=== PATIENT | male | born 1955 | race African-American/Black ===

== ENCOUNTER → 2016-07-01 | Outpatient (CLI) | payer MEDICAID ==
[2016-07-01 15:22] LABS: HEMATOCRIT 29.6 % (37.9-51.0); HEMOGLOBIN 9.7 g/dL (13.5-17.0); HGB HCT DIFFERENCE -0.5; MEAN CORPUSCULAR HEMOGLOBIN 26.4 pg (27.0-33.4); MEAN CORPUSCULAR HGB CONC 32.7 g/dL (32.0-36.0); MEAN CORPUSCULAR VOLUME 81 fl (80-97); RED BLOOD COUNT 3.66 10^6/uL (4.35-5.55); RED CELL DISTRIBUTION WIDTH 17.3 % (11.5-14.0); WHITE BLOOD COUNT 7.7 10^3/uL (4.0-10.5)
[2016-07-01 15:30] LABS: APPEARANCE,URINE CLEAR; BILIRUBIN,URINE NEGATIVE (NEGATIVE); GLUCOSE, URINE 50 mg/dL (NEGATIVE); KETONES,URINE NEGATIVE (NEGATIVE); LEUKOCYTE ESTERASE,URINE NEGATIVE (NEGATIVE); NITRITE,URINE NEGATIVE (NEGATIVE); PROTEIN,URINE 100 mg/dL (NEGATIVE); URINE SPECIFIC GRAVITY 1.017
[2016-07-01 15:44] LABS: ANION GAP 15 (5-19); BLOOD UREA NITROGEN 29 mg/dL (7-20); CALCIUM 8.8 mg/dL (8.4-10.2); CARBON DIOXIDE 22 mmol/L (22-30); CHLORIDE 105 mmol/L (98-107); GLUCOSE 192 mg/dL (75-110); MAGNESIUM 1.7 mg/dL (1.6-2.3); POTASSIUM 4.1 mmol/L (3.6-5.0); SODIUM 141.6 mmol/L (137-145)
== END ==
LOC: OD 13:58
PROVIDERS: ATTEND Internal Medicine Nephrology
DX: E11.22 Type 2 diabetes mellitus with diabetic chronic kidney disease (principal); N18.3 Chronic kidney disease, stage 3 (moderate); E87.5 Hyperkalemia; R80.9 Proteinuria, unspecified
CPT/HCPCS: 36415; 80048; 81001; 83735; 85027

== ENCOUNTER → 2016-07-17 | Outpatient (CLI) | payer MEDICAID ==
[2016-07-17 12:04] LABS: HEMATOCRIT 30.4 % (37.9-51.0); HEMOGLOBIN 9.6 g/dL (13.5-17.0); HGB HCT DIFFERENCE -1.6; MEAN CORPUSCULAR HEMOGLOBIN 25.8 pg (27.0-33.4); MEAN CORPUSCULAR HGB CONC 31.6 g/dL (32.0-36.0); MEAN CORPUSCULAR VOLUME 81 fl (80-97); RED BLOOD COUNT 3.73 10^6/uL (4.35-5.55); RED CELL DISTRIBUTION WIDTH 16.8 % (11.5-14.0); WHITE BLOOD COUNT 8.7 10^3/uL (4.0-10.5)
[2016-07-17 12:21] LABS: ANION GAP 13 (5-19); BLOOD UREA NITROGEN 28 mg/dL (7-20); CALCIUM 9.2 mg/dL (8.4-10.2); CARBON DIOXIDE 21 mmol/L (22-30); CHLORIDE 108 mmol/L (98-107); CREATININE RESULT 1.59 mg/dL (0.52-1.25); GLUCOSE 258 mg/dL (75-110); POTASSIUM 5.2 mmol/L (3.6-5.0); SODIUM 142.3 mmol/L (137-145)
[2016-07-20 15:37] LABS: A/G RATIO 0.9 (0.7-1.7); ALBUMIN 2 3.1 g/dL (2.9-4.4); ALPHA-1-GLOBULIN 2 0.2 g/dL (0.0-0.4); PROTEIN TOTAL SERUM 6.7 g/dL (6.0-8.5)
== END ==
LOC: OD 10:42
PROVIDERS: ATTEND Internal Medicine Nephrology
DX: E11.22 Type 2 diabetes mellitus with diabetic chronic kidney disease (principal); N18.3 Chronic kidney disease, stage 3 (moderate); E87.5 Hyperkalemia; R80.9 Proteinuria, unspecified
CPT/HCPCS: 36415; 80048; 82728; 83540; 83550; 84165; 84443; 85027

== ENCOUNTER → 2016-08-03 | Outpatient (CLI) | payer MEDICAID ==
[2016-08-03 12:09] LABS: ABSOLUTE BASOPHILS # (AUTO) 0.1 10^3/uL (0.0-0.2); ABSOLUTE EOSINOPHILS # (AUTO) 0.3 10^3/uL (0.0-0.6); ABSOLUTE LYMPHOCYTES (AUTO) 2.7 10^3/uL (0.5-4.7); ABSOLUTE MONOCYTES (AUTO) 0.7 10^3/uL (0.1-1.4); ABSOLUTE NEUT (AUTO) 4.2 10^3/uL (1.7-8.2); BASOPHILS % (AUTO) 0.8 % (0-2); EOSINOPHILS % (AUTO) 3.5 % (0-6); HEMATOCRIT 29.7 % (37.9-51.0); HEMOGLOBIN 9.7 g/dL (13.5-17.0); HGB HCT DIFFERENCE -0.6; LYMPHOCYTES % (AUTO) 34.1 % (13-45); MEAN CORPUSCULAR HEMOGLOBIN 26.1 pg (27.0-33.4); MEAN CORPUSCULAR HGB CONC 32.6 g/dL (32.0-36.0); MEAN CORPUSCULAR VOLUME 80 fl (80-97); MONOCYTES % (AUTO) 8.4 % (3-13); SEGMENTED NEUTROPHILS % (AUTO) 53.2 % (42-78)
[2016-08-03 12:44] LABS: ANION GAP 12 (5-19); BLOOD UREA NITROGEN 29 mg/dL (7-20); CALCIUM 8.7 mg/dL (8.4-10.2); CARBON DIOXIDE 23 mmol/L (22-30); CHLORIDE 108 mmol/L (98-107); CREATININE RESULT 1.78 mg/dL (0.52-1.25); GLUCOSE 365 mg/dL (75-110); POTASSIUM 4.1 mmol/L (3.6-5.0); SODIUM 143.1 mmol/L (137-145)
== END ==
LOC: LAB 11:33
PROVIDERS: ATTEND Internal Medicine Nephrology
DX: G56.01 Carpal tunnel syndrome, right upper limb (principal); G56.02 Carpal tunnel syndrome, left upper limb; D64.9 Anemia, unspecified; N18.3 Chronic kidney disease, stage 3 (moderate)
CPT/HCPCS: 36415; 71010; 80048; 82728; 83540; 83550; 85025

== ENCOUNTER → 2016-09-14 | Outpatient (CLI) | payer OTHER, MEDICAID ==
[2016-09-14 14:15] LABS: APPEARANCE,URINE CLEAR; BILIRUBIN,URINE NEGATIVE (NEGATIVE); GLUCOSE, URINE NEGATIVE (NEGATIVE); KETONES,URINE NEGATIVE (NEGATIVE); LEUKOCYTE ESTERASE,URINE NEGATIVE (NEGATIVE); NITRITE,URINE NEGATIVE (NEGATIVE); PROTEIN,URINE 100 mg/dL (NEGATIVE); URINE SPECIFIC GRAVITY 1.012; UROBILINOGEN,URINE NEGATIVE mg/dL (<2.0)
[2016-09-14 14:17] LABS: HEMATOCRIT 34.6 % (37.9-51.0); HEMOGLOBIN 11.4 g/dL (13.5-17.0); HGB HCT DIFFERENCE -0.4; MEAN CORPUSCULAR HEMOGLOBIN 27.5 pg (27.0-33.4); MEAN CORPUSCULAR HGB CONC 32.9 g/dL (32.0-36.0); MEAN CORPUSCULAR VOLUME 84 fl (80-97); RED BLOOD COUNT 4.14 10^6/uL (4.35-5.55); RED CELL DISTRIBUTION WIDTH 18.4 % (11.5-14.0); WHITE BLOOD COUNT 7.4 10^3/uL (4.0-10.5)
[2016-09-14 14:34] LABS: ANION GAP 14 (5-19); BLOOD UREA NITROGEN 31 mg/dL (7-20); CALCIUM 9.4 mg/dL (8.4-10.2); CARBON DIOXIDE 21 mmol/L (22-30); CHLORIDE 111 mmol/L (98-107); CREATININE RESULT 1.78 mg/dL (0.52-1.25); GLUCOSE 115 mg/dL (75-110); POTASSIUM 4.9 mmol/L (3.6-5.0); SODIUM 145.9 mmol/L (137-145)
== END ==
LOC: OD 13:08
PROVIDERS: ATTEND Internal Medicine Nephrology
DX: I12.9 Hypertensive chronic kidney disease with stage 1 through stage 4 chronic kidney disease, or unspecified chronic kidney disease (principal); N18.3 Chronic kidney disease, stage 3 (moderate); E11.9 Type 2 diabetes mellitus without complications; D64.9 Anemia, unspecified
CPT/HCPCS: 36415; 80048; 81001; 82728; 83540; 83550; 85027

== ENCOUNTER → 2017-02-02 | Outpatient (CLI) | payer MEDICAID ==
[2017-02-02 13:18] LABS: HEMATOCRIT 28.4 % (37.9-51.0); HEMOGLOBIN 9.4 g/dL (13.5-17.0); HGB HCT DIFFERENCE -0.2; MEAN CORPUSCULAR HEMOGLOBIN 28.7 pg (27.0-33.4); MEAN CORPUSCULAR HGB CONC 33.1 g/dL (32.0-36.0); MEAN CORPUSCULAR VOLUME 87 fl (80-97); RED BLOOD COUNT 3.27 10^6/uL (4.35-5.55); RED CELL DISTRIBUTION WIDTH 14.5 % (11.5-14.0); WHITE BLOOD COUNT 8.5 10^3/uL (4.0-10.5)
[2017-02-02 13:22] LABS: APPEARANCE,URINE CLEAR; BILIRUBIN,URINE NEGATIVE (NEGATIVE); GLUCOSE, URINE 50 mg/dL (NEGATIVE); KETONES,URINE NEGATIVE (NEGATIVE); LEUKOCYTE ESTERASE,URINE NEGATIVE (NEGATIVE); NITRITE,URINE NEGATIVE (NEGATIVE); PROTEIN,URINE 100 mg/dL (NEGATIVE); URINE SPECIFIC GRAVITY 1.009; UROBILINOGEN,URINE NEGATIVE mg/dL (<2.0)
[2017-02-02 13:42] LABS: URINE CREATININE 67.4 mg/dL (22-328)
[2017-02-02 13:45] LABS: ANION GAP 10 (5-19); BLOOD UREA NITROGEN 29 mg/dL (7-20); CALCIUM 8.6 mg/dL (8.4-10.2); CARBON DIOXIDE 19 mmol/L (22-30); CHLORIDE 115 mmol/L (98-107); CREATININE RESULT 2.35 mg/dL (0.52-1.25); GLUCOSE 196 mg/dL (75-110); POTASSIUM 4.9 mmol/L (3.6-5.0); SODIUM 144.1 mmol/L (137-145)
== END ==
LOC: OD 12:03
PROVIDERS: ATTEND Internal Medicine Nephrology
DX: E87.5 Hyperkalemia (principal); N18.3 Chronic kidney disease, stage 3 (moderate); D64.9 Anemia, unspecified; R80.9 Proteinuria, unspecified
CPT/HCPCS: 36415; 80048; 81001; 82570; 84156; 85027

== ENCOUNTER → 2017-02-17 | Outpatient (CLI) | payer MEDICAID | LOC: OD 09:31 | PROVIDERS: ATTEND Urology | DX: N40.1 Benign prostatic hyperplasia with lower urinary tract symptoms (principal) | CPT/HCPCS: 36415; 84153 ==

== ENCOUNTER 2017-03-27 11:21 | Observation (INO) | payer MEDICAID ==
[2017-03-27] MEDS ORDERED: ONDANSETRON HCL INJ/PF 4 MG/2 ML SDV IV ONE (11:44)
[2017-03-27] MEDS ORDERED: NORMAL SALINE 1000 ML 1,000 ML IV ONE ×2 (11:44→14:55)
[2017-03-27] MEDS ORDERED: MORPHINE SULFATE 10 MG/ML INJ IV ONE (11:45)
[2017-03-27 11:54] LABS: ABSOLUTE BASOPHILS # (AUTO) 0.1 10^3/uL (0.0-0.2); ABSOLUTE EOSINOPHILS # (AUTO) 0.1 10^3/uL (0.0-0.6); ABSOLUTE LYMPHOCYTES (AUTO) 2.5 10^3/uL (0.5-4.7); ABSOLUTE MONOCYTES (AUTO) 0.8 10^3/uL (0.1-1.4); ABSOLUTE NEUT (AUTO) 8.1 10^3/uL (1.7-8.2); EOSINOPHILS % (AUTO) 0.6 % (0-6); HEMATOCRIT 35.6 % (37.9-51.0); HEMOGLOBIN 12.3 g/dL (13.5-17.0); HGB HCT DIFFERENCE 1.3; LYMPHOCYTES % (AUTO) 21.8 % (13-45); MEAN CORPUSCULAR HEMOGLOBIN 28.9 pg (27.0-33.4); MEAN CORPUSCULAR HGB CONC 34.4 g/dL (32.0-36.0); MEAN CORPUSCULAR VOLUME 84 fl (80-97); MONOCYTES % (AUTO) 6.7 % (3-13); RED BLOOD COUNT 4.25 10^6/uL (4.35-5.55); RED CELL DISTRIBUTION WIDTH 14.7 % (11.5-14.0); SEGMENTED NEUTROPHILS % (AUTO) 69.9 % (42-78); WHITE BLOOD COUNT 11.5 10^3/uL (4.0-10.5)
--- NOTE | 2017-03-27 12:03 | ER Document Report ---
ED GI/ - General Chief Complaint: Nausea/Vomiting Stated Complaint: VOMITING Time Seen by Provider: 03/27/17 11:43 Notes: Patient says he has been vomiting with abdominal pains since Wednesday. Has not had any diarrhea. No blood in vomitus. Abdominal pain is all over, but mostly in the upper central abdominal region. Has never had this before. No history of pancreatitis. Denies alcohol intake. Patient is an insulin-dependent diabetic. Blood sugars have not been running excessively high. Unaware of any fever. Never had any abdominal surgeries. TRAVEL OUTSIDE OF THE [place] IN LAST 30 DAYS: No - Related Data Allergies/Adverse Reactions: No Known Allergies Allergy (Verified 03/27/17 11:36) Past Medical History - Social History Smoking Status: Current Every Day Smoker Frequency of alcohol use: None Family History: Reviewed & Not Pertinent, DM - Past Medical History Cardiac Medical History: Reports: Hx Hypercholesterolemia, Hx Hypertension Endocrine Medical History: Reports: Hx Diabetes Mellitus Type 1, Hx Diabetes Mellitus Type 2 Musculoskeltal Medical History: Reports Hx Arthritis - GENERALIZED, Reports Other - Chronic back pain, no surgery Psychiatric Medical History: Reports: Hx Depression Past Surgical History: Reports: Hx Orthopedic Surgery - left knee - Immunizations Hx Diphtheria, Pertussis, Tetanus Vaccination: Yes - unk Review of Systems - Review of Systems Notes: REVIEW OF SYSTEMS: CONSTITUTIONAL : Denies fever. EENT: Denies eye, ear, nose or mouth or throat pain or other symptoms. CARDIOVASCULAR: Denies chest pain. RESPIRATORY: Denies cough, chest congestion, or shortness of breath. GASTROINTESTINAL: See HPI. GENITOURINARY: Denies difficulty or painful urinating, urinary frequency, blood in urine. MUSCULOSKELETAL: Denies back or neck pain. Denies joint pain or swelling. SKIN: Denies rash or skin lesions. NEUROLOGICAL: Denies LOC or altered mental status. Denies headache. Denies sensory loss or motor deficits. ALL OTHER SYSTEMS REVIEWED AND NEGATIVE. Physical Exam - Vital signs Vitals: Temp Pulse Resp BP Pulse Ox 98.0 F 101 H 16 158/84 H 100 03/27/17 11:31 03/27/17 11:31 03/27/17 11:31 03/27/17 11:31 03/27/17 11:31 Interpretation: Hypertensive - Very minimal - Notes Notes: PHYSICAL EXAMINATION: GENERAL: Well-appearing, in no acute distress. Vital signs are all essentially normal. HEAD: Atraumatic, normocephalic. EYES: Pupils equal round and reactive to light, extraocular movements intact. ENT: oropharynx clear without exudates. Moist mucous membranes. NECK: Normal range of motion, supple. LUNGS: Breath sounds clear and equal bilaterally. HEART: Regular rate and rhythm without murmurs. ABDOMEN: Tender epigastrium and right upper quadrant with some mild guarding in those areas. No other guarding or rebound. No masses felt. No bruits heard. BACK: No tenderness throughout entire back. EXTREMITIES: Normal range of motion without pain. NEUROLOGICAL: Normal speech, normal gait. Normal sensory, motor, and reflex exams. Awake, alert, and oriented x3. Cranial nerves normal. PSYCH: Normal mood, normal affect. SKIN: Warm, dry, no rashes. Course - Re-evaluation Re-evalutation: 03/27/17 12:25 Patient received Zofran and bolus of saline in route here with EMS. Patient was given morphine for his pain and more Zofran for nausea. 03/27/17 14:49 Labs reveal a very slight elevation in patient's lipase. CT scan shows calcifications of the pancreas suggestive of chronic pancreatitis. Patient's chemistries show increasing renal insufficiency with a creatinine of 3.00 and a BUN of 32. Discussed with hospitalist on-call who will admit the patient for observation to fluids and pain control. - Vital Signs Vital signs: Temp Pulse Resp BP Pulse Ox 98.0 F 101 H 25 H 154/81 H 99 03/27/17 11:31 03/27/17 11:31 03/27/17 12:01 03/27/17 12:01 03/27/17 12:01 - Laboratory Result Diagrams: 03/27/17 11:40 03/27/17 11:40 Laboratory results interpreted by me: 03/27/17 03/27/17 03/27/17 11:40 11:40 13:30 WBC 11.5 H RBC 4.25 L Hgb 12.3 L Hct 35.6 L RDW 14.7 H Potassium 3.5 L BUN 32 H Creatinine 3.00 H Est GFR ( Amer) 26 L Est GFR (Non-Af Amer) 22 L Glucose 196 H Direct Bilirubin 0.5 H AST 15 L ALT 19 L Alkaline Phosphatase 221 H Lipase 397.5 H Urine Protein >=500 H Urine Glucose (UA) 50 H Urine Blood SMALL H - Diagnostic Test Radiology reviewed: Image reviewed, Reports reviewed - CT scan of the abdomen shows calcifications of the pancreas, consistent with chronic pancreatitis. Gallbladder does not show any inflammation or stones. Appendix normal. - EKG Interpretation by Me EKG shows normal: Sinus rhythm Rate: Normal Rhythm: NSR Additional EKG results interpreted by me: 03/27/17 14:51 EKG shows no acute processes. Discharge - Discharge Clinical Impression: Abdominal pain, Pancreatitis, Renal insufficiency Condition: Stable Disposition: ADMITTED OBSERVATION Admitting Provider: Hospitalist Unit Admitted: Medical Floor Referrals: ELIAS KRUEGER MD [Primary Care Provider] - Follow up as needed
[2017-03-27 12:13] LABS: ALANINE AMINOTRANSFERASE 19 U/L (21-72); ALBUMIN 3.9 g/dL (3.5-5.0); ALKALINE PHOSPHATASE 221 U/L (38-126); ANION GAP 16 (5-19); ASPARTATE AMINO TRANSFERASE 15 U/L (17-59); BILIRUBIN,DIRECT 0.5 mg/dL (0.0-0.4); BILIRUBIN,TOTAL 0.5 mg/dL (0.2-1.3); BLOOD UREA NITROGEN 32 mg/dL (7-20); CALCIUM 9.3 mg/dL (8.4-10.2); CARBON DIOXIDE 24 mmol/L (22-30); CHLORIDE 104 mmol/L (98-107); GLUCOSE 196 mg/dL (75-110); LIPASE 397.5 U/L (23-300); POTASSIUM 3.5 mmol/L (3.6-5.0); SODIUM 143.9 mmol/L (137-145); TOTAL PROTEIN 7.4 g/dL (6.3-8.2)
[2017-03-27 13:59] LABS: APPEARANCE,URINE CLEAR; BILIRUBIN,URINE NEGATIVE (NEGATIVE); GLUCOSE, URINE 50 mg/dL (NEGATIVE); KETONES,URINE NEGATIVE (NEGATIVE); LEUKOCYTE ESTERASE,URINE NEGATIVE (NEGATIVE); NITRITE,URINE NEGATIVE (NEGATIVE); PROTEIN,URINE >=500 mg/dL (NEGATIVE); URINE SPECIFIC GRAVITY 1.016; UROBILINOGEN,URINE NEGATIVE mg/dL (<2.0)
--- NOTE | 2017-03-27 14:07 | RADIOLOGY REPORT (SQ) ---
EXAM DESCRIPTION: CT ABD/PELVIS NO ORAL OR IV COMPLETED DATE/TIME: 03/27/2017 1:50 pm REASON FOR STUDY: Epigtric,RUQ pain with vomit, renal insuffic, IDDM COMPARISON: 05/19/2016 TECHNIQUE: CT scan of the abdomen and pelvis performed without intravenous or oral contrast. Images reviewed with lung, soft tissue, and bone windows. Reconstructed coronal and sagittal MPR images revi ewed. All images stored on PACS. All CT scanners at this facility use dose modulation, iterative reconstruction, and/or weight based d osing when appropriate to reduce radiation dose to as low as reasonably achievable (ALARA). [facility]: Dose Right [facility]: CareDose [facility]: Dose Right [facility]: Teradose 4D [facility]: [employer] Technologies RADIATION DOSE: Up-to-date CT equipment and radiation dose reduction techniques were employed. CTDIv ol: 17.4 mGy. DLP: 1015 mGy-cm.mGy. LIMITATIONS: None. FINDINGS: LOWER CHEST: No acute findings. NON-CONTRASTED LIVER, SPLEEN, ADRENALS: Evaluation limited by lack of IV contrast. No identified sign ificant masses. PANCREAS: Calcifications consistent with chronic pancreatitis. GALLBLADDER: No identified stones by CT criteria. No inflammatory changes to suggest cholecystitis. RIGHT KIDNEY AND URETER: No suspicious masses. Assessment limited by lack of IV contrast. No signif icant calcifications. No hydronephrosis or hydroureter. LEFT KIDNEY AND URETER: No suspicious masses. Assessment limited by lack of IV contrast. No signifi cant calcifications. No hydronephrosis or hydroureter. AORTA AND RETROPERITONEUM: No aneurysm. No retroperitoneal masses or adenopathy. BOWEL AND PERITONEAL CAVITY: No obvious masses or inflammatory changes. No free fluid. APPENDIX: Normal. PELVIS, BLADDER, AND ABDOMINAL WALL:No abnormal masses. No free fluid. Bladder normal. BONES: No significant findings. OTHER: No other significant finding. IMPRESSION: Chronic pancreatitis. COMMENT: Quality ID # [id number]: Final reports with documentation of one or more dose reduction techniques (e.g., Automated exposure control, adjustment of the mA and/or kV according to patient size, use of iterative reconstruction technique) TECHNICAL DOCUMENTATION: JOB ID: [id number]- All Rights Reserved
[2017-03-27 15:16] LABS: CREATINE KINASE 218 U/L (55-170)
[2017-03-27 15:18] LABS: ALCOHOL < 10 mg/dL (NONE DETECTED)
[2017-03-27] MEDS ORDERED: FAMOTIDINE INJ/PF 20 MG/2 ML SDV IV ONE ×2 (15:21→16:00)
[2017-03-27 15:33] LABS: URINE BARBITURATES SCREEN NEGATIVE; URINE METHADONE SCREEN NEGATIVE; URINE PHENCYCLIDINE SCREEN NEGATIVE
[2017-03-27 15:35] LABS: URINE OPIATES LOW UNCONFIRMED POSITIVE
[2017-03-27] MEDS ORDERED: HALOPERIDOL LACTATE INJ 5 MG/1 ML VIAL IV ONE (15:35)
[2017-03-27] MEDS ORDERED: GLUCAGON,HUMAN RECOMB 1 MG INJ IM PRN (15:40)
[2017-03-27] MEDS ORDERED: INSULIN LISPRO 100 UNIT/ML 3 ML VIAL SUBCUT PRN (15:40)
[2017-03-27] MEDS ORDERED: DEXTROSE 50%-WATER 25 GM/50 ML DISP.SYRIN IV PRN ×2 (15:40)
[2017-03-27] MEDS ORDERED: DEXTROSE 40% GEL 15 GM TUBE PO PRN ×2 (15:40)
--- NOTE | 2017-03-27 15:54 | PDOC H&P ---
History of Present Illness Admission Date/PCP: ELIAS KRUEGER MD History of Present Illness: SANTIAGO AL is a 61 year old male with a past medical history of diabetes mellitus, hypertension, GERD, CKD stage III who presents to the emergency department with complaints of nausea vomiting abdominal pain. Patient reports that he began having nausea vomiting abdominal pain starting on Wednesday. He reports that he was recently switched to [place]. He complains of midepigastric and right upper quadrant pain although he does also complain of right lower quadrant pain. He reports he less than a bowel movement on Wednesday. He states his pain radiates through to his back. He reports he had a colonoscopy about 2 weeks ago and had polyps that were removed and he reports that he does not have to have a colonoscopy for 5 years. Patient denies ever having had pancreatitis before, but his CT reports chronic pancreatitis. Patient also denies the use of illicit drugs but his drug screen is positive for marijuana as well as cocaine. He is referred to the hospitalist service for intractable nausea vomiting abdominal pain Patient's medications are currently unavailable at this time and her undergoing reconciliation. He does not know them and reports he gets his medicines filled at Dr. Higgins. Past Medical History Cardiac Medical History: Reports: Hyperlipidema, Hypertension Denies: Coronary Artery Disease, Myocardial Infarction Pulmonary Medical History: Denies: Asthma, Bronchitis, Chronic Obstructive Pulmonary Disease (COPD), Pneumonia Neurological Medical History: Denies: Seizures Endocrine Medical History: Reports: Diabetes Mellitus Type 2 Renal/ Medical History: Reports: Chronic Kidney Disease GI Medical History: Reports: Gastroesophageal Reflux Disease Musculoskeltal Medical History: Reports: Arthritis - GENERALIZED, Other - Chronic back pain, no surgery Psychiatric Medical History: Reports: Depression, Substance Abuse, Tobacco Dependency Hematology: Reports: Anemia Past Surgical History Past Surgical History: Reports: Orthopedic Surgery - left knee, Other - Amputation of 3 toes Social History Smoking Status: Current Every Day Smoker Frequency of Alcohol Use: Occasional Hx Recreational Drug Use: No Drugs: None Hx Prescription Drug Abuse: No - Advance Directive Resuscitation Status: Full Code Surrogate healthcare decision maker:: Declines to list anyone at this time Family History Family History: DM Parental Family History Reviewed: Yes Children Family History Reviewed: Yes Sibling(s) Family History Reviewed.: Yes Medication/Allergy Home Medications: Aspirin [Aspirin 81 mg Chewable Tablet] 1 tab PO DAILY 12/05/15 Duloxetine HCl 1 cap PO DAILY 12/05/15 Insulin NPH Human Isophane [Humulin N] 75 units SQ 0500,2000 12/11/15 Ferrous Sulfate [Feosol 325 mg Tablet] 325 mg PO DAILY #30 tablet 12/14/15 Gabapentin [Neurontin 300 mg Capsule] 600 mg PO TID #180 capsule 12/14/15 Insulin Aspart [Novolog Flexpen] 0 unit SUBCUT .SLD SCALE #1 pen 12/14/15 Atorvastatin Calcium 40 mg PO DAILY 05/19/16 Pregabalin [Lyrica] 1 cap PO BID 05/19/16 Tamsulosin HCl [Tamsulosin HCl] 1 tab PO DAILY 05/19/16 Allergies/Adverse Reactions: No Known Allergies Allergy (Verified 03/27/17 11:36) Review of Systems Constitutional: ABSENT: chills, fever(s), headache(s), weight gain, weight loss Eyes: ABSENT: visual disturbances Ears: ABSENT: hearing changes Cardiovascular: ABSENT: chest pain, dyspnea on exertion, edema, orthropnea, palpitations Respiratory: ABSENT: cough, dyspnea, hemoptysis, sputum Gastrointestinal: PRESENT: abdominal pain, heartburn, nausea, vomiting. ABSENT : coffee ground emesis, constipation, diarrhea, hematemesis, hematochezia, melena Genitourinary: ABSENT: dysuria, hematuria, nocturia Musculoskeletal: PRESENT: back pain. ABSENT: joint swelling Integumentary: ABSENT: rash, wounds Neurological: PRESENT: other - Chronic neuropathy. ABSENT: abnormal gait, abnormal speech, confusion, dizziness, focal weakness, syncope Psychiatric: ABSENT: anxiety, depression, homidical ideation, suicidal ideation Endocrine: ABSENT: cold intolerance, heat intolerance, polydipsia, polyuria Hematologic/Lymphatic: ABSENT: easy bleeding, easy bruising Physical Exam Vital Signs: Temp Pulse Resp BP Pulse Ox 98.0 F 101 H 25 H 154/81 H 99 03/27/17 11:31 03/27/17 11:31 03/27/17 12:01 03/27/17 12:01 03/27/17 12:01 General appearance: PRESENT: mild distress, obese, well-developed, well- nourished Head exam: PRESENT: atraumatic, normocephalic Eye exam: PRESENT: conjunctiva pink, EOMI, PERRLA. ABSENT: scleral icterus Ear exam: PRESENT: normal external ear exam Mouth exam: PRESENT: moist, tongue midline Neck exam: ABSENT: JVD, lymphadenopathy, thyromegaly, tracheal deviation Respiratory exam: PRESENT: prolonged expiratory phas, symmetrical, unlabored, wheezes - Light end expiratory. ABSENT: accessory muscle use, crackles, rales, rhonchi, tachypnea Cardiovascular exam: PRESENT: RRR. ABSENT: diastolic murmur, rubs, systolic murmur Pulses: PRESENT: normal radial pulses Vascular exam: PRESENT: normal capillary refill GI/Abdominal exam: PRESENT: distended, guarding - Over exaggerated voluntary, hypoactive bowel sounds, normal bowel sounds, soft, tenderness - Diffusely particularly right lower right upper and midepigastric. ABSENT: firm, mass, organolmegaly, rebound, rigid Rectal exam: PRESENT: deferred Extremities exam: PRESENT: full ROM. ABSENT: clubbing, pedal edema Neurological exam: PRESENT: alert, awake, oriented to person, oriented to place , oriented to time, oriented to situation, CN II-XII grossly intact. ABSENT: motor sensory deficit Psychiatric exam: PRESENT: appropriate affect, other - Hospital. ABSENT: homicidal ideation, suicidal ideation Skin exam: PRESENT: dry, warm. ABSENT: cyanosis, rash Results Laboratory Results: 03/27/17 11:40 03/27/17 11:40 03/27/17 03/27/17 03/27/17 11:40 11:40 13:30 WBC 11.5 H RBC 4.25 L Hgb 12.3 L Hct 35.6 L MCV 84 MCH 28.9 MCHC 34.4 RDW 14.7 H Plt Count 283 Seg Neutrophils % 69.9 Lymphocytes % 21.8 Monocytes % 6.7 Eosinophils % 0.6 Basophils % 1.0 Absolute Neutrophils 8.1 Absolute Lymphocytes 2.5 Absolute Monocytes 0.8 Absolute Eosinophils 0.1 Absolute Basophils 0.1 Sodium 143.9 Potassium 3.5 L Chloride 104 Carbon Dioxide 24 Anion Gap 16 BUN 32 H Creatinine 3.00 H Est GFR ( Amer) 26 L Est GFR (Non-Af Amer) 22 L Glucose 196 H Calcium 9.3 Total Bilirubin 0.5 AST 15 L ALT 19 L Alkaline Phosphatase 221 H Total Protein 7.4 Albumin 3.9 Lipase 397.5 H Urine Color YELLOW Urine Appearance CLEAR Urine pH 6.0 Ur Specific [place] 1.016 Urine Protein >=500 H Urine Glucose (UA) 50 H Urine Ketones NEGATIVE Urine Blood SMALL H Urine Nitrite NEGATIVE Ur Leukocyte Esterase NEGATIVE Urine WBC (Auto) 1 Urine RBC (Auto) 9 03/27/17 03/27/17 11:40 11:40 Creatine Kinase 218 H Troponin I 0.015 Impressions: Abdomen/Pelvis CT 03/27/17 12:55 IMPRESSION: Chronic pancreatitis. Assessment & Plan - Diagnosis (1) Abdominal pain Qualifiers: Abdominal location: unspecified location Qualified Code(s): R10.9 - Unspecified abdominal pain Is this a current diagnosis for this admission?: Yes Plan: Patient has multiple reasons for abdominal pain. He is constipated. He has chronic pancreatitis. I also have concerns patient may have a component of cyclic vomiting syndrome secondary to gastroparesis plus or minus THC-induced cyclic vomiting. (2) Acute on chronic renal failure Qualifiers: Chronic kidney disease stage: stage 3 (moderate) Is this a current diagnosis for this admission?: Yes Plan: Gentle hydration (3) Chronic pancreatitis Qualifiers: Pancreatitis type: unspecified pancreatitis type Qualified Code(s): K86.1 - Other chronic pancreatitis Is this a current diagnosis for this admission?: Yes Plan: Check FLP and right upper quadrant ultrasound (4) Constipation Qualifiers: Constipation type: unspecified constipation type Qualified Code(s): K59.00 - Constipation, unspecified Is this a current diagnosis for this admission?: Yes Plan: Patient is quite constipated and is easily visible on his CAT scan. Will give Dulcolax (5) Diabetic neuropathy Qualifiers: Diabetes mellitus type: type 2 Diabetes mellitus complication detail: diabetic polyneuropathy Qualified Code(s): E11.42 - Type 2 diabetes mellitus with diabetic polyneuropathy Is this a current diagnosis for this admission?: Yes Plan: We will resume patient's Lyrica at a lower dose. He was apparently receiving 225 mg p.o. twice daily as an outpatient as of October, but this is not an appropriate dose based on his renal function. We will adjust this for max dose of 150mg daily. (6) Tobacco abuse Is this a current diagnosis for this admission?: Yes Plan: Have offered nicotine patch but he declined - Time Time Spent: 50 to 70 Minutes Medications reviewed and adjusted accordingly: Yes Anticipated discharge: Home Within: within 48 hours
[2017-03-27] MEDS ORDERED: METOCLOPRAMIDE HCL INJ/PF 10 MG/2 ML SDV IV ONE (16:00)
[2017-03-27] MEDS ORDERED: MORPHINE SULFATE 10 MG/ML INJ IV PRN (16:19)
--- NOTE | 2017-03-27 16:29 | EKG REPORT ---
SEVERITY:- ABNORMAL ECG - SINUS RHYTHM ABNRM R PROG, CONSIDER ASMI OR LEAD PLACEMENT BORDERLINE T WAVE ABNORMALITIES BORDERLINE PROLONGED QT INTERVAL : Confirmed by: Mireya George 27-Mar-2017 16:28:53
[2017-03-27] MEDS ORDERED: PANTOPRAZOLE SODIUM 40 MG VIAL IV ONE (16:30)
[2017-03-27] MEDS ORDERED: METHYLPREDNISOLONE INJ 40 MG/1 ML SDV IV ONE (16:30)
[2017-03-27] MEDS ORDERED: DIPHENHYDRAMINE HCL 50 MG/ML VIAL IV ONE (17:00)
--- NOTE | 2017-03-27 17:21 | RADIOLOGY REPORT (SQ) ---
EXAM DESCRIPTION: U/S ABDOMEN LIMITED W/O DOP COMPLETED DATE/TIME: 03/27/2017 5:06 pm REASON FOR STUDY: elevated alp COMPARISON: None. TECHNIQUE: Dynamic and static grayscale images acquired of the abdomen and recorded on PACS. Additio nal selected color Doppler and spectral images recorded. LIMITATIONS: Body habitus. FINDINGS: PANCREAS: Intervening bowel gas obscures visualization of the pancreas. LIVER: No masses. Echotexture normal. LIVER VASCULATURE: Normal directional flow of the main portal vein and hepatic veins. GALLBLADDER: No stones. Normal wall thickness. No pericholecystic fluid. ULTRASOUND-DETECTED HADLEY'S SIGN: Negative. INTRAHEPATIC DUCTS AND COMMON DUCT: CBD and intrahepatic ducts normal caliber. No filling defects. INFERIOR VENA CAVA: Not assessed. AORTA: The proximal aorta measures 2.1 cm; the mid and distal aorta were not adequately visualized. RIGHT KIDNEY: Normal size. Normal echogenicity. No solid or suspicious masses. No hydronephrosis. No calcifications. PERITONEAL AND RIGHT PLEURAL SPACE: No ascites or effusions. OTHER: No other significant findings. IMPRESSION: Limited examination due to body habitus. No evidence of cholecystitis. No intrahepatic or extrahepatic biliary dilation. The pancreas was not adequately visualized. TECHNICAL DOCUMENTATION: JOB ID: [id number] [employer]- All Rights Reserved
[2017-03-27] MEDS: NORMAL SALINE 1000 ML 1,000 ML IV PRN (18:15)
[2017-03-27 18:41] LABS: CREATINE KINASE MB 0.77 ng/mL (<4.55); TROPONIN I 0.018 ng/mL
[2017-03-27] MEDS: METOCLOPRAMIDE HCL INJ/PF 10 MG/2 ML SDV IV SCH (23:06)
[2017-03-27] MEDS: HEPARIN SOD (PORCINE) 5,000 UNIT/ML 1 ML SYRINGE SUBCUT SCH (23:06)
[2017-03-28 00:52] LABS: CREATINE KINASE MB 1.21 ng/mL (<4.55); TROPONIN I 0.022 ng/mL
[2017-03-28] MEDS: METOCLOPRAMIDE HCL INJ/PF 10 MG/2 ML SDV IV SCH ×3 (04:28→14:32)
[2017-03-28 06:29] LABS: CHOLESTEROL 140.65 mg/dL (0-200); Direct HDL 38 mg/dL (>40); TRIGLYCERIDES 133 mg/dL (<150)
[2017-03-28 06:40] LABS: DIRECT LDL 76 mg/dL (<100)
[2017-03-28 06:42] LABS: CREATINE KINASE MB 1.13 ng/mL (<4.55); TROPONIN I 0.026 ng/mL
[2017-03-28] MEDS: HEPARIN SOD (PORCINE) 5,000 UNIT/ML 1 ML SYRINGE SUBCUT SCH ×2 (06:51→14:32)
[2017-03-28] MEDS ORDERED: BISACODYL 5 MG TABEC PO ONE (07:34)
[2017-03-28] MEDS: NORMAL SALINE 1000 ML 1,000 ML IV PRN (08:02)
[2017-03-28 09:44] LABS: ABSOLUTE BASOPHILS # (AUTO) 0.1 10^3/uL (0.0-0.2); ABSOLUTE LYMPHOCYTES (AUTO) 2.6 10^3/uL (0.5-4.7); ABSOLUTE MONOCYTES (AUTO) 1.4 10^3/uL (0.1-1.4); ABSOLUTE NEUT (AUTO) 8.2 10^3/uL (1.7-8.2); BASOPHILS % (AUTO) 0.8 % (0-2); EOSINOPHILS % (AUTO) 0.1 % (0-6); HEMATOCRIT 33.2 % (37.9-51.0); HGB HCT DIFFERENCE -0.2; MEAN CORPUSCULAR HEMOGLOBIN 28.3 pg (27.0-33.4); MEAN CORPUSCULAR HGB CONC 33.2 g/dL (32.0-36.0); MEAN CORPUSCULAR VOLUME 85 fl (80-97); MONOCYTES % (AUTO) 11.1 % (3-13); RED BLOOD COUNT 3.89 10^6/uL (4.35-5.55); RED CELL DISTRIBUTION WIDTH 14.7 % (11.5-14.0); WHITE BLOOD COUNT 12.2 10^3/uL (4.0-10.5)
[2017-03-28 10:01] LABS: ANION GAP 14 (5-19); BLOOD UREA NITROGEN 29 mg/dL (7-20); CARBON DIOXIDE 22 mmol/L (22-30); CHLORIDE 110 mmol/L (98-107); CREATININE RESULT 2.39 mg/dL (0.52-1.25); GLUCOSE 171 mg/dL (75-110); SODIUM 146.2 mmol/L (137-145)
[2017-03-28] MEDS ORDERED: INSULIN GLARGINE,HUM.REC.ANLOG 1,000 UNIT/10 ML UNIT SUBCUT ONE (13:00)
[2017-03-28] MEDS ORDERED: INFLUENZA ADLT QUAD (36MOS+) 2017-18 VAC 0.5 ML SYR IM PRN (14:38)
[2017-03-28 16:36] VITALS: BP 158/93
--- NOTE | 2017-03-28 16:59 | PDOC DISCHARGE SUMMARY ---
General - Admit/Disc Date/PCP Admission Date/Primary Care Provider: 03/27/17 15:37 ELIAS KRUEGER MD Discharge Date: 03/28/17 - Discharge Diagnosis (1) Acute on chronic renal failure Is this a current diagnosis for this admission?: Yes (2) Constipation Is this a current diagnosis for this admission?: Yes (3) Chronic pancreatitis Is this a current diagnosis for this admission?: Yes (4) Diabetic neuropathy Is this a current diagnosis for this admission?: Yes (5) Tobacco abuse Is this a current diagnosis for this admission?: Yes (6) Cocaine abuse Is this a current diagnosis for this admission?: Yes (7) Marijuana abuse Is this a current diagnosis for this admission?: Yes - Additional Information Resuscitation Status: Full Code Discharge Diet: Cardiac, Diabetic Discharge Activity: Activity As Tolerated Home Medications: Amlodipine Besylate [Norvasc 10 mg Tablet] 10 mg PO DAILY 03/28/17 Aspirin [Aspirin EC] 81 mg PO DAILY 03/28/17 Atorvastatin Calcium [Lipitor 40 mg Tablet] 40 mg PO QHS 03/28/17 Duloxetine HCl [Cymbalta] 30 mg PO DAILY 03/28/17 Insulin Glargine,Hum.rec.anlog [Lantus Insulin 100 Unit/1 ml 10 ml] 55 unit SUBCUT QHS 03/28/17 Insulin Regular, Human [Humulin R (Reg) Insulin 100 unit/mL] 0 unit SUBCUT .SLD SCALE 03/28/17 Lancets [Lancets Ultra Thin] 1 each ASDIR PRN #1 bottle 03/28/17 Losartan/Hydrochlorothiazide [Hyzaar 100-12.5 Tablet] 1 each PO DAILY 03/28/17 Pen Needle, Diabetic [Novotwist] 1 each ASDIR PRN #1 bot 03/28/17 Pregabalin [Lyrica 75 mg Capsule] 75 mg PO Q12 03/28/17 Timolol Maleate [Timoptic 0.5% Oph Soln 5 ml] 1 drop OS BID 03/28/17 History of Present Illness History of Present Illness: SANTIAGO AL is a 61 year old male with a past medical history of diabetes mellitus, hypertension, GERD, CKD stage III who presents to the emergency department with complaints of nausea vomiting abdominal pain. Patient reports that he began having nausea vomiting abdominal pain starting on Wednesday. He reports that he was recently switched to [place]. He complains of midepigastric and right upper quadrant pain although he does also complain of right lower quadrant pain. He reports he less than a bowel movement on Wednesday. He states his pain radiates through to his back. He reports he had a colonoscopy about 2 weeks ago and had polyps that were removed and he reports that he does not have to have a colonoscopy for 5 years. Patient denies ever having had pancreatitis before, but his CT reports chronic pancreatitis. Patient also denies the use of illicit drugs but his drug screen is positive for marijuana as well as cocaine. He is referred to the hospitalist service for intractable nausea vomiting abdominal pain Patient's medications are currently unavailable at this time and her undergoing reconciliation. He does not know them and reports he gets his medicines filled at Dr. Higgins. Hospital Course Hospital Course: Haldol in the emergency department with relief of his nausea and vomiting. Patient's urine drug screen did reveal marijuana and cocaine. He admitted to marijuana usage but was unsure how cocaine came to be in his system. Patient's abdominal pain was felt to be secondary to chronic constipation. Patient's CT revealed a large amount of stool in the right lower quadrant. Patient was able to tolerate oral without vomiting and had no recurrence of his pain. Patient received IV fluids which resulted in improvement of his creatinine to his baseline. Patient was discharged in stable condition to follow-up with his primary care provider for further evaluation. Physical Exam Vital Signs: Temp Pulse Resp BP Pulse Ox 98.8 F 98 17 158/93 H 100 03/28/17 16:34 03/28/17 16:34 03/28/17 16:34 03/28/17 16:34 03/28/17 16:34 Intake & Output 03/27/17 03/28/17 03/29/17 06:59 06:59 06:59 Intake Total 0 600 Output Total 550 Balance 0 50 Weight 106.5 kg Exam: General: Awake alert and oriented x3, no acute respiratory distress HEENT: AT/NC, PERRL, EOMI, oropharynx is moist, pink, no scleral icterus, no conjunctival injection Neck: No JVD, trachea midline Chest: Clear to auscultation bilaterally, no wheezes rhonchi or rales CV: Regular rate and rhythm, normal S1 and S2, no murmur, rub, or gallop Abdomen: Soft, nontender to palpation, nondistended, active bowel sounds; no rebound, rigidity, or guarding Extremities: No cyanosis, clubbing or edema Neuro: Cranial nerves II through XII are grossly intact without focal deficits; awake alert and oriented x3 Psych: Normal mood and affect Results Laboratory Results: 03/28/17 09:23 03/28/17 09:23 03/28/17 03/28/17 03/28/17 05:54 09:23 09:23 WBC 12.2 H RBC 3.89 L Hgb 11.0 L Hct 33.2 L MCV 85 MCH 28.3 MCHC 33.2 RDW 14.7 H Plt Count 252 Seg Neutrophils % 67.0 Lymphocytes % 21.0 Monocytes % 11.1 Eosinophils % 0.1 Basophils % 0.8 Absolute Neutrophils 8.2 Absolute Lymphocytes 2.6 Absolute Monocytes 1.4 Absolute Eosinophils 0.0 Absolute Basophils 0.1 Sodium 146.2 H Potassium 4.0 Chloride 110 H Carbon Dioxide 22 Anion Gap 14 BUN 29 H Creatinine 2.39 H Est GFR ( Amer) 34 L Est GFR (Non-Af Amer) 28 L Glucose 171 H Calcium 9.0 Triglycerides 133 Cholesterol 140.65 LDL Cholesterol Direct 76 VLDL Cholesterol 27.0 HDL Cholesterol 38 L 03/27/17 03/27/17 03/28/17 18:03 18:03 00:12 Creatine Kinase 202 H 212 H CK-MB (CK-2) 0.77 Troponin I 0.018 03/28/17 03/28/17 03/28/17 00:12 05:54 05:54 Creatine Kinase 249 H CK-MB (CK-2) 1.21 1.13 Troponin I 0.022 0.026 Impressions: Abdomen Ultrasound 03/27/17 00:00 IMPRESSION: Limited examination due to body habitus. No evidence of cholecystitis. No intrahepatic or extrahepatic biliary dilation. The pancreas was not adequately visualized. Abdomen/Pelvis CT 03/27/17 12:55 IMPRESSION: Chronic pancreatitis. Qualifiers PATEINT BEING DISCHARGED WITH ANY OF THE FOLLOWING DIAGNOSIS?: No Plan Time Spent: Less than 30 Minutes
[2017-03-28] MEDS ORDERED: AMLODIPINE BESYLATE 10 MG TABLET PO ONE (17:00)
[2017-03-28] MEDS ORDERED: TIMOLOL MALEATE 0.5% OPH SOLN 5 ML OS SCH (18:00)
[2017-03-28] MEDS ORDERED: ATORVASTATIN CALCIUM 40 MG TABLET PO SCH (22:00)
[2017-03-28] MEDS ORDERED: PREGABALIN 75 MG CAPSULE PO SCH (22:00)
[2017-03-28] MEDS ORDERED: INSULIN GLARGINE,HUM.REC.ANLOG 1,000 UNIT/10 ML UNIT SUBCUT SCH (22:00)
[2017-03-29] MEDS ORDERED: AMLODIPINE BESYLATE 10 MG TABLET PO SCH (10:00)
[2017-03-29] MEDS ORDERED: DULOXETINE HCL 30 MG CAPSULE.DR PO SCH (10:00)
[2017-03-29] MEDS ORDERED: ASPIRIN 81 MG TABLET, ENT COATED PO SCH (10:00)
== END 2017-03-28 17:04 | disposition home or self-care (01) ==
LOC: ER 11:21 → EH 15:37 → UNDOADMOB 15:43 → EH 15:43 → 5 18:01
PROVIDERS: ADMIT Family Medicine; ATTEND Family Medicine
PROC: 3E0234Z Introduction of Serum, Toxoid and Vaccine into Muscle, Percutaneous Approach (ICD-10-PCS; principal; 2017-03-28)
DX: N17.9 Acute kidney failure, unspecified (principal); I12.9 Hypertensive chronic kidney disease with stage 1 through stage 4 chronic kidney disease, or unspecified chronic kidney disease; E11.22 Type 2 diabetes mellitus with diabetic chronic kidney disease; N18.3 Chronic kidney disease, stage 3 (moderate); E11.42 Type 2 diabetes mellitus with diabetic polyneuropathy; K86.1 Other chronic pancreatitis; K59.00 Constipation, unspecified; F14.10 Cocaine abuse, uncomplicated; F12.10 Cannabis abuse, uncomplicated; K21.9 Gastro-esophageal reflux disease without esophagitis; F17.200 Nicotine dependence, unspecified, uncomplicated; Z79.4 Long term (current) use of insulin; Z79.899 Other long term (current) drug therapy; Z86.010 Personal history of colon polyps; Z89.429 Acquired absence of other toe(s), unspecified side
CPT/HCPCS: 93005; 96376; 99285; 96361; 96374; 96375; 36415 ×2; 82553 ×2; 82962 ×2; 80307 ×2; 82550 ×2; 83690; 83735; 85025 ×2; 80048; 80053; 81001; 84484 ×2; 80061; 76705; 74176; 90686; 94799; 93010; G0378 ×3; J1815 ×2; J1644 ×2; J1630; J2920; J2765 ×2; J2270; S0164; J3490; J2405; J7030 ×2; S0028

== ENCOUNTER → 2017-04-05 | Outpatient (CLI) | payer MEDICAID ==
[2017-04-05 15:26] LABS: HEMATOCRIT 32.6 % (37.9-51.0); HEMOGLOBIN 10.7 g/dL (13.5-17.0); HGB HCT DIFFERENCE -0.5; MEAN CORPUSCULAR HEMOGLOBIN 28.1 pg (27.0-33.4); MEAN CORPUSCULAR VOLUME 85 fl (80-97); RED BLOOD COUNT 3.82 10^6/uL (4.35-5.55); RED CELL DISTRIBUTION WIDTH 14.9 % (11.5-14.0); WHITE BLOOD COUNT 9.4 10^3/uL (4.0-10.5)
[2017-04-05 15:26] LABS: APPEARANCE,URINE CLEAR; BILIRUBIN,URINE NEGATIVE (NEGATIVE); GLUCOSE, URINE NEGATIVE (NEGATIVE); KETONES,URINE NEGATIVE (NEGATIVE); LEUKOCYTE ESTERASE,URINE NEGATIVE (NEGATIVE); NITRITE,URINE NEGATIVE (NEGATIVE); PROTEIN,URINE >=500 mg/dL (NEGATIVE); URINE SPECIFIC GRAVITY 1.012; UROBILINOGEN,URINE NEGATIVE mg/dL (<2.0)
[2017-04-05 15:41] LABS: ANION GAP 12 (5-19); BLOOD UREA NITROGEN 35 mg/dL (7-20); CALCIUM 9.3 mg/dL (8.4-10.2); CARBON DIOXIDE 25 mmol/L (22-30); CHLORIDE 109 mmol/L (98-107); GLUCOSE 137 mg/dL (75-110); POTASSIUM 4.5 mmol/L (3.6-5.0); SODIUM 145.9 mmol/L (137-145)
[2017-04-05 15:46] LABS: URINE CREATININE 174.1 mg/dL (22-328)
[2017-04-05 15:58] LABS: URINE PROTEIN 326.8 mg/dL (<12)
== END ==
LOC: OD 14:29
PROVIDERS: ATTEND Internal Medicine Nephrology
DX: I12.9 Hypertensive chronic kidney disease with stage 1 through stage 4 chronic kidney disease, or unspecified chronic kidney disease (principal); N18.3 Chronic kidney disease, stage 3 (moderate); E11.9 Type 2 diabetes mellitus without complications; R80.9 Proteinuria, unspecified
CPT/HCPCS: 36415; 80048; 81001; 82570; 83540; 83550; 84156; 85027

== ENCOUNTER → 2017-05-31 | Outpatient (CLI) | payer MEDICAID ==
[2017-05-31 13:09] LABS: ABSOLUTE BASOPHILS # (AUTO) 0.1 10^3/uL (0.0-0.2); ABSOLUTE EOSINOPHILS # (AUTO) 0.3 10^3/uL (0.0-0.6); ABSOLUTE LYMPHOCYTES (AUTO) 3.3 10^3/uL (0.5-4.7); ABSOLUTE NEUT (AUTO) 5.3 10^3/uL (1.7-8.2); EOSINOPHILS % (AUTO) 2.8 % (0-6); HEMATOCRIT 30.8 % (37.9-51.0); HEMOGLOBIN 10.3 g/dL (13.5-17.0); HGB HCT DIFFERENCE 0.1; LYMPHOCYTES % (AUTO) 33.2 % (13-45); MEAN CORPUSCULAR HEMOGLOBIN 28.8 pg (27.0-33.4); MEAN CORPUSCULAR HGB CONC 33.4 g/dL (32.0-36.0); MEAN CORPUSCULAR VOLUME 86 fl (80-97); MONOCYTES % (AUTO) 9.8 % (3-13); RED BLOOD COUNT 3.57 10^6/uL (4.35-5.55); RED CELL DISTRIBUTION WIDTH 14.7 % (11.5-14.0); SEGMENTED NEUTROPHILS % (AUTO) 53.2 % (42-78)
[2017-05-31 13:20] LABS: APPEARANCE,URINE CLEAR; BILIRUBIN,URINE NEGATIVE (NEGATIVE); GLUCOSE, URINE NEGATIVE (NEGATIVE); KETONES,URINE NEGATIVE (NEGATIVE); LEUKOCYTE ESTERASE,URINE NEGATIVE (NEGATIVE); NITRITE,URINE NEGATIVE (NEGATIVE); PROTEIN,URINE 100 mg/dL (NEGATIVE); URINE SPECIFIC GRAVITY 1.011; UROBILINOGEN,URINE NEGATIVE mg/dL (<2.0)
[2017-05-31 13:27] LABS: BACTERIA,URINE TRACE /HPF
[2017-05-31 13:54] LABS: ALANINE AMINOTRANSFERASE 28 U/L (21-72); ALBUMIN 3.6 g/dL (3.5-5.0); ALKALINE PHOSPHATASE 150 U/L (38-126); ANION GAP 11 (5-19); ASPARTATE AMINO TRANSFERASE 15 U/L (17-59); BILIRUBIN,DIRECT 0.3 mg/dL (0.0-0.4); BILIRUBIN,TOTAL 0.3 mg/dL (0.2-1.3); BLOOD UREA NITROGEN 46 mg/dL (7-20); CALCIUM 8.8 mg/dL (8.4-10.2); CARBON DIOXIDE 20 mmol/L (22-30); CHLORIDE 113 mmol/L (98-107); CREATININE RESULT 2.99 mg/dL (0.52-1.25); GLUCOSE 60 mg/dL (75-110); PHOSPHORUS 3.7 mg/dL (2.5-4.5); POTASSIUM 5.1 mmol/L (3.6-5.0); SODIUM 144.2 mmol/L (137-145); TOTAL PROTEIN 6.6 g/dL (6.3-8.2)
[2017-05-31 13:57] LABS: URINE CREATININE 113.1 mg/dL (22-328); URINE PROTEIN 115.8 mg/dL (<12)
== END ==
LOC: OD 12:29
PROVIDERS: ATTEND Internal Medicine Nephrology
DX: N18.3 Chronic kidney disease, stage 3 (moderate) (principal); E87.5 Hyperkalemia; R80.9 Proteinuria, unspecified; E11.9 Type 2 diabetes mellitus without complications
CPT/HCPCS: 36415; 80053; 81001; 82570; 83970; 84100; 84156; 85025

== ENCOUNTER → 2017-07-12 | Outpatient (CLI) | payer MEDICAID ==
[2017-07-12 12:32] LABS: HEMATOCRIT 28.6 % (37.9-51.0); HEMOGLOBIN 9.4 g/dL (13.5-17.0); MEAN CORPUSCULAR HEMOGLOBIN 28.2 pg (27.0-33.4); MEAN CORPUSCULAR HGB CONC 32.7 g/dL (32.0-36.0); MEAN CORPUSCULAR VOLUME 86 fl (80-97); PLATELET COUNT 308 10^3/uL (150-450); RED BLOOD COUNT 3.32 10^6/uL (4.35-5.55); RED CELL DISTRIBUTION WIDTH 14.2 % (11.5-14.0); WHITE BLOOD COUNT 10.6 10^3/uL (4.0-10.5)
[2017-07-12 13:06] LABS: ANION GAP 11 (5-19); BLOOD UREA NITROGEN 51 mg/dL (7-20); CALCIUM 9.3 mg/dL (8.4-10.2); CARBON DIOXIDE 21 mmol/L (22-30); CHLORIDE 112 mmol/L (98-107); GLUCOSE 146 mg/dL (75-110); IRON(TIBC) 40.7 ug/dL (49-181); PHOSPHORUS 4.1 mg/dL (2.5-4.5); POTASSIUM 5.8 mmol/L (3.6-5.0); SODIUM 143.5 mmol/L (137-145)
== END ==
LOC: OD 11:50
PROVIDERS: ATTEND Internal Medicine Nephrology
DX: I12.9 Hypertensive chronic kidney disease with stage 1 through stage 4 chronic kidney disease, or unspecified chronic kidney disease (principal); N18.3 Chronic kidney disease, stage 3 (moderate); R80.9 Proteinuria, unspecified; E11.9 Type 2 diabetes mellitus without complications; D64.9 Anemia, unspecified
CPT/HCPCS: 36415; 80048; 82728; 83540; 83550; 83970; 84100; 84443; 85027

== ENCOUNTER → 2017-07-14 | Outpatient (CLI) | payer MEDICAID | LOC: OD 08:35 | PROVIDERS: ATTEND Internal Medicine Nephrology | DX: E87.5 Hyperkalemia (principal) | CPT/HCPCS: 36415; 84132 ==

== ENCOUNTER → 2017-08-13 | Outpatient (CLI) | payer MEDICAID | LOC: OD 10:40 | PROVIDERS: ATTEND Urology | DX: N40.1 Benign prostatic hyperplasia with lower urinary tract symptoms (principal) | CPT/HCPCS: 36415; 84153 ==

== ENCOUNTER → 2017-08-30 | Outpatient (CLI) | payer MEDICAID ==
[2017-08-30 11:31] LABS: HEMATOCRIT 26.1 % (37.9-51.0); HEMOGLOBIN 8.2 g/dL (13.5-17.0); MEAN CORPUSCULAR HEMOGLOBIN 26.5 pg (27.0-33.4); MEAN CORPUSCULAR HGB CONC 31.4 g/dL (32.0-36.0); MEAN CORPUSCULAR VOLUME 85 fl (80-97); PLATELET COUNT 417 10^3/uL (150-450); RED BLOOD COUNT 3.08 10^6/uL (4.35-5.55); RED CELL DISTRIBUTION WIDTH 15.6 % (11.5-14.0); WHITE BLOOD COUNT 11.1 10^3/uL (4.0-10.5)
[2017-08-30 11:57] LABS: ANION GAP 15 (5-19); BLOOD UREA NITROGEN 62 mg/dL (7-20); CALCIUM 9.1 mg/dL (8.4-10.2); CARBON DIOXIDE 21 mmol/L (22-30); CHLORIDE 107 mmol/L (98-107); GLUCOSE 184 mg/dL (75-110); PHOSPHORUS 3.7 mg/dL (2.5-4.5); POTASSIUM 5.3 mmol/L (3.6-5.0); SODIUM 143.1 mmol/L (137-145)
[2017-08-30 12:32] LABS: APPEARANCE,URINE CLEAR; BILIRUBIN,URINE NEGATIVE (NEGATIVE); COLOR,URINE STRAW; GLUCOSE, URINE NEGATIVE (NEGATIVE); KETONES,URINE NEGATIVE (NEGATIVE); LEUKOCYTE ESTERASE,URINE NEGATIVE (NEGATIVE); NITRITE,URINE NEGATIVE (NEGATIVE); PROTEIN,URINE 100 mg/dL (NEGATIVE); URINE SPECIFIC GRAVITY 1.011; UROBILINOGEN,URINE NEGATIVE mg/dL (<2.0)
[2017-08-30 12:56] LABS: UR PRO/CREAT RATIO RESULT 1.7 mg/mg (0.0-0.2); URINE CREATININE 68.8 mg/dL (22-328); URINE PROTEIN 116.9 mg/dL (<12)
== END ==
LOC: OD 11:05
PROVIDERS: ATTEND Internal Medicine Nephrology
DX: I12.9 Hypertensive chronic kidney disease with stage 1 through stage 4 chronic kidney disease, or unspecified chronic kidney disease (principal); N18.3 Chronic kidney disease, stage 3 (moderate); E87.5 Hyperkalemia; D64.9 Anemia, unspecified
CPT/HCPCS: 36415; 80048; 81001; 82570; 83970; 84100; 84156; 85027

== ENCOUNTER → 2017-10-04 | Outpatient (CLI) | payer MEDICAID ==
[2017-10-04 10:17] LABS: HEMATOCRIT 22.8 % (37.9-51.0); MEAN CORPUSCULAR HEMOGLOBIN 25.6 pg (27.0-33.4); MEAN CORPUSCULAR HGB CONC 31.8 g/dL (32.0-36.0); MEAN CORPUSCULAR VOLUME 81 fl (80-97); PLATELET COUNT 409 10^3/uL (150-450); RED BLOOD COUNT 2.83 10^6/uL (4.35-5.55); RED CELL DISTRIBUTION WIDTH 17.3 % (11.5-14.0)
[2017-10-04 10:23] LABS: HEMOGLOBIN 7.3 g/dL (13.5-17.0)
[2017-10-04 10:40] LABS: ANION GAP 13 (5-19); BLOOD UREA NITROGEN 36 mg/dL (7-20); CALCIUM 8.9 mg/dL (8.4-10.2); CARBON DIOXIDE 16 mmol/L (22-30); CHLORIDE 114 mmol/L (98-107); GLUCOSE 172 mg/dL (75-110); IRON(TIBC) 19.2 ug/dL (49-181); POTASSIUM 5.3 mmol/L (3.6-5.0); SODIUM 143.2 mmol/L (137-145)
== END ==
LOC: OD 09:38
PROVIDERS: ATTEND Physician Assistant Medical
DX: I12.9 Hypertensive chronic kidney disease with stage 1 through stage 4 chronic kidney disease, or unspecified chronic kidney disease (principal); N18.4 Chronic kidney disease, stage 4 (severe); E11.9 Type 2 diabetes mellitus without complications; R80.9 Proteinuria, unspecified; D64.9 Anemia, unspecified
CPT/HCPCS: 36415; 80048; 82728; 83540; 83550; 85027

== ENCOUNTER 2017-10-08 12:56 | Outpatient (CLI) | payer MEDICAID ==
[~2017-10-08 12:56] MED LIST: FERUMOXYTOL (ESRD) 510 MG/NS 100 ML IV PRN
[2017-10-08 13:59] VITALS: BP 137/66
== END 2017-10-08 14:57 | disposition home or self-care (01) ==
LOC: II 12:56 → 5TH 13:48 → II 14:57
PROVIDERS: ATTEND Internal Medicine Nephrology
PROC: 3E033GC Introduction of Other Therapeutic Substance into Peripheral Vein, Percutaneous Approach (ICD-10-PCS; principal; 2017-10-08)
DX: D50.8 Other iron deficiency anemias (principal); N18.9 Chronic kidney disease, unspecified
CPT/HCPCS: 96367; Q0139; 96365

== ENCOUNTER 2017-10-15 12:37 | Outpatient (CLI) | payer MEDICAID ==
[2017-10-15 13:37] VITALS: BP 130/68
== END 2017-10-15 14:18 | disposition home or self-care (01) ==
LOC: II 12:37 → 5TH 12:40 → II 14:18
PROVIDERS: ATTEND Internal Medicine Nephrology
PROC: 3E033GC Introduction of Other Therapeutic Substance into Peripheral Vein, Percutaneous Approach (ICD-10-PCS; principal; 2017-10-15)
DX: D50.8 Other iron deficiency anemias (principal); N18.9 Chronic kidney disease, unspecified
CPT/HCPCS: 96367; Q0139; 96365

== ENCOUNTER → 2017-11-10 | Outpatient (CLI) | payer MEDICAID ==
[2017-11-10 15:34] LABS: ABSOLUTE BASOPHILS # (AUTO) 0.1 10^3/uL (0.0-0.2); ABSOLUTE EOSINOPHILS # (AUTO) 0.2 10^3/uL (0.0-0.6); ABSOLUTE LYMPHOCYTES (AUTO) 2.8 10^3/uL (0.5-4.7); ABSOLUTE MONOCYTES (AUTO) 0.8 10^3/uL (0.1-1.4); ABSOLUTE NEUT (AUTO) 3.9 10^3/uL (1.7-8.2); BASOPHILS % (AUTO) 0.9 % (0-2); EOSINOPHILS % (AUTO) 2.4 % (0-6); HEMATOCRIT 31.7 % (37.9-51.0); HEMOGLOBIN 9.9 g/dL (13.5-17.0); LYMPHOCYTES % (AUTO) 36.5 % (13-45); MEAN CORPUSCULAR HEMOGLOBIN 27.2 pg (27.0-33.4); MEAN CORPUSCULAR HGB CONC 31.1 g/dL (32.0-36.0); MEAN CORPUSCULAR VOLUME 88 fl (80-97); MONOCYTES % (AUTO) 9.8 % (3-13); PLATELET COUNT 225 10^3/uL (150-450); RED BLOOD COUNT 3.63 10^6/uL (4.35-5.55); SEGMENTED NEUTROPHILS % (AUTO) 50.4 % (42-78); TOTAL CELLS COUNTED % (AUTO) 100 %; WHITE BLOOD COUNT 7.7 10^3/uL (4.0-10.5)
[2017-11-10 15:53] LABS: ANION GAP 13 (5-19); BLOOD UREA NITROGEN 50 mg/dL (7-20); CALCIUM 8.8 mg/dL (8.4-10.2); CARBON DIOXIDE 16 mmol/L (22-30); CHLORIDE 118 mmol/L (98-107); GLUCOSE 93 mg/dL (75-110); SODIUM 146.9 mmol/L (137-145)
--- NOTE | 2017-11-10 22:45 | EKG REPORT ---
SEVERITY:- BORDERLINE ECG - SINUS RHYTHM BORDERLINE R WAVE PROGRESSION, ANTERIOR LEADS : Confirmed by: Mireya George 10-Nov-2017 19:45:21
== END ==
LOC: OD 14:23
PROVIDERS: ATTEND Physician Assistant Medical
DX: I12.9 Hypertensive chronic kidney disease with stage 1 through stage 4 chronic kidney disease, or unspecified chronic kidney disease (principal); N18.3 Chronic kidney disease, stage 3 (moderate); E11.21 Type 2 diabetes mellitus with diabetic nephropathy; E87.5 Hyperkalemia; D64.9 Anemia, unspecified; R00.0 Tachycardia, unspecified; R53.1 Weakness
CPT/HCPCS: 36415; 80048; 85025; 93005; 93010

== ENCOUNTER → 2017-12-08 | Outpatient (CLI) | payer MEDICAID ==
[2017-12-08 14:13] LABS: HEMATOCRIT 33.2 % (37.9-51.0); HEMOGLOBIN 10.8 g/dL (13.5-17.0); MEAN CORPUSCULAR HEMOGLOBIN 27.1 pg (27.0-33.4); MEAN CORPUSCULAR HGB CONC 32.5 g/dL (32.0-36.0); PLATELET COUNT 295 10^3/uL (150-450); RED BLOOD COUNT 3.98 10^6/uL (4.35-5.55); RED CELL DISTRIBUTION WIDTH 19.8 % (11.5-14.0); WHITE BLOOD COUNT 10.9 10^3/uL (4.0-10.5)
[2017-12-08 14:17] LABS: MEAN CORPUSCULAR VOLUME 84 fl (80-97)
[2017-12-08 14:21] LABS: ANION GAP 11 (5-19); BLOOD UREA NITROGEN 33 mg/dL (7-20); CARBON DIOXIDE 21 mmol/L (22-30); CHLORIDE 112 mmol/L (98-107); GLUCOSE 187 mg/dL (75-110); POTASSIUM 4.6 mmol/L (3.6-5.0); SODIUM 144.4 mmol/L (137-145)
== END ==
LOC: OD 13:10
PROVIDERS: ATTEND Physician Assistant Medical
DX: E11.22 Type 2 diabetes mellitus with diabetic chronic kidney disease (principal); I12.9 Hypertensive chronic kidney disease with stage 1 through stage 4 chronic kidney disease, or unspecified chronic kidney disease; N18.3 Chronic kidney disease, stage 3 (moderate); D63.1 Anemia in chronic kidney disease
CPT/HCPCS: 36415; 80048; 85027

== ENCOUNTER → 2018-02-14 | Outpatient (CLI) | payer MEDICARE, MEDICAID ==
[2018-02-14 12:28] LABS: HEMATOCRIT 28.9 % (37.9-51.0); HEMOGLOBIN 9.3 g/dL (13.5-17.0); MEAN CORPUSCULAR HEMOGLOBIN 26.8 pg (27.0-33.4); MEAN CORPUSCULAR HGB CONC 32.1 g/dL (32.0-36.0); MEAN CORPUSCULAR VOLUME 83 fl (80-97); PLATELET COUNT 224 10^3/uL (150-450); RED BLOOD COUNT 3.47 10^6/uL (4.35-5.55); RED CELL DISTRIBUTION WIDTH 17.6 % (11.5-14.0); WHITE BLOOD COUNT 7.3 10^3/uL (4.0-10.5)
== END ==
LOC: OD 11:13
PROVIDERS: ATTEND Internal Medicine Nephrology
DX: D64.9 Anemia, unspecified (principal); N18.3 Chronic kidney disease, stage 3 (moderate)
CPT/HCPCS: 36415; 82728; 83540; 83550; 85027

== ENCOUNTER 2018-02-18 11:14 | Emergency (ER) | payer MEDICAID, MEDICARE ==
--- NOTE | 2018-02-18 12:10 | ER Document Report ---
ED Medical Screen (RME) - General Chief Complaint: Headache Stated Complaint: BODY PAIN/HEADACHE Time Seen by Provider: 02/18/18 11:41 Mode of Arrival: Ambulatory Information source: Patient TRAVEL OUTSIDE OF THE [place] IN LAST 30 DAYS: No - HPI Patient complains to provider of: generalized achiness Onset: Just prior to arrival - 8-year-old male with a myriad of health complaints, says he was told to follow-up today for his pancreatitis and kidney disease. He has been told he has had gallstones in the past and may need surgery. Specifically he says that today he is here because of his kidneys and pancreas he is very frustrated because he has been worsening over the last 2 years after undergoing a toe amputation. He says that his abdominal area is hurting worse in the upper aspect with some associated nausea. Does endorse nausea, does endorse constipation but today had 2 loose watery bowel movements. - Related Data Allergies/Adverse Reactions: No Known Allergies Allergy (Verified 03/27/17 11:36) Past Medical History - Past Medical History Cardiac Medical History: Reports: Hx Hypercholesterolemia, Hx Hypertension Denies: Hx Coronary Artery Disease, Hx Heart Attack Pulmonary Medical History: Denies: Hx Asthma, Hx Bronchitis, Hx COPD, Hx Pneumonia Neurological Medical History: Denies: Hx Cerebrovascular Accident, Hx Seizures Endocrine Medical History: Reports: Hx Diabetes Mellitus Type 1, Hx Diabetes Mellitus Type 2 Renal/ Medical History: Denies: Hx Peritoneal Dialysis GI Medical History: Reports: Hx Gastroesophageal Reflux Disease Musculoskeltal Medical History: Reports Hx Arthritis - GENERALIZED Psychiatric Medical History: Reports: Hx Depression Past Surgical History: Reports: Hx Orthopedic Surgery - left knee, Other - Amputation of 3 toes - Immunizations Hx Diphtheria, Pertussis, Tetanus Vaccination: Yes - unk History of Influenza Vaccine for 03/2017 - 08/2017 Season: No Physical Exam - Vital signs Vitals: Temp Pulse Resp BP Pulse Ox 98.4 F 86 20 149/81 H 99 02/18/18 11:26 02/18/18 11:26 02/18/18 11:26 02/18/18 11:26 02/18/18 11:26 Course - Re-evaluation Re-evalutation: 02/18/18 12:10 This 8-year-old man presents for evaluation of pancreatitis as well as chronic kidney disease, he has been seen by an relief worker as well as his primary physician and was encouraged to come the emergency room. On examination he is a frustrated and angry man, his abdomen is diffusely tender worse in the epigastrium, with a history of possible pancreatitis as well as gallstones will plan for right upper quadrant ultrasound. We will obtain lipase CMP CBC urinalysis with UDS as previously tested positive for both marijuana and cocaine. We will plan for further investigation reassessment as at this time it is uncertain whether or not he has a more serious underlying condition that he does have the potential for a possible life-threatening. 02/18/18 12:12 02/18/18 12:12 - Vital Signs Vital signs: Temp Pulse Resp BP Pulse Ox 98.4 F 86 20 149/81 H 99 02/18/18 11:26 02/18/18 11:26 02/18/18 11:26 02/18/18 11:26 02/18/18 11:26 Doctor's Discharge - Discharge Referrals: Latoya MELARA MD [Primary Care Provider] - Follow up as needed
[2018-02-18 12:37] LABS: ABSOLUTE BASOPHILS # (AUTO) 0.1 10^3/uL (0.0-0.2); ABSOLUTE EOSINOPHILS # (AUTO) 0.3 10^3/uL (0.0-0.6); ABSOLUTE LYMPHOCYTES (AUTO) 2.9 10^3/uL (0.5-4.7); ABSOLUTE MONOCYTES (AUTO) 0.7 10^3/uL (0.1-1.4); ABSOLUTE NEUT (AUTO) 4.9 10^3/uL (1.7-8.2); BASOPHILS % (AUTO) 1.2 % (0-2); EOSINOPHILS % (AUTO) 3.2 % (0-6); HEMATOCRIT 29.7 % (37.9-51.0); HEMOGLOBIN 9.7 g/dL (13.5-17.0); LYMPHOCYTES % (AUTO) 32.4 % (13-45); MEAN CORPUSCULAR HEMOGLOBIN 27.5 pg (27.0-33.4); MEAN CORPUSCULAR HGB CONC 32.7 g/dL (32.0-36.0); MEAN CORPUSCULAR VOLUME 84 fl (80-97); PLATELET COUNT 214 10^3/uL (150-450); RED BLOOD COUNT 3.54 10^6/uL (4.35-5.55); RED CELL DISTRIBUTION WIDTH 17.6 % (11.5-14.0); SEGMENTED NEUTROPHILS % (AUTO) 55.2 % (42-78); TOTAL CELLS COUNTED % (AUTO) 100 %; WHITE BLOOD COUNT 8.8 10^3/uL (4.0-10.5)
[2018-02-18 12:48] LABS: APPEARANCE,URINE SLIGHTLY-CLOUDY; BILIRUBIN,URINE NEGATIVE (NEGATIVE); COLOR,URINE YELLOW; GLUCOSE, URINE 150 mg/dL (NEGATIVE); KETONES,URINE TRACE mg/dL (NEGATIVE); LEUKOCYTE ESTERASE,URINE NEGATIVE (NEGATIVE); NITRITE,URINE NEGATIVE (NEGATIVE); PROTEIN,URINE >=500 mg/dL (NEGATIVE)
--- NOTE | 2018-02-18 12:51 | RADIOLOGY REPORT (SQ) ---
EXAM DESCRIPTION: U/S ABDOMEN LIMITED W/O DOP COMPLETED DATE/TIME: 02/18/2018 12:43 pm REASON FOR STUDY: conceern for cholecystitis COMPARISON: None. TECHNIQUE: Dynamic and static grayscale images acquired of the right upper quadrant and recorded on PACS. Additional selected color Doppler and spectral images recorded. LIMITATIONS: Study limited due to acoustical interference from fat or from air in the bowel. FINDINGS: PANCREAS: Parts or all of the pancreas poorly seen secondary to acoustical interference fr om fat or from air in the bowel. LIVER: Echotexture is coarse with increased echogenicity consistent with fatty infiltration. No mass es. LIVER VASCULATURE: Normal directional flow of the main portal vein and hepatic veins. GALLBLADDER: No stones. Normal wall thickness. No pericholecystic fluid. ULTRASOUND-DETECTED HADLEY'S SIGN: Negative. INTRAHEPATIC DUCTS AND COMMON DUCT: CBD and intrahepatic ducts normal caliber. No filling defects. INFERIOR VENA CAVA: Normal flow. AORTA: No aneurysm. RIGHT KIDNEY: Normal size. Normal echogenicity. No solid or suspicious masses. No hydronephros is. No calcifications. PERITONEAL CAVITY AND RIGHT PLEURAL SPACE: No ascites or effusions. OTHER: No other significant finding. IMPRESSION: No evidence of cholecystitis. No acute findings. TECHNICAL DOCUMENTATION: JOB ID: [id number] [employer]- All Rights Reserved Reading location - IP/workstation name: [email or web address]
--- NOTE | 2018-02-18 12:53 | ER Document Report ---
ED General - General Mode of Arrival: Ambulatory Information source: Patient TRAVEL OUTSIDE OF THE [place] IN LAST 30 DAYS: No <BENITO KERR - Last Filed: 02/18/18 12:54> <JAMESALEXI - Last Filed: 02/18/18 14:25> - General Chief Complaint: Headache Stated Complaint: BODY PAIN/HEADACHE Time Seen by Provider: 02/18/18 11:41 Notes: Patient is a 62 year old male with Stage 3 Renal Failure, HTN, diabetes, depression and a history of pancreatitis presents to the emergency department complaining of nausea, vomiting and abdominal pain onset approximately 4 days ago. Patient states he was visiting his diabetic physician when he began to vomit and was sent to [facility] Emergency department approximately 4 days ago. He reports [facility] Emergency department instructed the patient to follow up with his PCP, Dr. Vaughan. Dr. Vaughan called the patient and instructed him to come into the emergency department. Patient states his last vomiting episode was yesterday morning. He also reports being hungry, further stating he has not eaten today. Patient mentions pancreatic, kidney and gall bladder problems. Patient had a diagnosis of pancreatitis in 11/2014 and a gallbladder ultrasound on 02/2017 which showed no stones. (BENITO KERR) - Related Data Allergies/Adverse Reactions: No Known Allergies Allergy (Verified 03/27/17 11:36) Past Medical History - General Information source: Patient - Social History Smoking Status: Current Every Day Smoker Cigarette use (# per day): Yes Chew tobacco use (# tins/day): No Frequency of alcohol use: None Family History: DM Patient has suicidal ideation: No Patient has homicidal ideation: No - Past Medical History Cardiac Medical History: Reports: Hx Hypercholesterolemia, Hx Hypertension Endocrine Medical History: Reports: Hx Diabetes Mellitus Type 2 GI Medical History: Reports: Hx Gastroesophageal Reflux Disease Musculoskeletal Medical History: Reports Hx Arthritis - GENERALIZED Psychiatric Medical History: Reports: Hx Depression Past Surgical History: Reports: Hx Orthopedic Surgery - left knee, Other - Amputation of 3 toes - Immunizations Hx Diphtheria, Pertussis, Tetanus Vaccination: Yes - unk <BENITO KERR - Last Filed: 02/18/18 12:54> Review of Systems - Review of Systems Constitutional: No symptoms reported EENT: No symptoms reported Cardiovascular: No symptoms reported Respiratory: No symptoms reported Gastrointestinal: See HPI, Abdominal pain, Nausea, Vomiting Genitourinary: No symptoms reported Male Genitourinary: No symptoms reported Musculoskeletal: No symptoms reported Skin: No symptoms reported Hematologic/Lymphatic: No symptoms reported Neurological/Psychological: No symptoms reported -: Yes All other systems reviewed and negative <BENITO KERR - Last Filed: 02/18/18 12:54> Physical Exam <BENITO KERR - Last Filed: 02/18/18 12:54> <ALEXI RAMIREZ - Last Filed: 02/18/18 14:25> - Vital signs Vitals: Temp Pulse Resp BP Pulse Ox 98.4 F 86 20 149/81 H 99 02/18/18 11:26 02/18/18 11:26 02/18/18 11:26 02/18/18 11:26 02/18/18 11:26 - Notes Notes: GENERAL: Alert, interacts well, complains of being hungry. No acute distress. HEAD: Normocephalic, atraumatic. EYES: Pupils equal, round, and reactive to light. Extraocular movements intact. ENT: Oral mucosa moist, tongue midline. NECK: Full range of motion. Supple. Trachea midline. LUNGS: Clear to auscultation bilaterally, no wheezes, rales, or rhonchi. No respiratory distress. HEART: Regular rate and rhythm. No murmurs, gallops, or rubs. ABDOMEN: Soft,Protuberant, RUQ and epigastric tenderness to palpation. Bowel sounds present in all 4 quadrants. EXTREMITIES: Moves all 4 extremities spontaneously. NEUROLOGICAL: Alert and oriented x3. Normal speech. PSYCH: Normal affect, normal mood. SKIN: Warm, dry, normal turgor. No rashes or lesions noted. (BENITO KERR) Course - Laboratory Result Diagrams: 02/18/18 12:15 02/18/18 12:15 <BENITO KERR - Last Filed: 02/18/18 12:54> - Laboratory Result Diagrams: 02/18/18 12:15 02/18/18 12:15 - Diagnostic Test Radiology reviewed: Reports reviewed - Gallbladder ultrasound is unremarkable <ALEXI RAMIREZ - Last Filed: 02/18/18 14:25> - Re-evaluation Re-evalutation: 02/18/18 14:18 At this time the patient was eat. He states she is not having any abdominal pain. He does not want stay in the hospital. He states that he has not vomited since yesterday morning. That he did eat complete meals yesterday afternoon and evening and did not vomit. He states he did eat some of a chicken wing this morning prior to coming to the hospital. He does admit to regular use of marijuana use and frequent cocaine use. At this time his primary concern is going home and eating. He does have Zofran at home for nausea if he needs it. He is encouraged to increase his fluid intake due to his renal function having gotten a little bit worse in the past week. His lipase is about double his baseline at this time, it is not as high as it has been in the past. I explained to the patient that at this time I cannot know if his lipase is stable, going up, or going down. He prefers to go home and use nausea medicine if needed, increase fluid intake, and follow-up with his primary care provider. He will return if his symptoms get worse. (ALEXI RAMIREZ) - Vital Signs Vital signs: Temp Pulse Resp BP Pulse Ox 98.4 F 86 20 149/81 H 99 02/18/18 11:26 02/18/18 11:26 02/18/18 11:26 02/18/18 11:26 02/18/18 11:26 - Laboratory Laboratory results interpreted by me: 02/18/18 02/18/18 02/18/18 12:15 12:15 12:15 RBC 3.54 L Hgb 9.7 L Hct 29.7 L RDW 17.6 H Chloride 110 H Carbon Dioxide 20 L BUN 28 H Creatinine 3.06 H Est GFR ( Amer) 25 L Est GFR (Non-Af Amer) 21 L Glucose 231 H AST 15 L ALT 20 L Alkaline Phosphatase 131 H Lipase 976.4 H Urine Protein >=500 H Urine Glucose (UA) 150 H Urine Ketones TRACE H Urine Urobilinogen 4.0 H Urine Ascorbic Acid 40 H Discharge <BENITO KERR - Last Filed: 02/18/18 12:54> <ALEXI RAMIREZ - Last Filed: 02/18/18 14:25> - Discharge Clinical Impression: Tobacco abuse, Hyperglycemia, Cocaine abuse, Marijuana abuse Pancreatitis Qualifiers: Chronicity: chronic Pancreatitis type: unspecified pancreatitis type Qualified Code(s): K86.1 - Other chronic pancreatitis Abdominal pain Qualifiers: Abdominal location: upper abdomen, unspecified Qualified Code(s): R10.10 - Upper abdominal pain, unspecified Acute on chronic renal failure Qualifiers: Acute renal failure type: unspecified Chronic kidney disease stage: stage 3 ( moderate) Qualified Code(s): N17.9 - Acute kidney failure, unspecified; N18.3 - Chronic kidney disease, stage 3 (moderate); N18.3 - Chronic kidney disease, stage 3 (moderate); N18.3 - Chronic kidney disease, stage 3 (moderate) Chronic pancreatitis Qualifiers: Pancreatitis type: unspecified pancreatitis type Qualified Code(s): K86.1 - Other chronic pancreatitis Condition: Stable Disposition: HOME, SELF-CARE Additional Instructions: Pancreatitis Pancreatitis is an inflammation of the pancreas, an organ at the back of your abdomen. The pancreas produces insulin and enzymes that digest your food. Pancreatitis can be caused by gallstones in the bile duct, by alcohol or viruses, or by excess fat or calcium in the blood stream. Occasionally, pancreatitis occurs when a stomach ulcer reyna through into the pancreas. We try to find the cause of pancreatitis, but some tests can't be done until the pancreas heals. The usual symptoms of pancreatitis are pain in the pit of the stomach that goes straight through to the back, vomiting, and low-grade fever. Severe cases require hospital admission, but many patients with mild pancreatitis do well at home. You will probably need medicine for pain and for vomiting. Sometimes we prescribe medicine to decrease stomach acid secretion and to decrease flow of pancreatic juices. Start with a diet of clear liquids (soda pop, juices). When the pain is decreasing, you can add some simple starches (potato, toast, applesauce). Avoid proteins and fats until you are completely painfree. When you're better, your doctor may suggest treatment to prevent future pancreatitis (such as gallbladder removal). Avoid alcohol forever. Get immediate treatment for any future episodes. Contact your doctor at once or return here if you have increasing pain, shortness of breath, general swelling, increasing size of the abdomen, continued vomiting, muscle spasms, or other new symptoms. You were offered admission to the hospital to treat your pancreatitis and worsening kidney function. You declined that offer and stated you preferred to go home and take your medications and increase your fluid intake. Take your medications at home that are regularly prescribed, with the nausea medicine if needed. Drink plenty of fluids. Follow-up with your doctor on Wednesday for recheck of your lab work. RETURN TO THE EMERGENCY ROOM IF ANY NEW OR WORSENING SYMPTOMS. Referrals: Latoya MELARA MD [ACTIVE STAFF] - Follow up as needed ELIAS VAUGHAN MD [COMMUNITY BASED STAFF] - 02/21/18 Scribe Attestation: 02/18/18 14:16 I personally performed the services described in the documentation, reviewed and edited the documentation which was dictated to the scribe in my presence, and it accurately records my words and actions. (ALEXI RAMIREZ) [employer] Documentation - Scribe Written by Debra:: Debra Rolbes, 02/18/2018 12:57 acting as scribe for :: James <BENITO KERR - Last Filed: 02/18/18 12:54>
[2018-02-18 12:57] LABS: ALANINE AMINOTRANSFERASE 20 U/L (21-72); ALBUMIN 3.5 g/dL (3.5-5.0); ALKALINE PHOSPHATASE 131 U/L (38-126); ANION GAP 13 (5-19); ASPARTATE AMINO TRANSFERASE 15 U/L (17-59); BILIRUBIN,DIRECT 0.2 mg/dL (0.0-0.4); BILIRUBIN,TOTAL 0.2 mg/dL (0.2-1.3); BLOOD UREA NITROGEN 28 mg/dL (7-20); CALCIUM 8.8 mg/dL (8.4-10.2); CARBON DIOXIDE 20 mmol/L (22-30); CHLORIDE 110 mmol/L (98-107); GLUCOSE 231 mg/dL (75-110); LIPASE 976.4 U/L (23-300); POTASSIUM 4.5 mmol/L (3.6-5.0); SODIUM 143.4 mmol/L (137-145); TOTAL PROTEIN 6.8 g/dL (6.3-8.2)
[2018-02-18 13:08] LABS: URINE AMPHETAMINES SCREEN NEGATIVE; URINE BARBITURATES SCREEN NEGATIVE; URINE BENZODIAZEPINES SCREEN NEGATIVE; URINE COCAINE SCREEN UNCONFIRMED POSITIVE; URINE MARIJUANA (THC) SCREEN UNCONFIRMED POSITIVE; URINE METHADONE SCREEN NEGATIVE; URINE PHENCYCLIDINE SCREEN NEGATIVE
[2018-02-18 14:33] VITALS: BP 148/86
== END 2018-02-18 14:33 | disposition home or self-care (01) ==
LOC: ER 11:14
DX: K86.1 Other chronic pancreatitis (principal); I12.9 Hypertensive chronic kidney disease with stage 1 through stage 4 chronic kidney disease, or unspecified chronic kidney disease; E11.22 Type 2 diabetes mellitus with diabetic chronic kidney disease; E11.65 Type 2 diabetes mellitus with hyperglycemia; N18.3 Chronic kidney disease, stage 3 (moderate); N17.9 Acute kidney failure, unspecified; F12.10 Cannabis abuse, uncomplicated; F14.10 Cocaine abuse, uncomplicated; R51 Headache; F17.210 Nicotine dependence, cigarettes, uncomplicated; R10.10 Upper abdominal pain, unspecified; R10.816 Epigastric abdominal tenderness; R10.811 Right upper quadrant abdominal tenderness
CPT/HCPCS: 36415; 76705; 80053; 80307; 81001; 82962; 83690; 85025; 99284

== ENCOUNTER 2018-04-05 09:54 | Outpatient (CLI) | payer MEDICARE ==
[~2018-04-05 09:54] MED LIST changes: +FERRIC CARBOXYMALTOSE 750 MG in NORMAL SALINE 250 ML IV PRN; -FERUMOXYTOL (ESRD) 510 MG/NS 100 ML IV PRN
[2018-04-05 10:22] VITALS: BP 137/76
== END 2018-04-05 12:08 | disposition home or self-care (01) ==
LOC: II 09:54 → 5TH 09:58 → II 12:08
PROVIDERS: ATTEND Internal Medicine Nephrology
PROC: 3E033GC Introduction of Other Therapeutic Substance into Peripheral Vein, Percutaneous Approach (ICD-10-PCS; principal; 2018-04-05)
DX: D50.8 Other iron deficiency anemias (principal)
CPT/HCPCS: 96365; J7050; J1439

== ENCOUNTER → 2018-06-10 | Outpatient (CLI) | payer MEDICARE ==
[2018-06-10 14:35] LABS: HEMATOCRIT 29.4 % (37.9-51.0); HEMOGLOBIN 9.7 g/dL (13.5-17.0); MEAN CORPUSCULAR HEMOGLOBIN 29.2 pg (27.0-33.4); MEAN CORPUSCULAR HGB CONC 33.1 g/dL (32.0-36.0); MEAN CORPUSCULAR VOLUME 88 fl (80-97); PLATELET COUNT 260 10^3/uL (150-450); RED BLOOD COUNT 3.33 10^6/uL (4.35-5.55); RED CELL DISTRIBUTION WIDTH 15.1 % (11.5-14.0); WHITE BLOOD COUNT 8.9 10^3/uL (4.0-10.5)
[2018-06-10 15:01] LABS: ANION GAP 10 (5-19); BLOOD UREA NITROGEN 37 mg/dL (7-20); CALCIUM 9.2 mg/dL (8.4-10.2); CARBON DIOXIDE 21 mmol/L (22-30); CHLORIDE 113 mmol/L (98-107); GLUCOSE 93 mg/dL (75-110); IRON(TIBC) 23.5 ug/dL (49-181); POTASSIUM 4.8 mmol/L (3.6-5.0); SODIUM 143.8 mmol/L (137-145)
== END ==
LOC: OD 13:58
PROVIDERS: ATTEND Internal Medicine Nephrology
DX: D64.9 Anemia, unspecified (principal); N18.3 Chronic kidney disease, stage 3 (moderate)
CPT/HCPCS: 36415; 80048; 82728; 83540; 83550; 85027

== ENCOUNTER 2018-07-07 09:34 | Outpatient (CLI) | payer MEDICARE ==
[2018-07-07 10:19] VITALS: BP 146/71
== END 2018-07-07 11:30 | disposition home or self-care (01) ==
LOC: II 09:34 → 5TH 09:39 → II 11:30
PROVIDERS: ATTEND Internal Medicine Nephrology
PROC: 3E033GC Introduction of Other Therapeutic Substance into Peripheral Vein, Percutaneous Approach (ICD-10-PCS; principal; 2018-07-07)
PROC: 3E02340 Introduction of Influenza Vaccine into Muscle, Percutaneous Approach (ICD-10-PCS; 2018-07-07)
DX: D50.8 Other iron deficiency anemias (principal); N18.4 Chronic kidney disease, stage 4 (severe); D63.1 Anemia in chronic kidney disease; Z23 Encounter for immunization
CPT/HCPCS: 90686; 96367; G0008; J7050; J1439; 90471; 96365

== ENCOUNTER → 2018-08-05 | Outpatient (CLI) | payer MEDICARE, MEDICAID ==
[2018-08-05 13:12] LABS: HEMOGLOBIN 9.1 g/dL (13.5-17.0); MEAN CORPUSCULAR HGB CONC 33.7 g/dL (32.0-36.0); MEAN CORPUSCULAR VOLUME 89 fl (80-97); PLATELET COUNT 210 10^3/uL (150-450); RED BLOOD COUNT 3.04 10^6/uL (4.35-5.55); RED CELL DISTRIBUTION WIDTH 15.4 % (11.5-14.0); WHITE BLOOD COUNT 7.5 10^3/uL (4.0-10.5)
[2018-08-05 13:30] LABS: ANION GAP 9 (5-19); BLOOD UREA NITROGEN 32 mg/dL (7-20); CALCIUM 8.3 mg/dL (8.4-10.2); CARBON DIOXIDE 20 mmol/L (22-30); CHLORIDE 117 mmol/L (98-107); GLUCOSE 143 mg/dL (75-110); IRON(TIBC) 44.1 ug/dL (49-181); POTASSIUM 4.3 mmol/L (3.6-5.0); SODIUM 146.3 mmol/L (137-145)
== END ==
LOC: OD 12:31
PROVIDERS: ATTEND Physician Assistant Medical
DX: I12.9 Hypertensive chronic kidney disease with stage 1 through stage 4 chronic kidney disease, or unspecified chronic kidney disease (principal); N18.4 Chronic kidney disease, stage 4 (severe); D64.9 Anemia, unspecified; E87.5 Hyperkalemia
CPT/HCPCS: 36415; 80048; 82728; 83540; 83550; 85027

== ENCOUNTER 2018-08-23 10:49 | Outpatient (CLI) | payer MEDICARE, MEDICAID ==
[~2018-08-23 10:49] MED LIST changes: -FERRIC CARBOXYMALTOSE 750 MG in NORMAL SALINE 250 ML IV PRN; +FERUMOXYTOL (ESRD) 510 MG/NS 100 ML IV PRN
[2018-08-23 11:51] VITALS: BP 196/85
== END 2018-08-23 12:15 | disposition home or self-care (01) ==
LOC: II 10:49 → 5TH 11:00 → II 12:15
PROVIDERS: ATTEND Internal Medicine Nephrology
PROC: 3E033GC Introduction of Other Therapeutic Substance into Peripheral Vein, Percutaneous Approach (ICD-10-PCS; principal; 2018-08-23)
DX: D50.8 Other iron deficiency anemias (principal); N18.9 Chronic kidney disease, unspecified
CPT/HCPCS: 96365; Q0139

== ENCOUNTER → 2018-09-07 | Outpatient (CLI) | payer MEDICARE, MEDICAID ==
[2018-09-12 07:37] LABS: CYCLIC CITRUL PEPTIDE IGG/A AB 4 units (0-19)
== END ==
LOC: OD 15:44
PROVIDERS: ATTEND Internal Medicine
DX: M32.9 Systemic lupus erythematosus, unspecified (principal); E03.9 Hypothyroidism, unspecified
CPT/HCPCS: 36415; 84443; 85652; 86038; 86140; 86200; 86225; 86430

== ENCOUNTER → 2018-09-14 | Outpatient (CLI) | payer MEDICARE, MEDICAID ==
[2018-09-14 13:18] LABS: ABSOLUTE BASOPHILS # (AUTO) 0.1 10^3/uL (0.0-0.2); ABSOLUTE EOSINOPHILS # (AUTO) 0.2 10^3/uL (0.0-0.6); ABSOLUTE LYMPHOCYTES (AUTO) 2.5 10^3/uL (0.5-4.7); ABSOLUTE MONOCYTES (AUTO) 0.6 10^3/uL (0.1-1.4); ABSOLUTE NEUT (AUTO) 3.8 10^3/uL (1.7-8.2); BASOPHILS % (AUTO) 0.9 % (0-2); EOSINOPHILS % (AUTO) 2.4 % (0-6); HEMATOCRIT 35.9 % (37.9-51.0); HEMOGLOBIN 12.1 g/dL (13.5-17.0); LYMPHOCYTES % (AUTO) 34.3 % (13-45); MEAN CORPUSCULAR HEMOGLOBIN 30.2 pg (27.0-33.4); MEAN CORPUSCULAR HGB CONC 33.6 g/dL (32.0-36.0); MEAN CORPUSCULAR VOLUME 90 fl (80-97); MONOCYTES % (AUTO) 8.9 % (3-13); PLATELET COUNT 249 10^3/uL (150-450); RED CELL DISTRIBUTION WIDTH 14.7 % (11.5-14.0); SEGMENTED NEUTROPHILS % (AUTO) 53.5 % (42-78); TOTAL CELLS COUNTED % (AUTO) 100 %; WHITE BLOOD COUNT 7.2 10^3/uL (4.0-10.5)
[2018-09-14 13:40] LABS: ALANINE AMINOTRANSFERASE 23 U/L (21-72); ALBUMIN 3.9 g/dL (3.5-5.0); ALKALINE PHOSPHATASE 170 U/L (38-126); ANION GAP 16 (5-19); ASPARTATE AMINO TRANSFERASE 21 U/L (17-59); BILIRUBIN,DIRECT 0.4 mg/dL (0.0-0.4); BILIRUBIN,TOTAL 0.4 mg/dL (0.2-1.3); BLOOD UREA NITROGEN 33 mg/dL (7-20); CARBON DIOXIDE 18 mmol/L (22-30); CHLORIDE 108 mmol/L (98-107); GLUCOSE 168 mg/dL (75-110); POTASSIUM 4.9 mmol/L (3.6-5.0); TOTAL PROTEIN 7.4 g/dL (6.3-8.2)
[2018-09-14 13:42] LABS: CALCIUM 9.7 mg/dL (8.4-10.2)
[2018-09-14 13:59] LABS: LIPASE 2081.9 U/L (23-300)
== END ==
LOC: OD 12:15
PROVIDERS: ATTEND Internal Medicine
DX: R10.13 Epigastric pain (principal); D64.9 Anemia, unspecified; E10.22 Type 1 diabetes mellitus with diabetic chronic kidney disease
CPT/HCPCS: 36415; 80053; 83036; 83690; 85025

== ENCOUNTER → 2018-09-22 | Outpatient (CLI) | payer MEDICARE, MEDICAID ==
[2018-09-22 15:57] LABS: HEMATOCRIT 36.8 % (37.9-51.0); HEMOGLOBIN 12.3 g/dL (13.5-17.0); MEAN CORPUSCULAR HEMOGLOBIN 29.8 pg (27.0-33.4); MEAN CORPUSCULAR HGB CONC 33.4 g/dL (32.0-36.0); MEAN CORPUSCULAR VOLUME 89 fl (80-97); PLATELET COUNT 296 10^3/uL (150-450); RED BLOOD COUNT 4.12 10^6/uL (4.35-5.55); RED CELL DISTRIBUTION WIDTH 15.1 % (11.5-14.0); WHITE BLOOD COUNT 7.8 10^3/uL (4.0-10.5)
== END ==
LOC: OD 14:24
PROVIDERS: ATTEND Internal Medicine Nephrology
DX: D64.9 Anemia, unspecified (principal); N18.3 Chronic kidney disease, stage 3 (moderate)
CPT/HCPCS: 36415; 82728; 83540; 83550; 85027

== ENCOUNTER 2018-11-14 14:11 | Emergency (ER) | payer MEDICARE, MEDICAID ==
[2018-11-14] MEDS ORDERED: ONDANSETRON HCL INJ/PF 4 MG/2 ML SDV IV ONE (15:53)
--- NOTE | 2018-11-14 15:55 | ER Document Report ---
ED Medical Screen (RME) - General Chief Complaint: Nausea/Vomiting/Diarrhea Stated Complaint: VOMITING Time Seen by Provider: 11/14/18 15:44 Primary Care Provider: Latoya MELARA MD [Primary Care Provider] - Follow up as needed Mode of Arrival: Ambulatory Information source: Patient TRAVEL OUTSIDE OF THE [place] IN LAST 30 DAYS: No - HPI Patient complains to provider of: ABDO PAIN Notes: 11/14/18 15:54 Patient here with complaints of upper abdominal pain with nausea vomiting for the last 10 days. States that he has a history of pancreatitis. He also tells me that he may have a stone that was causing his pancreatitis although he could not give me any further details. No fever. Exam Nontoxic, no distress. Tenderness to palpation in the epigastric and right upper quadrant on limited triage abdominal exam. Lungs clear and equal throughout. Heart sounds normal. Plan CBC, CMP, lipase, urine, upper abdominal ultrasound, Zofran. An initial examination was made on the patient as part of the triage process, and it was determined a more comprehensive evaluation was necessary. Initial labs were ordered and patient was transferred to another provider in the ED who assumed care and finished evaluation and plan. - Related Data Allergies/Adverse Reactions: No Known Allergies Allergy (Verified 03/27/17 11:36) Past Medical History - Social History Chew tobacco use (# tins/day): No Frequency of alcohol use: None Drug Abuse: None - Past Medical History Cardiac Medical History: Reports: Hx Hypercholesterolemia, Hx Hypertension Denies: Hx Coronary Artery Disease, Hx Heart Attack Pulmonary Medical History: Denies: Hx Asthma, Hx Bronchitis, Hx COPD, Hx Pneumonia Neurological Medical History: Denies: Hx Cerebrovascular Accident, Hx Seizures Endocrine Medical History: Reports: Hx Diabetes Mellitus Type 1, Hx Diabetes Mellitus Type 2 Renal/ Medical History: Denies: Hx Peritoneal Dialysis GI Medical History: Reports: Hx Gastroesophageal Reflux Disease Musculoskeltal Medical History: Reports Hx Arthritis - GENERALIZED Psychiatric Medical History: Reports: Hx Depression Past Surgical History: Reports: Hx Orthopedic Surgery - left knee, Other - Amputation of 3 toes - Immunizations Hx Diphtheria, Pertussis, Tetanus Vaccination: Yes - unk History of Influenza Vaccine for 03/2017 - 08/2017 Season: No Physical Exam - Vital signs Vitals: Temp Pulse Resp BP Pulse Ox 98.6 F 105 H 16 129/78 H 99 11/14/18 14:41 11/14/18 14:41 11/14/18 14:41 11/14/18 14:41 11/14/18 14:41 Course - Vital Signs Vital signs: Temp Pulse Resp BP Pulse Ox 98.6 F 105 H 16 129/78 H 99 11/14/18 14:41 11/14/18 14:41 11/14/18 14:41 11/14/18 14:41 11/14/18 14:41 - Laboratory Laboratory results interpreted by me: 11/14/18 14:33 POC Glucose 114 H Doctor's Discharge - Discharge Referrals: Latoya MELARA MD [Primary Care Provider] - Follow up as needed
[2018-11-14 18:03] LABS: ABSOLUTE BASOPHILS # (AUTO) 0.1 10^3/uL (0.0-0.2); ABSOLUTE EOSINOPHILS # (AUTO) 0.1 10^3/uL (0.0-0.6); ABSOLUTE LYMPHOCYTES (AUTO) 2.8 10^3/uL (0.5-4.7); ABSOLUTE MONOCYTES (AUTO) 0.8 10^3/uL (0.1-1.4); ABSOLUTE NEUT (AUTO) 3.7 10^3/uL (1.7-8.2); BASOPHILS % (AUTO) 1.2 % (0-2); EOSINOPHILS % (AUTO) 1.6 % (0-6); HEMATOCRIT 35.5 % (37.9-51.0); HEMOGLOBIN 11.7 g/dL (13.5-17.0); MEAN CORPUSCULAR HEMOGLOBIN 29.1 pg (27.0-33.4); MEAN CORPUSCULAR HGB CONC 32.8 g/dL (32.0-36.0); MEAN CORPUSCULAR VOLUME 89 fl (80-97); MONOCYTES % (AUTO) 10.4 % (3-13); PLATELET COUNT 242 10^3/uL (150-450); RED BLOOD COUNT 4.01 10^6/uL (4.35-5.55); RED CELL DISTRIBUTION WIDTH 14.1 % (11.5-14.0); SEGMENTED NEUTROPHILS % (AUTO) 49.8 % (42-78); TOTAL CELLS COUNTED % (AUTO) 100 %; WHITE BLOOD COUNT 7.5 10^3/uL (4.0-10.5)
[2018-11-14 18:27] LABS: ALANINE AMINOTRANSFERASE 23 U/L (21-72); ALBUMIN 3.7 g/dL (3.5-5.0); ALKALINE PHOSPHATASE 184 U/L (38-126); ANION GAP 12 (5-19); ASPARTATE AMINO TRANSFERASE 19 U/L (17-59); BILIRUBIN,DIRECT 0.4 mg/dL (0.0-0.4); BILIRUBIN,TOTAL 0.4 mg/dL (0.2-1.3); BLOOD UREA NITROGEN 28 mg/dL (7-20); CALCIUM 9.2 mg/dL (8.4-10.2); CARBON DIOXIDE 20 mmol/L (22-30); CHLORIDE 110 mmol/L (98-107); GLUCOSE 99 mg/dL (75-110); LIPASE 243.1 U/L (23-300); POTASSIUM 4.7 mmol/L (3.6-5.0); SODIUM 141.6 mmol/L (137-145); TOTAL PROTEIN 7.1 g/dL (6.3-8.2)
--- NOTE | 2018-11-14 18:31 | ER Document Report ---
ED General - General Chief Complaint: Nausea/Vomiting/Diarrhea Stated Complaint: VOMITING Time Seen by Provider: 11/14/18 15:44 Primary Care Provider: Latoya GARCIA MD [Primary Care Provider] - Follow up as needed Mode of Arrival: Ambulatory TRAVEL OUTSIDE OF THE [place] IN LAST 30 DAYS: No - HPI Notes: Patient is a 63-year-old male that presents to the emergency department for chief complaint of abdominal pain nausea and vomiting. Patient reports over the last week he has had upper abdominal pain nausea and vomiting. Patient reports history of pancreatitis from a "stone". He is not sure if it was a gallstone. He denies any surgery on his abdomen or cholecystectomy. Patient states he has a crampy upper abdominal pain that is been constant for the last week. He states it is worse when he eats. He does report episodes of emesis over the last week as well. He denies associated fevers and chills. He denies any diarrhea or constipation. Patient does not currently drink alcohol. He states his PCP told him to quit smoking and believe that would help with his history of pancreatitis. He has not quit smoking yet. Past Medical History: Diabetes history of pancreatitis Past Surgical History: Toe amputation Social History: Early tobacco. Occasional alcohol. Denies drug use Family History: Reviewed and noncontributory for presenting illness Allergies: Reviewed, see documented allergy list. REVIEW OF SYSTEMS: CONSTITUTIONAL : No fever No chills No diaphoresis No recent illness EENT: No vision changes No congestion No sore throat CARDIOVASCULAR: No chest pain No palpitations RESPIRATORY: No shortness of breath No cough No difficulty breathing GASTROINTESTINAL: abdominal pain nausea vomiting No diarrhea GENITOURINARY: No dysuria No hematuria No difficulty urinating MUSCULOSKELETAL: No back pain No leg pain No arm pain SKIN: No rashes No lesions LYMPHATIC: No swollen, enlarged glands. NEUROLOGICAL: No lightheadedness No headache No weakness No paresthesias PSYCHIATRIC: No anxiety No depression PHYSICAL EXAMINATION: Vital signs reviewed, nursing noted reviewed. GENERAL: Well-appearing, well-nourished and in no acute distress. HEAD: Atraumatic, normocephalic. EYES: Eyes appear normal, extraocular movements intact, sclera anicteric, conjunctiva are normal. ENT: nares patent, oropharynx clear without exudates. Moist mucous membranes. NECK: Normal range of motion, supple without lymphadenopathy LUNGS: Breath sounds clear to auscultation bilaterally and equal. No wheezes rales or rhonchi. HEART: Regular rate and rhythm without murmurs ABDOMEN: Soft, mild epigastric tenderness, normoactive bowel sounds. No rebound, guarding, or rigidity. No masses appreciated. EXTREMITIES: Nontender, good range of motion, no pitting or edema. NEUROLOGICAL: No focal neurological deficits. Moves all extremities spontaneously Motor and sensory grossly intact on exam. PSYCH: Normal mood, normal affect. SKIN: Warm, Dry, normal turgor, no rashes or lesions noted on exposed skin - Related Data Allergies/Adverse Reactions: No Known Allergies Allergy (Verified 03/27/17 11:36) Past Medical History - General Information source: Patient - Social History Smoking Status: Current Every Day Smoker Chew tobacco use (# tins/day): No Frequency of alcohol use: None Drug Abuse: None Family History: DM Patient has suicidal ideation: No Patient has homicidal ideation: No - Past Medical History Cardiac Medical History: Reports: Hx Hypercholesterolemia, Hx Hypertension Denies: Hx Coronary Artery Disease, Hx Heart Attack Pulmonary Medical History: Denies: Hx Asthma, Hx Bronchitis, Hx COPD, Hx Pneumonia Neurological Medical History: Denies: Hx Cerebrovascular Accident, Hx Seizures Endocrine Medical History: Reports: Hx Diabetes Mellitus Type 1, Hx Diabetes Mellitus Type 2 Renal/ Medical History: Denies: Hx Peritoneal Dialysis GI Medical History: Reports: Hx Gastroesophageal Reflux Disease Musculoskeletal Medical History: Reports Hx Arthritis - GENERALIZED Psychiatric Medical History: Reports: Hx Depression Past Surgical History: Reports: Hx Orthopedic Surgery - left knee, Other - Amputation of 3 toes - Immunizations Hx Diphtheria, Pertussis, Tetanus Vaccination: Yes - unk Physical Exam - Vital signs Vitals: Temp Pulse Resp BP Pulse Ox 98.6 F 105 H 16 129/78 H 99 11/14/18 14:41 11/14/18 14:41 11/14/18 14:41 11/14/18 14:41 11/14/18 14:41 Course - Re-evaluation Re-evalutation: 11/14/18 19:33 Vitals reviewed. Nursing notes reviewed. Patient is well-appearing and in no acute distress. He has a normal lipase. Ultrasound shows likely cholelithiasis without acute cholecystitis or biliary obstruction. He has normal LFTs and bilirubin. Patient does have elevated creatinine at 3.5 which is slightly higher than his baseline. He sees Dr. Garcia for nephrology and was encouraged to follow closely for reevaluation as an outpatient. His slight elevation in creatinine is likely related to dehydration from his recent vomiting. He has no other signs of infection including a normal WBC count. Patient will be discharged home in stable condition. He was encouraged to drink more fluids. He was counseled on return precautions and verbalized understanding. He is tolerating oral intake at discharge. Patient in agreement with plan of care Laboratory 11/14/18 11/14/18 11/14/18 14:33 16:57 16:57 WBC 7.5 RBC 4.01 L Hgb 11.7 L Hct 35.5 L MCV 89 MCH 29.1 MCHC 32.8 RDW 14.1 H Plt Count 242 Seg Neutrophils % 49.8 Lymphocytes % 37.0 Monocytes % 10.4 Eosinophils % 1.6 Basophils % 1.2 Absolute Neutrophils 3.7 Absolute Lymphocytes 2.8 Absolute Monocytes 0.8 Absolute Eosinophils 0.1 Absolute Basophils 0.1 Sodium 141.6 Potassium 4.7 Chloride 110 H Carbon Dioxide 20 L Anion Gap 12 BUN 28 H Creatinine 3.52 H Est GFR ( Amer) 22 L Est GFR (Non-Af Amer) 18 L Glucose 99 POC Glucose 114 H Calcium 9.2 Total Bilirubin 0.4 Direct Bilirubin 0.4 Neonat Total Bilirubin Not Reportable Neonat Direct Bilirubin Not Reportable Neonat Indirect Bili Not Reportable AST 19 ALT 23 Alkaline Phosphatase 184 H Total Protein 7.1 Albumin 3.7 Lipase 243.1 Abdomen Ultrasound 11/14/18 15:53 IMPRESSION: 1. Biliary sludge versus cholelithiasis. No sonographic evidence of acute cholecystitis. 2. Mild hepatic steatosis. - Vital Signs Vital signs: Temp Pulse Resp BP Pulse Ox 98.6 F 105 H 16 129/78 H 99 11/14/18 14:41 11/14/18 14:41 11/14/18 14:41 11/14/18 14:41 11/14/18 14:41 - Laboratory Result Diagrams: 11/14/18 16:57 11/14/18 16:57 Laboratory results interpreted by me: 11/14/18 11/14/18 11/14/18 14:33 16:57 16:57 RBC 4.01 L Hgb 11.7 L Hct 35.5 L RDW 14.1 H Chloride 110 H Carbon Dioxide 20 L BUN 28 H Creatinine 3.52 H Est GFR ( Amer) 22 L Est GFR (Non-Af Amer) 18 L POC Glucose 114 H Alkaline Phosphatase 184 H Discharge - Discharge Clinical Impression: Dehydration Evlql-li-rlqksje kidney injury Qualifiers: Acute renal failure type: unspecified Chronic kidney disease stage: unspecified stage Qualified Code(s): N17.9 - Acute kidney failure, unspecified; N18.9 - Chronic kidney disease, unspecified Abdominal pain Qualifiers: Abdominal location: upper abdomen, unspecified Qualified Code(s): R10.10 - Upper abdominal pain, unspecified Cholelithiasis Qualifiers: Cholelithiasis location: gallbladder Cholecystitis presence: without cholecystitis Biliary obstruction: without biliary obstruction Qualified Code(s): K80.20 - Calculus of gallbladder without cholecystitis without obstruction Condition: Stable Disposition: HOME, SELF-CARE Instructions: Abdominal Pain ([facility]), Gallbladder Disease ([facility]) Additional Instructions: Please return to the emergency department if you have any worsening, or concern of your symptoms. Please return to the emergency department if you develop chest pain, difficulty breathing, severe abdominal pain, or ongoing vomiting. Please follow-up with your primary care physician in 2-3 days and any other recommended physicians. If prescribed, take all medications as directed. If you have any questions or concerns do not hesitate to return the emergency department for evaluation. Of water you are drinking daily and avoid caffeinated beverages Your kidney function was elevated today and you need to follow with Dr. Garcia to repeat your kidney function testing in the next week Referrals: AUSTIN RODRIGUES MD [ACTIVE STAFF] - Follow up as needed Latoya GARCIA MD [Primary Care Provider] - Follow up in 3-5 days
--- NOTE | 2018-11-14 18:45 | RADIOLOGY REPORT (SQ) ---
EXAM DESCRIPTION: U/S ABDOMEN LIMITED W/O DOP COMPLETED DATE/TIME: 11/14/2018 5:51 pm REASON FOR STUDY: ABDO PAIN COMPARISON: 02/18/2018 and earlier TECHNIQUE: Dynamic and static grayscale images acquired of the abdomen and recorded on PACS. Additio nal selected color Doppler and spectral images recorded. LIMITATIONS: None. FINDINGS: PANCREAS: Obscured due to overlying bowel gas. LIVER: No discrete mass. Slightly coarsened echotexture, similar to prior, suggestive of mild fatty infiltration. LIVER VASCULATURE: Normal directional flow of the main portal vein. GALLBLADDER: Few echogenic foci within in the lumen of the gallbladder which may be gallstones versus biliary sludge. No gallbladder wall thickening or pericholecystic fluid. ULTRASOUND-DETECTED HADLEY'S SIGN: Negative. INTRAHEPATIC DUCTS AND COMMON DUCT: CBD and intrahepatic ducts normal caliber. No filling defects. INFERIOR VENA CAVA: Not visualized. AORTA: No aneurysm. RIGHT KIDNEY: Normal size. Normal echogenicity. No hydronephrosis. PERITONEAL AND RIGHT PLEURAL SPACE: No ascites or effusions. OTHER: No other significant findings. IMPRESSION: 1. Biliary sludge versus cholelithiasis. No sonographic evidence of acute cholecystitis. 2. Mild hepatic steatosis. TECHNICAL DOCUMENTATION: JOB ID: [id number] [employer]- All Rights Reserved Reading location - IP/workstation name: [email or web address]
[2018-11-14 20:21] VITALS: BP 166/89
== END 2018-11-14 20:29 | disposition home or self-care (01) ==
LOC: ER 14:11
DX: N17.9 Acute kidney failure, unspecified (principal); I12.9 Hypertensive chronic kidney disease with stage 1 through stage 4 chronic kidney disease, or unspecified chronic kidney disease; N18.9 Chronic kidney disease, unspecified; K80.20 Calculus of gallbladder without cholecystitis without obstruction; E86.0 Dehydration; R19.7 Diarrhea, unspecified; R11.2 Nausea with vomiting, unspecified; R10.9 Unspecified abdominal pain; R10.10 Upper abdominal pain, unspecified; R10.13 Epigastric pain; F17.200 Nicotine dependence, unspecified, uncomplicated
CPT/HCPCS: 99284; 96374; 36415; 82962; 83690; 85025; 80053; 76705; J2405

== ENCOUNTER → 2018-12-06 | Outpatient (CLI) | payer MEDICARE ==
--- NOTE | 2018-12-06 11:43 | RADIOLOGY REPORT (SQ) ---
EXAM DESCRIPTION: CT ABD/PELVIS NO ORAL OR IV COMPLETED DATE/TIME: 12/06/2018 10:24 am REASON FOR STUDY: ABD PAIN (R10.9) R10.9 UNSPECIFIED ABDOMINAL PAIN chronic pancreatitis COMPARISON: Abdominal ultrasound 11/14/2018, 02/18/2018, 03/27/2017 CT abdomen pelvis 03/27/2017, 06/18/2016, 12/08/2015, 12/20/2014, 03/03/2012 TECHNIQUE: CT scan of the abdomen and pelvis performed without intravenous or oral contrast. Images reviewed with lung, soft tissue, and bone windows. Reconstructed coronal and sagittal MPR images revi ewed. All images stored on PACS. All CT scanners at this facility use dose modulation, iterative reconstruction, and/or weight based d osing when appropriate to reduce radiation dose to as low as reasonably achievable (ALARA). [facility]: Dose Right [facility]: CareDose [facility]: Dose Right [facility]: Teradose 4D [facility]: [employer] RADIATION DOSE: CT Rad equipment meets quality standard of care and radiation dose reduction techniq ues were employed. CTDIvol: 10.9 mGy. DLP: 627 mGy-cm.mGy. LIMITATIONS: None. FINDINGS: LOWER CHEST: Small hiatal hernia. Bilateral gynecomastia. Lung bases clear. NON-CONTRASTED LIVER, SPLEEN, ADRENALS: Evaluation limited by lack of IV contrast. No identified sign ificant masses. PANCREAS: The pancreas is calcified throughout the pancreatic head and pancreatic tail. Along the dipti dy of the pancreas, the duct is dilated. There is currently no retroperitoneal acute inflammation or fluid. No. Pancreatic cyst/ pseudocyst. GALLBLADDER: No identified stones by CT criteria. No inflammatory changes to suggest cholecystitis. RIGHT KIDNEY AND URETER: No suspicious masses. Assessment limited by lack of IV contrast. No signif icant calcifications. No hydronephrosis or hydroureter. LEFT KIDNEY AND URETER: No suspicious masses. Assessment limited by lack of IV contrast. 2 cm cyst l eft upper pole kidney. No significant calcifications. No hydronephrosis or hydroureter. AORTA AND RETROPERITONEUM: No aneurysm. No retroperitoneal masses or adenopathy. BOWEL AND PERITONEAL CAVITY: No obvious masses or inflammatory changes. No free fluid. APPENDIX: Normal. PELVIS, BLADDER, AND ABDOMINAL WALL:No abnormal masses. No free fluid. Bladder normal. BONES: No significant findings. OTHER: No other significant finding. IMPRESSION: Changes of old chronic calcific pancreatitis with pancreatic ductal dilatation and paren chymal calcification. Currently, no retroperitoneal inflammation or phlegmon is identified. No panc reatic pseudocyst or ascites. COMMENT: Quality ID # [id number]: Final reports with documentation of one or more dose reduction techniques (e.g., Automated exposure control, adjustment of the mA and/or kV according to patient size, use of iterative reconstruction technique) TECHNICAL DOCUMENTATION: JOB ID: [id number] [employer]- All Rights Reserved Reading location - IP/workstation name: [email or web address]-
== END ==
LOC: RAD 10:08
PROVIDERS: ATTEND Surgery
DX: R10.9 Unspecified abdominal pain (principal); K86.89 Other specified diseases of pancreas; K44.9 Diaphragmatic hernia without obstruction or gangrene; N62 Hypertrophy of breast
CPT/HCPCS: 74176

== ENCOUNTER → 2018-12-19 | Outpatient (CLI) | payer MEDICARE ==
[2018-12-19 12:54] LABS: ANION GAP 10 (5-19); BLOOD UREA NITROGEN 27 mg/dL (7-20); CARBON DIOXIDE 20 mmol/L (22-30); CHLORIDE 114 mmol/L (98-107); GLUCOSE 112 mg/dL (75-110); POTASSIUM 4.5 mmol/L (3.6-5.0); SODIUM 143.9 mmol/L (137-145)
== END ==
LOC: OD 11:50
PROVIDERS: ATTEND Physician Assistant Medical
DX: I12.9 Hypertensive chronic kidney disease with stage 1 through stage 4 chronic kidney disease, or unspecified chronic kidney disease (principal); N18.3 Chronic kidney disease, stage 3 (moderate); E11.22 Type 2 diabetes mellitus with diabetic chronic kidney disease; D63.1 Anemia in chronic kidney disease; E87.5 Hyperkalemia
CPT/HCPCS: 36415; 80048

== ENCOUNTER → 2019-04-21 | Outpatient (CLI) | payer MEDICARE ==
[2019-04-21 13:50] LABS: APPEARANCE,URINE CLEAR; BILIRUBIN,URINE NEGATIVE (NEGATIVE); COLOR,URINE STRAW; GLUCOSE, URINE 150 mg/dL (NEGATIVE); KETONES,URINE NEGATIVE (NEGATIVE); LEUKOCYTE ESTERASE,URINE NEGATIVE (NEGATIVE); NITRITE,URINE NEGATIVE (NEGATIVE); PROTEIN,URINE 100 mg/dL (NEGATIVE); URINE SPECIFIC GRAVITY 1.013; UROBILINOGEN,URINE NEGATIVE mg/dL (<2.0)
[2019-04-21 14:12] LABS: ANION GAP 10 (5-19); BLOOD UREA NITROGEN 49 mg/dL (7-20); CALCIUM 8.2 mg/dL (8.4-10.2); CARBON DIOXIDE 15 mmol/L (22-30); CHLORIDE 116 mmol/L (98-107); GLUCOSE 242 mg/dL (75-110); IRON(TIBC) 38.8 ug/dL (49-181); PHOSPHORUS 4.6 mg/dL (2.5-4.5); POTASSIUM 4.8 mmol/L (3.6-5.0)
[2019-04-21 14:15] LABS: HEMOGLOBIN 8.4 g/dL (13.5-17.0); MEAN CORPUSCULAR HEMOGLOBIN 29.3 pg (27.0-33.4); MEAN CORPUSCULAR HGB CONC 32.5 g/dL (32.0-36.0); MEAN CORPUSCULAR VOLUME 90 fl (80-97); PLATELET COUNT 226 10^3/uL (150-450); RED BLOOD COUNT 2.88 10^6/uL (4.35-5.55); RED CELL DISTRIBUTION WIDTH 14.7 % (11.5-14.0); WHITE BLOOD COUNT 6.9 10^3/uL (4.0-10.5)
== END ==
LOC: OD 13:07
PROVIDERS: ATTEND Physician Assistant Medical
DX: I12.9 Hypertensive chronic kidney disease with stage 1 through stage 4 chronic kidney disease, or unspecified chronic kidney disease (principal); N18.3 Chronic kidney disease, stage 3 (moderate); E11.22 Type 2 diabetes mellitus with diabetic chronic kidney disease; R80.9 Proteinuria, unspecified; D63.1 Anemia in chronic kidney disease
CPT/HCPCS: 36415; 80048; 81001; 82728; 83540; 83550; 83970; 84100; 85027

== ENCOUNTER 2019-04-27 11:58 | Outpatient (CLI) | payer MEDICARE ==
[2019-04-27] MEDS ORDERED: FERRIC CARBOXYMALTOSE 750 MG in NORMAL SALINE 100 ML IV PRN (12:00)
[2019-04-27 12:17] VITALS: BP 160/82
== END 2019-04-27 13:01 | disposition home or self-care (01) ==
LOC: II 11:58 → 5TH 11:58 → II 13:01
PROVIDERS: ATTEND Physician Assistant Medical
PROC: 3E033GC Introduction of Other Therapeutic Substance into Peripheral Vein, Percutaneous Approach (ICD-10-PCS; principal; 2019-04-27)
DX: D50.9 Iron deficiency anemia, unspecified (principal)
CPT/HCPCS: 96365; J7050; J1439

== ENCOUNTER → 2019-07-22 | Outpatient (CLI) | payer MEDICARE ==
[2019-07-22 10:56] LABS: ABSOLUTE BASOPHILS # (AUTO) 0.1 10^3/uL (0.0-0.2); ABSOLUTE EOSINOPHILS # (AUTO) 0.2 10^3/uL (0.0-0.6); ABSOLUTE LYMPHOCYTES (AUTO) 2.1 10^3/uL (0.5-4.7); ABSOLUTE MONOCYTES (AUTO) 0.6 10^3/uL (0.1-1.4); ABSOLUTE NEUT (AUTO) 3.8 10^3/uL (1.7-8.2); BASOPHILS % (AUTO) 0.9 % (0-2); EOSINOPHILS % (AUTO) 2.8 % (0-6); HEMATOCRIT 27.6 % (37.9-51.0); HEMOGLOBIN 9.2 g/dL (13.5-17.0); LYMPHOCYTES % (AUTO) 30.4 % (13-45); MEAN CORPUSCULAR HEMOGLOBIN 29.8 pg (27.0-33.4); MEAN CORPUSCULAR HGB CONC 33.5 g/dL (32.0-36.0); MEAN CORPUSCULAR VOLUME 89 fl (80-97); MONOCYTES % (AUTO) 9.4 % (3-13); PLATELET COUNT 216 10^3/uL (150-450); SEGMENTED NEUTROPHILS % (AUTO) 56.5 % (42-78); TOTAL CELLS COUNTED % (AUTO) 100 %; WHITE BLOOD COUNT 6.8 10^3/uL (4.0-10.5)
[2019-07-22 11:18] LABS: ALBUMIN 3.4 g/dL (3.5-5.0); ALKALINE PHOSPHATASE 157 U/L (38-126); ANION GAP 10 (5-19); ASPARTATE AMINO TRANSFERASE 20 U/L (17-59); BILIRUBIN,DIRECT 0.1 mg/dL (0.0-0.4); BILIRUBIN,TOTAL 0.2 mg/dL (0.2-1.3); BLOOD UREA NITROGEN 43 mg/dL (7-20); CALCIUM 8.2 mg/dL (8.4-10.2); CARBON DIOXIDE 20 mmol/L (22-30); CHLORIDE 114 mmol/L (98-107); CHOLESTEROL 209.85 mg/dL (0-200); GLUCOSE 166 mg/dL (75-110); POTASSIUM 4.3 mmol/L (3.6-5.0); TOTAL PROTEIN 6.6 g/dL (6.3-8.2); TRIGLYCERIDES 151 mg/dL (<150)
[2019-07-22 11:29] LABS: DIRECT LDL 123 mg/dL (<100)
[2019-07-22 11:34] LABS: VLDL CHOLESTEROL 30.2 mg/dL (10-31)
[2019-07-24 07:13] LABS: MICROALBUMIN URINE 2506.4 ug/mL (Not Estab.)
== END ==
LOC: OD 10:12
PROVIDERS: ATTEND Family Medicine Geriatric Medicine
DX: E78.5 Hyperlipidemia, unspecified (principal); I12.9 Hypertensive chronic kidney disease with stage 1 through stage 4 chronic kidney disease, or unspecified chronic kidney disease; N18.9 Chronic kidney disease, unspecified; E11.22 Type 2 diabetes mellitus with diabetic chronic kidney disease; Z79.899 Other long term (current) drug therapy
CPT/HCPCS: 36415; 80053; 80061; 82043; 82570; 83036; 84443; 85025

== ENCOUNTER 2019-07-31 15:53 | Emergency (ER) | payer MEDICARE ==
[2019-07-31] MEDS ORDERED: PREDNISONE 20 MG TABLET PO ONE (16:55)
[2019-07-31] MEDS ORDERED: IPRATROPIUM/ALBUTEROL 0.5-2.5 MG/3 ML AMPUL NEB ONE (16:55)
--- NOTE | 2019-07-31 16:58 | ER Document Report ---
ED Medical Screen (RME) - General Chief Complaint: Breathing Difficulty Stated Complaint: DIFFICULTY BREATHING Time Seen by Provider: 07/31/19 16:50 Primary Care Provider: RAYMOND RICCI MD [Primary Care Provider] - Follow up as needed Notes: HPI: 64-year-old male with history of diabetes, renal insufficiency sent over from the nephrology office for evaluation of shortness of breath and worsening renal function. Patient states he does not know why he was specifically sent over but has had cough and cold symptoms for 2 weeks. Patient states he is short of breath denies actual chest pain. States he has never had a cardiac problem. Patient does smoke over a pack of cigarettes a day and has continued to smoke despite his illness and shortness of breath. Patient apparently had lab work done by his entertainment reporter and was then referred to the emergency department. On review of the notes faxed over and the lab work that was done patient has had a significant increase in his creatinine to 7.29 over the last week. Patient is also had a mild leukocytosis since his last set of lab work. Chest x-ray done today did not show acute emergent abnormalities I have greeted and performed a rapid initial assessment of this patient. A comprehensive ED assessment and evaluation of the patient, analysis of test results and completion of the medical decision making process will be conducted by additional ED providers PHYSICAL EXAMINATION: GENERAL: Well-appearing, well-nourished and in mild acute distress. Smells strongly of cigarettes HEAD: Atraumatic, normocephalic. EYES: sclera anicteric, conjunctiva are normal. ENT: Moist mucous membranes. NECK: Normal range of motion, no JVD LUNGS: Increased work of breathing, expiratory wheezing in all lung gonzalez, decreased lung sounds bilateral bases HEART: 2+ radial pulses bilaterally, regular rate and rhythm ABD: limited by positioning for exam in triage. EXTREMITIES: no pitting or edema. No cyanosis. NEUROLOGICAL: No focal neurological deficits. Moves all extremities spontaneously and on command. PSYCH: Normal mood, normal affect. SKIN: Warm, Dry, normal turgor, no rashes or lesions noted. TRAVEL OUTSIDE OF THE [place] IN LAST 30 DAYS: No - Related Data Allergies/Adverse Reactions: No Known Allergies Allergy (Verified 03/27/17 11:36) Past Medical History - Past Medical History Cardiac Medical History: Reports: Hx Hypercholesterolemia, Hx Hypertension Denies: Hx Coronary Artery Disease, Hx Heart Attack Pulmonary Medical History: Denies: Hx Asthma, Hx Bronchitis, Hx COPD, Hx Pneumonia Neurological Medical History: Denies: Hx Cerebrovascular Accident, Hx Seizures Endocrine Medical History: Reports: Hx Diabetes Mellitus Type 1, Hx Diabetes Mellitus Type 2 Renal/ Medical History: Denies: Hx Peritoneal Dialysis GI Medical History: Reports: Hx Gastroesophageal Reflux Disease Musculoskeltal Medical History: Reports Hx Arthritis - GENERALIZED Psychiatric Medical History: Reports: Hx Depression Past Surgical History: Reports: Hx Orthopedic Surgery - left knee, Other - Amputation of 3 toes - Immunizations Hx Diphtheria, Pertussis, Tetanus Vaccination: Yes - unk Physical Exam - Vital signs Vitals: Temp Pulse Resp BP Pulse Ox 98.9 F 88 28 H 130/61 H 95 07/31/19 16:45 07/31/19 16:45 07/31/19 16:45 07/31/19 16:45 07/31/19 16:45 Course - Vital Signs Vital signs: Temp Pulse Resp BP Pulse Ox 98.9 F 88 28 H 130/61 H 95 07/31/19 16:45 07/31/19 16:45 07/31/19 16:45 07/31/19 16:45 07/31/19 16:45 Doctor's Discharge - Discharge Referrals: RAYMOND RICCI MD [Primary Care Provider] - Follow up as needed
[2019-07-31 18:23] LABS: TROPONIN I 0.117 ng/mL
[2019-07-31 18:58] LABS: ABSOLUTE LYMPHOCYTES (AUTO) 0.7 10^3/uL (0.5-4.7); ABSOLUTE MONOCYTES (AUTO) 0.3 10^3/uL (0.1-1.4); ABSOLUTE NEUT (AUTO) 7.7 10^3/uL (1.7-8.2); BASOPHILS % (AUTO) 0.4 % (0-2); EOSINOPHILS % (AUTO) 0.2 % (0-6); HEMATOCRIT 24.6 % (37.9-51.0); HEMOGLOBIN 8.2 g/dL (13.5-17.0); LYMPHOCYTES % (AUTO) 7.7 % (13-45); MEAN CORPUSCULAR HEMOGLOBIN 29.8 pg (27.0-33.4); MEAN CORPUSCULAR HGB CONC 33.2 g/dL (32.0-36.0); MEAN CORPUSCULAR VOLUME 90 fl (80-97); MONOCYTES % (AUTO) 3.2 % (3-13); PLATELET COUNT 222 10^3/uL (150-450); RED BLOOD COUNT 2.75 10^6/uL (4.35-5.55); RED CELL DISTRIBUTION WIDTH 14.7 % (11.5-14.0); SEGMENTED NEUTROPHILS % (AUTO) 88.5 % (42-78); TOTAL CELLS COUNTED % (AUTO) 100 %; WHITE BLOOD COUNT 8.7 10^3/uL (4.0-10.5)
[2019-07-31 19:03] LABS: ALBUMIN 3.1 g/dL (3.5-5.0); ALKALINE PHOSPHATASE 122 U/L (38-126); ANION GAP 17 (5-19); ASPARTATE AMINO TRANSFERASE 28 U/L (17-59); BILIRUBIN,DIRECT 0.3 mg/dL (0.0-0.4); BILIRUBIN,TOTAL 0.3 mg/dL (0.2-1.3); BLOOD UREA NITROGEN 51 mg/dL (7-20); CARBON DIOXIDE 15 mmol/L (22-30); CHLORIDE 108 mmol/L (98-107); GLUCOSE 226 mg/dL (75-110); POTASSIUM 3.3 mmol/L (3.6-5.0); TOTAL PROTEIN 6.7 g/dL (6.3-8.2)
--- NOTE | 2019-07-31 19:14 | RADIOLOGY REPORT (SQ) ---
EXAM DESCRIPTION: CHEST SINGLE VIEW COMPLETED DATE/TIME: 07/31/2019 7:04 pm REASON FOR STUDY: SOB COMPARISON: 07/31/2019, 08/03/2016 chest films EXAM PARAMETERS: NUMBER OF VIEWS: One view. TECHNIQUE: Single frontal radiographic view of the chest acquired. RADIATION DOSE: NA LIMITATIONS: None. FINDINGS: LUNGS AND PLEURA: No opacities, masses or pneumothorax. No pleural effusion. MEDIASTINUM AND HILAR STRUCTURES: No masses. Contour normal. HEART AND VASCULAR STRUCTURES: Heart normal in size. Normal vasculature. BONES: No acute findings. HARDWARE: None in the chest. OTHER: No other significant finding. IMPRESSION: NO ACUTE RADIOGRAPHIC FINDING IN THE CHEST. TECHNICAL DOCUMENTATION: JOB ID: [id number] [employer]- All Rights Reserved Reading location - IP/workstation name: [email or web address]
[2019-07-31 19:17] LABS: CALCIUM 6.5 mg/dL (8.4-10.2)
[2019-07-31] MEDS ORDERED: MAGNESIUM SULFATE/D5W 1 GM/100 ML RTUPB IV ONE (19:28)
[2019-07-31] MEDS ORDERED: CALCIUM GLUCONATE 1000 MG/10 ML INJ IV ONE (19:28)
--- NOTE | 2019-07-31 19:38 | ER Document Report ---
ED General - General Chief Complaint: Breathing Difficulty Stated Complaint: DIFFICULTY BREATHING Time Seen by Provider: 07/31/19 16:50 Primary Care Provider: RAYMOND RICCI MD [Primary Care Provider] - Follow up as needed TRAVEL OUTSIDE OF THE [place] IN LAST 30 DAYS: No - HPI Notes: Patient is a 64-year-old male with a history of COPD and chronic kidney disease who presents to the emergency department for evaluation. The patient has a very difficult historian. He states that he has had a cough and congestion for the last several weeks. He followed up with his primary care doctor last week, had labs ordered. His primary care doctor referred him to follow-up closely with his wood gouger. His nephrology office saw him today, he was seen by Jase Tillman. He had lab work and imaging performed today. He was waiting for another follow-up with his primary care provider, when he was contacted by the nephrology office and told to present to the emergency department for evaluation. He has had cough and congestion and shortness of breath for several weeks, but again states this really is not worse. He has had some nasal congestion but no dionicio fevers to his knowledge. No vomiting. He is still urinating. He states he has had some pain in his chest and his back with coughing and deep breathing, but that seems to have improved after a massage. - Related Data Allergies/Adverse Reactions: No Known Allergies Allergy (Verified 03/27/17 11:36) Past Medical History - General Information source: Patient - Social History Smoking Status: Current Every Day Smoker Drug Abuse: None Family History: DM Patient has suicidal ideation: No Patient has homicidal ideation: No - Past Medical History Cardiac Medical History: Reports: Hx Hypercholesterolemia, Hx Hypertension Denies: Hx Coronary Artery Disease, Hx Heart Attack Pulmonary Medical History: Denies: Hx Asthma, Hx Bronchitis, Hx COPD, Hx Pneumonia Neurological Medical History: Denies: Hx Cerebrovascular Accident, Hx Seizures Endocrine Medical History: Reports: Hx Diabetes Mellitus Type 2 Renal/ Medical History: Reports: Hx Renal Insufficiency. Denies: Hx Peritoneal Dialysis GI Medical History: Reports: Hx Gastroesophageal Reflux Disease Musculoskeletal Medical History: Reports Hx Arthritis - GENERALIZED Psychiatric Medical History: Reports: Hx Depression Past Surgical History: Reports: Hx Orthopedic Surgery - left knee, Other - Amputation of 3 toes - Immunizations Hx Diphtheria, Pertussis, Tetanus Vaccination: Yes - unk Review of Systems - Review of Systems Constitutional: No symptoms reported EENT: No symptoms reported Cardiovascular: No symptoms reported Respiratory: See HPI Gastrointestinal: No symptoms reported Genitourinary: No symptoms reported Musculoskeletal: No symptoms reported Skin: No symptoms reported Neurological/Psychological: No symptoms reported Physical Exam - Vital signs Vitals: Pulse Ox 98 07/31/19 15:54 - Notes Notes: This is a 64-year-old male who appears older than his stated age, no acute distress. He does have some mild conversational dyspnea, but when sitting at rest breathes 20 times a minute, nonlabored. Vital signs reviewed, please refer to chart. Head is normocephalic, atraumatic. Pupils equal round, reactive to light. Neck is supple without meningismus. Heart is regular rate and rhythm. Lungs reveal extensive expiratory wheezes throughout. Abdomen is soft, nontender, normoactive bowel sounds throughout. Extremities without cyanosis, clubbing. Posterior calves are nontender. 1+ pretibial pitting edema noted. Peripheral pulses are equal. Skin is warm and dry. Patient is awake, alert, neurological exam is nonfocal. Course - Re-evaluation Re-evalutation: 07/31/19 20:08 Patient presents to the emergency department for evaluation. He had initial laboratory investigations and lab work drawn as ordered by the nephrology office, as well as imaging. His chest x-ray is unremarkable. His laboratory investigation showed an increase in his creatinine, decreased GFR, marked hypocalcemia. We also added other labs, he was found to be hypomagnesemic as well. His potassium is actually low at 3.3. Patient's proBNP and troponin are elevated, likely secondary to his elevated creatinine. Will contact Dr. Garcia. 07/31/19 22:[address] Garcia in regards to this patient. I did review his increased creatinine and other findings. We also discussed his very low calcium. He asked that we perform a renal ultrasound, given a small amount of fluids. He asked that we check to make sure that there was no signs of infection in the urine. There was some blood, so this was sent for culture. Renal ultrasound failed to reveal any signs of obstructive process. He was stable throughout the course of his stay here. He states his breathing is his baseline. He already had an antibiotic called in for a COPD exacerbation. He was given steroids here. I will go ahead and give him 500 mg of p.o. Zithromax, as I am unsure as to what antibiotic he had called into the pharmacy. At this point I will order a metabolic panel to be performed as an outpatient on Wednesday. He is to follow- up with Dr. Garcia on Wednesday. The patient is amenable to this plan. He understands that if he develops any worsening or new concerning symptoms of any sort he needs to return immediately to the emergency department for reevaluation. - Vital Signs Vital signs: Temp Pulse Resp BP Pulse Ox 98.9 F 88 32 H 146/79 H 96 07/31/19 16:45 07/31/19 16:45 07/31/19 20:01 07/31/19 20:00 07/31/19 20:01 - Laboratory Result Diagrams: 07/31/19 18:06 07/31/19 18:06 Laboratory results interpreted by me: 07/31/19 07/31/19 07/31/19 17:38 17:38 18:06 RBC 2.75 L Hgb 8.2 L Hct 24.6 L RDW 14.7 H Lymph % (Auto) 7.7 L Seg Neutrophils % 88.5 H Potassium Chloride Carbon Dioxide BUN Creatinine Est GFR ( Amer) Est GFR (MDRD) Non-Af Glucose POC Glucose Calcium Magnesium 1.4 L NT-Pro-B Natriuret Pep 5990 H Albumin Urine Protein Urine Glucose (UA) Urine Blood 07/31/19 07/31/19 07/31/19 18:06 18:58 20:50 RBC Hgb Hct RDW Lymph % (Auto) Seg Neutrophils % Potassium 3.3 L Chloride 108 H Carbon Dioxide 15 L BUN 51 H Creatinine 7.29 H Est GFR ( Amer) 9 L Est GFR (MDRD) Non-Af 8 L Glucose 226 H POC Glucose 249 H Calcium 6.5 L* Magnesium NT-Pro-B Natriuret Pep Albumin 3.1 L Urine Protein >=500 H Urine Glucose (UA) 50 H Urine Blood MODERATE H - Diagnostic Test Radiology reviewed: Image reviewed, Reports reviewed Radiology results interpreted by me: 07/31/19 20:09 Chest X-Ray 07/31/19 18:51 IMPRESSION: NO ACUTE RADIOGRAPHIC FINDING IN THE CHEST. - EKG Interpretation by Me Additional EKG results interpreted by me: 07/31/19 20:09 Sinus mechanism with a rate of 80 bpm. Normal axis. Borderline prolonged QT interval. No acute ST changes concerning for ischemia or infarction. No significant change when compared to prior study. Discharge - Discharge Clinical Impression: Acute kidney injury, Hypocalcemia, Hypokalemia, Hypomagnesemia, Acute exacerbation of chronic obstructive pulmonary disease (COPD) Condition: Stable Disposition: HOME, SELF-CARE Instructions: Kidney Failure ([facility]), Chronic Obstructive Lung Disease ([facility]) Additional Instructions: Please take the prescriptions as directed by her wood gouger and family doctors. It is important that you have your lab work redrawn on Wednesday, and follow-up with Dr. Garcia on Wednesday. If your breathing worsens, or you develop new or concerning symptoms of any sort, please return immediately to the emergency department for evaluation. Forms: Follow-Up Laboratory Testing Referrals: RAYMOND RICCI MD [Primary Care Provider] - Follow up as needed
[2019-07-31 21:20] LABS: AMORPHOUS SEDIMENT,URINE TRACE /HPF; APPEARANCE,URINE CLOUDY; BILIRUBIN,URINE NEGATIVE (NEGATIVE); COLOR,URINE YELLOW; GLUCOSE, URINE 50 mg/dL (NEGATIVE); KETONES,URINE NEGATIVE (NEGATIVE); LEUKOCYTE ESTERASE,URINE NEGATIVE (NEGATIVE); NITRITE,URINE NEGATIVE (NEGATIVE); PROTEIN,URINE >=500 mg/dL (NEGATIVE); URINE SPECIFIC GRAVITY 1.015; UROBILINOGEN,URINE NEGATIVE mg/dL (<2.0)
--- NOTE | 2019-07-31 21:51 | EKG REPORT ---
SEVERITY:- ABNORMAL ECG - SINUS RHYTHM LEFT ATRIAL ABNORMALITY BORDERLINE PROLONGED QT INTERVAL : Confirmed by: Noa Dawkins MD 31-Jul-2019 21:51:08
[2019-07-31] MEDS ORDERED: POTASSIUM CHLORIDE 10 MEQ TABLET.ER PO ONE (21:54)
[2019-07-31] MEDS ORDERED: NORMAL SALINE 500 ML IV ONE (21:54)
--- NOTE | 2019-07-31 22:18 | RADIOLOGY REPORT (SQ) ---
US RETROPERITONEUM LIMITED Exam date: 07/31/2019 8:18 PM [employer]K SCREEN [employer]INTING [employer]ER Comparison: None Indication: renal failure Technique: Ultrasound of the kidney's and Bladder was performed. Findings: Right: The kidney measures 11.5 cm in length and there is diffuse increased echogenicity consistent with medical renal disease. Blood flow is noted in the kidney. No hydronephrosis. In the lower pole is an 8.2 mm hypoechoic area which may represent a cyst. Left: Measures 12.4 cm in length. There is increased echogenicity consistent with medical renal disease. No hydronephrosis. In the central portion of the kidney is a focal area which shadows measuring 9.6 mm which may represent a stone. On the CT scan this correlates with vascular calcifications. Blood flow is present in the kidney. In the upper pole is a simple cyst measuring 2.4 x 2.3 x 2.2 cm. Bladder: Not evaluated Impression: Increased echogenicity of the kidneys bilaterally suggesting medical renal disease. No hydronephrosis.
[2019-07-31] MEDS ORDERED: AZITHROMYCIN 250 MG TABLET PO ONE (22:58)
[2019-07-31 23:28] VITALS: BP 174/83
== END 2019-07-31 23:28 | disposition home or self-care (01) ==
LOC: ER 15:53
DX: N17.9 Acute kidney failure, unspecified (principal); E83.51 Hypocalcemia; E87.6 Hypokalemia; E83.42 Hypomagnesemia; J44.1 Chronic obstructive pulmonary disease with (acute) exacerbation; E78.00 Pure hypercholesterolemia, unspecified; I10 Essential (primary) hypertension; E11.9 Type 2 diabetes mellitus without complications; F17.200 Nicotine dependence, unspecified, uncomplicated
CPT/HCPCS: 93005; 36415; 82962; 83735; 80053; 81001; 84484; 83880; 71045; 76775; 93010; J0610; A9270 ×4; J3475; J7040; 94640; 96361; 96365; 96375; 99285; J7512; J7620

== ENCOUNTER → 2019-07-31 | Outpatient (CLI) | payer MEDICARE ==
--- NOTE | 2019-07-31 15:31 | RADIOLOGY REPORT (SQ) ---
EXAM DESCRIPTION: CHEST PA/LATERAL COMPLETED DATE/TIME: 07/31/2019 3:06 pm REASON FOR STUDY: WHEEZING,COUGH COMPARISON: 07/31/2019 EXAM PARAMETERS: NUMBER OF VIEWS: two views TECHNIQUE: Digital Frontal and Lateral radiographic views of the chest acquired. RADIATION DOSE: NA LIMITATIONS: none FINDINGS: LUNGS AND PLEURA: Basilar interstitial prominence without overt edema. No focal consolida tion. MEDIASTINUM AND HILAR STRUCTURES: No masses or contour abnormalities. HEART AND VASCULAR STRUCTURES: Enlarged cardiac silhouette. Mild basilar interstitial prominence wit hout overt alveolar edema. BONES: No acute findings. HARDWARE: None in the chest. OTHER: No other significant finding. IMPRESSION: Enlarged cardiac silhouette with interstitial prominence, likely mild interstitial edema . No pleural effusion or overt alveolar edema. TECHNICAL DOCUMENTATION: JOB ID: [id number] [employer] All Rights Reserved Reading location - IP/workstation name: [email or web address]
== END ==
LOC: OD 14:29
PROVIDERS: ATTEND Family Medicine Geriatric Medicine
DX: R06.2 Wheezing (principal); R05 Cough
CPT/HCPCS: 71046

== ENCOUNTER → 2019-07-31 | Outpatient (CLI) | payer MEDICARE ==
--- NOTE | 2019-07-31 12:30 | RADIOLOGY REPORT (SQ) ---
EXAM DESCRIPTION: CHEST SINGLE VIEW COMPLETED DATE/TIME: 07/31/2019 12:13 pm REASON FOR STUDY: SOB COMPARISON: 08/03/2016 EXAM PARAMETERS: NUMBER OF VIEWS: One view. TECHNIQUE: Single frontal radiographic view of the chest acquired. RADIATION DOSE: NA LIMITATIONS: None. FINDINGS: LUNGS AND PLEURA: No opacities, masses or pneumothorax. No pleural effusion. MEDIASTINUM AND HILAR STRUCTURES: No masses. Contour normal. HEART AND VASCULAR STRUCTURES: Heart normal in size. Normal vasculature. BONES: No acute findings. HARDWARE: None in the chest. OTHER: No other significant finding. IMPRESSION: NO ACUTE RADIOGRAPHIC FINDING IN THE CHEST. TECHNICAL DOCUMENTATION: JOB ID: [id number] [employer]- All Rights Reserved Reading location - IP/workstation name: [email or web address]
[2019-07-31 12:53] LABS: ALBUMIN 3.2 g/dL (3.5-5.0); ANION GAP 17 (5-19); BLOOD UREA NITROGEN 49 mg/dL (7-20); CARBON DIOXIDE 16 mmol/L (22-30); CHLORIDE 110 mmol/L (98-107); IRON(TIBC) 27.7 ug/dL (49-181); PHOSPHORUS 5.7 mg/dL (2.5-4.5); POTASSIUM 3.3 mmol/L (3.6-5.0)
[2019-07-31 12:57] LABS: ABSOLUTE LYMPHOCYTES (AUTO) 2.6 10^3/uL (0.5-4.7); ABSOLUTE MONOCYTES (AUTO) 1.6 10^3/uL (0.1-1.4); BASOPHILS % (AUTO) 0.3 % (0-2); EOSINOPHILS % (AUTO) 0.1 % (0-6); HEMATOCRIT 25.5 % (37.9-51.0); HEMOGLOBIN 8.4 g/dL (13.5-17.0); LYMPHOCYTES % (AUTO) 18.1 % (13-45); MEAN CORPUSCULAR HEMOGLOBIN 29.3 pg (27.0-33.4); MEAN CORPUSCULAR HGB CONC 32.9 g/dL (32.0-36.0); MEAN CORPUSCULAR VOLUME 89 fl (80-97); MONOCYTES % (AUTO) 11.4 % (3-13); PLATELET COUNT 236 10^3/uL (150-450); RED BLOOD COUNT 2.86 10^6/uL (4.35-5.55); RED CELL DISTRIBUTION WIDTH 14.1 % (11.5-14.0); SEGMENTED NEUTROPHILS % (AUTO) 70.1 % (42-78); TOTAL CELLS COUNTED % (AUTO) 100 %; WHITE BLOOD COUNT 14.3 10^3/uL (4.0-10.5)
[2019-07-31 13:30] LABS: GLUCOSE 43 mg/dL (75-110)
[2019-07-31 13:31] LABS: CALCIUM 6.8 mg/dL (8.4-10.2)
== END ==
LOC: OD 11:41
PROVIDERS: ATTEND Physician Assistant Medical
DX: I12.9 Hypertensive chronic kidney disease with stage 1 through stage 4 chronic kidney disease, or unspecified chronic kidney disease (principal); N18.4 Chronic kidney disease, stage 4 (severe); E11.22 Type 2 diabetes mellitus with diabetic chronic kidney disease; E87.6 Hypokalemia; R06.02 Shortness of breath; N25.0 Renal osteodystrophy; D64.9 Anemia, unspecified
CPT/HCPCS: 36415; 71045; 80069; 82728; 83540; 83550; 85025

== ENCOUNTER 2019-08-03 11:00 | Inpatient (IN) | payer MEDICARE ==
[2019-08-03] MEDS ORDERED: PIPERACILLIN/TAZOBACTAM 3.375 GM VIAL IV ONE (11:18)
--- NOTE | 2019-08-03 11:29 | ER Document Report ---
ED General - General Chief Complaint: Breathing Difficulty Stated Complaint: DIFFICULTY BREATHING Time Seen by Provider: 08/03/19 11:10 Primary Care Provider: RAYMOND FOSTER MD [COMMUNITY BASED STAFF] - Follow up as needed TRAVEL OUTSIDE OF THE [place] IN LAST 30 DAYS: No - HPI Notes: Mr. Cam villalobos is a 64-year-old male with a history of COPD, chronic respiratory failure, chronic renal disease, chronic pain syndrome and ongoing cigarette smoking who was recently treated here for acute bronchitis and today is presenting with a chief complaint of increased difficulty breathing. He was placed on BiPAP by EMS prior to arrival here and history obtainable from the patient is limited at this time due to the situation. EMS is also administered IV Solu-Medrol 125 mg and magnesium 2 g IV. Patient is regularly followed by Dr. Foster and also seen by Dr. Garcia from nephrology. - Related Data Allergies/Adverse Reactions: No Known Allergies Allergy (Verified 03/27/17 11:36) Past Medical History - General Information source: Patient, Emergency Med Personnel, [facility] Records - Social History Smoking Status: Current Every Day Smoker Family History: DM - Past Medical History Cardiac Medical History: Reports: Hx Hypercholesterolemia, Hx Hypertension Denies: Hx Coronary Artery Disease, Hx Heart Attack Pulmonary Medical History: Reports: Hx Bronchitis, Hx COPD, Hx Pneumonia, Hx Respiratory Failure Denies: Hx Asthma Neurological Medical History: Denies: Hx Cerebrovascular Accident, Hx Seizures Endocrine Medical History: Reports: Hx Diabetes Mellitus Type 1, Hx Diabetes Mellitus Type 2 Renal/ Medical History: Reports: Hx Renal Insufficiency. Denies: Hx Peritoneal Dialysis GI Medical History: Reports: Hx Gastroesophageal Reflux Disease Musculoskeletal Medical History: Reports Hx Arthritis - GENERALIZED Psychiatric Medical History: Reports: Hx Depression Past Surgical History: Reports: Hx Orthopedic Surgery - left knee, Other - Amputation of 3 toes - Immunizations Hx Diphtheria, Pertussis, Tetanus Vaccination: Yes - unk Review of Systems - Review of Systems -: Yes ROS unobtainable due to patient's medical condition Physical Exam - Vital signs Vitals: Pulse Ox 94 08/03/19 11:01 - Notes Notes: GENERAL: Male patient of approximately stated age who is awake and alert on BiPAP with ongoing labored respirations. He is wearing pajamas and I note these have multiple holes from cigarette reyna. SKIN: Good turgor no rashes. HEAD: Normocephalic atraumatic. EYES: PERRLA. EOMI. Conjunctivae and sclerae clear. EARS: CANALS AND TMS CLEAR. NOSE: CLEAR. MOUTH: Moist mucosa. Good dentition. No stridor or edema. No drooling. NECK: Supple. No masses or thyromegaly. No adenopathy. Carotids 2+ without bruits. No JVD. BACK: Symmetrical without tenderness. CHEST: Respirations labored. Coarse rhonchi bilaterally. HEART: Regular rhythm. No murmur gallop or rub. ABDOMEN: Soft nontender without masses, organomegaly or rebound. Bowel sounds normally active. No bruits. GENITALIA: Deferred. EXTREMITIES: 1+ bilateral pretibial edema. No calf tenderness. Cap refill less than 1.5 seconds. Dorsalis pedis and posterior tibial pulses 3+ and symmetrical. NEUROLOGICAL: GCS 15. Alert and oriented x3. Cranial nerves II through XII intact. Sensorimotor and cerebellar normal. Normal tone. PSYCHIATRIC: Anxious affect. Course - Re-evaluation Re-evalutation: 08/03/19 12:54 This gentleman is breathing very comfortably now on BiPAP. His chest x-ray shows what appears to be asymmetric pulmonary edema. His arterial blood gas shows primarily a metabolic acidosis with a pH of 7.14 a PCO2 of 16. His creatinine is above 8 now. His potassium level is normal. His blood pressure is 180/100. I think this man needs dialysis. I have paged Dr. Brian Garcia from nephrology. 08/03/19 13:50 Dr. Garcia from nephrology says he is currently not able to dialyze this patient. We also note patient has a bump in his troponin level. On the basis of the circumstances he recommends that we try to transfer the patient. Family requested we try to get him to [facility]. I have spoken with [facility] transfer center and they currently do not have capacity to accept patient. They have recommended that we try to transfer the patient to [facility]. I have also talked with the transfer center in [place] and they also indicate that they are currently on regional diversion but agreed that this man needs critical care interventions. They will review the situation with the warehouse packaging supervisor and I am awaiting a call back from them regarding disposition. 08/03/19 14:06 [facility] stating they are on diversion status. I spoke with the transfer center at [facility] and we are awaiting a decision from them regarding acceptance of this patient for transfer. 08/03/19 14:22 Dr. Ballard in the nephrology division at [facility] will accept this patient for transfer but they are currently also on regional diversion and do not have an inpatient bed for the patient and do not have capacity to accept the patient for ED to ED transfer at this time. Patient has been placed on their waiting list for transfer. I have made yet another call to the on-call transcriptionist here today Dr. León and he is going to try to create a bed in the ICU for the patient at this time. 08/03/19 15:37 Dr. Brian Garcia from nephrology has now stated that he is able to dialyze the patient in the ICU today. This is discussed with Dr. León from critical care service and he will admit the patient to the ICU and place a PermCath at this time. - Vital Signs Vital signs: Temp Pulse Resp BP Pulse Ox 98.1 F 46 H 189/96 H 96 08/03/19 11:22 08/03/19 11:20 08/03/19 11:08 08/03/19 11:23 - Laboratory Result Diagrams: 08/03/19 11:11 08/03/19 11:11 Laboratory results interpreted by me: 08/03/19 08/03/19 08/03/19 11:11 11:11 11:11 WBC 13.1 H RBC 2.97 L Hgb 8.7 L Hct 26.1 L RDW 14.7 H Band Neutrophils % 1 L Metamyelocytes % 2 H Abs Neuts (Manual) 9.7 H ABG pH ABG HCO3 ABG Total CO2 Sodium 147.6 H Chloride 114 H Carbon Dioxide 16 L BUN 72 H Creatinine 8.15 H Est GFR ( Amer) 8 L Est GFR (MDRD) Non-Af 7 L Glucose 209 H Calcium 6.7 L* Magnesium Direct Bilirubin 0.5 H Alkaline Phosphatase 129 H NT-Pro-B Natriuret Pep 21322 H 08/03/19 08/03/19 11:11 11:58 WBC RBC Hgb Hct RDW Band Neutrophils % Metamyelocytes % Abs Neuts (Manual) ABG pH 7.14 L* ABG HCO3 14.4 L ABG Total CO2 15.7 L Sodium Chloride Carbon Dioxide BUN Creatinine Est GFR ( Amer) Est GFR (MDRD) Non-Af Glucose Calcium Magnesium 2.7 H Direct Bilirubin Alkaline Phosphatase NT-Pro-B Natriuret Pep Critical Care Note - Critical Care Note Total time excluding time spent on procedures (mins): 60 Comments: Respiratory failure with initiation of BiPAP. Discharge - Discharge Clinical Impression: Acute pulmonary edema, End stage renal disease, Metabolic acidosis Acute respiratory failure Qualifiers: Respiratory failure complication: unspecified whether with hypoxia or hypercapnia Qualified Code(s): J96.00 - Acute respiratory failure, unspecified whether with hypoxia or hypercapnia Condition: Critical Disposition: ADMITTED INPATIENT Admitting Provider: Saira (Repairer) Unit Admitted: ICU Referrals: RAYMOND FOSTER MD [COMMUNITY BASED STAFF] - Follow up as needed
[2019-08-03 11:57] LABS: ALBUMIN 3.5 g/dL (3.5-5.0); ALKALINE PHOSPHATASE 129 U/L (38-126); ANION GAP 18 (5-19); ASPARTATE AMINO TRANSFERASE 26 U/L (17-59); BILIRUBIN,DIRECT 0.5 mg/dL (0.0-0.4); BILIRUBIN,TOTAL 0.6 mg/dL (0.2-1.3); BLOOD UREA NITROGEN 72 mg/dL (7-20); CARBON DIOXIDE 16 mmol/L (22-30); CHLORIDE 114 mmol/L (98-107); GLUCOSE 209 mg/dL (75-110); POTASSIUM 4.7 mmol/L (3.6-5.0); TOTAL PROTEIN 7.2 g/dL (6.3-8.2)
[2019-08-03] MEDS ORDERED: LEVOFLOXACIN 750 MG/D5W RTU 750 MG/150 ML RTUPB IV ONE (12:00)
[2019-08-03 12:08] LABS: CALCIUM 6.7 mg/dL (8.4-10.2)
[2019-08-03 12:16] LABS: HEMATOCRIT 26.1 % (37.9-51.0); HEMOGLOBIN 8.7 g/dL (13.5-17.0); MEAN CORPUSCULAR HEMOGLOBIN 29.2 pg (27.0-33.4); MEAN CORPUSCULAR HGB CONC 33.2 g/dL (32.0-36.0); MEAN CORPUSCULAR VOLUME 88 fl (80-97); PLATELET COUNT 349 10^3/uL (150-450); RED BLOOD COUNT 2.97 10^6/uL (4.35-5.55); RED CELL DISTRIBUTION WIDTH 14.7 % (11.5-14.0); WHITE BLOOD COUNT 13.1 10^3/uL (4.0-10.5)
[2019-08-03 12:18] LABS: ARTERIAL BLOOD HCO3 14.4 mmol/L (20-24); ARTERIAL BLOOD O2 SATURATION 95.5 % (94-98); ARTERIAL BLOOD PCO2 43.3 mmHg (35-45); ARTERIAL BLOOD PH 7.14 (7.35-7.45); ARTERIAL BLOOD PO2 99.3 mmHg (80-100); ARTERIAL BLOOD TOTAL CO2 15.7 mmol/L (23-27)
[2019-08-03 12:18] LABS: TROPONIN I 0.211 ng/mL
[2019-08-03 12:20] LABS: ARTERIAL BLOOD FIO2 50
--- NOTE | 2019-08-03 12:41 | RADIOLOGY REPORT (SQ) ---
EXAM DESCRIPTION: CHEST SINGLE VIEW COMPLETED DATE/TIME: 08/03/2019 11:47 am REASON FOR STUDY: sob COMPARISON: Chest films 07/31/2019, 08/23/2016 EXAM PARAMETERS: NUMBER OF VIEWS: One view. TECHNIQUE: Single frontal radiographic view of the chest acquired. RADIATION DOSE: NA LIMITATIONS: None. FINDINGS: LUNGS AND PLEURA: Diffuse right lower lobe airspace disease, left perihilar airspace disea se is now present. Differential is asymmetric pulmonary edema versus pneumonia. No pleural effusion. No pneumothorax. MEDIASTINUM AND HILAR STRUCTURES: No masses. Contour normal. HEART AND VASCULAR STRUCTURES: Mild cardiomegaly BONES: No acute findings. HARDWARE: None in the chest. OTHER: No other significant finding. IMPRESSION: Bilateral airspace disease right greater than left, differential is asymmetric pulmonary edema versus pneumonia. Mild cardiomegaly TECHNICAL DOCUMENTATION: JOB ID: [id number] [employer]- All Rights Reserved Reading location - IP/workstation name: [email or web address]
[2019-08-03 12:49] LABS: ABSOLUTE MONOCYTES # (MANUAL) 1.4 10^3/uL (0.1-1.4); BAND NEUTROPHILS % (MANUAL) 1 % (3-5); BASOPHILS % (MANUAL) 0 % (0-2); EOSINOPHILS % (MANUAL) 0 % (0-6); LYMPHOCYTES % (MANUAL) 15 % (13-45); METAMYELOCYTES % (MANUAL) 2 % (0-1); MONOCYTES % (MANUAL) 11 % (3-13); SEGMENTED NEUTROPHILS % (MAN) 71 % (42-78); TOTAL CELLS COUNTED 100
[2019-08-03 12:51] LABS: ANISOCYTOSIS SLIGHT; PAPPENHEIMER BODIES PRESENT; PLATELET COMMENT ADEQUATE; POLYCHROMASIA SLIGHT; TOXIC VACUOLATION PRESENT
[2019-08-03] MEDS ORDERED: FUROSEMIDE INJ/PF 20 MG/2 ML SDV IV ONE (13:41)
[2019-08-03] MEDS ORDERED: NITROGLYCERIN/D5W 50 MG/250 ML RTUINJ IV PRN ×2 (13:42→16:13)
[2019-08-03 13:51] LABS: A TYPE INFLUENZA AG NEGATIVE (NEGATIVE); B INFLUENZA AG NEGATIVE (NEGATIVE)
[2019-08-03] MEDS ORDERED: IPRATROPIUM/ALBUTEROL 0.5-2.5 MG/3 ML AMPUL NEB PRN (15:45)
[2019-08-03] MEDS ORDERED: ACETAMINOPHEN 325 MG TABLET PO PRN (15:45)
[2019-08-03] MEDS ORDERED: LIPASE PO SCH ×2 (16:00→17:00)
[2019-08-03] MEDS ORDERED: AMYLASE PO SCH ×2 (16:00→17:00)
[2019-08-03] MEDS ORDERED: PROTEASE PO SCH ×2 (16:00→17:00)
[2019-08-03] MEDS ORDERED: NORMAL SALINE 250 ML with FUROSEMIDE 250 MG IV PRN ×2 (16:12)
[2019-08-03] MEDS: ASPIRIN 81 MG TABLET, ENT COATED PO SCH (16:32)
--- NOTE | 2019-08-03 16:32 | CRITICAL CARE ADMISSION REPORT ---
HPI Date:: 08/03/19 Time:: 16:00 Reason for ICU Reason:: Need for NTG drip, bipap, risk for intubation. HPI: This patient is a 64 yo man who has been a patient of Dr. Garcia and now is in need of dialysis. He came to the ED with SOB. Found to be in pulmonary edema and acidotic to 7.1. Unfortunately he cannot be transferred due to lack of beds and no staff to perform dialysis. Under the circumstances the best we can offer is HD in AM. NTG and Lasix drip and some bicarb as this has been able to start in the ED but he needs a nursing ratio that the ED cannot accommodate. He will be admitted to the ICU. History obtained from:: Patient and daughter, ED MD - Diagnosis/Plan (1) Acute pulmonary edema Is this a current diagnosis for this admission?: Yes Plan: He will need a lasix drip and ntg drip for preload reduction. IV Vasotec for afterload reduction (2) End stage renal disease Is this a current diagnosis for this admission?: Yes Plan: He will have a dialysis catheter placed for HD (3) Acidosis Is this a current diagnosis for this admission?: Yes Plan: We will temporize with bicarb and ultimate treatment is HD (4) Altered mental status Is this a current diagnosis for this admission?: Yes Plan: Likely due to acidosis. - . Plan Summary: Temporize with NGT and Lasix. Vasotec if needed. Past Medical History Cardiac Medical History: Reports: Hyperlipidema, Hypertension Denies: Coronary Artery Disease, Myocardial Infarction Pulmonary Medical History: Reports: Bronchitis, Chronic Obstructive Pulmonary Disease (COPD), Pneumonia, Respiratory Failure Denies: Asthma Neurological Medical History: Denies: Seizures Endocrine Medical History: Reports: Diabetes Mellitus Type 1, Diabetes Mellitus Type 2 GI Medical History: Reports: Gastroesophageal Reflux Disease Musculoskeltal Medical History: Reports: Arthritis - GENERALIZED Psychiatric Medical History: Reports: Depression Hematology: Reports: Anemia Past Surgical History Past Surgical History: Reports: Orthopedic Surgery - left knee, Other - Amputation of 3 toes Social/Family History - Social History Smoking Status: Current Every Day Smoker Frequency of Alcohol Use: Occasional Hx Recreational Drug Use: No Drugs: Cocaine, Marijuana Hx Prescription Drug Abuse: No - Medication/Allergies Home Medications: Albuterol Sulfate [Proair HFA Inhalation Aerosol 8.5 gm MDI] 2 puff IN Q4HP PRN 02/06/20 Aspirin [Ecotrin 81 mg EC Tablet] 81 mg PO DAILY 08/03/19 Bupropion HCl [Bupropion HCl Sr] 200 mg PO BID 08/03/19 Guaifenesin [Mucinex Sr 600 mg Tablet.sa] 600 mg PO Q12 08/03/19 Linaclotide [Linzess 145 Mcg Capsule] 145 mcg PO QAM 08/03/19 Lipase/Protease/Amylase [Creon Dr 6,000 Units Capsule] 2 cap PO .SNACKS 08/03/19 Lipase/Protease/Amylase [Creon Dr 6,000 Units Capsule] 2 cap PO MEALS 08/03/19 Pantoprazole Sodium [Protonix [address] Tablet] 40 mg PO DAILY 08/03/19 Pregabalin [Lyrica 100 mg Capsule] 100 mg PO BID 08/03/19 RX: Amlodipine Besylate [Norvasc 10 mg Tablet] 10 mg PO DAILY 08/03/19 RX: Calcitriol [Rocaltrol 0.25 mcg Capsule] 0.25 mcg PO DAILY 08/03/19 RX: Promethazine HCl [Phenergan 25 mg Tablet] 25 mg PO TIDP PRN 08/03/19 RX: Timolol Maleate [Timoptic 0.5% Oph Soln 5 ml] 1 drop OS BID 08/03/19 RX: Tizanidine HCl [Zanaflex 4 mg Tablet] 4 mg PO QHS 08/03/19 Sodium Bicarbonate [Sodium Bicarbonate 650 mg Tablet] 1,300 mg PO BID 08/03/19 Tamsulosin HCl [Flomax 0.4 mg Cap.sr] 0.4 mg PO QPM 08/03/19 Topiramate [Topamax 25 mg Tablet] 50 mg PO BID 08/03/19 Allergies/Adverse Reactions: No Known Allergies Allergy (Verified 03/27/17 11:36) Review of Systems ROS unobtainable: Due to mental status Physical Exam Vital Signs: Temp Pulse Resp BP Pulse Ox 98.1 F 46 H 189/96 H 96 08/03/19 11:22 08/03/19 11:20 08/03/19 11:08 08/03/19 11:23 Intake & Output 08/02/19 08/03/19 08/04/19 06:59 06:59 06:59 Intake Total 150 Balance 150 Weight 97 kg Weight/Height Weight 97 kg Height 6 ft General appearance: PRESENT: cooperative, mild distress Head exam: PRESENT: atraumatic, normocephalic Eye exam: PRESENT: conjunctiva pink, EOMI, PERRLA. ABSENT: scleral icterus Ear exam: PRESENT: normal external ear exam Mouth exam: PRESENT: moist, tongue midline Respiratory exam: PRESENT: crackles, decreased breath sounds Cardiovascular exam: PRESENT: tachycardia. ABSENT: diastolic murmur, rubs, systolic murmur GI/Abdominal exam: PRESENT: normal bowel sounds, soft. ABSENT: distended, guarding, mass, organolmegaly, rebound, tenderness Rectal exam: PRESENT: deferred Extremities exam: PRESENT: pedal edema Musculoskeletal exam: PRESENT: normal inspection Neurological exam: PRESENT: altered Skin exam: PRESENT: dry, intact, warm. ABSENT: cyanosis, rash Laboratory/Radiographs Laboratory Results: 08/03/19 11:11 08/03/19 11:11 08/03/19 08/03/19 08/03/19 11:11 11:11 11:11 WBC 13.1 H RBC 2.97 L Hgb 8.7 L Hct 26.1 L MCV 88 MCH 29.2 MCHC 33.2 RDW 14.7 H Plt Count 349 Seg Neutrophils % Not Reportable Carbonic Acid HCO3/H2CO3 Ratio ABG pH ABG pCO2 ABG pO2 ABG HCO3 ABG O2 Saturation ABG Base Excess FiO2 Sodium 147.6 H Potassium 4.7 Chloride 114 H Carbon Dioxide 16 L Anion Gap 18 BUN 72 H Creatinine 8.15 H Est GFR ( Amer) 8 L Glucose 209 H Lactic Acid Calcium 6.7 L* Magnesium 2.7 H Total Bilirubin 0.6 AST 26 Alkaline Phosphatase 129 H Total Protein 7.2 Albumin 3.5 08/03/19 08/03/19 11:11 11:58 WBC RBC Hgb Hct MCV MCH MCHC RDW Plt Count Seg Neutrophils % Carbonic Acid 1.30 HCO3/H2CO3 Ratio 11:1 ABG pH 7.14 L* ABG pCO2 43.3 ABG pO2 99.3 ABG HCO3 14.4 L ABG O2 Saturation 95.5 ABG Base Excess -14.0 FiO2 50 Sodium Potassium Chloride Carbon Dioxide Anion Gap BUN Creatinine Est GFR ( Amer) Glucose Lactic Acid 0.8 Calcium Magnesium Total Bilirubin AST Alkaline Phosphatase Total Protein Albumin 08/03/19 11:11 Troponin I 0.211 NT-Pro-B Natriuret Pep 94836 H Impressions: Chest X-Ray 08/03/19 11:01 IMPRESSION: Bilateral airspace disease right greater than left, differential is asymmetric pulmonary edema versus pneumonia. Mild cardiomegaly All labs, radiographs, diagnostic studies and EKGs were personally reviewed: Yes In addition, reports of radiographic and diagnostic studies were read: Yes Critical Time Critical Time (minutes): 45 -: The care of a critically ill patient is dynamic. This note represents a static moment in the admission process. Orders and treatments may be given simultaneously and urgently, and time is not parts sales representative of the treatment process. This patient requires Critical Care secondary to life threatening organ or limb dysfunction. Without Critical Care services, the patient is at risk for increased mortality and morbidity.
[2019-08-03] MEDS ORDERED: FUROSEMIDE INJ/PF 40 MG/4 ML SDV IV ONE (17:00)
[2019-08-03] MEDS ORDERED: CALCIUM GLUCONATE 1000 MG/10 ML INJ IV ONE (17:04)
[2019-08-03] MEDS: TOPIRAMATE 25 MG TABLET PO SCH (18:00)
[2019-08-03] MEDS: TAMSULOSIN HCL 0.4 MG CAP.SR.24H PO SCH (18:00)
[2019-08-03] MEDS: PREGABALIN 100 MG CAPSULE PO SCH (18:00)
[2019-08-03] MEDS ORDERED: (PENDING PHARMACY ID) (Bupropion Hcl [Bupropion Hcl Sr] 200 MG) PO SCH (18:00)
[2019-08-03] MEDS: SODIUM BICARBONATE 650 MG TABLET PO SCH (18:01)
[2019-08-03] MEDS: DEXTROSE 5%-WATER 1000 ML 1,000 ML with SODIUM BICARBONATE 100 MEQ IV PRN ×2 (18:41)
[2019-08-03] MEDS ORDERED: NITROGLYCERIN 50 MG/D5W 250 ML IV PRN (19:54)
[2019-08-03 20:53] LABS: APPEARANCE,URINE SLIGHTLY-CLOUDY; BILIRUBIN,URINE NEGATIVE (NEGATIVE); COLOR,URINE YELLOW; GLUCOSE, URINE 150 mg/dL (NEGATIVE); KETONES,URINE NEGATIVE (NEGATIVE); LEUKOCYTE ESTERASE,URINE NEGATIVE (NEGATIVE); NITRITE,URINE NEGATIVE (NEGATIVE); PROTEIN,URINE >=500 mg/dL (NEGATIVE); URINE SPECIFIC GRAVITY 1.015; UROBILINOGEN,URINE NEGATIVE mg/dL (<2.0)
--- NOTE | 2019-08-03 21:25 | PDOC CONSULTATION ---
Consultation Consult Date: 08/03/19 Provider Consulted: Latoya MELARA Consult reason:: LINDA on CKD 4 History of Present Illness Admission Date/PCP: 08/03/19 16:09 ELIAS KRUEGER MD History of Present Illness: SANTIAGO AL is a 64 year old male with a history of complicated diabetes mellitus, hypertension, CKD stage IV with a base creatinine around 4 , and an unfortunate history of severe noncompliance with diet medications, was admitted with history of progressive shortness of breath over the last couple of days. His daughter is at the bedside. Discussions were done with his daughter and the treating physician in the ER besides the patient. The patient has been having a cough with productive phlegm for the last couple of days. He denies any history of chest pain, fever or chills. He has also developed progressive shortness of breath that necessitated calling the EMS today to bring him to the ER. He has been put on BiPAP because of respiratory hypoxia. Further labs done on him showed that he was in LINDA with his creatinine around 6 8 and he was severely acidotic. Blood gas done showed a mixed respiratory/metabolic acidosis. Chest x-ray showed left-sided lower basal infiltrate but radiologist reported that to be possibly asymmetric edema. Patient has been in the ER for a few hours on BiPAP and he has received apparently IV Solu-Medrol and nebulizer treatments besides antibiotics. Patient admits that he is feeling some better since he has been in the ER even though he is still on the BiPAP. He is able to talk well through the BiPAP and his daughter has also noticed some improvement.Patient was here in the ER last week apparently for cough with mild shortness of breath and was apparently diagnosed with acute bronchitis and sent home with inhaler according to the daughter. Unfortunately still continues to smoke between 1 to 2 packs a day. I was initially told by the ER doctor that the patient was in congestive heart failure and needed immediate dialysis. However on my clinical examination patient looks to be clinically dehydrated and examination shows that he is got what looks to me as infective exacerbation of COPD with a chest x-ray most l ikely showing a right basilar infiltrate.Discussions were later done with Dr. León the nail making machine setter who has admitted the patient to the ICU. He is got rising troponins which therefore brings in ACS into play. Past Medical History Cardiac Medical History: Reports: Hyperlipidemia, Hypertension-primary Denies: Coronary Artery Disease, Myocardial Infarction Pulmonary Medical History: Reports: Bronchitis, Chronic Obstructive Pulmonary Disease (COPD), Pneumonia, Respiratory Failure Denies: Asthma Neurological Medical History: Denies: Seizures Endocrine Medical History: Reports: Diabetes Mellitus Type 2 Renal/ Medical History: Reports: Chronic Kidney Disease Stage IV, Secondary Hyperparathyroidism Denies: Hematuria GI Medical History: Reports: Gastroesophageal Reflux Disease Musculoskeltal Medical History: Reports: Arthritis - GENERALIZED Psychiatric Medical History: Reports: Depression Past Surgical History Past Surgical History: Reports: Orthopedic Surgery - left knee, Other - Amputation of 3 toes Social History Smoking Status: Current Every Day Smoker Cigarettes Packs Per Day: 20 Frequency of Alcohol Use: Occasional Hx Recreational Drug Use: No Drugs: Cocaine, Marijuana Hx Prescription Drug Abuse: No - Advance Directive Resuscitation Status: Full Code Family History Parental Family History Reviewed: Yes - Negative for ESRD Children Family History Reviewed: No Sibling(s) Family History Reviewed.: No Medication/Allergy Home Medications: Albuterol Sulfate [Proair HFA Inhalation Aerosol 8.5 gm MDI] 2 puff IN Q4HP PRN 08/03/19 Amlodipine Besylate [Norvasc 10 mg Tablet] 10 mg PO DAILY 08/03/19 Aspirin [Ecotrin 81 mg EC Tablet] 81 mg PO DAILY 08/03/19 Bupropion HCl [Bupropion HCl Sr] 200 mg PO BID 08/03/19 Calcitriol [Rocaltrol 0.25 mcg Capsule] 0.25 mcg PO DAILY 08/03/19 Guaifenesin [Mucinex Sr 600 mg Tablet.sa] 600 mg PO Q12 08/03/19 Linaclotide [Linzess 145 Mcg Capsule] 145 mcg PO QAM 08/03/19 Lipase/Protease/Amylase [Creon Dr 6,000 Units Capsule] 2 cap PO .SNACKS 08/03/19 Lipase/Protease/Amylase [Creon Dr 6,000 Units Capsule] 2 cap PO MEALS 08/03/19 Pantoprazole Sodium [Protonix [address] Tablet] 40 mg PO DAILY 08/03/19 Pregabalin [Lyrica 100 mg Capsule] 100 mg PO BID 08/03/19 Promethazine HCl [Phenergan 25 mg Tablet] 25 mg PO TIDP PRN 08/03/19 Sodium Bicarbonate [Sodium Bicarbonate 650 mg Tablet] 1,300 mg PO BID 08/03/19 Tamsulosin HCl [Flomax 0.4 mg Cap.sr] 0.4 mg PO QPM 08/03/19 Timolol Maleate [Timoptic 0.5% Oph Soln 5 ml] 1 drop OS BID 08/03/19 Tizanidine HCl [Zanaflex 4 mg Tablet] 4 mg PO QHS 08/03/19 Topiramate [Topamax 25 mg Tablet] 50 mg PO BID 08/03/19 Allergies/Adverse Reactions: No Known Allergies Allergy (Verified 03/27/17 11:36) Review of Systems Constitutional: PRESENT: fatigue, weakness. ABSENT: anorexia, chills, fever(s), headache(s), night sweats Nose, Mouth, and Throat: ABSENT: mouth pain, sore throat Cardiovascular: PRESENT: dyspnea on exertion. ABSENT: chest pain, edema, orthropnea, palpitations Respiratory: PRESENT: cough, dyspnea, sputum. ABSENT: hemoptysis Gastrointestinal: ABSENT: abdominal pain, coffee ground emesis, diarrhea, dysp hagia, hematemesis Genitourinary: ABSENT: dysuria, hematuria Musculoskeletal: ABSENT: deformity, joint swelling Integumentary: ABSENT: lesions, pruritus, rash Neurological: ABSENT: abnormal gait, abnormal movements, focal weakness, frequent falls Hematologic/Lymphatic: ABSENT: easy bruising, lymphadenopathy Allergic/Immunologic: ABSENT: seasonal rhinorrhea Physical Exam Vital Signs: Temp Pulse Resp BP Pulse Ox 99.1 F 87 24 H 163/85 H 100 08/03/19 20:00 08/03/19 18:00 08/03/19 19:13 08/03/19 19:13 08/03/19 19:13 Intake & Output 08/02/19 08/03/19 08/04/19 06:59 06:59 06:59 Intake Total 150 Output Total 700 Balance -550 Weight 94.3 kg General appearance: PRESENT: mild distress Eye exam: PRESENT: EOMI, PERRLA Ear exam: PRESENT: normal external ear exam Mouth exam: PRESENT: neck supple. ABSENT: moist Neck exam: ABSENT: lymphadenopathy, meningismus, tenderness, thyromegaly, tracheal deviation Respiratory exam: PRESENT: decreased breath sounds, rhonchi - Bilateral scattered dense rhonchi were heard in both lungs. ABSENT: crackles, stridor Cardiovascular exam: PRESENT: +S1, +S2 GI/Abdominal exam: PRESENT: normal bowel sounds, soft. ABSENT: organomegaly, tenderness Extremities exam: ABSENT: calf tenderness, pedal edema Neurological exam: PRESENT: awake, oriented to person, oriented to place, oriented to time Psychiatric exam: PRESENT: anxious Skin exam: ABSENT: cyanosis, erythema, mottled, petechiae Results Laboratory Results: 08/03/19 11:11 08/03/19 11:11 08/03/19 08/03/19 08/03/19 11:11 11:11 11:11 WBC 13.1 H RBC 2.97 L Hgb 8.7 L Hct 26.1 L MCV 88 MCH 29.2 MCHC 33.2 RDW 14.7 H Plt Count 349 Seg Neutrophils % Not Reportable Carbonic Acid HCO3/H2CO3 Ratio ABG pH ABG pCO2 ABG pO2 ABG HCO3 ABG O2 Saturation ABG Base Excess FiO2 Sodium 147.6 H Potassium 4.7 Chloride 114 H Carbon Dioxide 16 L Anion Gap 18 BUN 72 H Creatinine 8.15 H Est GFR ( Amer) 8 L Glucose 209 H Lactic Acid Calcium 6.7 L* Magnesium 2.7 H Total Bilirubin 0.6 AST 26 Alkaline Phosphatase 129 H Total Protein 7.2 Albumin 3.5 Urine Color Urine Appearance Urine pH Ur Specific [place] Urine Protein Urine Glucose (UA) Urine Ketones Urine Blood Urine Nitrite Ur Leukocyte Esterase Urine WBC (Auto) Urine RBC (Auto) 08/03/19 08/03/19 08/03/19 11:11 11:58 14:32 WBC RBC Hgb Hct MCV MCH MCHC RDW Plt Count Seg Neutrophils % Carbonic Acid 1.30 HCO3/H2CO3 Ratio 11:1 ABG pH 7.14 L* ABG pCO2 43.3 ABG pO2 99.3 ABG HCO3 14.4 L ABG O2 Saturation 95.5 ABG Base Excess -14.0 FiO2 50 Sodium Potassium Chloride Carbon Dioxide Anion Gap BUN Creatinine Est GFR ( Amer) Glucose Lactic Acid 0.8 Calcium Magnesium Total Bilirubin AST Alkaline Phosphatase Total Protein Albumin Urine Color YELLOW Urine Appearance SLIGHTLY-CLOUDY Urine pH 5.0 Ur Specific [place] 1.015 Urine Protein >=500 H Urine Glucose (UA) 150 H Urine Ketones NEGATIVE Urine Blood LARGE H Urine Nitrite NEGATIVE Ur Leukocyte Esterase NEGATIVE Urine WBC (Auto) 5 Urine RBC (Auto) 10 08/03/19 11:11 Troponin I 0.211 NT-Pro-B Natriuret Pep 00127 H Impressions: Chest X-Ray 08/03/19 11:01 IMPRESSION: Bilateral airspace disease right greater than left, differential is asymmetric pulmonary edema versus pneumonia. Mild cardiomegaly Assessment & Plan - Diagnosis (1) Acute kidney injury Plan: Patient has got an acute decompensation of his CKD stage IV resulting in possible uremia. However patient looks like he is in acute infective exacerbation of COPD resulting in severe hypoxia and mixed acidosis now on BiPAP. Patient clinically looks dehydrated. Recommend patient be treated for infective exacerbation of COPD as per protocol and then begun on IV fluids in the form of bicarbonate drip and see the response in the morning. I do not see any acute emergency and starting hemodialysis as patient is got no severe hyperkalemia and all this is clinically look to be in congestive heart failure. Discussed these options with the nail making machine setter. (3) Hypertensive urgency Plan: Patient currently on IV nitroglycerin drip. Titrate accordingly. (4) Metabolic acidosis with respiratory acidosis Plan: Patient has got acute metabolic acidosis from his LINDA and CKD stage IV along with respiratory acidosis with CO2 retention from his COPD. Agree with starting infusion of bicarbonate drip. Monitor closely. (5) Acute respiratory failure Qualifiers: Respiratory failure complication: unspecified whether with hypoxia or hypercapnia Qualified Code(s): J96.00 - Acute respiratory failure, unspecified whether with hypoxia or hypercapnia Plan: Patient is hypoxic with respiratory acidosis now on BiPAP. Clinically he does not show any features to indicate congestive heart failure. Discussed this with admitting ER physician as well as the nail making machine setter.Will repeat chest x-ray in the morning. (6) Acute exacerbation of chronic obstructive pulmonary disease (COPD) Plan: Clinical features suggestive of severe COPD. Unfortunately still continues to smoke in spite of repeated advice against. Treat this as per protocol by nail making machine setter. (7) Hypocalcemia Plan: Discussed with the admitting ER physician to give 1 g of IV calcium gluconate. (8) Anemia Plan: Will initiate iron studies followed by erythropoietin. (9) Diabetes mellitus Plan: Complicated and uncontrolled. Severe noncompliance with diet and medications unfortunately. (10) ACS (acute coronary syndrome) Plan: Patient has progressive troponin leak suggestive of possible evolving ACS. As per nail making machine setter/support services rep.
[2019-08-03] MEDS ORDERED: DEXTROSE 40% GEL 15 GM TUBE PO PRN ×2 (21:37)
[2019-08-03] MEDS ORDERED: GLUCAGON,HUMAN RECOMB 1 MG INJ IM PRN (21:37)
[2019-08-03] MEDS ORDERED: DEXTROSE 50%-WATER 25 GM/50 ML DISP.SYRIN IV PRN ×2 (21:37)
[2019-08-03] MEDS ORDERED: FAMOTIDINE 20 MG TABLET PO SCH ×2 (22:00)
[2019-08-03 22:23] LABS: ARTERIAL BLOOD BASE EXCESS -10.2 mmol/L; ARTERIAL BLOOD H2CO3 1.11 mmol/L (1.05-1.35); ARTERIAL BLOOD HCO3 16.1 mmol/L (20-24); ARTERIAL BLOOD O2 SATURATION 97.7 % (94-98); ARTERIAL BLOOD PCO2 36.9 mmHg (35-45); ARTERIAL BLOOD PH 7.26 (7.35-7.45); ARTERIAL BLOOD PO2 115.9 mmHg (80-100); ARTERIAL BLOOD TOTAL CO2 17.2 mmol/L (23-27)
[2019-08-03 22:24] LABS: ARTERIAL BLOOD FIO2 50%
[2019-08-03] MEDS: INSULIN REG, HUMAN 100 UNIT/ML 3 ML VIAL (PYX) SUBCUT SCH (22:27)
[2019-08-03] MEDS: HEPARIN SOD (PORCINE) 5,000 UNIT/ML 1 ML VIAL SUBCUT SCH (22:27)
[2019-08-03 22:52] LABS: ANION GAP 19 (5-19); BLOOD UREA NITROGEN 75 mg/dL (7-20); CARBON DIOXIDE 15 mmol/L (22-30); CHLORIDE 112 mmol/L (98-107); GLUCOSE 229 mg/dL (75-110); POTASSIUM 4.3 mmol/L (3.6-5.0)
[2019-08-03 23:03] LABS: CALCIUM 6.8 mg/dL (8.4-10.2)
[2019-08-03] MEDS: GUAIFENESIN 600 MG TABLET.SA PO SCH (23:16)
[2019-08-04 04:28] LABS: ABSOLUTE RETICS # 0.031 10^6/uL (0.028-0.122); HEMATOCRIT 24.3 % (37.9-51.0); HEMOGLOBIN 8.2 g/dL (13.5-17.0); MEAN CORPUSCULAR HGB CONC 33.6 g/dL (32.0-36.0); MEAN CORPUSCULAR VOLUME 86 fl (80-97); PLATELET COUNT 285 10^3/uL (150-450); RED BLOOD COUNT 2.82 10^6/uL (4.35-5.55); RED CELL DISTRIBUTION WIDTH 14.7 % (11.5-14.0); RETICULOCYTE COUNT (AUTO) 1.09 % (0.66-2.85); WHITE BLOOD COUNT 8.4 10^3/uL (4.0-10.5)
[2019-08-04 04:43] LABS: ANION GAP 18 (5-19); BLOOD UREA NITROGEN 76 mg/dL (7-20); CARBON DIOXIDE 17 mmol/L (22-30); CHLORIDE 112 mmol/L (98-107); GLUCOSE 193 mg/dL (75-110); IRON(TIBC) 98.9 ug/dL (49-181); PHOSPHORUS 6.8 mg/dL (2.5-4.5); POTASSIUM 3.9 mmol/L (3.6-5.0)
[2019-08-04 04:50] LABS: ABSOLUTE LYMPHOCYTES# (MANUAL) 2.2 10^3/uL (0.5-4.7); ABSOLUTE MONOCYTES # (MANUAL) 1.2 10^3/uL (0.1-1.4); ANISOCYTOSIS SLIGHT; BASOPHILS % (MANUAL) 0 % (0-2); EOSINOPHILS % (MANUAL) 0 % (0-6); LYMPHOCYTES % (MANUAL) 26 % (13-45); MONOCYTES % (MANUAL) 14 % (3-13); SEGMENTED NEUTROPHILS % (MAN) 60 % (42-78); TOTAL CELLS COUNTED 100
[2019-08-04 04:51] LABS: PLATELET COMMENT ADEQUATE
[2019-08-04 05:05] LABS: CALCIUM 6.7 mg/dL (8.4-10.2)
[2019-08-04] MEDS: HEPARIN SOD (PORCINE) 5,000 UNIT/ML 1 ML VIAL SUBCUT SCH ×3 (05:56→21:25)
[2019-08-04] MEDS: DEXTROSE 5%-WATER 1000 ML 1,000 ML with SODIUM BICARBONATE 100 MEQ IV PRN ×2 (05:56)
[2019-08-04] MEDS ORDERED: PANTOPRAZOLE SODIUM 40 MG TABLET.DR PO SCH (08:00)
[2019-08-04] MEDS ORDERED: (PENDING PHARMACY ID) (Linaclotide 145 MCG) PO SCH (08:00)
--- NOTE | 2019-08-04 08:59 | RADIOLOGY REPORT (SQ) ---
EXAM DESCRIPTION: CHEST SINGLE VIEW COMPLETED DATE/TIME: 08/04/2019 6:58 am REASON FOR STUDY: Follow up for PNA v edema. COMPARISON: 08/03/2019 EXAM PARAMETERS: NUMBER OF VIEWS: One view. TECHNIQUE: Single frontal radiographic view of the chest acquired. RADIATION DOSE: NA LIMITATIONS: None. FINDINGS: LUNGS AND PLEURA: Improved bilateral perihilar opacities. Persistent right apical ill-def ined patchy airspace disease. No large effusion. No pneumothorax. MEDIASTINUM AND HILAR STRUCTURES: No masses. Contour normal. HEART AND VASCULAR STRUCTURES: Heart normal in size. Normal vasculature. BONES: No acute findings. HARDWARE: None in the chest. OTHER: No other significant finding. IMPRESSION: Improved bilateral perihilar opacities, likely resolving edema. Persistent ill-defined right apical opacities possibly pneumonia or persistent asymmetric edema. TECHNICAL DOCUMENTATION: JOB ID: [id number] [employer]- All Rights Reserved Reading location - IP/workstation name: [email or web address]
[2019-08-04] MEDS: LEVOFLOXACIN 250 MG/D5W RTU 250 MG/50 ML RTUPB IV SCH (09:29)
[2019-08-04] MEDS: SODIUM BICARBONATE 650 MG TABLET PO SCH ×2 (09:30→17:39)
[2019-08-04] MEDS: ASPIRIN 81 MG TABLET, ENT COATED PO SCH (09:30)
[2019-08-04] MEDS: PREGABALIN 100 MG CAPSULE PO SCH ×2 (09:30→17:39)
[2019-08-04] MEDS: AMLODIPINE BESYLATE 10 MG TABLET PO SCH (09:30)
[2019-08-04] MEDS: TOPIRAMATE 25 MG TABLET PO SCH ×2 (09:30→17:39)
[2019-08-04] MEDS: GUAIFENESIN 600 MG TABLET.SA PO SCH ×2 (09:30→21:24)
[2019-08-04] MEDS: INSULIN REG, HUMAN 100 UNIT/ML 3 ML VIAL (PYX) SUBCUT SCH ×4 (09:31→21:24)
[2019-08-04] MEDS: PANTOPRAZOLE SODIUM 40 MG VIAL IV SCH (09:32)
[2019-08-04] MEDS: TIMOLOL MALEATE 0.5% OPH SOLN 5 ML OS SCH ×3 (09:33→17:38)
[2019-08-04] MEDS ORDERED: CALCITRIOL 0.25 MCG CAPSULE PO SCH (10:00)
[2019-08-04] MEDS ORDERED: NORMAL SALINE 1000 ML 1,000 ML IV PRN (11:07)
[2019-08-04] MEDS ORDERED: DEXTROSE 5%-WATER 1000 ML 1,000 ML with SODIUM BICARBONATE 100 MEQ IV PRN ×2 (11:08)
--- NOTE | 2019-08-04 11:17 | PDOC PROGRESS REPORT ---
Subjective Progress Note for:: 08/04/19 Reason For Visit: Patient seen today in the ICU. He is a whole lot better and currently just on nasal cannula. He is wide awake and very talkative and responsive. If he admits to the fact that he is feeling a whole lot better. He admits to his noncompliance with diet and medications. He has some regrets about continuation of his smoking. He still coughing. No complaints of any fever or chills. No complaints of any chest pains. Labs and medications were reviewed. His creatinine is downtrending. He is a Piper catheter which is showing decent amounts of urine output.He denies any stool nausea vomiting. Physical Exam Vital Signs: Temp Pulse Resp BP Pulse Ox 98.1 F 88 26 H 149/83 H 99 08/04/19 08:00 08/04/19 10:00 08/04/19 11:00 08/04/19 10:57 08/04/19 11:00 Intake & Output 08/03/19 08/04/19 08/05/19 06:59 06:59 06:59 Intake Total 1253 214 Output Total 2600 575 Balance -1347 -361 Weight 92.2 kg General appearance: PRESENT: no acute distress Respiratory exam: PRESENT: clear to auscultation brett, decreased breath sounds, rhonchi - Bilateral scattered but better than when I heard him yesterday.. A BSENT: crackles, stridor Cardiovascular exam: PRESENT: +S1, +S2 GI/Abdominal exam: PRESENT: normal bowel sounds, soft. ABSENT: organomegaly, tenderness Extremities exam: ABSENT: pedal edema Neurological exam: PRESENT: alert, awake, oriented to person, oriented to place, oriented to time, other - No asterixis. Psychiatric exam: PRESENT: appropriate affect Skin exam: ABSENT: cyanosis, erythema, mottled, rash Results Laboratory Results: 08/04/19 04:13 08/04/19 04:13 08/03/19 08/03/19 08/03/19 11:11 11:11 11:11 WBC 13.1 H RBC 2.97 L Hgb 8.7 L Hct 26.1 L MCV 88 MCH 29.2 MCHC 33.2 RDW 14.7 H Plt Count 349 Seg Neutrophils % Not Reportable Retic Count (auto) Carbonic Acid HCO3/H2CO3 Ratio ABG pH ABG pCO2 ABG pO2 ABG HCO3 ABG O2 Saturation ABG Base Excess FiO2 Sodium 147.6 H Potassium 4.7 Chloride 114 H Carbon Dioxide 16 L Anion Gap 18 BUN 72 H Creatinine 8.15 H Est GFR ( Amer) 8 L Glucose 209 H Lactic Acid Calcium 6.7 L* Ionized Calcium Jodie Phosphorus Magnesium 2.7 H Iron TIBC % Saturation Ferritin Total Bilirubin 0.6 AST 26 Alkaline Phosphatase 129 H Total Protein 7.2 Albumin 3.5 Vitamin B12 Folate PTH Intact Urine Color Urine Appearance Urine pH Ur Specific [place] Urine Protein Urine Glucose (UA) Urine Ketones Urine Blood Urine Nitrite Ur Leukocyte Esterase Urine WBC (Auto) Urine RBC (Auto) 08/03/19 08/03/19 08/03/19 11:11 11:58 14:32 WBC RBC Hgb Hct MCV MCH MCHC RDW Plt Count Seg Neutrophils % Retic Count (auto) Carbonic Acid 1.30 HCO3/H2CO3 Ratio 11:1 ABG pH 7.14 L* ABG pCO2 43.3 ABG pO2 99.3 ABG HCO3 14.4 L ABG O2 Saturation 95.5 ABG Base Excess -14.0 FiO2 50 Sodium Potassium Chloride Carbon Dioxide Anion Gap BUN Creatinine Est GFR ( Amer) Glucose Lactic Acid 0.8 Calcium Ionized Calcium Jodie Phosphorus Magnesium Iron TIBC % Saturation Ferritin Total Bilirubin AST Alkaline Phosphatase Total Protein Albumin Vitamin B12 Folate PTH Intact Urine Color YELLOW Urine Appearance SLIGHTLY-CLOUDY Urine pH 5.0 Ur Specific [place] 1.015 Urine Protein >=500 H Urine Glucose (UA) 150 H Urine Ketones NEGATIVE Urine Blood LARGE H Urine Nitrite NEGATIVE Ur Leukocyte Esterase NEGATIVE Urine WBC (Auto) 5 Urine RBC (Auto) 10 08/03/19 08/03/19 08/04/19 22:05 22:20 04:13 WBC RBC Hgb Hct MCV MCH MCHC RDW Plt Count Seg Neutrophils % Retic Count (auto) Carbonic Acid 1.11 HCO3/H2CO3 Ratio 14:1 ABG pH 7.26 L ABG pCO2 36.9 ABG pO2 115.9 H ABG HCO3 16.1 L ABG O2 Saturation 97.7 ABG Base Excess -10.2 FiO2 50% Sodium 145.7 H 146.9 H Potassium 4.3 3.9 Chloride 112 H 112 H Carbon Dioxide 15 L 17 L Anion Gap 19 18 BUN 75 H 76 H Creatinine 7.72 H 7.46 H Est GFR ( Amer) 9 L 9 L Glucose 229 H 193 H Lactic Acid Calcium 6.8 L* 6.7 L* Ionized Calcium Jodie Phosphorus 6.8 H Magnesium Iron 98.9 TIBC 173 L % Saturation 57 Ferritin 545.00 H Total Bilirubin AST Alkaline Phosphatase Total Protein Albumin Vitamin B12 868.0 Folate 11.10 PTH Intact Urine Color Urine Appearance Urine pH Ur Specific [place] Urine Protein Urine Glucose (UA) Urine Ketones Urine Blood Urine Nitrite Ur Leukocyte Esterase Urine WBC (Auto) Urine RBC (Auto) 08/04/19 08/04/19 08/04/19 04:13 04:13 04:13 WBC 8.4 RBC 2.82 L Hgb 8.2 L Hct 24.3 L MCV 86 MCH 29.0 MCHC 33.6 RDW 14.7 H Plt Count 285 Seg Neutrophils % Not Reportable Retic Count (auto) 1.09 Carbonic Acid HCO3/H2CO3 Ratio ABG pH ABG pCO2 ABG pO2 ABG HCO3 ABG O2 Saturation ABG Base Excess FiO2 Sodium Potassium Chloride Carbon Dioxide Anion Gap BUN Creatinine Est GFR ( Amer) Glucose Lactic Acid Calcium Ionized Calcium Jodie 0.94 L Phosphorus Magnesium Iron TIBC % Saturation Ferritin Total Bilirubin AST Alkaline Phosphatase Total Protein Albumin Vitamin B12 Folate PTH Intact 585.5 H Urine Color Urine Appearance Urine pH Ur Specific [place] Urine Protein Urine Glucose (UA) Urine Ketones Urine Blood Urine Nitrite Ur Leukocyte Esterase Urine WBC (Auto) Urine RBC (Auto) 08/03/19 08/03/19 08/04/19 11:11 22:20 04:13 Troponin I 0.211 0.270 0.245 NT-Pro-B Natriuret Pep [id number] H Impressions: Chest X-Ray 08/04/19 08:00 IMPRESSION: Improved bilateral perihilar opacities, likely resolving edema. Persistent ill-defined right apical opacities possibly pneumonia or persistent a symmetric edema. Assessment & Plan - Diagnosis (1) Acute kidney injury Plan: Patient is making urine. Patient's creatinine is improving. I would continue on fluids. I will cut the bicarb drip to 75 and add normal saline at 75 for a combined rate of 150 cc an hour. Patient would like to be evaluated daily to ad just and titrate his fluids so that he do not push him into any heart failure. Discussed with enterostomal therapy nurse Dr. León.No indications for initiation of hemodialysis today. (2) CKD (chronic kidney disease), stage IV Plan: Baseline creatinine is around 4. Current creatinine on admission was 8 and now is trending downwards. Monitor. No acute indications for initiation of hemodialysis. (3) Hypertensive urgency Plan: Blood pressures a whole lot better on current treatment plans. Continue the same. (4) Metabolic acidosis with respiratory acidosis Plan: Improving. Monitor closely. (5) Acute respiratory failure Qualifiers: Respiratory failure complication: unspecified whether with hypoxia or hypercapnia Qualified Code(s): J96.00 - Acute respiratory failure, unspecified whether with hypoxia or hypercapnia Plan: Markedly improved. He has acute infective COPD that seems to be improving with current treatment measures including antibiotics. (6) Acute exacerbation of chronic obstructive pulmonary disease (COPD) Plan: As mentioned earlier. (7) Hypocalcemia Plan: Monitor closely for need of IV calcium. (8) Anemia Plan: Iron levels are adequate. Will initiate erythropoietin q. 7 days. (9) Diabetes mellitus Plan: As per enterostomal therapy nurse. (10) ACS (acute coronary syndrome) Plan: As per enterostomal therapy nurse. Definitely would need cardiac risk stratification at some point. (12) Renal osteodystrophy Plan: Titrate medications and add Renagel
[2019-08-04] MEDS: CALCITRIOL 0.25 MCG CAPSULE PO SCH (12:33)
[2019-08-04] MEDS: SEVELAMER HCL 800 MG TABLET PO SCH ×2 (12:33→17:39)
[2019-08-04] MEDS ORDERED: CALCIUM GLUCONATE 1000 MG/10 ML INJ IV ONE (12:37)
--- NOTE | 2019-08-04 12:56 | PDOC CRITICAL CARE PROG REPORT ---
General Date:: 08/04/19 ICU Day:: 2 Hospital Day:: 2 Resuscitation Status: Full Code Events in the past 12 to 24 Hours:: No need for HD. BP down. Review of systems relevant to events:: Renal and CV Reason for ICU Addmission:: Need for NTG drip, bipap, risk for intubation. - Medications: Medications reviewed and adjusted accordingly: Yes Vasopressors:: None Sedation:: None Physical Exam Vital Signs: Temp Pulse Resp BP Pulse Ox 98.1 F 88 26 H 149/83 H 99 08/04/19 08:00 08/04/19 10:00 08/04/19 11:00 08/04/19 10:57 08/04/19 11:00 Intake & Output 08/03/19 08/04/19 08/05/19 06:59 06:59 06:59 Intake Total 1253 214 Output Total 2600 575 Balance -1347 -361 Weight 92.2 kg Weight/Height Weight 92.2 kg Height 6 ft General appearance: PRESENT: no acute distress, well-developed, well-nourished Head exam: PRESENT: atraumatic, normocephalic Eye exam: PRESENT: conjunctiva pink, EOMI, PERRLA. ABSENT: scleral icterus Ear exam: PRESENT: normal external ear exam Mouth exam: PRESENT: moist, tongue midline Respiratory exam: PRESENT: clear to auscultation brett. ABSENT: rales, rhonchi, wheezes Cardiovascular exam: PRESENT: RRR. ABSENT: diastolic murmur, rubs, systolic murmur GI/Abdominal exam: PRESENT: normal bowel sounds, soft. ABSENT: distended, guarding, mass, organolmegaly, rebound, tenderness Rectal exam: PRESENT: deferred Extremities exam: PRESENT: full ROM. ABSENT: calf tenderness, clubbing, pedal edema Neurological exam: PRESENT: alert, awake, oriented to person, oriented to place, oriented to time, oriented to situation, CN II-XII grossly intact. ABSENT: motor sensory deficit Psychiatric exam: PRESENT: appropriate affect, normal mood. ABSENT: homicidal ideation, suicidal ideation Skin exam: PRESENT: abrasion Laboratory/Radiographs Laboratory Results: 08/04/19 04:13 08/04/19 04:13 08/03/19 08/03/19 08/03/19 11:11 11:11 14:32 WBC 13.1 H RBC 2.97 L Hgb 8.7 L Hct 26.1 L MCV 88 MCH 29.2 MCHC 33.2 RDW 14.7 H Plt Count 349 Seg Neutrophils % Retic Count (auto) Carbonic Acid HCO3/H2CO3 Ratio ABG pH ABG pCO2 ABG pO2 ABG HCO3 ABG O2 Saturation ABG Base Excess FiO2 Sodium Potassium Chloride Carbon Dioxide Anion Gap BUN Creatinine Est GFR ( Amer) Glucose Lactic Acid 0.8 Calcium Ionized Calcium Jodie Phosphorus Iron TIBC % Saturation Ferritin Vitamin B12 Folate PTH Intact Urine Color YELLOW Urine Appearance SLIGHTLY-CLOUDY Urine pH 5.0 Ur Specific [place] 1.015 Urine Protein >=500 H Urine Glucose (UA) 150 H Urine Ketones NEGATIVE Urine Blood LARGE H Urine Nitrite NEGATIVE Ur Leukocyte Esterase NEGATIVE Urine WBC (Auto) 5 Urine RBC (Auto) 10 08/03/19 08/03/19 08/04/19 22:05 22:20 04:13 WBC RBC Hgb Hct MCV MCH MCHC RDW Plt Count Seg Neutrophils % Retic Count (auto) Carbonic Acid 1.11 HCO3/H2CO3 Ratio 14:1 ABG pH 7.26 L ABG pCO2 36.9 ABG pO2 115.9 H ABG HCO3 16.1 L ABG O2 Saturation 97.7 ABG Base Excess -10.2 FiO2 50% Sodium 145.7 H 146.9 H Potassium 4.3 3.9 Chloride 112 H 112 H Carbon Dioxide 15 L 17 L Anion Gap 19 18 BUN 75 H 76 H Creatinine 7.72 H 7.46 H Est GFR ( Amer) 9 L 9 L Glucose 229 H 193 H Lactic Acid Calcium 6.8 L* 6.7 L* Ionized Calcium Jodie Phosphorus 6.8 H Iron 98.9 TIBC 173 L % Saturation 57 Ferritin 545.00 H Vitamin B12 868.0 Folate 11.10 PTH Intact Urine Color Urine Appearance Urine pH Ur Specific [place] Urine Protein Urine Glucose (UA) Urine Ketones Urine Blood Urine Nitrite Ur Leukocyte Esterase Urine WBC (Auto) Urine RBC (Auto) 08/04/19 08/04/19 08/04/19 04:13 04:13 04:13 WBC 8.4 RBC 2.82 L Hgb 8.2 L Hct 24.3 L MCV 86 MCH 29.0 MCHC 33.6 RDW 14.7 H Plt Count 285 Seg Neutrophils % Not Reportable Retic Count (auto) 1.09 Carbonic Acid HCO3/H2CO3 Ratio ABG pH ABG pCO2 ABG pO2 ABG HCO3 ABG O2 Saturation ABG Base Excess FiO2 Sodium Potassium Chloride Carbon Dioxide Anion Gap BUN Creatinine Est GFR ( Amer) Glucose Lactic Acid Calcium Ionized Calcium Jodie 0.94 L Phosphorus Iron TIBC % Saturation Ferritin Vitamin B12 Folate PTH Intact 585.5 H Urine Color Urine Appearance Urine pH Ur Specific [place] Urine Protein Urine Glucose (UA) Urine Ketones Urine Blood Urine Nitrite Ur Leukocyte Esterase Urine WBC (Auto) Urine RBC (Auto) 08/03/19 08/03/19 08/04/19 11:11 22:20 04:13 Troponin I 0.211 0.270 0.245 NT-Pro-B Natriuret Pep [id number] H Impressions: Chest X-Ray 08/04/19 08:00 IMPRESSION: Improved bilateral perihilar opacities, likely resolving edema. Persistent ill-defined right apical opacities possibly pneumonia or persistent asymmetric edema. All labs, radiographs, diagnostic studies and EKGs were personally reviewed: Yes In addition, reports of radiographic and diagnostic studies were read: Yes Assessment and Plan - Diagnosis (1) Acute pulmonary edema Is this a current diagnosis for this admission?: Yes Plan: Not the case. On further sudy he can lay flat without SOB. Pulm edema is one sided. Consider aspiration v PNA. On levoquin. (2) End stage renal disease Is this a current diagnosis for this admission?: Yes Plan: No need at this time for HD. CKD St 4 (3) Acidosis Is this a current diagnosis for this admission?: Yes Plan: Resolved (4) Altered mental status Is this a current diagnosis for this admission?: Yes Plan: Resolved. Plan Summary: D/C NTG drip and downgrade. Critical Time Critical Time (minutes): 30 Level of Care: MEDICAL Anticipated discharge: Home Within: within 72 hours -: 1. The care of a critical patient is a dynamic process. This note is a strategic partnership representative synopsis but static in nature. The timeframe for treatments given in order is not necessarily the actual time these treatments may have been done. 2. This patient requires critical care secondary to ongoing requirements for therapy not offered or safe outside the critical care environment. Transfer to a lower level of care will result in altered life or limb morbidity and mortality. 3. Multidisciplinary rounds completed. 4. ABCDE bundle addressed.
[2019-08-04] MEDS: CALCIUM GLUCONATE 1 GM/NS 50 ML RTU IV SCH ×2 (14:33→15:29)
[2019-08-04] MEDS: TAMSULOSIN HCL 0.4 MG CAP.SR.24H PO SCH (17:39)
[2019-08-04] MEDS: BUPROPION HCL 100 MG TABLET PO SCH (21:24)
[2019-08-05] MEDS: HEPARIN SOD (PORCINE) 5,000 UNIT/ML 1 ML VIAL SUBCUT SCH ×3 (05:07→21:57)
[2019-08-05] MEDS: INSULIN REG, HUMAN 100 UNIT/ML 3 ML VIAL (PYX) SUBCUT SCH ×4 (07:38→22:03)
[2019-08-05] MEDS: SEVELAMER HCL 800 MG TABLET PO SCH ×3 (07:38→17:25)
[2019-08-05] MEDS: LEVOFLOXACIN 250 MG/D5W RTU 250 MG/50 ML RTUPB IV SCH (09:59)
[2019-08-05] MEDS: CALCITRIOL 0.25 MCG CAPSULE PO SCH ×2 (09:59→21:55)
[2019-08-05] MEDS: PANTOPRAZOLE SODIUM 40 MG VIAL IV SCH (09:59)
[2019-08-05] MEDS: TIMOLOL MALEATE 0.5% OPH SOLN 5 ML OS SCH ×2 (10:00→17:25)
[2019-08-05] MEDS: BUPROPION HCL 100 MG TABLET PO SCH ×3 (10:00→17:25)
[2019-08-05] MEDS: SODIUM BICARBONATE 650 MG TABLET PO SCH ×2 (10:00→17:25)
[2019-08-05] MEDS: GUAIFENESIN 600 MG TABLET.SA PO SCH ×2 (10:00→21:55)
[2019-08-05] MEDS: PREGABALIN 100 MG CAPSULE PO SCH ×2 (10:00→17:25)
[2019-08-05] MEDS: TOPIRAMATE 25 MG TABLET PO SCH ×2 (10:00→17:25)
[2019-08-05] MEDS: ASPIRIN 81 MG TABLET, ENT COATED PO SCH (10:00)
[2019-08-05] MEDS: AMLODIPINE BESYLATE 10 MG TABLET PO SCH (10:00)
--- NOTE | 2019-08-05 12:00 | PDOC PROGRESS REPORT ---
Subjective Progress Note for:: 08/05/19 Subjective:: 65-year-old male past medical history of diabetes, hypertension, CKD stage IV, who presented to ED with present acutely worsening shortness of breath, was found to have left-sided lower basilar infiltrate and noted to be very acidotic. Admitted to ICU, did not receive any hemodialysis, was started volume resuscitation and transferred to [facility]. Reason For Visit: NEEDS [facility] Physical Exam Vital Signs: Temp Pulse Resp BP Pulse Ox 98.5 F 82 22 H 146/79 H 100 08/05/19 07:00 08/05/19 08:00 08/05/19 07:00 08/05/19 07:00 08/05/19 09:05 Intake & Output 08/04/19 08/05/19 08/06/19 06:59 06:59 06:59 Intake Total 1253 2466 Output Total 2600 2800 Balance -1347 -334 Weight 92.2 kg 99.6 kg General appearance: PRESENT: no acute distress, well-developed, well-nourished Head exam: PRESENT: atraumatic, normocephalic Respiratory exam: PRESENT: prolonged expiratory phas, wheezes. ABSENT: rales, rhonchi Cardiovascular exam: PRESENT: RRR. ABSENT: diastolic murmur, rubs, systolic murmur GI/Abdominal exam: PRESENT: ascites Neurological exam: PRESENT: alert, awake, oriented to person, oriented to place, oriented to time, oriented to situation, CN II-XII grossly intact. ABSENT: motor sensory deficit Results Laboratory Results: 08/04/19 04:13 08/04/19 04:13 08/03/19 08/03/19 08/04/19 11:11 22:20 04:13 Troponin I 0.211 0.270 0.245 NT-Pro-B Natriuret Pep [id number] H Impressions: Chest X-Ray 08/04/19 08:00 IMPRESSION: Improved bilateral perihilar opacities, likely resolving edema. Persistent ill-defined right apical opacities possibly pneumonia or persistent asymmetric edema. Assessment and Plan - Diagnosis (1) Acute exacerbation of chronic obstructive pulmonary disease (COPD) Is this a current diagnosis for this admission?: Yes Plan: Improving. SPO2 WNL on 3.5 L. In no apparent respiratory distress. Leukocytosis resolved.Cultures from admission negative so far. Continue empiric IV antibiotics, duo nebs, IV steroids, LABA, LABA, ICS. (2) Acute kidney injury superimposed on CKD Is this a current diagnosis for this admission?: Yes Plan: Nonoliguric. Volume status WNL. Electrolytes WNL. Nephrology consulted. No hemodialysis indicated as per nephrology note. Continue cautious volume resuscitation, monitor electrolytes and replace as needed. Nephrology on board. Recommendations noted. (3) CKD (chronic kidney disease), stage IV Is this a current diagnosis for this admission?: Yes Plan: Down from admission. Not back to baseline. Baseline creatinine 4.0. Nephrology on board. Recommendations noted. (4) Diabetes mellitus Qualifiers: Diabetes mellitus type: type 2 Is this a current diagnosis for this admission?: Yes Plan: Controlled. Hemoglobin A1c 6.9% 07/22/2019. Continue diabetic diet, sliding scale, basal and prandial insulin. Hypoglycemia protocol. Accu-Chek. Adjust dosages. Outpatient PCP follow-up. (5) Hypertensive urgency Is this a current diagnosis for this admission?: Yes Plan: Improving. Not optimized. Continue amlodipine. PRN hydralazine and beta-sushma. Monitor vitals. Adjust meds as needed. Outpatient PCP follow-up. (6) Hypocalcemia Is this a current diagnosis for this admission?: Yes Plan: On calcitriol by nephrology. Calcium level tomorrow. (7) Metabolic acidosis with respiratory acidosis Is this a current diagnosis for this admission?: Yes Plan: Improving. Anion gap WNL.
[2019-08-05] MEDS ORDERED: NORMAL SALINE 1000 ML 1,000 ML IV PRN (12:02)
[2019-08-05 13:02] LABS: ANION GAP 10 (5-19); BLOOD UREA NITROGEN 69 mg/dL (7-20); CARBON DIOXIDE 24 mmol/L (22-30); CHLORIDE 107 mmol/L (98-107); GLUCOSE 279 mg/dL (75-110); POTASSIUM 3.8 mmol/L (3.6-5.0)
[2019-08-05 13:10] LABS: CALCIUM 6.5 mg/dL (8.4-10.2)
[2019-08-05] MEDS ORDERED: CALCIUM GLUCONATE 1 GM/NS 50 ML RTU IV ONE (14:45)
[2019-08-05] MEDS ORDERED: CALCIUM GLUC IN NACL, ISO-OSM 1 GM/50 ML RTUPB IV ONE (14:50)
[2019-08-05] MEDS: METHYLPREDNISOLONE INJ 40 MG/1 ML SDV IV SCH ×2 (14:52→21:56)
[2019-08-05] MEDS: TAMSULOSIN HCL 0.4 MG CAP.SR.24H PO SCH (17:25)
--- NOTE | 2019-08-05 21:19 | EKG REPORT ---
SEVERITY:- ABNORMAL ECG - SINUS RHYTHM PROBABLE LEFT ATRIAL ABNORMALITY BORDERLINE T ABNORMALITIES, INFERIOR LEADS BORDERLINE PROLONGED QT INTERVAL : Confirmed by: Noa Dawkins MD 05-Aug-2019 21:18:10
[2019-08-05] MEDS ORDERED: INSULIN REG, HUMAN 100 UNIT/ML 3 ML VIAL (PYX) SUBCUT ONE (22:00)
[2019-08-05] MEDS ORDERED: INSULIN GLARGINE,HUM.REC.ANLOG 1,000 UNIT/10 ML VIAL SUBCUT SCH (22:00)
[2019-08-05] MEDS ORDERED: INSULIN GLARGINE,HUM.REC.ANLOG 1,000 UNIT/10 ML VIAL (PYX) SUBCUT ONE (23:43)
[2019-08-06] MEDS ORDERED: INSULIN LISPRO 100 UNIT/ML 3 ML VIAL SUBCUT ONE (00:45)
[2019-08-06] MEDS ORDERED: INSULIN REG, HUMAN 100 UNIT/ML 3 ML VIAL (PYX) ONE (03:45)
[2019-08-06] MEDS: NORMAL SALINE 100 ML with INSULIN REGULAR, HUMAN 100 UNIT IV PRN ×8 (04:02→14:08)
[2019-08-06] MEDS: METHYLPREDNISOLONE INJ 40 MG/1 ML SDV IV SCH ×2 (05:26→17:10)
[2019-08-06] MEDS: HEPARIN SOD (PORCINE) 5,000 UNIT/ML 1 ML VIAL SUBCUT SCH ×3 (05:26→22:52)
[2019-08-06 06:14] LABS: HEMATOCRIT 23.8 % (37.9-51.0); MEAN CORPUSCULAR HEMOGLOBIN 28.8 pg (27.0-33.4); MEAN CORPUSCULAR HGB CONC 32.9 g/dL (32.0-36.0); MEAN CORPUSCULAR VOLUME 87 fl (80-97); PLATELET COUNT 312 10^3/uL (150-450); RED BLOOD COUNT 2.73 10^6/uL (4.35-5.55); RED CELL DISTRIBUTION WIDTH 13.9 % (11.5-14.0); WHITE BLOOD COUNT 8.9 10^3/uL (4.0-10.5)
[2019-08-06 06:37] LABS: ALBUMIN 2.8 g/dL (3.5-5.0); ALKALINE PHOSPHATASE 108 U/L (38-126); ANION GAP 14 (5-19); ASPARTATE AMINO TRANSFERASE 15 U/L (17-59); BILIRUBIN,DIRECT 0.3 mg/dL (0.0-0.4); BILIRUBIN,TOTAL 0.4 mg/dL (0.2-1.3); BLOOD UREA NITROGEN 69 mg/dL (7-20); CARBON DIOXIDE 20 mmol/L (22-30); CHLORIDE 107 mmol/L (98-107); GLUCOSE 337 mg/dL (75-110); HEMOGLOBIN 7.9 g/dL (13.5-17.0); POTASSIUM 4.6 mmol/L (3.6-5.0); TOTAL PROTEIN 5.9 g/dL (6.3-8.2)
[2019-08-06 06:56] LABS: CALCIUM 6.7 mg/dL (8.4-10.2)
[2019-08-06] MEDS ORDERED: CALCIUM GLUCONATE 1000 MG/10 ML INJ IV ONE ×2 (07:51)
[2019-08-06] MEDS: INSULIN REG, HUMAN 100 UNIT/ML 3 ML VIAL (PYX) SUBCUT SCH ×2 (07:56→12:02)
[2019-08-06] MEDS ORDERED: CALCIUM ACETATE 667 MG CAPSULE PO SCH (08:00)
[2019-08-06] MEDS: SEVELAMER HCL 800 MG TABLET PO SCH ×3 (08:03→17:11)
[2019-08-06] MEDS: CALCIUM GLUCONATE 1 GM/NS 50 ML RTU IV SCH ×3 (08:40→11:52)
[2019-08-06] MEDS: TIMOLOL MALEATE 0.5% OPH SOLN 5 ML OS SCH ×2 (10:30→17:11)
[2019-08-06] MEDS: PANTOPRAZOLE SODIUM 40 MG VIAL IV SCH (10:30)
[2019-08-06] MEDS: ASPIRIN 81 MG TABLET, ENT COATED PO SCH (10:31)
[2019-08-06] MEDS: GUAIFENESIN 600 MG TABLET.SA PO SCH ×2 (10:31→22:56)
[2019-08-06] MEDS: CALCITRIOL 0.25 MCG CAPSULE PO SCH ×2 (10:31→22:56)
[2019-08-06] MEDS: AMLODIPINE BESYLATE 10 MG TABLET PO SCH (10:31)
[2019-08-06] MEDS: SODIUM BICARBONATE 650 MG TABLET PO SCH ×2 (10:31→17:11)
[2019-08-06] MEDS: TOPIRAMATE 25 MG TABLET PO SCH ×2 (10:31→17:11)
[2019-08-06] MEDS: BUPROPION HCL 100 MG TABLET PO SCH ×3 (10:32→17:11)
[2019-08-06] MEDS: PREGABALIN 100 MG CAPSULE PO SCH ×2 (10:32→17:12)
[2019-08-06] MEDS: LEVOFLOXACIN 250 MG TABLET PO SCH (10:32)
--- NOTE | 2019-08-06 13:28 | PDOC PROGRESS REPORT ---
Subjective Progress Note for:: 08/06/19 Subjective:: 65-year-old male past medical history of diabetes, hypertension, CKD stage IV, who presented to ED with present acutely worsening shortness of breath, was found to have left-sided lower basilar infiltrate and noted to be very acidotic. Admitted to ICU, did not receive any hemodialysis, was started volume resuscitation and transferred to [facility]. 08/06/2019. Overnight patient was noted to be very hyperglycemic and was a started on insulin drip, this morning upon talking to patient stating that last night he has been eating from vending machine and he has had about 5-7 snack bars, otherwise patient resting comfortably no apparent use, denies any fever, chills, nausea, vomiting, diarrhea, constipation or any urinary symptoms. Reason For Visit: NEEDS [facility] Physical Exam Vital Signs: Temp Pulse Resp BP Pulse Ox 97.7 F 77 18 158/72 H 100 08/06/19 11:28 08/06/19 11:28 08/06/19 11:28 08/06/19 11:28 08/06/19 11:28 Intake & Output 08/05/19 08/06/19 08/07/19 06:59 06:59 06:59 Intake Total 2466 1997 14 Output Total 2800 2575 Balance -334 -578 14 Weight 99.6 kg 101.2 kg General appearance: PRESENT: obese Head exam: PRESENT: atraumatic, normocephalic Respiratory exam: PRESENT: clear to auscultation brett, prolonged expiratory phas, wheezes. ABSENT: rales, rhonchi Cardiovascular exam: PRESENT: RRR. ABSENT: diastolic murmur, rubs, systolic murmur GI/Abdominal exam: PRESENT: normal bowel sounds, soft. ABSENT: distended, guarding, mass, organolmegaly, rebound, tenderness Neurological exam: PRESENT: alert, awake, oriented to person, oriented to place, oriented to time, oriented to situation, CN II-XII grossly intact. ABSENT: motor sensory deficit Results Laboratory Results: 08/06/19 04:39 08/06/19 04:39 08/06/19 08/06/19 08/06/19 04:39 04:39 04:39 WBC 8.9 RBC 2.73 L Hgb 7.9 L Hct 23.8 L MCV 87 MCH 28.8 MCHC 32.9 RDW 13.9 Plt Count 312 Sodium 140.8 Potassium 4.6 Chloride 107 Carbon Dioxide 20 L Anion Gap 14 BUN 69 H Creatinine 6.19 H Est GFR ( Amer) 11 L Glucose 337 H Calcium 6.7 L* Phosphorus 5.6 H Magnesium 1.6 Total Bilirubin 0.4 AST 15 L Alkaline Phosphatase 108 Total Protein 5.9 L Albumin 2.8 L 08/03/19 08/03/19 08/04/19 11:11 22:20 04:13 Troponin I 0.211 0.270 0.245 NT-Pro-B Natriuret Pep [id number] H Impressions: Chest X-Ray 08/04/19 08:00 IMPRESSION: Improved bilateral perihilar opacities, likely resolving edema. Persistent ill-defined right apical opacities possibly pneumonia or persistent asymmetric edema. Assessment and Plan - Diagnosis (1) Acute exacerbation of chronic obstructive pulmonary disease (COPD) Is this a current diagnosis for this admission?: Yes Plan: Improving. SPO2 WNL on 3.5 L. In no apparent respiratory distress. Expiratory wheezes on physical examination. Leukocytosis resolved. Cultures from admission negative so far. Continue empiric IV antibiotics, duo nebs, IV steroids, LABA, LABA, ICS. (2) Acute kidney injury superimposed on CKD Is this a current diagnosis for this admission?: Yes Plan: Improving. Nonoliguric. Volume status WNL. Electrolytes WNL. Nephrology consulted. No hemodialysis not indicated as per nephrology note. Continue cautious volume resuscitation guided by volume status, monitor electrolytes and replace as needed. Nephrology on board. Recommendations noted. (3) CKD (chronic kidney disease), stage IV Is this a current diagnosis for this admission?: Yes Plan: Creatinine trending down not back to baseline. Baseline creatinine 4.0. Nephrology on board. Recommendations noted. (4) Diabetes mellitus Qualifiers: Diabetes mellitus type: type 2 Is this a current diagnosis for this admission?: Yes Plan: Overnight patient noted to be very hyperglycemic and started on insulin drip. This is most likely due to IV steroids for underlying COPD exacerbation and noncompliance. Note. Patient is stating that he has been having several snacks bars last night from the vending machine. Counseled on diabetic diet compliance. Hemoglobin A1c 6.9% 07/22/2019. Continue diabetic diet, sliding scale, basal and prandial insulin. Hypoglycemia protocol. Accu-Chek. Adjust dosages. Outpatient PCP follow-up. (5) Hypertensive urgency Is this a current diagnosis for this admission?: Yes Plan: Improving. Not optimized. Continue amlodipine. PRN hydralazine and beta-sushma. Monitor vitals. Adjust meds as needed. Outpatient PCP follow-up. (6) Hypocalcemia Is this a current diagnosis for this admission?: Yes Plan: On calcitriol by nephrology. Continue calcitriol. Continue calcium replacement. Calcium level tomorrow. On sevelamer by nephrology may benefit from calcium based phosphate binders Will defer decision to nephrology. Nephrology on board. (7) Metabolic acidosis with respiratory acidosis Is this a current diagnosis for this admission?: Yes Plan: Improving. Anion gap WNL.
[2019-08-06] MEDS: TAMSULOSIN HCL 0.4 MG CAP.SR.24H PO SCH (17:11)
[2019-08-06] MEDS: CARVEDILOL 6.25 MG TABLET PO SCH ×2 (17:11→22:52)
[2019-08-06] MEDS ORDERED: INSULIN GLARGINE,HUM.REC.ANLOG 1,000 UNIT/10 ML VIAL SUBCUT SCH (22:00)
[2019-08-07 05:46] LABS: HEMATOCRIT 23.8 % (37.9-51.0); MEAN CORPUSCULAR HEMOGLOBIN 28.5 pg (27.0-33.4); MEAN CORPUSCULAR HGB CONC 32.3 g/dL (32.0-36.0); MEAN CORPUSCULAR VOLUME 88 fl (80-97); PLATELET COUNT 271 10^3/uL (150-450); RED CELL DISTRIBUTION WIDTH 14.2 % (11.5-14.0)
[2019-08-07 06:01] LABS: ALBUMIN 2.7 g/dL (3.5-5.0); ALKALINE PHOSPHATASE 86 U/L (38-126); ANION GAP 14 (5-19); ASPARTATE AMINO TRANSFERASE 15 U/L (17-59); BILIRUBIN,DIRECT 0.6 mg/dL (0.0-0.4); BILIRUBIN,TOTAL 0.6 mg/dL (0.2-1.3); BLOOD UREA NITROGEN 74 mg/dL (7-20); CALCIUM 7.2 mg/dL (8.4-10.2); CARBON DIOXIDE 19 mmol/L (22-30); CHLORIDE 105 mmol/L (98-107); PHOSPHORUS 6.1 mg/dL (2.5-4.5); POTASSIUM 4.3 mmol/L (3.6-5.0); TOTAL PROTEIN 5.9 g/dL (6.3-8.2)
[2019-08-07 06:06] LABS: HEMOGLOBIN 7.7 g/dL (13.5-17.0)
[2019-08-07 06:08] LABS: ABSOLUTE LYMPHOCYTES# (MANUAL) 2.2 10^3/uL (0.5-4.7); BASOPHILS % (MANUAL) 0 % (0-2); EOSINOPHILS % (MANUAL) 0 % (0-6); LYMPHOCYTES % (MANUAL) 16 % (13-45); MONOCYTES % (MANUAL) 7 % (3-13); SEGMENTED NEUTROPHILS % (MAN) 77 % (42-78); TOTAL CELLS COUNTED 100
[2019-08-07 06:09] LABS: ANISOCYTOSIS SLIGHT; PLATELET COMMENT ADEQUATE
[2019-08-07 06:12] LABS: GLUCOSE 419 mg/dL (75-110)
[2019-08-07] MEDS ORDERED: DEXTROSE 50%-WATER SYRINGE 25 GM/50 ML DOSE IV PRN (07:00)
[2019-08-07] MEDS ORDERED: DEXTROSE 50%-WATER SYRINGE 12.5 GM/25 ML DOSE IV PRN (07:00)
[2019-08-07] MEDS ORDERED: GLUCAGON,HUMAN RECOMB 1 MG INJ IM PRN (07:00)
[2019-08-07] MEDS ORDERED: DEXTROSE 40% GEL 15 GM TUBE PO PRN (07:00)
[2019-08-07] MEDS ORDERED: INSULIN LISPRO 100 UNIT/ML 3 ML VIAL SUBCUT ONE (07:00)
[2019-08-07] MEDS ORDERED: DEXTROSE 40% GEL 15 GM TUBE X 2 PO PRN (07:00)
[2019-08-07] MEDS: METHYLPREDNISOLONE INJ 40 MG/1 ML SDV IV SCH (07:27)
[2019-08-07] MEDS: HEPARIN SOD (PORCINE) 5,000 UNIT/ML 1 ML VIAL SUBCUT SCH ×3 (07:28→21:55)
[2019-08-07] MEDS: INSULIN LISPRO 100 UNIT/ML 3 ML VIAL SUBCUT SCH ×4 (07:54→21:56)
[2019-08-07] MEDS: PANTOPRAZOLE SODIUM 40 MG VIAL IV SCH (10:48)
[2019-08-07] MEDS: SEVELAMER HCL 800 MG TABLET PO SCH ×3 (10:48→17:29)
[2019-08-07] MEDS: PREGABALIN 100 MG CAPSULE PO SCH ×2 (10:49→17:29)
[2019-08-07] MEDS: TOPIRAMATE 25 MG TABLET PO SCH ×2 (10:49→17:29)
[2019-08-07] MEDS: SODIUM BICARBONATE 650 MG TABLET PO SCH ×2 (10:49→17:29)
[2019-08-07] MEDS: CARVEDILOL 6.25 MG TABLET PO SCH ×2 (10:49→21:54)
[2019-08-07] MEDS: GUAIFENESIN 600 MG TABLET.SA PO SCH ×2 (10:49→21:54)
[2019-08-07] MEDS: ASPIRIN 81 MG TABLET, ENT COATED PO SCH (10:49)
[2019-08-07] MEDS: BUPROPION HCL 100 MG TABLET PO SCH ×3 (10:49→17:29)
[2019-08-07] MEDS: CALCITRIOL 0.25 MCG CAPSULE PO SCH ×2 (10:49→21:57)
[2019-08-07] MEDS: AMLODIPINE BESYLATE 10 MG TABLET PO SCH (10:49)
[2019-08-07] MEDS: TIMOLOL MALEATE 0.5% OPH SOLN 5 ML OS SCH ×2 (10:50→17:30)
[2019-08-07] MEDS: LEVOFLOXACIN 250 MG TABLET PO SCH (10:50)
[2019-08-07] MEDS: NORMAL SALINE 1000 ML 1,000 ML IV PRN (11:42)
--- NOTE | 2019-08-07 16:37 | PDOC PROGRESS REPORT ---
Subjective Progress Note for:: 08/07/19 Subjective:: Patient requesting to go home today. Discussed with patient that his creatinine function is still far from his previous baseline. Patient denies current shortness of breath though he is on oxygen. Denies using oxygen at home. Reason For Visit: NEEDS [facility] Physical Exam Vital Signs: Temp Pulse Resp BP Pulse Ox 97.8 F 72 20 145/77 H 100 08/07/19 15:21 08/07/19 15:21 08/07/19 15:21 08/07/19 15:21 08/07/19 15:21 Intake & Output 08/06/19 08/07/19 08/08/19 06:59 06:59 06:59 Intake Total 1996 0207 720 Output Total 3670 5005 850 Balance -578 -788 -130 Weight 101.2 kg 106 kg General appearance: PRESENT: no acute distress, cooperative Neck exam: ABSENT: JVD Respiratory exam: PRESENT: clear to auscultation brett, unlabored. ABSENT: tachypnea, wheezes Cardiovascular exam: PRESENT: RRR, +S1, +S2. ABSENT: tachycardia GI/Abdominal exam: PRESENT: soft. ABSENT: rebound, rigid, tenderness Neurological exam: PRESENT: alert, awake Results Laboratory Results: 08/07/19 05:12 08/07/19 05:12 08/07/19 08/07/19 05:12 05:12 WBC 14.0 H RBC 2.70 L Hgb 7.7 L Hct 23.8 L MCV 88 MCH 28.5 MCHC 32.3 RDW 14.2 H Plt Count 271 Seg Neutrophils % Not Reportable Sodium 138.2 Potassium 4.3 Chloride 105 Carbon Dioxide 19 L Anion Gap 14 BUN 74 H Creatinine 5.76 H Est GFR ( Amer) 12 L Glucose 419 H* Calcium 7.2 L Phosphorus 6.1 H Magnesium 1.6 Total Bilirubin 0.6 AST 15 L Alkaline Phosphatase 86 Total Protein 5.9 L Albumin 2.7 L 08/03/19 08/03/19 08/04/19 11:11 22:20 04:13 Troponin I 0.211 0.270 0.245 NT-Pro-B Natriuret Pep 61684 H Impressions: Chest X-Ray 08/04/19 08:00 IMPRESSION: Improved bilateral perihilar opacities, likely resolving edema. Persistent ill-defined right apical opacities possibly pneumonia or persistent asymmetric edema. Assessment and Plan - Diagnosis (1) Acute kidney injury superimposed on CKD Is this a current diagnosis for this admission?: Yes Plan: Patient's baseline creatinine seems to be around 5 for most recent prior visits. Initially at 8 during this hospitalization but now continue to trend down. Nephrology consulted. No hemodialysis not indicated as per nephrology note. Continue cautious volume resuscitation at 100cc/h, monitor electrolytes and replace as needed. Nephrology on board. Recommendations noted. (2) Diabetes mellitus Qualifiers: Diabetes mellitus type: type 2 Is this a current diagnosis for this admission?: Yes Plan: Hemoglobin A1c 6.9% 07/22/2019. Hyperglycemia is likely worsened by steroid use. Patient states that he takes 36 units of Lantus in the morning and 40 units at night. I will place patient back on similar home regimen. Take of insulin drip and wean steroids. Continue Accu-Cheks (3) Metabolic acidosis with respiratory acidosis Is this a current diagnosis for this admission?: Yes Plan: Normal anion gap metabolic acidosis secondary to chronic kidney disease. Continue sodium bicarbonate supplementation. Did have some component of mild respiratory acidosis as well on admission. Co ntinue inhalers for COPD exacerbation. (4) Acute exacerbation of chronic obstructive pulmonary disease (COPD) Is this a current diagnosis for this admission?: Yes Plan: Improving. SPO2 WNL on 3.5 L. Cultures from admission negative so far. Continue Levaquin, duo nebs,LABA, LABA, ICS. Steroids changed from Solu-Medrol to prednisone today. (5) Hypocalcemia Is this a current diagnosis for this admission?: Yes Plan: On calcitriol by nephrology. Continue calcitriol. Continue calcium replacement. On sevelamer by nephrology may benefit from calcium based phosphate binders - Time Time Spent with patient: 15-24 minutes
[2019-08-07] MEDS ORDERED: CALCIUM GLUCONATE 1000 MG/10 ML INJ IV ONE (17:02)
--- NOTE | 2019-08-07 17:19 | XCELERA REPORT ---
[address] [address] Transthoracic Echocardiogram Report Name: SANTIAGO AL Age: 64 yrs Gender: Male : 1955 Patient Status: Inpatient Patient Location: [address] [place], [place] [address] Study Date: 08/07/2019 02:07 PM History: CHF Height: 72 in Weight: 223 lb BSA: 2.2 m2 Procedure: A complete two-dimensional transthoracic echocardiogram was performed (2D, M-mode, spectral and color flow Doppler). The study was technically difficult with many images being suboptimal in quality. Reason For Study: acute chf History: CHF. Ordering Physician: DORY ADAMS Performed By: Pat Stringer Interpretation Summary The study was technically difficult with many images being suboptimal in quality. Left ventricular systolic function is low normal. The Ejection Fraction estimate is 50-55% The right ventricle is normal in size and function. There is a mild amount of mitral regurgitation There is no aortic valve stenosis There is a trace or physiologic amount of tricuspid regurgitation There is no pericardial effusion. MMode/2D Measurements & Calculations RVDd: 3.3 cm LVIDd: 5.3 cm FS: 32.4 % Ao root diam: 3.5 cm IVSd: 1.6 cm LVIDs: 3.6 cm EDV(Teich): 137.7 ml Ao root area: 9.4 cm2 LVPWd: 1.2 cm ESV(Teich): 54.8 ml LA dimension: 4.9 cm EF(Teich): 60.2 % Doppler Measurements & Calculations MV E max devante: MV P1/2t max devante: Ao V2 max: LV V1 max P.7 cm/sec 109.6 cm/sec 99.3 cm/sec 2.8 mmHg MV A max devante: MV P1/2t: 89.2 msec Ao max P.9 mmHgLV V1 max: 110.6 cm/sec MVA(P1/2t): 2.5 cm2 82.9 cm/sec MV E/A: 0.93 MV dec slope: 359.6 cm/sec2 MV dec time: 0.28 sec PA V2 max: PI end-d devante: MV P1/2t-pr_phl: 102.2 cm/sec 181.3 cm/sec 89.2 msec PA max P.2 mmHg Left Ventricle The left ventricle is mildly dilated. There is severe concentric left ventricular hypertrophy. Left ventricular systolic function is low normal. The Ejection Fraction estimate is 50-55%. Doppler measurements suggest impaired left ventricular relaxation, which is associated with grade I/IV or mild diastolic dysfunction. No regional wall motion abnormalities noted. Right Ventricle The right ventricle is normal in size and function. Atria The right atrium is normal. The left atrium is moderately dilated. Mitral Valve The mitral valve is grossly normal. There is no mitral valve stenosis. There is a mild amount of mitral regurgitation. Aortic Valve The aortic valve opens well. The aortic valve is trileaflet. The aortic valve is sclerotic, but shows no functional abnormality. There is no aortic valve stenosis. No aortic regurgitation is present. Tricuspid Valve The tricuspid valve is not well visualized secondary to technical limitations. There is a trace or physiologic amount of tricuspid regurgitation. Tricuspid regurgitation jet envelope not well defined to measure RV systolic pressure accurately. Pulmonic Valve The pulmonic valve is normal in structure and function. There is a mild amount of pulmonic regurgitation. Great Vessels The aortic root is normal size. The inferior vena cava appeared normal and decreased > 50% with respiration (RAP 5-10 mmHg). Effusions There is no pericardial effusion. : DORY ADAMS Anil
[2019-08-07] MEDS: CALCIUM GLUCONATE 1 GM/NS 50 ML RTU IV SCH ×2 (17:29→18:48)
[2019-08-07] MEDS: TAMSULOSIN HCL 0.4 MG CAP.SR.24H PO SCH (17:30)
[2019-08-07] MEDS: INSULIN GLARGINE,HUM.REC.ANLOG 1,000 UNIT/10 ML VIAL SUBCUT SCH (21:57)
--- NOTE | 2019-08-07 23:59 | PDOC PROGRESS REPORT ---
Subjective Progress Note for:: 08/07/19 Subjective:: Patient was admitted last week with increasing shortness of breath and acute respiratory failure. Patient also has a history of some colds and cough. He was initially thought to have pulmonary vascular congestion when Dr. Garcia evaluated the patient he thought the patient really dehydrated right lung infiltrate. Patient did not receive any renal replacement therapy but rather was treated for pneumonia with IV antibiotics, Levaquin and some cautious IV fluid hydration. Patient came in with a creatinine of 8.15 with a baseline creatinine of 4.0. Currently his creatinine is down to 5.76. He is also passing an adequate amount of urine output around 2+ liters every day. Currently the patient said he feels good and denies any chest pains no shortness of breath with occasional cough. He actually wanted to go home. Reason For Visit: NEEDS [facility] Physical Exam Vital Signs: Temp Pulse Resp BP Pulse Ox 98.0 F 76 16 154/76 H 100 08/07/19 11:14 08/07/19 11:14 08/07/19 11:14 08/07/19 11:14 08/07/19 11:14 Intake & Output 08/06/19 08/07/19 08/08/19 06:59 06:59 06:59 Intake Total 1996 1487 480 Output Total 5618 7065 425 Balance -578 -788 55 Weight 101.2 kg 106 kg Exam: General appearance: PRESENT: no acute distress, cooperative, well-developed, well-nourished Head exam: PRESENT: atraumatic, normocephalic Eye exam: PRESENT: conjunctiva pink, PERRLA. ABSENT: scleral icterus Neck exam: ABSENT: JVD Respiratory exam: PRESENT: Normal breath sounds. ABSENT: crackles, rales, rhonchi, unlabored, wheezes Cardiovascular exam: PRESENT: Regular rate rhythm -+S1, +S2. ABSENT: diastolic murmur, systolic murmur GI/Abdominal exam: PRESENT: normal bowel sounds, soft. ABSENT: guarding, mass, tenderness Extremities exam: ABSENT: No edema Neurological exam: PRESENT: alert, awake, oriented to person, place and time. Skin exam: PRESENT: dry, warm, Cardiovascular exam: PRESENT: +S1, +S2 GI/Abdominal exam: PRESENT: normal bowel sounds, soft. ABSENT: organomegaly, tenderness Results Laboratory Results: 08/07/19 05:12 02/10/20 05:12 08/07/19 08/07/19 05:12 05:12 WBC 14.0 H RBC 2.70 L Hgb 7.7 L Hct 23.8 L MCV 88 MCH 28.5 MCHC 32.3 RDW 14.2 H Plt Count 271 Seg Neutrophils % Not Reportable Sodium 138.2 Potassium 4.3 Chloride 105 Carbon Dioxide 19 L Anion Gap 14 BUN 74 H Creatinine 5.76 H Est GFR ( Amer) 12 L Glucose 419 H* Calcium 7.2 L Phosphorus 6.1 H Magnesium 1.6 Total Bilirubin 0.6 AST 15 L Alkaline Phosphatase 86 Total Protein 5.9 L Albumin 2.7 L 08/03/19 08/03/19 08/04/19 11:11 22:20 04:13 Troponin I 0.211 0.270 0.245 NT-Pro-B Natriuret Pep 00569 H Impressions: Chest X-Ray 08/04/19 08:00 IMPRESSION: Improved bilateral perihilar opacities, likely resolving edema. Persistent ill-defined right apical opacities possibly pneumonia or persistent asymmetric edema. Assessment & Plan - Diagnosis (1) Acute kidney injury superimposed on CKD Is this a current diagnosis for this admission?: Yes Plan: Patient is currently nonoliguric. His creatinine is improving every day. He does not require any renal replacement therapy. Continue current management. (2) CKD (chronic kidney disease), stage IV Is this a current diagnosis for this admission?: Yes Plan: His baseline creatinine is around 4.0. From nephrology standpoint of the patient's creatinine continues to improve to at least near fours discharged home. (3) Pneumonia Is this a current diagnosis for this admission?: Yes Plan: Patient is currently being treated with Levaquin. (4) Acidosis Is this a current diagnosis for this admission?: Yes (5) COPD (chronic obstructive pulmonary disease) Is this a current diagnosis for this admission?: Yes (6) Hypertension Is this a current diagnosis for this admission?: Yes Plan: Appears to be labile. (7) Anemia in chronic kidney disease (CKD) Is this a current diagnosis for this admission?: Yes Plan: Iron indicis are adequate. We will give the patient Retacrit 20,000 q. weekly starting tomorrow. (8) Hypocalcemia Is this a current diagnosis for this admission?: Yes Plan: Resolved. (9) Chronic kidney disease-mineral and bone disorder Is this a current diagnosis for this admission?: Yes Plan: Patient has elevated phosphorus of 6.1 currently from 6.8. Patient was started on Renagel. Patient also has elevated PTH of 585.5 for which he is currently on calcitriol. (10) Diabetes mellitus type 2 in nonobese Is this a current diagnosis for this admission?: Yes - Time Time with patient: 15-25 minutes
[2019-08-08] MEDS: NORMAL SALINE 1000 ML 1,000 ML IV PRN ×2 (00:58→12:09)
[2019-08-08 05:48] LABS: HEMATOCRIT 22.4 % (37.9-51.0); MEAN CORPUSCULAR HEMOGLOBIN 29.2 pg (27.0-33.4); MEAN CORPUSCULAR HGB CONC 33.2 g/dL (32.0-36.0); MEAN CORPUSCULAR VOLUME 88 fl (80-97); PLATELET COUNT 263 10^3/uL (150-450); RED BLOOD COUNT 2.55 10^6/uL (4.35-5.55); RED CELL DISTRIBUTION WIDTH 14.1 % (11.5-14.0); WHITE BLOOD COUNT 13.2 10^3/uL (4.0-10.5)
[2019-08-08 05:58] LABS: HEMOGLOBIN 7.4 g/dL (13.5-17.0)
[2019-08-08] MEDS: HEPARIN SOD (PORCINE) 5,000 UNIT/ML 1 ML VIAL SUBCUT SCH ×3 (05:59→21:43)
[2019-08-08 06:24] LABS: ANION GAP 12 (5-19); BLOOD UREA NITROGEN 72 mg/dL (7-20); CALCIUM 7.3 mg/dL (8.4-10.2); CARBON DIOXIDE 20 mmol/L (22-30); CHLORIDE 107 mmol/L (98-107); GLUCOSE 343 mg/dL (75-110); POTASSIUM 4.3 mmol/L (3.6-5.0)
[2019-08-08 06:35] LABS: ABSOLUTE LYMPHOCYTES# (MANUAL) 1.2 10^3/uL (0.5-4.7); ABSOLUTE MONOCYTES # (MANUAL) 1.6 10^3/uL (0.1-1.4); ANISOCYTOSIS SLIGHT; BASOPHILS % (MANUAL) 0 % (0-2); EOSINOPHILS % (MANUAL) 3 % (0-6); LYMPHOCYTES % (MANUAL) 8 % (13-45); MONOCYTES % (MANUAL) 12 % (3-13); PLATELET COMMENT ADEQUATE; SEGMENTED NEUTROPHILS % (MAN) 76 % (42-78); TOTAL CELLS COUNTED 100
[2019-08-08] MEDS ORDERED: EPOETIN ALFA-EPBX 10,000 UNIT/ML VIAL (NON-ESRD) SUBCUT ONE (07:00)
[2019-08-08] MEDS: INSULIN LISPRO 100 UNIT/ML 3 ML VIAL SUBCUT SCH ×4 (08:37→21:43)
[2019-08-08] MEDS: SEVELAMER HCL 800 MG TABLET PO SCH ×3 (08:37→16:53)
[2019-08-08 09:14] LABS: ALBUMIN 2.5 g/dL (3.5-5.0); PHOSPHORUS 6.2 mg/dL (2.5-4.5)
[2019-08-08] MEDS ORDERED: INSULIN GLARGINE,HUM.REC.ANLOG 1,000 UNIT/10 ML VIAL SUBCUT SCH ×2 (10:00→11:30)
[2019-08-08] MEDS ORDERED: PREDNISONE 20 MG TABLET PO SCH (10:00)
--- NOTE | 2019-08-08 11:39 | PDOC PROGRESS REPORT ---
Subjective Progress Note for:: 08/08/19 Subjective:: Patient continues to do well. He is making good amount of urine output and made about 2475 mL of urine for the last 24 hours. He states this is feeling good and denies any complaints including chest pains no shortness of breath. Reason For Visit: NEEDS [facility] Physical Exam Vital Signs: Temp Pulse Resp BP Pulse Ox 98.0 F 81 20 159/73 H 100 08/08/19 08:15 08/08/19 08:15 08/08/19 08:15 08/08/19 08:15 08/08/19 08:15 Intake & Output 08/07/19 08/08/19 08/09/19 06:59 06:59 06:59 Intake Total 1487 2000 Output Total 2275 2475 Balance -788 -475 Weight 106 kg 108.1 kg 108.1 kg Exam: General appearance: PRESENT: no acute distress, cooperative, well-developed, well-nourished Head exam: PRESENT: atraumatic, normocephalic Eye exam: PRESENT: conjunctiva pink, PERRLA. ABSENT: scleral icterus Neck exam: ABSENT: JVD Respiratory exam: PRESENT: Normal breath sounds. ABSENT: crackles, rales, rho nchi, unlabored, wheezes Cardiovascular exam: PRESENT: Regular rate rhythm -+S1, +S2. ABSENT: diastolic murmur, systolic murmur GI/Abdominal exam: PRESENT: normal bowel sounds, soft. ABSENT: guarding, mass, tenderness Extremities exam: Trace bilateral lower extremity pitting edema Neurological exam: PRESENT: alert, awake, oriented to person, place and time. Skin exam: PRESENT: dry, warm, Cardiovascular exam: PRESENT: +S1, +S2 GI/Abdominal exam: PRESENT: normal bowel sounds, soft. ABSENT: organomegaly, tenderness Results Laboratory Results: 08/08/19 05:15 08/08/19 05:15 08/08/19 08/08/19 08/08/19 05:15 05:15 05:15 WBC 13.2 H RBC 2.55 L Hgb 7.4 L Hct 22.4 L MCV 88 MCH 29.2 MCHC 33.2 RDW 14.1 H Plt Count 263 Seg Neutrophils % Not Reportable Sodium 139.1 Potassium 4.3 Chloride 107 Carbon Dioxide 20 L Anion Gap 12 BUN 72 H Creatinine 5.29 H Est GFR ( Amer) 13 L Glucose 343 H Calcium 7.3 L Phosphorus 6.2 H Albumin 2.5 L 08/03/19 11:11 Blood Blood Culture - Final NO GROWTH IN 5 DAYS 08/03/19 08/03/19 08/04/19 11:11 22:20 04:13 Troponin I 0.211 0.270 0.245 NT-Pro-B Natriuret Pep 19694 H Impressions: Chest X-Ray 08/04/19 08:00 IMPRESSION: Improved bilateral perihilar opacities, likely resolving edema. Persistent ill-defined right apical opacities possibly pneumonia or persistent asymmetric edema. Assessment & Plan - Diagnosis (1) Acute kidney injury superimposed on CKD Is this a current diagnosis for this admission?: Yes Plan: Patient is currently nonoliguric. His creatinine is improving every day. He does not require any renal replacement therapy. Continue current management. If the patient's kidney function continued to improve and his creatinine goes down below 5 in the next 24 to 48 hours I think the patient can be safely discharged home. If discharge he is to follow-up with our PA, Jase Tillman in the office in 1 week. (2) CKD (chronic kidney disease), stage IV Is this a current diagnosis for this admission?: Yes Plan: His baseline creatinine is around 4.0. Currently continues to improve towards his baseline kidney function. (3) Pneumonia Is this a current diagnosis for this admission?: Yes Plan: Patient is currently being treated with Levaquin. (4) Acidosis Is this a current diagnosis for this admission?: Yes Plan: Patient is on sodium bicarbonate. (5) COPD (chronic obstructive pulmonary disease) Is this a current diagnosis for this admission?: Yes (6) Hypertension Is this a current diagnosis for this admission?: Yes Plan: Appears to be labile. (7) Anemia in chronic kidney disease (CKD) Is this a current diagnosis for this admission?: Yes Plan: Iron indicis are adequate. We will give the patient Retacrit 20,000 q. weekly starting tomorrow. This needs to be continued as an outpatient. Check stool for occult blood. (8) Hypocalcemia Is this a current diagnosis for this admission?: Yes Plan: Resolved. Current corrected calcium of 8.34. (9) Chronic kidney disease-mineral and bone disorder Is this a current diagnosis for this admission?: Yes Plan: Patient has elevated phosphorus of 6.2 currently from 6.8. Patient was started on Renagel. Patient also has elevated PTH of 585.5 for which he is currently on calcitriol. (10) Diabetes mellitus type 2 in nonobese Is this a current diagnosis for this admission?: Yes - Time Time with patient: 15-25 minutes
[2019-08-08] MEDS: SODIUM BICARBONATE 650 MG TABLET PO SCH ×2 (12:10→17:49)
[2019-08-08] MEDS: CALCITRIOL 0.25 MCG CAPSULE PO SCH ×2 (12:10→21:42)
[2019-08-08] MEDS: GUAIFENESIN 600 MG TABLET.SA PO SCH ×2 (12:10→21:43)
[2019-08-08] MEDS: BUPROPION HCL 100 MG TABLET PO SCH ×3 (12:11→17:49)
[2019-08-08] MEDS: CARVEDILOL 6.25 MG TABLET PO SCH ×2 (12:11→21:43)
[2019-08-08] MEDS: ASPIRIN 81 MG TABLET, ENT COATED PO SCH (12:12)
[2019-08-08] MEDS: TOPIRAMATE 25 MG TABLET PO SCH ×2 (12:12→17:49)
[2019-08-08] MEDS: PANTOPRAZOLE SODIUM 40 MG VIAL IV SCH (12:12)
[2019-08-08] MEDS: AMLODIPINE BESYLATE 10 MG TABLET PO SCH (12:12)
[2019-08-08] MEDS: PREGABALIN 100 MG CAPSULE PO SCH ×2 (12:12→17:49)
[2019-08-08] MEDS: TIMOLOL MALEATE 0.5% OPH SOLN 5 ML OS SCH ×2 (12:15→17:49)
[2019-08-08] MEDS: LEVOFLOXACIN 250 MG TABLET PO SCH (12:15)
[2019-08-08] MEDS: TAMSULOSIN HCL 0.4 MG CAP.SR.24H PO SCH (17:49)
--- NOTE | 2019-08-08 18:23 | PDOC PROGRESS REPORT ---
Subjective Progress Note for:: 08/08/19 Subjective:: Patient feels well. Denies any shortness of breath at the time. Very eager to go home. Reason For Visit: NEEDS [facility] Physical Exam Vital Signs: Temp Pulse Resp BP Pulse Ox 97.5 F 72 17 147/81 H 100 08/08/19 15:34 08/08/19 15:34 08/08/19 15:34 08/08/19 15:34 08/08/19 15:34 Intake & Output 08/07/19 08/08/19 08/09/19 06:59 06:59 06:59 Intake Total 1487 1999 1000 Output Total 2275 4575 Balance -048 -393 1000 Weight 106 kg 108.1 kg 108.1 kg General appearance: PRESENT: no acute distress, cooperative Neck exam: ABSENT: JVD Respiratory exam: PRESENT: clear to auscultation brett, unlabored. ABSENT: tachypnea, wheezes Cardiovascular exam: PRESENT: RRR, +S1, +S2. ABSENT: other GI/Abdominal exam: PRESENT: normal bowel sounds, soft. ABSENT: rebound, rigid, tenderness Neurological exam: PRESENT: alert, awake, oriented to person, oriented to place, oriented to time Results Laboratory Results: 08/08/19 05:15 08/08/19 05:15 08/08/19 08/08/19 08/08/19 05:15 05:15 05:15 WBC 13.2 H RBC 2.55 L Hgb 7.4 L Hct 22.4 L MCV 88 MCH 29.2 MCHC 33.2 RDW 14.1 H Plt Count 263 Seg Neutrophils % Not Reportable Sodium 139.1 Potassium 4.3 Chloride 107 Carbon Dioxide 20 L Anion Gap 12 BUN 72 H Creatinine 5.29 H Est GFR ( Amer) 13 L Glucose 343 H Calcium 7.3 L Phosphorus 6.2 H Albumin 2.5 L 08/03/19 12:27 Blood Blood Culture - Final NO GROWTH IN 5 DAYS 08/03/19 11:11 Blood Blood Culture - Final NO GROWTH IN 5 DAYS 08/03/19 08/03/19 08/04/19 11:11 22:20 04:13 Troponin I 0.211 0.270 0.245 NT-Pro-B Natriuret Pep [id number] H Impressions: Chest X-Ray 02/07/20 08:00 IMPRESSION: Improved bilateral perihilar opacities, likely resolving edema. Persistent ill-defined right apical opacities possibly pneumonia or persistent asymmetric edema. Assessment and Plan - Diagnosis (1) Acute kidney injury superimposed on CKD Is this a current diagnosis for this admission?: Yes Plan: Patient's baseline creatinine seems to be around 5 for most recent prior visits. Initially at 8 during this hospitalization but now continue to trend down. Nephrology consulted. No hemodialysis not indicated as per nephrology note. Has been continued on fluids throughout the day. I will discontinue fluids later this evening and monitor. Check BMP in the morning. Continue sodium bicarbonate Nephrology on board. Recommendations noted. (2) Diabetes mellitus Qualifiers: Diabetes mellitus type: type 2 Is this a current diagnosis for this admission?: Yes Plan: Blood sugar still uncontrolled but likely worsened by steroids. Hemoglobin A1c 6.9% 07/22/2019. Patient states that he takes 36 units of Lantus in the morning and 40 units at night. I will place patient back on similar home regimen. Continue Accu-Cheks (3) Metabolic acidosis with respiratory acidosis Is this a current diagnosis for this admission?: Yes Plan: Normal anion gap metabolic acidosis secondary to chronic kidney disease. Continue sodium bicarbonate supplementation. Did have some component of mild respiratory acidosis as well on admission. Continue inhalers for COPD exacerbation. (4) Acute exacerbation of chronic obstructive pulmonary disease (COPD) Is this a current diagnosis for this admission?: Yes Plan: Hypoxia resolved. Patient is now 100% on room air. Cultures from admission negative so far. duo nebs,LABA, LABA, ICS. Continue steroids and Levaquin for 1 more day (5) Hypocalcemia Is this a current diagnosis for this admission?: Yes Plan: On calcitriol by nephrology. Continue calcitriol. Continue calcium replacement. On sevelamer by nephrology may benefit from calcium based phosphate binders - Time Time Spent with patient: Less than 15 minutes
[2019-08-08] MEDS: INSULIN GLARGINE,HUM.REC.ANLOG 1,000 UNIT/10 ML VIAL SUBCUT SCH (21:44)
[2019-08-09 05:26] LABS: HEMATOCRIT 23.3 % (37.9-51.0); MEAN CORPUSCULAR HEMOGLOBIN 29.9 pg (27.0-33.4); MEAN CORPUSCULAR VOLUME 88 fl (80-97); PLATELET COUNT 262 10^3/uL (150-450); RED BLOOD COUNT 2.65 10^6/uL (4.35-5.55); RED CELL DISTRIBUTION WIDTH 14.5 % (11.5-14.0); WHITE BLOOD COUNT 11.3 10^3/uL (4.0-10.5)
[2019-08-09] MEDS: HEPARIN SOD (PORCINE) 5,000 UNIT/ML 1 ML VIAL SUBCUT SCH ×3 (05:30→22:10)
[2019-08-09 05:35] LABS: HEMOGLOBIN 7.9 g/dL (13.5-17.0)
[2019-08-09 05:47] LABS: ALBUMIN 2.7 g/dL (3.5-5.0); ALKALINE PHOSPHATASE 96 U/L (38-126); ANION GAP 10 (5-19); ASPARTATE AMINO TRANSFERASE 17 U/L (17-59); BILIRUBIN,DIRECT 0.2 mg/dL (0.0-0.4); BILIRUBIN,TOTAL 0.3 mg/dL (0.2-1.3); BLOOD UREA NITROGEN 75 mg/dL (7-20); CALCIUM 7.4 mg/dL (8.4-10.2); CARBON DIOXIDE 19 mmol/L (22-30); CHLORIDE 109 mmol/L (98-107); GLUCOSE 343 mg/dL (75-110); PHOSPHORUS 4.8 mg/dL (2.5-4.5); POTASSIUM 4.6 mmol/L (3.6-5.0); TOTAL PROTEIN 5.6 g/dL (6.3-8.2)
[2019-08-09] MEDS: SEVELAMER HCL 800 MG TABLET PO SCH ×3 (07:45→17:34)
[2019-08-09] MEDS: INSULIN LISPRO 100 UNIT/ML 3 ML VIAL SUBCUT SCH ×4 (07:45→22:12)
[2019-08-09] MEDS ORDERED: NORMAL SALINE 1000 ML 1,000 ML IV ONE (08:16)
[2019-08-09] MEDS ORDERED: INSULIN GLARGINE,HUM.REC.ANLOG 1,000 UNIT/10 ML VIAL SUBCUT SCH (10:00)
[2019-08-09] MEDS: PANTOPRAZOLE SODIUM 40 MG VIAL IV SCH (10:10)
[2019-08-09] MEDS: GUAIFENESIN 600 MG TABLET.SA PO SCH ×2 (10:11→22:11)
[2019-08-09] MEDS: CALCITRIOL 0.25 MCG CAPSULE PO SCH ×2 (10:11→22:13)
[2019-08-09] MEDS: BUPROPION HCL 100 MG TABLET PO SCH ×3 (10:11→17:34)
[2019-08-09] MEDS: TOPIRAMATE 25 MG TABLET PO SCH ×2 (10:11→17:34)
[2019-08-09] MEDS: CARVEDILOL 6.25 MG TABLET PO SCH ×2 (10:11→22:11)
[2019-08-09] MEDS: AMLODIPINE BESYLATE 10 MG TABLET PO SCH (10:11)
[2019-08-09] MEDS: SODIUM BICARBONATE 650 MG TABLET PO SCH ×2 (10:11→17:34)
[2019-08-09] MEDS: ASPIRIN 81 MG TABLET, ENT COATED PO SCH (10:12)
[2019-08-09] MEDS: PREGABALIN 100 MG CAPSULE PO SCH ×2 (10:12→17:34)
[2019-08-09] MEDS: TIMOLOL MALEATE 0.5% OPH SOLN 5 ML OS SCH ×2 (10:13→17:34)
[2019-08-09] MEDS ORDERED: NORMAL SALINE 1000 ML 1,000 ML IV PRN (10:34)
--- NOTE | 2019-08-09 10:42 | PDOC PROGRESS REPORT ---
Subjective Progress Note for:: 08/09/19 Subjective:: Patient's creatinine went up this morning as compared to yesterday. Of note patient's IV fluids were discontinued yesterday evening. Patient continues to auto diurese. Patient's unpleased that he cannot go home today will swing to stay to get his kidney function monitored. Otherwise he denies any shortness of breath. Little bit frustrated about the portions of food he is getting. Reason For Visit: NEEDS [facility] Physical Exam Vital Signs: Temp Pulse Resp BP Pulse Ox 98.2 F 85 17 150/74 H 100 08/09/19 07:27 08/09/19 07:27 08/09/19 07:27 08/09/19 07:27 08/09/19 07:27 Intake & Output 08/08/19 08/09/19 08/10/19 06:59 06:59 06:59 Intake Total 1999 2850 1999 Output Total 2475 3105 Balance -475 -255 1999 Weight 108.1 kg 109.2 kg General appearance: PRESENT: no acute distress, cooperative Mouth exam: PRESENT: neck supple Respiratory exam: PRESENT: clear to auscultation brett, unlabored. ABSENT: tachypnea, wheezes Cardiovascular exam: PRESENT: RRR, +S1, +S2. ABSENT: tachycardia GI/Abdominal exam: PRESENT: normal bowel sounds, soft. ABSENT: rebound, rigid, tenderness Extremities exam: PRESENT: pedal edema, +1 edema Neurological exam: PRESENT: alert, awake, oriented to person, oriented to place, oriented to time Psychiatric exam: ABSENT: agitated Results Laboratory Results: 08/09/19 04:35 08/09/19 04:35 08/09/19 08/09/19 04:35 04:35 WBC 11.3 H RBC 2.65 L Hgb 7.9 L Hct 23.3 L MCV 88 MCH 29.9 MCHC 34.0 RDW 14.5 H Plt Count 262 Sodium 138.4 Potassium 4.6 Chloride 109 H Carbon Dioxide 19 L Anion Gap 10 BUN 75 H Creatinine 5.87 H Est GFR ( Amer) 12 L Glucose 343 H Calcium 7.4 L Phosphorus 4.8 H Total Bilirubin 0.3 AST 17 Alkaline Phosphatase 96 Total Protein 5.6 L Albumin 2.7 L 08/03/19 12:27 Blood Blood Culture - Final NO GROWTH IN 5 DAYS 08/03/19 11:11 Blood Blood Culture - Final NO GROWTH IN 5 DAYS 08/03/19 08/03/19 08/04/19 11:11 22:20 04:13 Troponin I 0.211 0.270 0.245 NT-Pro-B Natriuret Pep [id number] H Impressions: Chest X-Ray 08/04/19 08:00 IMPRESSION: Improved bilateral perihilar opacities, likely resolving edema. Persistent ill-defined right apical opacities possibly pneumonia or persistent asymmetric edema. Assessment and Plan - Diagnosis (1) Acute kidney injury superimposed on CKD Is this a current diagnosis for this admission?: Yes Plan: LINDA superimposed on CKD stage V. Patient's baseline creatinine seems to be around 5 for most recent prior visits. Initially at 8 during this hospitalization but now continue to trend down. After discontinuation of IV fluids yesterday evening, patient had a creatinine bump now up to 5.8. Patient continues to remain net negative fluid balance despite not being on any diuretics. Seems to be auto diuresing. There is suspicion that this could be due to a post ATN diuresis which likely accounted for patient's LINDA on presentation. I will continue IV fluids continuously to replace lost fluids and continue to monitor BMP. Continue sodium bicarbonate Nephrology on board. Recommendations noted. (2) Diabetes mellitus Qualifiers: Diabetes mellitus type: type 2 Is this a current diagnosis for this admission?: Yes Plan: Blood sugar still uncontrolled but likely worsened by steroids. Hemoglobin A1c 6.9% 07/22/2019. Patient states that he takes 36 units of Lantus in the morning and 40 units at night which he has been placed on. Continue to monitor Accu-Cheks. Maintain on diabetic diet. (3) Metabolic acidosis with respiratory acidosis Is this a current diagnosis for this admission?: Yes Plan: Normal anion gap metabolic acidosis secondary to chronic kidney disease. Continue sodium bicarbonate supplementation. (4) Acute exacerbation of chronic obstructive pulmonary disease (COPD) Is this a current diagnosis for this admission?: Yes Plan: Hypoxia resolved. Patient is now 100% on room air. Cultures from admission negative so far. duo nebs,LABA, LABA, ICS. Discontinue steroids and Levaquin (5) Hypocalcemia Is this a current diagnosis for this admission?: Yes Plan: On calcitriol by nephrology. Continue calcitriol. Continue calcium replacement. On sevelamer by nephrology may benefit from calcium based phosphate binders phosphate improving. - Time Time Spent with patient: 15-24 minutes
[2019-08-09] MEDS: NORMAL SALINE 1000 ML 1,000 ML IV PRN ×2 (12:35→18:34)
[2019-08-09 13:40] LABS: ANION GAP 10 (5-19); BLOOD UREA NITROGEN 72 mg/dL (7-20); CALCIUM 7.4 mg/dL (8.4-10.2); CARBON DIOXIDE 20 mmol/L (22-30); CHLORIDE 110 mmol/L (98-107); GLUCOSE 75 mg/dL (75-110); POTASSIUM 4.2 mmol/L (3.6-5.0)
[2019-08-09] MEDS: TAMSULOSIN HCL 0.4 MG CAP.SR.24H PO SCH (17:34)
--- NOTE | 2019-08-09 21:58 | PDOC PROGRESS REPORT ---
Subjective Progress Note for:: 08/09/19 Subjective:: Patient continues to do well clinically. He seems to be diuresing more than his intake with a urine output of 3105 mL for the past 24 hours. His intake and output balance is -255. Patient states that he feels fine and has no complaints though. His IV fluids was initially discontinued last night however this morning his creatinine went up to 5.[address] Christina gave him an IV bolus of normal saline followed by a maintenance dose. Reason For Visit: NEEDS [facility] Physical Exam Vital Signs: Temp Pulse Resp BP Pulse Ox 98.2 F 85 17 150/74 H 100 08/09/19 07:27 08/09/19 07:27 08/09/19 07:27 08/09/19 07:27 08/09/19 07:27 Intake & Output 08/08/19 08/09/19 08/10/19 06:59 06:59 06:59 Intake Total 1999 2849 1999 Output Total 2475 3105 Balance -475 -255 1999 Weight 108.1 kg 109.2 kg Exam: General appearance: PRESENT: no acute distress, cooperative, well-developed, well-nourished Head exam: PRESENT: atraumatic, normocephalic Eye exam: PRESENT: conjunctiva pink, PERRLA. ABSENT: scleral icterus Neck exam: ABSENT: JVD Respiratory exam: PRESENT: Normal breath sounds. ABSENT: crackles, rales, rhonchi, unlabored, wheezes Cardiovascular exam: PRESENT: Regular rate rhythm -+S1, +S2. ABSENT: diastolic murmur, systolic murmur GI/Abdominal exam: PRESENT: normal bowel sounds, soft. ABSENT: guarding, mass, tenderness Extremities exam: Grade 1 bilateral lower extremity pitting edema Neurological exam: PRESENT: alert, awake, oriented to person, place and time. Skin exam: PRESENT: dry, warm, Cardiovascular exam: PRESENT: +S1, +S2 GI/Abdominal exam: PRESENT: normal bowel sounds, soft. ABSENT: organomegaly, tenderness Results Laboratory Results: 08/09/19 04:35 08/09/19 04:35 08/09/19 08/09/19 04:35 04:35 WBC 11.3 H RBC 2.65 L Hgb 7.9 L Hct 23.3 L MCV 88 MCH 29.9 MCHC 34.0 RDW 14.5 H Plt Count 262 Sodium 138.4 Potassium 4.6 Chloride 109 H Carbon Dioxide 19 L Anion Gap 10 BUN 75 H Creatinine 5.87 H Est GFR ( Amer) 12 L Glucose 343 H Calcium 7.4 L Phosphorus 4.8 H Total Bilirubin 0.3 AST 17 Alkaline Phosphatase 96 Total Protein 5.6 L Albumin 2.7 L 08/03/19 12:27 Blood Blood Culture - Final NO GROWTH IN 5 DAYS 08/03/19 11:11 Blood Blood Culture - Final NO GROWTH IN 5 DAYS 08/03/19 08/03/19 08/04/19 11:11 22:20 04:13 Troponin I 0.211 0.270 0.245 NT-Pro-B Natriuret Pep 71116 H Impressions: Chest X-Ray 08/04/19 08:00 IMPRESSION: Improved bilateral perihilar opacities, likely resolving edema. Persistent ill-defined right apical opacities possibly pneumonia or persistent asymmetric edema. Assessment & Plan - Diagnosis (1) Acute kidney injury superimposed on CKD Is this a current diagnosis for this admission?: Yes Plan: Patient is currently nonoliguric. He seems to be in the diuretic phase of LINDA. Agree with resuming IV fluids with normal saline. I will increase the rate to 150 mL an hour for the next 24 hours. Recheck kidney function in the morning. Again if improved to creatinine of less than 5 patient may be able to go home. He does not require any renal replacement therapy at this time. Discussed with Dr. Christina today. (2) CKD (chronic kidney disease), stage IV Is this a current diagnosis for this admission?: Yes Plan: His baseline creatinine is around 4.0. Currently continues to improve towards his baseline kidney function. (3) Pneumonia Is this a current diagnosis for this admission?: Yes Plan: Patient is treated with Levaquin. (4) Acidosis Is this a current diagnosis for this admission?: Yes Plan: Patient is on sodium bicarbonate. (5) COPD (chronic obstructive pulmonary disease) Is this a current diagnosis for this admission?: Yes (6) Hypertension Is this a current diagnosis for this admission?: Yes Plan: Appears to be labile. (7) Anemia in chronic kidney disease (CKD) Is this a current diagnosis for this admission?: Yes Plan: Iron indicis are adequate. We will give the patient Retacrit 20,000 q. weekly started on 08/08. This needs to be continued as an outpatient. Check stool for occult blood. (8) Hypocalcemia Is this a current diagnosis for this admission?: Yes Plan: Resolved. Current corrected calcium within normal limits. (9) Chronic kidney disease-mineral and bone disorder Is this a current diagnosis for this admission?: Yes Plan: Patient has elevated phosphorus of 6.2 currently from 6.8. Patient was started on Renagel. Patient also has elevated PTH of 585.5 for which he is currently on calcitriol. (10) Diabetes mellitus type 2 in nonobese Is this a current diagnosis for this admission?: Yes - Time Time with patient: 15-25 minutes
[2019-08-09] MEDS: INSULIN GLARGINE,HUM.REC.ANLOG 1,000 UNIT/10 ML VIAL SUBCUT SCH (22:11)
[2019-08-10] MEDS: NORMAL SALINE 1000 ML 1,000 ML IV PRN ×3 (01:28→15:02)
[2019-08-10] MEDS: HEPARIN SOD (PORCINE) 5,000 UNIT/ML 1 ML VIAL SUBCUT SCH ×2 (05:14→13:18)
[2019-08-10 06:17] LABS: HEMATOCRIT 22.4 % (37.9-51.0); MEAN CORPUSCULAR HEMOGLOBIN 29.4 pg (27.0-33.4); MEAN CORPUSCULAR HGB CONC 33.2 g/dL (32.0-36.0); MEAN CORPUSCULAR VOLUME 89 fl (80-97); PLATELET COUNT 245 10^3/uL (150-450); RED BLOOD COUNT 2.53 10^6/uL (4.35-5.55); RED CELL DISTRIBUTION WIDTH 14.4 % (11.5-14.0); WHITE BLOOD COUNT 10.4 10^3/uL (4.0-10.5)
[2019-08-10 06:19] LABS: HEMOGLOBIN 7.4 g/dL (13.5-17.0)
[2019-08-10 06:37] LABS: ANION GAP 12 (5-19); BLOOD UREA NITROGEN 67 mg/dL (7-20); CALCIUM 7.2 mg/dL (8.4-10.2); CARBON DIOXIDE 19 mmol/L (22-30); CHLORIDE 112 mmol/L (98-107)
[2019-08-10 06:49] LABS: GLUCOSE 47 mg/dL (75-110)
[2019-08-10] MEDS: INSULIN LISPRO 100 UNIT/ML 3 ML VIAL SUBCUT SCH ×3 (07:42→16:54)
[2019-08-10] MEDS ORDERED: CARVEDILOL 6.25 MG TABLET PO SCH (10:00)
[2019-08-10] MEDS ORDERED: INSULIN GLARGINE,HUM.REC.ANLOG 1,000 UNIT/10 ML VIAL (PYX) SUBCUT ONE (10:00)
[2019-08-10] MEDS: GUAIFENESIN 600 MG TABLET.SA PO SCH (10:04)
[2019-08-10] MEDS: SEVELAMER HCL 800 MG TABLET PO SCH ×3 (10:04→18:01)
[2019-08-10] MEDS: BUPROPION HCL 100 MG TABLET PO SCH ×3 (10:04→18:01)
[2019-08-10] MEDS: PREGABALIN 100 MG CAPSULE PO SCH ×2 (10:04→18:01)
[2019-08-10] MEDS: SODIUM BICARBONATE 650 MG TABLET PO SCH ×2 (10:04→18:01)
[2019-08-10] MEDS: TOPIRAMATE 25 MG TABLET PO SCH ×2 (10:04→18:01)
[2019-08-10] MEDS: ASPIRIN 81 MG TABLET, ENT COATED PO SCH (10:04)
[2019-08-10] MEDS: AMLODIPINE BESYLATE 10 MG TABLET PO SCH (10:04)
[2019-08-10] MEDS: CALCITRIOL 0.25 MCG CAPSULE PO SCH (10:05)
[2019-08-10] MEDS: TIMOLOL MALEATE 0.5% OPH SOLN 5 ML OS SCH ×2 (10:06→18:01)
[2019-08-10] MEDS ORDERED: BISACODYL 5 MG TABEC PO ONE (10:30)
[2019-08-10 14:47] LABS: ANION GAP 10 (5-19); BLOOD UREA NITROGEN 63 mg/dL (7-20); CALCIUM 7.4 mg/dL (8.4-10.2); CARBON DIOXIDE 18 mmol/L (22-30); CHLORIDE 112 mmol/L (98-107); GLUCOSE 103 mg/dL (75-110); POTASSIUM 4.7 mmol/L (3.6-5.0)
[2019-08-10 16:49] VITALS: BP 162/84
--- NOTE | 2019-08-10 17:10 | PDOC DISCHARGE SUMMARY ---
Impression - Admit/DC Date/PCP Admission Date/Primary Care Provider: 08/03/19 16:09 ELIAS KRUEGER MD Discharge Date: 08/10/19 - Discharge Diagnosis (1) Acute kidney injury superimposed on CKD Is this a current diagnosis for this admission?: Yes (2) Diabetes mellitus Is this a current diagnosis for this admission?: Yes (3) Metabolic acidosis with respiratory acidosis Is this a current diagnosis for this admission?: Yes (4) Acute exacerbation of chronic obstructive pulmonary disease (COPD) Is this a current diagnosis for this admission?: Yes (5) Hypocalcemia Is this a current diagnosis for this admission?: Yes - Additional Information Resuscitation Status: Full Code Discharge Diet: Other (Comments) - Renal diet Discharge Activity: Activity As Tolerated Referrals: ELIAS KRUEGER MD [Primary Care Provider] - (LEFT MESSAGE FOR SHIRLEY AT THE PCP OFFICE FOR FOLLOW UP APPT) BRONSON TILLMAN PA-C [ALLIED HEALTH PROFESSIONAL] - Prescriptions: Carvedilol [Coreg 12.5 mg Tablet] 12.5 mg PO Q12 30 Days tablet Sevelamer HCl [Renagel 800 mg Tablet] 800 mg PO MEALS 30 Days #90 tablet Calcitriol [Rocaltrol 0.25 mcg Capsule] 0.5 mcg PO Q12 30 Days capsule Sodium Bicarbonate [Sodium Bicarbonate 650 mg Tablet] 1,300 mg PO BID 30 Days Budesonide/Formoterol Fumarate [Symbicort Hfa 80-4.5 Mcg Inhaler 6.9 gm] 1 puff IH Q12 #1 inhaler Albuterol Sulfate [Ventolin Hfa 8 gm Mdi (1 Mdi/ER Disp)] 60 puff IH Q6HP PRN #1 inhaler PRN Reason: Home Medications: Albuterol Sulfate [Proair HFA Inhalation Aerosol 8.5 gm MDI] 2 puff IN Q4HP PRN 08/03/19 Amlodipine Besylate [Norvasc 10 mg Tablet] 10 mg PO DAILY 08/03/19 Aspirin [Ecotrin 81 mg EC Tablet] 81 mg PO DAILY 08/03/19 Bupropion HCl [Bupropion HCl Sr] 200 mg PO BID 08/03/19 Linaclotide [Linzess 145 Mcg Capsule] 145 mcg PO QAM 08/03/19 Lipase/Protease/Amylase [Creon Dr 6,000 Units Capsule] 2 cap PO .SNACKS 08/03/19 Lipase/Protease/Amylase [Creon Dr 6,000 Units Capsule] 2 cap PO MEALS 08/03/19 Pantoprazole Sodium [Protonix [address] Tablet] 40 mg PO DAILY 08/03/19 Pregabalin [Lyrica 100 mg Capsule] 100 mg PO BID 08/03/19 Tamsulosin HCl [Flomax 0.4 mg Cap.sr] 0.4 mg PO QPM 08/03/19 Timolol Maleate [Timoptic 0.5% Oph Soln 5 ml] 1 drop OS BID 08/03/19 Tizanidine HCl [Zanaflex 4 mg Tablet] 4 mg PO QHS 08/03/19 Topiramate [Topamax 25 mg Tablet] 50 mg PO BID 08/03/19 Albuterol Sulfate [Ventolin Hfa 8 gm Mdi (1 Mdi/ER Disp)] 60 puff IH Q6HP PRN #1 inhaler 08/10/19 Budesonide/Formoterol Fumarate [Symbicort Hfa 80-4.5 Mcg Inhaler 6.9 gm] 1 puff IH Q12 #1 inhaler 08/10/19 Calcitriol [Rocaltrol 0.25 mcg Capsule] 0.5 mcg PO Q12 30 Days capsule 08/10/19 Carvedilol [Coreg 12.5 mg Tablet] 12.5 mg PO Q12 30 Days tablet 08/10/19 Insulin Glargine,Hum.rec.anlog [Lantus Insulin 100 Unit/1 ml 10 ml] 18 unit SUBCUT Q12 #0 ml 08/10/19 Sevelamer HCl [Renagel 800 mg Tablet] 800 mg PO MEALS 30 Days #90 tablet 08/10/19 Sodium Bicarbonate [Sodium Bicarbonate 650 mg Tablet] 1,300 mg PO BID 30 Days 08/10/19 History of Present Illiness History of Present Illness: SANTIAGO AL is a 64 year old male who has been a patient of Dr. Garcia and now is in need of dialysis. He came to the ED with SOB. Found to be in pulmonary edema and acidotic to 7.1. Unfortunately he cannot be transferred due to lack of beds and no staff to perform dialysis. Under the circumstances the best we can offer is HD in AM. NTG and Lasix drip and some bicarb as this has been able to start in the ED but he needs a nursing ratio that the ED cannot accommodate. He will be admitted to the ICU. Hospital Course Hospital Course: (1) Acute kidney injury superimposed on CKD Is this a current diagnosis for this admission?: Yes Plan: LINDA superimposed on CKD stage V. Suspected to have an ATN superimposed on CKD. Patient's baseline creatinine seems to be around 5 for most recent prior visits and has currently stabilized at 5.2 after receiving few days of IV fluids. Creatinine went as high as 8 during this admission. Patient did notably self diurese and was net negative fluid balance without any diuretics for the past several days but seems to now be net positive since yesterday into today. Placed on sodium bicarbonate and sevelamer Patient was followed by residence manager who indicated that there was no indication for hemodialysis at this time. I discussed patient's labs with Dr. Frank this afternoon and she has cleared patient for discharge from a nephrology perspective to follow-up with Bronson Tillman who works with Dr Garcia. (2) Diabetes mellitus Qualifiers: Diabetes mellitus type: type 2 Is this a current diagnosis for this admission?: Yes Plan: Blood sugar was initially uncontrolled given steroid use for treatment of COPD. Hemoglobin A1c 6.9% 07/22/2019. Patient states that he takes 36 units of Lantus in the morning and 40 units at night at home However given patient's worsening renal function, his insulin requirements have decreased and he did have some episodes of hypoglycemia after steroids were weaned off. As a result I have reduce his dose to Lantus 18 units twice a day and asked him to monitor his blood sugars very strictly and follow-up with his primary care to adjust his regimen as needed. (3) Metabolic acidosis with respiratory acidosis Is this a current diagnosis for this admission?: Yes Plan: Normal anion gap metabolic acidosis secondary to chronic kidney disease. Continue sodium bicarbonate supplementation. (4) Acute exacerbation of chronic obstructive pulmonary disease (COPD) Is this a current diagnosis for this admission?: Yes Plan: Hypoxia resolved. Patient is now 100% on room air for the past 3 days. Completely treated with nebulizers and steroids while inpatient. Also received few days of Levaquin. Discharged on Symbicort and rescue inhaler. (5) Hypocalcemia Is this a current diagnosis for this admission?: Yes Plan: Secondary to CKD 5. On calcitriol by nephrology. Continue calcitriol. On sevelamer by nephrology may benefit from calcium based phosphate binders phosphate improving. Physical Exam Vital Signs: Temp Pulse Resp BP Pulse Ox 97.8 F 79 16 162/84 H 98 08/10/19 16:00 08/10/19 16:00 08/10/19 16:00 08/10/19 16:00 08/10/19 16:00 Intake & Output 08/09/19 08/10/19 08/11/19 06:59 06:59 06:59 Intake Total 2850 5881 2720 Output Total 3105 4220 1400 Balance -255 1661 1320 Weight 109.2 kg 107.7 kg General appearance: PRESENT: no acute distress, cooperative Neurological exam: PRESENT: alert, awake, oriented to person, oriented to place, oriented to time Results Laboratory Results: WBC 10.4 10^3/uL (4.0-10.5) 08/10/19 04:07 RBC 2.53 10^6/uL (4.35-5.55) L 08/10/19 04:07 Hgb 7.4 g/dL (13.5-17.0) L 08/10/19 04:07 Hct 22.4 % (37.9-51.0) L 08/10/19 04:07 MCV 89 fl (80-97) 08/10/19 04:07 MCH 29.4 pg (27.0-33.4) 08/10/19 04:07 MCHC 33.2 g/dL (32.0-36.0) 08/10/19 04:07 RDW 14.4 % (11.5-14.0) H 08/10/19 04:07 Plt Count 245 10^3/uL (150-450) 08/10/19 04:07 Lymph % (Auto) Not Reportable 08/08/19 05:15 Frontier % (Auto) Not Reportable 08/08/19 05:15 Eos % (Auto) Not Reportable 08/08/19 05:15 Baso % (Auto) Not Reportable 08/08/19 05:15 Reticulocyte # 0.031 10^6/uL (0.028-0.122) 08/04/19 04:13 Absolute Neuts (auto) Not Reportable 08/08/19 05:15 Absolute Lymphs (auto) Not Reportable 08/08/19 05:15 Absolute Monos (auto) Not Reportable 08/08/19 05:15 Absolute Eos (auto) Not Reportable 08/08/19 05:15 Absolute Basos (auto) Not Reportable 08/08/19 05:15 Total Counted 100 08/08/19 05:15 Seg Neutrophils % Not Reportable 08/08/19 05:15 Seg Neuts % (Manual) 76 % (42-78) 08/08/19 05:15 Band Neutrophils % 1 % (3-5) L 08/03/19 11:11 Lymphocytes % (Manual) 8 % (13-45) L 08/08/19 05:15 Atypical Lymphs % 1 % (0) 08/08/19 05:15 Monocytes % (Manual) 12 % (3-13) 08/08/19 05:15 Eosinophils % (Manual) 3 % (0-6) 08/08/19 05:15 Basophils % (Manual) 0 % (0-2) 08/08/19 05:15 Metamyelocytes % 2 % (0-1) H 08/03/19 11:11 Abs Neuts (Manual) 10.0 10^3/uL (1.7-8.2) H 08/08/19 05:15 Abs Lymphs (Manual) 1.2 10^3/uL (0.5-4.7) 08/08/19 05:15 Abs Monocytes (Manual) 1.6 10^3/uL (0.1-1.4) H 08/08/19 05:15 Absolute Eos (Manual) 0.4 10^3/uL (0.0-0.6) 08/08/19 05:15 Abs Basophils (Manual) 0.0 10^3/uL (0.0-0.2) 08/08/19 05:15 Toxic Vacuolation PRESENT 08/03/19 11:11 Platelet Comment ADEQUATE 08/08/19 05:15 Polychromasia SLIGHT 08/03/19 11:11 Anisocytosis SLIGHT 08/08/19 05:15 Pappenheimer Bodies PRESENT 08/03/19 11:11 Retic Count (auto) 1.09 % (0.66-2.85) 08/04/19 04:13 Carbonic Acid 1.11 mmol/L (1.05-1.35) 08/03/19 22:05 HCO3/H2CO3 Ratio 14:1 08/03/19 22:05 ABG pH 7.26 (7.35-7.45) L 08/03/19 22:05 ABG pCO2 36.9 mmHg (35-45) 08/03/19 22:05 ABG pO2 115.9 mmHg (80-100) H 08/03/19 22:05 ABG HCO3 16.1 mmol/L (20-24) L 08/03/19 22:05 ABG Total CO2 17.2 mmol/L (23-27) L 08/03/19 22:05 ABG O2 Saturation 97.7 % (94-98) 08/03/19 22:05 ABG Base Excess -10.2 mmol/L 08/03/19 22:05 FiO2 50% 08/03/19 22:05 Sodium 140.3 mmol/L (137-145) 08/10/19 13:52 Potassium 4.7 mmol/L (3.6-5.0) 08/10/19 13:52 Chloride 112 mmol/L (98-107) H 08/10/19 13:52 Carbon Dioxide 18 mmol/L (22-30) L 08/10/19 13:52 Anion Gap 10 (5-19) 08/10/19 13:52 BUN 63 mg/dL (7-20) H 08/10/19 13:52 Creatinine 5.20 mg/dL (0.52-1.25) H 08/10/19 13:52 Est GFR ( Amer) 14 (>60) L 08/10/19 13:52 Est GFR (MDRD) Non-Af 11 (>60) L 08/10/19 13:52 Glucose 103 mg/dL (75-110) 08/10/19 13:52 POC Glucose 75 mg/dL (70-110) 08/10/19 16:48 Hemoglobin A1c % 7.1 % (4.7-6.0) H 08/07/19 05:12 Lactic Acid 0.8 mmol/L (0.7-2.1) 08/03/19 11:11 Calcium 7.4 mg/dL (8.4-10.2) L 08/10/19 13:52 Ionized Calcium Jodie 0.94 mmol/L (1.14-1.30) L 08/04/19 04:13 Phosphorus 4.8 mg/dL (2.5-4.5) H 08/09/19 04:35 Magnesium 1.6 mg/dL (1.6-2.3) 08/07/19 05:12 Iron 98.9 ug/dL (49-181) 08/04/19 04:13 TIBC 173 ug/dL (250-450) L 08/04/19 04:13 % Saturation 57 % 08/04/19 04:13 Ferritin 545.00 ng/mL (17.9-464.0) H 08/04/19 04:13 Total Bilirubin 0.3 mg/dL (0.2-1.3) 08/09/19 04:35 Direct Bilirubin 0.2 mg/dL (0.0-0.4) 08/09/19 04:35 Neonat Total Bilirubin Not Reportable 08/09/19 04:35 Neonat Direct Bilirubin Not Reportable 08/09/19 04:35 Neonat Indirect Bili Not Reportable 08/09/19 04:35 AST 17 U/L (17-59) 08/09/19 04:35 ALT 14 U/L (<50) 08/09/19 04:35 Alkaline Phosphatase 96 U/L (38-126) 08/09/19 04:35 Troponin I 0.245 ng/mL 08/04/19 04:13 NT-Pro-B Natriuret Pep 39666 pg/mL (<125) H 08/03/19 11:11 Total Protein 5.6 g/dL (6.3-8.2) L 08/09/19 04:35 Albumin 2.7 g/dL (3.5-5.0) L 08/09/19 04:35 Vitamin B12 868.0 pg/mL (239-931) 08/04/19 04:13 Folate 11.10 ng/mL (>2.76) 08/04/19 04:13 PTH Intact 585.5 pg/mL (10.0-65.0) H 08/04/19 04:13 Urine Color YELLOW 08/03/19 14:32 Urine Appearance SLIGHTLY-CLOUDY 08/03/19 14:32 Urine pH 5.0 (5.0-9.0) 08/03/19 14:32 Ur Specific [place] 1.015 08/03/19 14:32 Urine Protein >=500 mg/dL (NEGATIVE) H 08/03/19 14:32 Urine Glucose (UA) 150 mg/dL (NEGATIVE) H 08/03/19 14:32 Urine Ketones NEGATIVE mg/dL (NEGATIVE) 08/03/19 14:32 Urine Blood LARGE (NEGATIVE) H 08/03/19 14:32 Urine Nitrite NEGATIVE (NEGATIVE) 08/03/19 14:32 Urine Bilirubin NEGATIVE (NEGATIVE) 08/03/19 14:32 Urine Urobilinogen NEGATIVE mg/dL (<2.0) 08/03/19 14:32 Ur Leukocyte Esterase NEGATIVE (NEGATIVE) 08/03/19 14:32 Urine WBC (Auto) 5 /HPF 08/03/19 14:32 Urine RBC (Auto) 10 /HPF 08/03/19 14:32 U Hyaline Cast (Auto) 1 /LPF 08/03/19 14:32 Urine Bacteria (Auto) TRACE /HPF 08/03/19 14:32 Squamous Epi Cells Auto <1 /HPF 08/03/19 14:32 Urine Mucus (Auto) RARE /LPF 08/03/19 14:32 Urine Ascorbic Acid NEGATIVE (NEGATIVE) 08/03/19 14:32 Influenza A (Rapid) NEGATIVE (NEGATIVE) 08/03/19 13:19 Influenza B (Rapid) NEGATIVE (NEGATIVE) 08/03/19 13:19 08/03/19 08/03/19 08/04/19 11:11 22:20 04:13 Troponin I 0.211 0.270 0.245 NT-Pro-B Natriuret Pep 42157 H Impressions: Chest X-Ray 08/03/19 11:01 IMPRESSION: Bilateral airspace disease right greater than left, differential is asymmetric pulmonary edema versus pneumonia. Mild cardiomegaly Chest X-Ray 08/04/19 08:00 IMPRESSION: Improved bilateral perihilar opacities, likely resolving edema. Persistent ill-defined right apical opacities possibly pneumonia or persistent asymmetric edema. Plan Time Spent: Greater than 30 Minutes Stroke Is this a Stroke Patient?: No Acute Heart Failure - Is this a Heart Failure Patient?: No
[2019-08-10] MEDS: TAMSULOSIN HCL 0.4 MG CAP.SR.24H PO SCH (18:01)
[2019-08-10] MEDS ORDERED: INSULIN GLARGINE,HUM.REC.ANLOG 1,000 UNIT/10 ML VIAL SUBCUT SCH (22:00)
[2019-08-10] MEDS ORDERED: CARVEDILOL 12.5 MG TABLET PO SCH (22:00)
== END 2019-08-10 18:33 | disposition home or self-care (01) | DRG 682 ==
LOC: ER 11:00 → EH 16:09 → ICU 17:12 → 4N 08-04 18:36
PROVIDERS: ADMIT Anesthesiology; ATTEND Anesthesiology
DX: N17.9 Acute kidney failure, unspecified (principal); J18.9 Pneumonia, unspecified organism; J81.0 Acute pulmonary edema; J96.01 Acute respiratory failure with hypoxia; E87.4 Mixed disorder of acid-base balance; I12.0 Hypertensive chronic kidney disease with stage 5 chronic kidney disease or end stage renal disease; J44.1 Chronic obstructive pulmonary disease with (acute) exacerbation; I24.9 Acute ischemic heart disease, unspecified; N18.6 End stage renal disease; I16.0 Hypertensive urgency; E11.22 Type 2 diabetes mellitus with diabetic chronic kidney disease; E83.51 Hypocalcemia; N25.0 Renal osteodystrophy; D63.1 Anemia in chronic kidney disease; G89.4 Chronic pain syndrome; E78.00 Pure hypercholesterolemia, unspecified; K21.9 Gastro-esophageal reflux disease without esophagitis; F17.210 Nicotine dependence, cigarettes, uncomplicated; Z91.11 Patient's noncompliance with dietary regimen; Z91.14 Patient's other noncompliance with medication regimen; Z79.82 Long term (current) use of aspirin; Z79.51 Long term (current) use of inhaled steroids; Z79.899 Other long term (current) drug therapy; Z79.4 Long term (current) use of insulin
CPT/HCPCS: 36415; 71045; 71046; 76775; 80048; 80053; 80069; 81001; 82040; 82330; 82607; 82728; 82746; 82803; 82962; 83036; 83540; 83550; 83605; 83735; 83880; 83970; 84100; 84484; 85025; 85027; 85045; 87040; 87804; 93005; 93010; 93306; 94660; 96365; 96368; 99231; 99291; J0610; C9113; J1644; J1815; J1940; J1956; J2543; J2920; J3490; J7030; J7050; J7060; J7512; Q5106

== ENCOUNTER → 2019-08-25 | Outpatient (CLI) | payer MEDICARE ==
[2019-08-25 16:09] LABS: ABSOLUTE BASOPHILS # (AUTO) 0.1 10^3/uL (0.0-0.2); ABSOLUTE EOSINOPHILS # (AUTO) 0.2 10^3/uL (0.0-0.6); ABSOLUTE LYMPHOCYTES (AUTO) 1.5 10^3/uL (0.5-4.7); ABSOLUTE MONOCYTES (AUTO) 0.4 10^3/uL (0.1-1.4); ABSOLUTE NEUT (AUTO) 2.4 10^3/uL (1.7-8.2); BASOPHILS % (AUTO) 1.2 % (0-2); EOSINOPHILS % (AUTO) 3.5 % (0-6); HEMATOCRIT 23.1 % (37.9-51.0); LYMPHOCYTES % (AUTO) 33.5 % (13-45); MEAN CORPUSCULAR HEMOGLOBIN 28.8 pg (27.0-33.4); MEAN CORPUSCULAR HGB CONC 31.7 g/dL (32.0-36.0); MEAN CORPUSCULAR VOLUME 91 fl (80-97); MONOCYTES % (AUTO) 9.6 % (3-13); PLATELET COUNT 303 10^3/uL (150-450); RED BLOOD COUNT 2.54 10^6/uL (4.35-5.55); SEGMENTED NEUTROPHILS % (AUTO) 52.2 % (42-78); TOTAL CELLS COUNTED % (AUTO) 100 %; WHITE BLOOD COUNT 4.5 10^3/uL (4.0-10.5)
[2019-08-25 16:14] LABS: HEMOGLOBIN 7.3 g/dL (13.5-17.0)
[2019-08-25 16:15] LABS: APPEARANCE,URINE CLEAR; BILIRUBIN,URINE NEGATIVE (NEGATIVE); COLOR,URINE YELLOW; GLUCOSE, URINE NEGATIVE (NEGATIVE); KETONES,URINE NEGATIVE (NEGATIVE); LEUKOCYTE ESTERASE,URINE NEGATIVE (NEGATIVE); NITRITE,URINE NEGATIVE (NEGATIVE); PROTEIN,URINE >=500 mg/dL (NEGATIVE); URINE SPECIFIC GRAVITY 1.014; UROBILINOGEN,URINE NEGATIVE mg/dL (<2.0)
[2019-08-25 16:32] LABS: ALBUMIN 3.1 g/dL (3.5-5.0); ANION GAP 11 (5-19); BLOOD UREA NITROGEN 49 mg/dL (7-20); CALCIUM 8.1 mg/dL (8.4-10.2); CARBON DIOXIDE 20 mmol/L (22-30); CHLORIDE 115 mmol/L (98-107); GLUCOSE 73 mg/dL (75-110); PHOSPHORUS 5.6 mg/dL (2.5-4.5); POTASSIUM 5.4 mmol/L (3.6-5.0)
[2019-08-25 16:33] LABS: URINE CREATININE 101.5 mg/dL (22-328)
[2019-08-25 17:21] LABS: UR PRO/CREAT RATIO RESULT 7.7 mg/mg (0.0-0.2); URINE PROTEIN 777.9 mg/dL (<12)
== END ==
LOC: OD 15:27
PROVIDERS: ATTEND Physician Assistant Medical
DX: I12.9 Hypertensive chronic kidney disease with stage 1 through stage 4 chronic kidney disease, or unspecified chronic kidney disease (principal); N18.4 Chronic kidney disease, stage 4 (severe); E87.6 Hypokalemia; N25.0 Renal osteodystrophy; E11.22 Type 2 diabetes mellitus with diabetic chronic kidney disease
CPT/HCPCS: 36415; 80069; 81001; 82570; 83970; 84156; 85025

== ENCOUNTER → 2019-09-13 | Outpatient (CLI) | payer MEDICARE ==
[2019-09-13 10:46] LABS: ABSOLUTE BASOPHILS # (AUTO) 0.1 10^3/uL (0.0-0.2); ABSOLUTE EOSINOPHILS # (AUTO) 0.1 10^3/uL (0.0-0.6); ABSOLUTE LYMPHOCYTES (AUTO) 1.7 10^3/uL (0.5-4.7); ABSOLUTE MONOCYTES (AUTO) 0.6 10^3/uL (0.1-1.4); ABSOLUTE NEUT (AUTO) 2.9 10^3/uL (1.7-8.2); BASOPHILS % (AUTO) 1.1 % (0-2); EOSINOPHILS % (AUTO) 1.8 % (0-6); HEMATOCRIT 21.2 % (37.9-51.0); LYMPHOCYTES % (AUTO) 31.4 % (13-45); MEAN CORPUSCULAR HEMOGLOBIN 29.6 pg (27.0-33.4); MEAN CORPUSCULAR HGB CONC 32.6 g/dL (32.0-36.0); MEAN CORPUSCULAR VOLUME 91 fl (80-97); PLATELET COUNT 239 10^3/uL (150-450); RED BLOOD COUNT 2.33 10^6/uL (4.35-5.55); SEGMENTED NEUTROPHILS % (AUTO) 54.7 % (42-78); TOTAL CELLS COUNTED % (AUTO) 100 %; WHITE BLOOD COUNT 5.4 10^3/uL (4.0-10.5)
[2019-09-13 10:49] LABS: HEMOGLOBIN 6.9 g/dL (13.5-17.0)
--- NOTE | 2019-09-13 10:57 | RADIOLOGY REPORT (SQ) ---
EXAM DESCRIPTION: CHEST PA/LATERAL COMPLETED DATE/TIME: 09/13/2019 10:17 am REASON FOR STUDY: PNEUMONIA, UNSPECIFIED ORGANISM COMPARISON: 08/04/2019 EXAM PARAMETERS: NUMBER OF VIEWS: two views TECHNIQUE: Digital Frontal and Lateral radiographic views of the chest acquired. RADIATION DOSE: NA LIMITATIONS: none FINDINGS: LUNGS AND PLEURA: Minimal right basilar opacities. Blunting of the bilateral costophrenic angles possibly trace effusions versus scarring. No pneumothorax. MEDIASTINUM AND HILAR STRUCTURES: No masses or contour abnormalities. HEART AND VASCULAR STRUCTURES: Heart normal size. No evidence for failure. BONES: No acute findings. HARDWARE: None in the chest. OTHER: No other significant finding. IMPRESSION: Minimal right basilar opacities, possibly atelectasis or infection. Possible trace bila teral effusions versus pleural thickening. TECHNICAL DOCUMENTATION: JOB ID: [id number] 2010 [employer]- All Rights Reserved Reading location - IP/workstation name: [email or web address]
[2019-09-13 11:12] LABS: ALKALINE PHOSPHATASE 111 U/L (38-126); ASPARTATE AMINO TRANSFERASE 19 U/L (17-59); BILIRUBIN,TOTAL 0.2 mg/dL (0.2-1.3); TOTAL PROTEIN 6.1 g/dL (6.3-8.2)
== END ==
LOC: OD 09:49
PROVIDERS: ATTEND Family Medicine Geriatric Medicine
DX: J18.9 Pneumonia, unspecified organism (principal); I12.9 Hypertensive chronic kidney disease with stage 1 through stage 4 chronic kidney disease, or unspecified chronic kidney disease; N18.4 Chronic kidney disease, stage 4 (severe); Z79.899 Other long term (current) drug therapy
CPT/HCPCS: 36415; 71046; 80076; 85025

== ENCOUNTER → 2019-10-09 | Outpatient (CLI) | payer MEDICARE ==
[2019-10-09 13:21] LABS: ABSOLUTE EOSINOPHILS # (AUTO) 0.2 10^3/uL (0.0-0.6); ABSOLUTE LYMPHOCYTES (AUTO) 1.9 10^3/uL (0.5-4.7); ABSOLUTE MONOCYTES (AUTO) 0.7 10^3/uL (0.1-1.4); ABSOLUTE NEUT (AUTO) 4.2 10^3/uL (1.7-8.2); BASOPHILS % (AUTO) 0.7 % (0-2); EOSINOPHILS % (AUTO) 2.2 % (0-6); HEMATOCRIT 23.2 % (37.9-51.0); LYMPHOCYTES % (AUTO) 26.4 % (13-45); MEAN CORPUSCULAR VOLUME 91 fl (80-97); MONOCYTES % (AUTO) 10.5 % (3-13); PLATELET COUNT 239 10^3/uL (150-450); RED BLOOD COUNT 2.55 10^6/uL (4.35-5.55); SEGMENTED NEUTROPHILS % (AUTO) 60.2 % (42-78); TOTAL CELLS COUNTED % (AUTO) 100 %
[2019-10-09 13:38] LABS: ALKALINE PHOSPHATASE 111 U/L (38-126); ANION GAP 7 (5-19); ASPARTATE AMINO TRANSFERASE 19 U/L (17-59); BILIRUBIN,TOTAL 0.2 mg/dL (0.2-1.3); BLOOD UREA NITROGEN 49 mg/dL (7-20); CALCIUM 7.9 mg/dL (8.4-10.2); CARBON DIOXIDE 21 mmol/L (22-30); CHLORIDE 116 mmol/L (98-107); TOTAL PROTEIN 5.9 g/dL (6.3-8.2)
[2019-10-09 13:48] LABS: GLUCOSE 39 mg/dL (75-110)
[2019-10-09 13:59] LABS: HEMOGLOBIN 7.6 g/dL (13.5-17.0)
== END ==
LOC: OD 12:42
PROVIDERS: ATTEND Physician Assistant Medical
DX: N18.4 Chronic kidney disease, stage 4 (severe) (principal); E87.5 Hyperkalemia; D63.1 Anemia in chronic kidney disease; R53.1 Weakness
CPT/HCPCS: 36415; 80053; 85025

== ENCOUNTER 2019-11-04 13:58 | Emergency (ER) | payer MEDICARE ==
[2019-11-04 14:06] VITALS: BP 148/73
--- NOTE | 2019-11-04 15:00 | ER Document Report ---
ED GI/ - General Chief Complaint: Groin Pain Stated Complaint: GROIN PAIN Time Seen by Provider: 11/04/19 14:14 Primary Care Provider: ELIAS KRUEGER MD [Primary Care Provider] - Follow up as needed Mode of Arrival: Medic Information source: Patient Notes: 64-year-old male past medical history significant for COPD, chronic kidney disease, chronic pain, diabetes, presents to the emergency room complaining of bilateral testicular pain and a swollen scrotum for the past 2 months. [facility] he saw his yarn texturing machine operator last who put him on a new diuretic. States has been taking it since with minimal relief. States he cannot get comfortable secondary to the pain. He denies any acute trauma or injury. Has not been taking any medications for pain he denies any urinary symptoms. Denies any nausea, vomiting, no abdominal pain. Denies any shortness of breath, denies any difficulty breathing. TRAVEL OUTSIDE OF THE [place] IN LAST 30 DAYS: No - Related Data Allergies/Adverse Reactions: No Known Allergies Allergy (Verified 03/27/17 11:36) Past Medical History - General Information source: Patient - Social History Smoking Status: Current Every Day Smoker Chew tobacco use (# tins/day): No Frequency of alcohol use: None Drug Abuse: None Lives with: Family Family History: DM Patient has homicidal ideation: No - Past Medical History Cardiac Medical History: Reports: Hx Hypercholesterolemia, Hx Hypertension Denies: Hx Coronary Artery Disease, Hx Heart Attack Pulmonary Medical History: Reports: Hx Bronchitis, Hx COPD, Hx Pneumonia, Hx Respiratory Failure Denies: Hx Asthma Neurological Medical History: Denies: Hx Cerebrovascular Accident, Hx Seizures Endocrine Medical History: Reports: Hx Diabetes Mellitus Type 1, Hx Diabetes Mellitus Type 2 Renal/ Medical History: Reports: Hx Renal Insufficiency. Denies: Hx Peritoneal Dialysis GI Medical History: Reports: Hx Gastroesophageal Reflux Disease Musculoskeletal Medical History: Reports Hx Arthritis - GENERALIZED Psychiatric Medical History: Reports: Hx Depression Past Surgical History: Reports: Hx Orthopedic Surgery - left knee, Other - Amputation of 3 toes - Immunizations Hx Diphtheria, Pertussis, Tetanus Vaccination: Yes - unk Review of Systems - Review of Systems Constitutional: No symptoms reported Cardiovascular: No symptoms reported Respiratory: No symptoms reported Gastrointestinal: denies: Abdominal pain, Nausea, Vomiting Male Genitourinary: Testicular pain, Other - Scrotal swelling -: Yes All other systems reviewed and negative Physical Exam - Vital signs Vitals: Temp Pulse Resp BP Pulse Ox 98.2 F 87 16 148/73 H 97 11/04/19 14:04 11/04/19 14:04 11/04/19 14:04 11/04/19 14:04 11/04/19 14:04 - General General appearance: Appears well, Alert In distress: Moderate - HEENT Head: Normocephalic, Atraumatic Eyes: Normal Pupils: PERRL - Respiratory Respiratory status: No respiratory distress Chest status: Nontender Breath sounds: Normal Chest palpation: Normal - Cardiovascular Rhythm: Regular Heart sounds: Normal auscultation Murmur: No - Genitourinary Inspection: No: Penile discharge Tenderness: Testicle tender Scrotum: Swelling, Redness Notes: There is a moderate amount of scrotal swelling, tender to palpation. Not warm to touch. No penile discharge. No penile tenderness. Unable to palpate testicle secondary to scrotal swelling and pain. - Neurological Neuro grossly intact: Yes Cognition: Normal Orientation: AAOx4 [place] Coma Scale Eye Opening: Spontaneous [place] Coma Scale Verbal: Oriented Kelly Coma Scale Motor: Obeys Commands [place] Coma Scale Total: 15 Speech: Normal Sensory: Normal - Skin Skin Temperature: Warm Skin Moisture: Dry Skin Color: Normal Skin irregularity: Erythema Location of irregularity: Other - Scrotum Course - Re-evaluation Re-evalutation: 11/04/19 1430 Patient states that he is here because he is having worsening testicular pain. Patient was seen by his yarn texturing machine operator on and was prescribed a new diuret ic. States that he is pending dialysis but no start date as of yet. Discussed blood work. Patient prefer not to have labs drawn as he knows that he has chronic kidney failure and has his labs checked regularly by his yarn texturing machine operator. He states he is only here because of the pain, unable to get comfortable, and concern for the swelling, 11/04/19 18:02 Patient is resting comfortably with decreased pain. Reviewed ultrasound and lab results with patient. Patient has outpatient follow-up appointment with his yarn texturing machine operator on . He will be discharged home with pain medication. Offered blood work again patient refused. States he will call his yarn texturing machine operator on Wednesday for follow-up appointment. He was given strict return to the emergency room guidelines. Return for any new or worsening symptoms. All questions were answered. Patient verbalized understanding and agrees with plan of care. 11/04/19 20:29 - Vital Signs Vital signs: Temp Pulse Resp BP Pulse Ox 98.1 F 87 16 148/73 H 97 11/04/19 14:07 11/04/19 14:04 11/04/19 14:04 11/04/19 14:04 11/04/19 14:04 - Laboratory Laboratory results interpreted by me: 11/04/19 16:29 Urine Protein 100 H Urine Blood SMALL H - Diagnostic Test Radiology reviewed: Reports reviewed Discharge - Discharge Clinical Impression: Hydrocele, bilateral, Testicular/scrotal pain, Swelling of scrotum Condition: Stable Disposition: HOME, SELF-CARE Instructions: Hydrocele ([facility]), Testicular Pain ([facility]) Additional Instructions: Take pain medication as prescribed. Follow-up with your yarn texturing machine operator as scheduled. Return to the emergency room for any new or worsening symptoms. Outpatient follow-up with a urologist as discussed Prescriptions: Hydrocodone/Acetaminophen [[place] 5-325 mg Tabs (6 Tab/ER Disp)] 6 tab PO Q6 2 Days #6 dspk Referrals: ELIAS KRUEGER MD [Primary Care Provider] - Follow up as needed
--- NOTE | 2019-11-04 16:05 | RADIOLOGY REPORT (SQ) ---
EXAM DESCRIPTION: U/S SCROTUM W/DOPPLER IMAGES COMPLETED DATE/TIME: 11/04/2019 3:57 pm REASON FOR STUDY: scrotal swelling/pain COMPARISON: None. TECHNIQUE: Static and realtime gracia scale imaging of the scrotum and testes. Selected color Doppler and spectral images recorded to document blood flow. LIMITATIONS: None. FINDINGS: RIGHT: TESTICLE: Normal size. Normal echotexture. Normal blood flow. No mass. EPIDIDYMIS: Normal. HYDROCELE OR VARICOCELE: Small hydrocele HERNIA OR EXTRA-TESTICULAR MASS: No. OTHER: Thickened scrotal wall. LEFT: TESTICLE: Normal size. Normal echotexture. Normal blood flow. No mass. EPIDIDYMIS: Normal. HYDROCELE OR VARICOCELE: Small hydrocele HERNIA OR EXTRA-TESTICULAR MASS: No. OTHER: Thickened scrotal wall. IMPRESSION: No torsion. No testicular mass. Small bilateral hydroceles. Thickening of the scrotal wall bilateral. TECHNICAL DOCUMENTATION: JOB ID: [id number] 2010 [employer]- All Rights Reserved Reading location - IP/workstation name: [email or web address]
[2019-11-04 16:52] LABS: APPEARANCE,URINE CLEAR; BILIRUBIN,URINE NEGATIVE (NEGATIVE); COLOR,URINE STRAW; GLUCOSE, URINE NEGATIVE (NEGATIVE); KETONES,URINE NEGATIVE (NEGATIVE); LEUKOCYTE ESTERASE,URINE NEGATIVE (NEGATIVE); NITRITE,URINE NEGATIVE (NEGATIVE); PROTEIN,URINE 100 mg/dL (NEGATIVE); URINE SPECIFIC GRAVITY 1.009; UROBILINOGEN,URINE NEGATIVE mg/dL (<2.0)
[2019-11-04] MEDS ORDERED: HYDROCODONE/ACETAMINOPHEN 5-325 MG TABLET PO ONE (17:06)
[2019-11-04] MEDS ORDERED: HYDROCODONE/ACETAMINOPHEN 5-325 MG (6 TAB/ER DISP) PO PRN (18:08)
== END 2019-11-04 19:00 | disposition home or self-care (01) ==
LOC: ER 13:58
DX: N43.3 Hydrocele, unspecified (principal); N50.811 Right testicular pain; N50.812 Left testicular pain; J44.9 Chronic obstructive pulmonary disease, unspecified; E11.9 Type 2 diabetes mellitus without complications; F17.200 Nicotine dependence, unspecified, uncomplicated
CPT/HCPCS: 99284; 81001; 76870; 93976; A9270 ×2

== ENCOUNTER → 2019-11-15 | Outpatient (CLI) | payer MEDICARE, MEDICAID ==
--- NOTE | 2019-11-15 15:39 | RADIOLOGY REPORT (SQ) ---
EXAM DESCRIPTION: U/S SCROTUM W/O DOPPLER IMAGES COMPLETED DATE/TIME: 11/15/2019 3:13 pm REASON FOR STUDY: N50.89 OTHER SPECIFIED DISORDERS OF THE MALE GENITAL ORGANS N50.89 OTHER SPECIFIE D DISORDERS OF THE MALE GENITAL ORGANS COMPARISON: 11/04/2019 TECHNIQUE: Static and realtime gracia scale imaging of the scrotum and testes. Selected color Doppler and spectral images recorded to document blood flow. LIMITATIONS: None. FINDINGS: RIGHT: TESTICLE: No interval change in the appearance of the right testicle. Persistent scrotal wall thicke fer. EPIDIDYMIS: Normal. HYDROCELE OR VARICOCELE: Small hydrocele. HERNIA OR EXTRA-TESTICULAR MASS: No. OTHER: No other significant finding. LEFT: TESTICLE: No interval change in the appearance of left testicle. Persistent scrotal wall thickening. EPIDIDYMIS: Normal. HYDROCELE OR VARICOCELE: Small hydrocele. HERNIA OR EXTRA-TESTICULAR MASS: No. OTHER: No other significant finding. IMPRESSION: Scrotal wall thickening. Small hydroceles. No masses. No evidence of torsion. TECHNICAL DOCUMENTATION: JOB ID: [id number] [employer]- All Rights Reserved Reading location - IP/workstation name: [email or web address]
== END ==
LOC: RAD 14:29
PROVIDERS: ATTEND Family Medicine Geriatric Medicine
DX: N50.89 Other specified disorders of the male genital organs (principal); N43.3 Hydrocele, unspecified
CPT/HCPCS: 76870

== ENCOUNTER 2019-12-29 14:28 | Emergency (ER) | payer MEDICAID, MEDICARE ==
--- NOTE | 2019-12-29 18:40 | ER Document Report ---
ED Medical Screen (RME) - General Chief Complaint: Toe Injury Stated Complaint: TOE PAIN Time Seen by Provider: 12/29/19 16:13 Primary Care Provider: RAYMOND RICCI MD [Primary Care Provider] - Follow up as needed Mode of Arrival: Ambulatory TRAVEL OUTSIDE OF THE [place] IN LAST 30 DAYS: No - HPI Notes: 12/29/19 17:58 64-year-old male with a history of type 2 diabetes, chronic kidney disease, COPD presents to the emergency room for evaluation of his big toe which had a blister that ruptured now was debrided. 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 Reports pain is 3 out of 5 constant. Has not tried any other [id number] for pain control. Unable to bear any weight on his foot. Denies any chest pain, shortness of breath, nausea vomiting or diarrhea I have greeted and performed a rapid initial assessment of this patient. A comprehensive ED assessment and evaluation of the patient, analysis of test results and completion of the medical decision making process will be conducted by additional ED providers. PHYSICAL EXAMINATION: GENERAL: Well-appearing, well-nourished and in no acute distress. CV: s1, s2 regular LUNGS: No respiratory distress SKIN: Warm, Dry, normal turgor, no rashes or lesions noted. Right toe with dermal skin removed from dorsal aspect. Distal pulses +2 in bilateral lower extremities - Related Data Allergies/Adverse Reactions: No Known Allergies Allergy (Verified 12/29/19 17:53) Past Medical History - Past Medical History Cardiac Medical History: Reports: Hx Hypercholesterolemia, Hx Hypertension Denies: Hx Coronary Artery Disease, Hx Heart Attack Pulmonary Medical History: Reports: Hx Bronchitis, Hx COPD, Hx Pneumonia, Hx Respiratory Failure Denies: Hx Asthma Neurological Medical History: Denies: Hx Cerebrovascular Accident, Hx Seizures Endocrine Medical History: Reports: Hx Diabetes Mellitus Type 1, Hx Diabetes Mellitus Type 2 Renal/ Medical History: Reports: Hx Renal Insufficiency. Denies: Hx Peritoneal Dialysis GI Medical History: Reports: Hx Gastroesophageal Reflux Disease Musculoskeltal Medical History: Reports Hx Arthritis - GENERALIZED Psychiatric Medical History: Reports: Hx Depression Past Surgical History: Reports: Hx Orthopedic Surgery - left knee, Other - Amputation of 3 toes - Immunizations Hx Diphtheria, Pertussis, Tetanus Vaccination: Yes - unk Physical Exam - Vital signs Vitals: Temp Pulse Resp BP Pulse Ox 97.5 F 71 16 142/71 H 98 12/29/19 14:32 12/29/19 14:32 12/29/19 14:32 12/29/19 14:32 12/29/19 14:32 Course - Vital Signs Vital signs: Temp Pulse Resp BP Pulse Ox 97.5 F 71 16 142/71 H 98 12/29/19 14:32 12/29/19 14:32 12/29/19 14:32 12/29/19 14:32 12/29/19 14:32 Doctor's Discharge - Discharge Disposition: LEFT WITHOUT BEING SEEN Referrals: RAYMOND RICCI MD [Primary Care Provider] - Follow up as needed
--- NOTE | 2019-12-29 18:43 | RADIOLOGY REPORT (SQ) ---
EXAM DESCRIPTION: FOOT RIGHT COMPLETE IMAGES COMPLETED DATE/TIME: 12/29/2019 6:34 pm REASON FOR STUDY: right big toe pain, r/o osteo COMPARISON: None. NUMBER OF VIEWS: Three views. TECHNIQUE: AP, lateral and oblique radiographic images acquired of the right foot. LIMITATIONS: None. FINDINGS: MINERALIZATION: Normal. BONES: Extensive surgical changes with resection of the 2nd metatarsal from the base to the head. Th ere has been amputation of the 3rd, 4th, and 5th rays from the metatarsal bases. There is no evidenc e of osteomyelitis. JOINTS: No effusions. SOFT TISSUES: No soft tissue swelling. No foreign body. OTHER: No other significant finding. IMPRESSION: Surgical changes. No evidence of osteomyelitis. None acute finding in the great toe. TECHNICAL DOCUMENTATION: JOB ID: [id number] 2010 [employer]- All Rights Reserved Reading location - IP/workstation name: [email or web address]
[2019-12-29 18:49] LABS: ABSOLUTE BASOPHILS # (AUTO) 0.1 10^3/uL (0.0-0.2); ABSOLUTE EOSINOPHILS # (AUTO) 0.2 10^3/uL (0.0-0.6); ABSOLUTE LYMPHOCYTES (AUTO) 2.2 10^3/uL (0.5-4.7); ABSOLUTE MONOCYTES (AUTO) 0.8 10^3/uL (0.1-1.4); ABSOLUTE NEUT (AUTO) 3.5 10^3/uL (1.7-8.2); BASOPHILS % (AUTO) 0.9 % (0-2); EOSINOPHILS % (AUTO) 3.4 % (0-6); HEMATOCRIT 21.6 % (37.9-51.0); LYMPHOCYTES % (AUTO) 32.3 % (13-45); MEAN CORPUSCULAR HEMOGLOBIN 24.1 pg (27.0-33.4); MEAN CORPUSCULAR HGB CONC 30.7 g/dL (32.0-36.0); MEAN CORPUSCULAR VOLUME 79 fl (80-97); MONOCYTES % (AUTO) 11.3 % (3-13); PLATELET COUNT 284 10^3/uL (150-450); RED BLOOD COUNT 2.75 10^6/uL (4.35-5.55); RED CELL DISTRIBUTION WIDTH 17.9 % (11.5-14.0); SEGMENTED NEUTROPHILS % (AUTO) 52.1 % (42-78); TOTAL CELLS COUNTED % (AUTO) 100 %; WHITE BLOOD COUNT 6.7 10^3/uL (4.0-10.5)
[2019-12-29 18:53] LABS: HEMOGLOBIN 6.6 g/dL (13.5-17.0)
[2019-12-29 18:56] LABS: ALBUMIN 3.6 g/dL (3.5-5.0); ALKALINE PHOSPHATASE 140 U/L (38-126); ANION GAP 9 (5-19); ASPARTATE AMINO TRANSFERASE 21 U/L (17-59); BILIRUBIN,DIRECT 0.1 mg/dL (0.0-0.4); BILIRUBIN,TOTAL 0.2 mg/dL (0.2-1.3); BLOOD UREA NITROGEN 79 mg/dL (7-20); CALCIUM 7.6 mg/dL (8.4-10.2); CARBON DIOXIDE 23 mmol/L (22-30); CHLORIDE 108 mmol/L (98-107); GLUCOSE 138 mg/dL (75-110); POTASSIUM 4.9 mmol/L (3.6-5.0); TOTAL PROTEIN 7.4 g/dL (6.3-8.2)
[2019-12-29] MEDS ORDERED: SILVER SULFADIAZINE 1% CREAM 25 GM TP ONE (18:56)
--- NOTE | 2019-12-29 18:58 | ER Document Report ---
ED Extremity Problem, Lower - General Chief Complaint: Toe Injury Stated Complaint: TOE PAIN Time Seen by Provider: 12/29/19 16:13 Primary Care Provider: RAYMOND RICCI MD [Primary Care Provider] - Follow up as needed Mode of Arrival: Ambulatory Notes: 64-year-old diabetic male presents to the emergency department with area on the right great toe which apparently was a blister which broke leaving a denuded area from the nailbed onto the metatarsal phalangeal joint. There is no involvement of the sole of the foot or the ventral great toe. He denies pain states that the blister broke yesterday. TRAVEL OUTSIDE OF THE [place] IN LAST 30 DAYS: No - Related Data Allergies/Adverse Reactions: No Known Allergies Allergy (Verified 12/29/19 17:53) Past Medical History - Social History Smoking Status: Smoker,Current Status Unk Family History: DM Patient has homicidal ideation: No - Past Medical History Cardiac Medical History: Reports: Hx Hypercholesterolemia, Hx Hypertension Denies: Hx Coronary Artery Disease, Hx Heart Attack Pulmonary Medical History: Reports: Hx Bronchitis, Hx COPD, Hx Pneumonia, Hx Respiratory Failure Denies: Hx Asthma Neurological Medical History: Denies: Hx Cerebrovascular Accident, Hx Seizures Endocrine Medical History: Reports: Hx Diabetes Mellitus Type 1, Hx Diabetes Mellitus Type 2 Renal/ Medical History: Reports: Hx Renal Insufficiency. Denies: Hx Peritoneal Dialysis GI Medical History: Reports: Hx Gastroesophageal Reflux Disease Musculoskeletal Medical History: Reports Hx Arthritis - GENERALIZED Psychiatric Medical History: Reports: Hx Depression Past Surgical History: Reports: Hx Orthopedic Surgery - left knee, Other - Amputation of 3 toes - Immunizations Hx Diphtheria, Pertussis, Tetanus Vaccination: Yes - unk Review of Systems - Review of Systems Notes: Constitutional: Negative for fever. HENT: Negative for sore throat. Eyes: Negative for visual changes. Cardiovascular: Negative for chest pain. Respiratory: Negative for shortness of breath. Gastrointestinal: Negative for abdominal pain, vomiting or diarrhea. Genitourinary: Negative for dysuria. Musculoskeletal: See HPI Skin: Negative for rash. Neurological: Negative for headaches, weakness or numbness. 10 point ROS negative except as marked above and in HPI. Physical Exam - Vital signs Vitals: Temp Pulse Resp BP Pulse Ox 97.5 F 71 16 142/71 H 98 12/29/19 14:32 12/29/19 14:32 12/29/19 14:32 12/29/19 14:32 12/29/19 14:32 - Notes Notes: PHYSICAL EXAMINATION: Physical Exam: General: Well-nourished well-developed in no acute distress HEENT: NC/AT, pupils equal round and reactive to light, MM moist,nares clear, oropharynx clear, airway patent Neck: supple, no adenopathy, no masses. Good range of motion Lungs: clear, no wheezing, no rales no rhonchi CVS: Regular rate and rhythm no murmur gallop or rub Abdomen: Soft, active, nontender, no masses, no hepatosplenomegaly Ext: Right foot history of prior partial amputation involving the third fourth and fifth toes through the metatarsal, well-healed. Right right toe denuded area of skin extending from the base of the nailbed to the metatarsal phalangeal joint. Erythematous subdermal tissue, serous drainage no purulent drainage, no necrosis noted. No involvement of the ventral great toe. Neuro: Alert and responsive, moving all 4 extremities on command, cranial nerves intact, no focal findings PSYCH: Normal mood, normal affect. Course - Re-evaluation Re-evalutation: 12/29/19 19:26 After some discussion the patient has been wearing his diabetic shoe on the right foot likely friction related blister. The blister broke yesterday and the skin has peeled off. He has diabetic neuropathy denies any pain associated with the injury. 12/29/19 19:27 He is being treated with Silvadene cream and doxycycline. I have encouraged the patient and the family member with him to follow-up for recheck on Wednesday with the primary care doctor. They are also given a caution, that if the symptoms appears to be worsening these return to the emergency department for recheck. The patient and his family member acknowledges an understanding of this plan and are in agreement. - Vital Signs Vital signs: Temp Pulse Resp BP Pulse Ox 97.5 F 71 16 142/71 H 98 12/29/19 17:55 12/29/19 14:32 12/29/19 14:32 12/29/19 14:32 12/29/19 14:32 - Laboratory Result Diagrams: 12/29/19 18:15 12/29/19 18:15 Laboratory results interpreted by me: 12/29/19 12/29/19 12/29/19 18:14 18:15 18:15 RBC 2.75 L Hgb 6.6 L Hct 21.6 L MCV 79 L MCH 24.1 L MCHC 30.7 L RDW 17.9 H Chloride 108 H BUN 79 H Creatinine 5.95 H Est GFR ( Amer) 12 L Est GFR (MDRD) Non-Af 10 L Glucose 138 H POC Glucose 167 H Calcium 7.6 L Alkaline Phosphatase 140 H Discharge - Discharge Clinical Impression: Bullosis diabeticorum, Denuded skin Injury of right great toe Qualifiers: Encounter type: initial encounter Qualified Code(s): S99.921A - Unspecified injury of right foot, initial encounter Anemia in chronic kidney disease (CKD) Qualifiers: Chronic kidney disease stage: stage 3 (moderate) Qualified Code(s): N18.3 - Chronic kidney disease, stage 3 (moderate) Condition: Fair Disposition: HOME, SELF-CARE Additional Instructions: You were seen in the emergency department tonight with a area of skin breakdown on the right great toe. Appears to be an area of friction which developed a blister and a breakdown of the skin. You were given a burn cream to use to the surface of the denuded area daily. Please avoid putting pressure on the great toe until the area is healed. Please If your symptoms are worsening or if you have other concerns you may return to the emergency department for further evaluation and treatment. HOME CARE INSTRUCTIONS & INFORMATION: Thank you for choosing us for your medical needs. We hope you're satisfied with the care you received. After you leave, you must properly care for your problem and, at the same time, observe its progress. Any condition can change. Some illnesses can change rapidly over hours or days. If your condition worsens, return to the Emergency Department or see your physician promptly. ABOUT YOUR X-RAYS AND EKG'S: If you had an EKG or X-rays taken, they have been read by the Emergency Physician. The X-rays and EKG's will also be read by a Radiologist or Coat Operator Insulator within 24 hours. If discrepancies are noted, you will be notified by telephone. Please be certain the ED has a correct telephone number & address where you can be reached. Also, realize that some fractures or abnormalities do not show up on initial X-rays. If your symptoms continue, see your physician. ABOUT YOUR LABORATORY TEST: If you had laboratory tests, the results have been reviewed by the Emergency Physician. Some test results (for example cultures) may not be available for several days. You will be contacted if any test result shows you need additional treatment. Please be certain the ED has a correct telephone number and address where you can be reached. ABOUT YOUR MEDICATIONS: You will receive instructions on how to take your medicine on the prescription label you receive. Additional information may be provided by the Pharmacy. If you have questions afterwards, call the ED for clarification or further instructions. Some prescribed medications may cause drowsiness. Do not perform tasks such as driving a car or operating machinery without consulting your Pharmacist. If you feel you need a refill of pain medication, your condition will need re-evaluation. Please do not call for a refill of any medication. ABOUT YOUR SIGNATURE: Signature of this document acknowledges to followin. Understanding that you received emergency treatment and that you may be released before al medical problems are known or treated. Please be certain the ED has a correct phone number & address where you can be reached. 2. Acknowledgement that you will arrange for follow-up care as recommended. 3. Authorization for the Emergency Physician to provide information to your follow-up Physician in order to maximize your care. AT ANY TIME, IF YOUR SYMPTOMS CHANGE SIGNIFICANTLY OR WORSEN OR YOU DEVELOP NEW SYMPTOMS, RETURN TO THE EMERGENCY DEPARTMENT IMMEDIATELY FOR RE-EVALUATION. OUR GOAL IS TO PROVIDE EXCELLENT MEDICAL CARE! WE HOPE THAT WE HAVE MET YOUR EXPECTATIONS DURING YOUR EMERGENCY DEPARTMENT VISIT AND THAT YOU FEEL YOU HAVE RECEIVED EXCELLENT CARE! Take the medications as prescribed doxycycline 100 mg twice daily. Prescriptions: Doxycycline Monohydrate 100 mg PO BID #20 capsule Silver Sulfadiazine [Silvadene 1% Cream 50 gm Tube] 1 applic TP BID #50 grams Referrals: RAYMOND RICCI MD [Primary Care Provider] - Follow up as needed
[2019-12-29 19:52] VITALS: BP 151/78
== END 2019-12-29 19:54 | disposition home or self-care (01) ==
LOC: ER 14:28
DX: E11.628 Type 2 diabetes mellitus with other skin complications (principal); S99.921A Unspecified injury of right foot, initial encounter; X58.XXXA Exposure to other specified factors, initial encounter; S90.421A Blister (nonthermal), right great toe, initial encounter; E11.22 Type 2 diabetes mellitus with diabetic chronic kidney disease; D63.1 Anemia in chronic kidney disease; N18.3 Chronic kidney disease, stage 3 (moderate); Z89.421 Acquired absence of other right toe(s); E11.40 Type 2 diabetes mellitus with diabetic neuropathy, unspecified; F17.200 Nicotine dependence, unspecified, uncomplicated
CPT/HCPCS: 99283; 36415; 82962; 85025; 80053; 73630; A9270

== ENCOUNTER → 2020-01-02 | Outpatient (CLI) | payer MEDICARE ==
[2020-01-02 14:25] LABS: CHOLESTEROL 130.46 mg/dL (0-200); TRIGLYCERIDES 55 mg/dL (<150)
[2020-01-02 14:37] LABS: DIRECT LDL 73 mg/dL (<100)
[2020-01-03 14:41] LABS: MICROALBUMIN URINE 698.7 ug/mL (Not Estab.)
== END ==
LOC: OD 12:58
PROVIDERS: ATTEND Family Medicine Geriatric Medicine
DX: E11.21 Type 2 diabetes mellitus with diabetic nephropathy (principal); E78.5 Hyperlipidemia, unspecified; Z79.899 Other long term (current) drug therapy
CPT/HCPCS: 36415; 80061; 82043; 82570; 83036; 84460

== ENCOUNTER 2020-01-05 13:30 | Emergency (ER) | payer MEDICARE ==
[2020-01-05 13:47] VITALS: BP 143/67
--- NOTE | 2020-01-05 13:47 | ER Document Report ---
ED Medical Screen (RME) - General Chief Complaint: Abnormal Lab Results Stated Complaint: ABNORMAL LABS Time Seen by Provider: 01/05/20 13:42 Primary Care Provider: ARYMOND RICCI MD [Primary Care Provider] - Follow up as needed Mode of Arrival: Wheelchair Information source: Patient Notes: HPI; 64-year-old male referred to the emergency room by [facility] for hemoglobin of 6 and a hematocrit of 20.9. Patient states he has had chronic rectal bleeding for several years has an appointment for a colonoscopy on January 10. Complains of generalized fatigue. PE: Alert and oriented x3. Pale conjunctiva. Lungs: Clear to auscultation without rales, rhonchi, wheezes. Heart: Regular rate rhythm without murmurs, rubs, gallops. Unable to do full assessment in triage. I have greeted and performed a rapid initial assessment of this patient. A comprehensive ED assessment and evaluation of the patient, analysis of test results and completion of the medical decision making process will be conducted by additional ED providers. I have specifically instructed the patient or family members with the patient to immediately return to any nursing staff should anything change in the patient's condition or with their chief complaint. TRAVEL OUTSIDE OF THE [place] IN LAST 30 DAYS: No - Related Data Allergies/Adverse Reactions: No Known Allergies Allergy (Verified 12/29/19 17:53) Past Medical History - Past Medical History Cardiac Medical History: Reports: Hx Hypercholesterolemia, Hx Hypertension Denies: Hx Coronary Artery Disease, Hx Heart Attack Pulmonary Medical History: Reports: Hx Bronchitis, Hx COPD, Hx Pneumonia, Hx Respiratory Failure Denies: Hx Asthma Neurological Medical History: Denies: Hx Cerebrovascular Accident, Hx Seizures Endocrine Medical History: Reports: Hx Diabetes Mellitus Type 1, Hx Diabetes Mellitus Type 2 Renal/ Medical History: Reports: Hx Renal Insufficiency. Denies: Hx Peritoneal Dialysis GI Medical History: Reports: Hx Gastroesophageal Reflux Disease Musculoskeltal Medical History: Reports Hx Arthritis - GENERALIZED Psychiatric Medical History: Reports: Hx Depression Past Surgical History: Reports: Hx Orthopedic Surgery - left knee, Other - Amputation of 3 toes - Immunizations Hx Diphtheria, Pertussis, Tetanus Vaccination: Yes - unk Doctor's Discharge - Discharge Referrals: RAYMOND RICCI MD [Primary Care Provider] - Follow up as needed
[2020-01-05 14:18] LABS: ABSOLUTE BASOPHILS # (AUTO) 0.1 10^3/uL (0.0-0.2); ABSOLUTE EOSINOPHILS # (AUTO) 0.1 10^3/uL (0.0-0.6); ABSOLUTE LYMPHOCYTES (AUTO) 1.8 10^3/uL (0.5-4.7); ABSOLUTE MONOCYTES (AUTO) 0.5 10^3/uL (0.1-1.4); ABSOLUTE NEUT (AUTO) 3.3 10^3/uL (1.7-8.2); EOSINOPHILS % (AUTO) 2.3 % (0-6); MEAN CORPUSCULAR HEMOGLOBIN 23.9 pg (27.0-33.4); MEAN CORPUSCULAR HGB CONC 31.3 g/dL (32.0-36.0); MEAN CORPUSCULAR VOLUME 77 fl (80-97); MONOCYTES % (AUTO) 9.3 % (3-13); PLATELET COUNT 234 10^3/uL (150-450); RED BLOOD COUNT 2.74 10^6/uL (4.35-5.55); RED CELL DISTRIBUTION WIDTH 18.4 % (11.5-14.0); SEGMENTED NEUTROPHILS % (AUTO) 56.4 % (42-78); TOTAL CELLS COUNTED % (AUTO) 100 %; WHITE BLOOD COUNT 5.8 10^3/uL (4.0-10.5)
[2020-01-05 14:23] LABS: HEMOGLOBIN 6.6 g/dL (13.5-17.0)
[2020-01-05 14:31] LABS: ALBUMIN 3.5 g/dL (3.5-5.0); ALKALINE PHOSPHATASE 134 U/L (38-126); ANION GAP 11 (5-19); ASPARTATE AMINO TRANSFERASE 21 U/L (17-59); BILIRUBIN,DIRECT 0.1 mg/dL (0.0-0.4); BILIRUBIN,TOTAL 0.3 mg/dL (0.2-1.3); BLOOD UREA NITROGEN 88 mg/dL (7-20); CALCIUM 7.3 mg/dL (8.4-10.2); CARBON DIOXIDE 22 mmol/L (22-30); CHLORIDE 109 mmol/L (98-107); GLUCOSE 150 mg/dL (75-110); POTASSIUM 4.5 mmol/L (3.6-5.0); TOTAL PROTEIN 7.4 g/dL (6.3-8.2)
--- NOTE | 2020-01-05 18:09 | ER Document Report ---
Doctor's Note Notes: 01/05/20 18:07 Patient notified nursing staff that he does not want to stay any longer and wait to be seen. He has requested to leave AGAINST MEDICAL ADVICE. All risks of leaving AGAINST MEDICAL ADVICE were discussed at length with the patient. The patient has chosen to leave the facility against medical advice. The rele vant issues have been reviewed and discussed with the patient and family at the bedside. At the time of this assessment there is no indication for involuntary commitment. The patient is alert, oriented, and able to express clearly their reasoning for not wanting to remain in the emergency department for further treatment. The patient is not clinically psychotic, intoxicated, and denies and suicidal ideation. Differential or suspected diagnoses based on medical screening exam: Anemia of unknown cause The patient is aware of the concerning diagnoses and acknowledges understanding of the reasons for the following recommendations: Loss of life, permanent disability, chronic pain, worsening of condition, cardiac dysfunction, respiratory dysfunction loss of current lifestyle The following recommendations/services were offered and refused: Further evaluation and treatment The following risks were explained including but not limited to: , permanent disability, loss of function, gastrointestinal dysfunction, chronic pain, loss of current lifestyle, respiratory dysfunction, cardiac dysfunction. Clinical impression: Patient is competent to make decisions regarding the medical that is being offered.
== END 2020-01-05 18:11 | disposition left against medical advice (07) ==
LOC: ER 13:30
DX: D58.2 Other hemoglobinopathies (principal); R53.83 Other fatigue; K62.5 Hemorrhage of anus and rectum; E78.00 Pure hypercholesterolemia, unspecified; I10 Essential (primary) hypertension; J44.9 Chronic obstructive pulmonary disease, unspecified
CPT/HCPCS: 36415; 80053; 85025; 99283

== ENCOUNTER 2020-01-16 13:37 | Inpatient (IN) | payer MEDICARE ==
[2020-01-16 14:17] LABS: ALBUMIN 3.5 g/dL (3.5-5.0); ALKALINE PHOSPHATASE 124 U/L (38-126); ANION GAP 10 (5-19); ASPARTATE AMINO TRANSFERASE 21 U/L (17-59); BILIRUBIN,DIRECT 0.1 mg/dL (0.0-0.4); BILIRUBIN,TOTAL 0.3 mg/dL (0.2-1.3); BLOOD UREA NITROGEN 88 mg/dL (7-20); CALCIUM 7.9 mg/dL (8.4-10.2); CARBON DIOXIDE 23 mmol/L (22-30); CHLORIDE 111 mmol/L (98-107); GLUCOSE 116 mg/dL (75-110); POTASSIUM 4.8 mmol/L (3.6-5.0); TOTAL PROTEIN 7.3 g/dL (6.3-8.2)
[2020-01-16 14:19] LABS: ABSOLUTE BASOPHILS # (AUTO) 0.1 10^3/uL (0.0-0.2); ABSOLUTE EOSINOPHILS # (AUTO) 0.1 10^3/uL (0.0-0.6); ABSOLUTE LYMPHOCYTES (AUTO) 1.1 10^3/uL (0.5-4.7); ABSOLUTE MONOCYTES (AUTO) 0.5 10^3/uL (0.1-1.4); ABSOLUTE NEUT (AUTO) 7.8 10^3/uL (1.7-8.2); BASOPHILS % (AUTO) 0.6 % (0-2); EOSINOPHILS % (AUTO) 1.2 % (0-6); HEMATOCRIT 22.5 % (37.9-51.0); LYMPHOCYTES % (AUTO) 11.8 % (13-45); MEAN CORPUSCULAR HEMOGLOBIN 23.4 pg (27.0-33.4); MEAN CORPUSCULAR HGB CONC 30.6 g/dL (32.0-36.0); MEAN CORPUSCULAR VOLUME 77 fl (80-97); MONOCYTES % (AUTO) 5.3 % (3-13); PLATELET COUNT 272 10^3/uL (150-450); RED BLOOD COUNT 2.93 10^6/uL (4.35-5.55); RED CELL DISTRIBUTION WIDTH 18.6 % (11.5-14.0); SEGMENTED NEUTROPHILS % (AUTO) 81.1 % (42-78); TOTAL CELLS COUNTED % (AUTO) 100 %; WHITE BLOOD COUNT 9.6 10^3/uL (4.0-10.5)
[2020-01-16 14:20] LABS: HEMOGLOBIN 6.9 g/dL (13.5-17.0)
[2020-01-16 14:39] LABS: INTERNATIONAL RATION (INR) 1.01; PROTHROMBIN TIME 13.3 SEC (11.4-15.4)
[2020-01-16] MEDS ORDERED: NORMAL SALINE 250 ML IV PRN ×2 (14:39)
[2020-01-16] MEDS ORDERED: FUROSEMIDE INJ/PF 40 MG/4 ML SDV IV ONE (14:46)
--- NOTE | 2020-01-16 14:48 | Progress Note ---
Provider Note Provider Note: was called by ED physician about pending admission chronic anemia, will need GI work up since will need Covid 19 testing prior to procedure, would recommend that patient be allowed to get rapid testing so that I can expedite procedure for tomorrow full consult to follow
--- NOTE | 2020-01-16 14:55 | ER Document Report ---
ED General - General Chief Complaint: Low Blood Sugar Stated Complaint: BLOOD SUGAR PROBLEMS Time Seen by Provider: 01/16/20 13:51 Primary Care Provider: RAYMOND RICCI MD [Primary Care Provider] - Follow up as needed Notes: HPI: 64-year-old male who presents today with some altered mental status by family who called EMS. EMS states when they arrived his glucose was 42. They did provide 25 g of D10 with a repeat of 112 with initial glucose here of 138. Patient currently denies any confusion, weakness or numbness. He denies any headache or chest pain. Patient states he did have his insulin levels changed r ecently by his primary care physician Dr. Lowery last week. Patient is otherwise a poor historian. I did call the patient's primary care physician and it appears that the patient had his insulin changed from 36 units in the morning and the evening to 40 units in the morning and 30 6 at night. Patient denies any fevers, vomiting, diarrhea, missing meals, or accidental insulin injections. He states he is supposed to be on a sliding scale but states he normally does not take his sliding scale insulin. ROS: See HPI All other review of systems reviewed and otherwise negative Reviewed vital signs and nursing note as charted by RN. PHYSICAL EXAM: CONSTITUTIONAL: Alert and oriented and responds appropriately to questions. Well-appearing; well-nourished HEAD: Normocephalic; atraumatic EYES: PERRL; Sclerae non-icteric ENT: Normal nose; no rhinorrhea; moist mucous membranes; pharynx without lesions noted NECK: Supple without meningismus; non-tender; no cervical lymphadenopathy, no masses CARD: Regular rate and rhythm; no murmurs; symmetric distal pulses RESP: Normal chest excursion without splinting or tachypnea; breath sounds clear and equal bilaterally ABD/GI: Normal bowel sounds; non-distended; soft, non-tender to deep palpation of all 4 quadrants of the abdomen GI/: Patient has no obvious gross blood with no perirectal lesions. Hemoccult negative stool BACK: The back appears normal and is non-tender to palpation EXT: Normal ROM in all joints; non-tender to palpation; no edema SKIN: No acute lesions noted NEURO: CN 2-12 intact; 5/5 bilateral upper and lower extremity strength with sensation intact to light touch PSYCH: The patient's mood and manner are appropriate. Grooming and personal hygiene are appropriate. TRAVEL OUTSIDE OF THE [place] IN LAST 30 DAYS: No - Related Data Allergies/Adverse Reactions: No Known Allergies Allergy (Verified 01/16/20 13:52) Past Medical History - Social History Smoking Status: Current Every Day Smoker Frequency of alcohol use: None Drug Abuse: None, Marijuana Family History: DM Patient has homicidal ideation: No - Past Medical History Cardiac Medical History: Reports: Hx Hypercholesterolemia, Hx Hypertension Denies: Hx Coronary Artery Disease, Hx Heart Attack Pulmonary Medical History: Reports: Hx Bronchitis, Hx COPD, Hx Pneumonia, Hx Respiratory Failure Denies: Hx Asthma Neurological Medical History: Denies: Hx Cerebrovascular Accident, Hx Seizures Endocrine Medical History: Reports: Hx Diabetes Mellitus Type 1, Hx Diabetes Mellitus Type 2 Renal/ Medical History: Reports: Hx Renal Insufficiency. Denies: Hx Peritoneal Dialysis GI Medical History: Reports: Hx Gastroesophageal Reflux Disease Musculoskeletal Medical History: Reports Hx Arthritis - GENERALIZED Psychiatric Medical History: Reports: Hx Depression Past Surgical History: Reports: Hx Orthopedic Surgery - left knee, Other - Amputation of 3 toes - Immunizations Hx Diphtheria, Pertussis, Tetanus Vaccination: Yes - unk Physical Exam - Vital signs Vitals: Temp Pulse Resp BP Pulse Ox 97.7 F 78 18 181/86 H 100 01/16/20 13:51 01/16/20 13:51 01/16/20 13:51 01/16/20 13:51 01/16/20 13:51 Course - Re-evaluation Re-evalutation: Given the above history and physical, with hemoglobin as recorded, I did perform a Hemoccult examination as recorded. Patient states he was supposed to follow- up with the marketing secretary Dr. Dodge for endoscopy and colonoscopy. He sta fermin he did not have the money to pay the co-pays. I did call the primary care physician who states the patient received a transfusion in September and then in August. Patient's baseline creatinine as recorded. On last admission he had nephrology consultation and they did not believe dialysis was necessary. Potassium as recorded. 01/16/20 14:51 I did call and speak directly to the marketing secretary. He understands to consult on the patient. I have ordered blood and we will provide 40 units of IV Lasix between units. Patient has been admitted to the hospitalist service. - Vital Signs Vital signs: Temp Pulse Resp BP Pulse Ox 97.7 F 78 18 181/86 H 100 01/16/20 13:51 01/16/20 13:51 01/16/20 13:51 01/16/20 13:51 01/16/20 13:51 - Laboratory Result Diagrams: 01/16/20 13:40 01/16/20 13:40 Laboratory results interpreted by me: 01/16/20 01/16/20 01/16/20 13:40 13:40 13:42 RBC 2.93 L Hgb 6.9 L Hct 22.5 L MCV 77 L MCH 23.4 L MCHC 30.6 L RDW 18.6 H Lymph % (Auto) 11.8 L Seg Neutrophils % 81.1 H Chloride 111 H BUN 88 H Creatinine 6.02 H Est GFR ( Amer) 12 L Est GFR (MDRD) Non-Af 10 L Glucose 116 H POC Glucose 138 H Calcium 7.9 L Critical Care Note - Critical Care Note Total time excluding time spent on procedures (mins): 40 Discharge - Discharge Clinical Impression: Acute blood loss anemia, Hypoglycemia Chronic renal failure Qualifiers: Chronic kidney disease stage: stage 5 Qualified Code(s): N18.5 - Chronic kidney disease, stage 5 Condition: Fair Disposition: ADMITTED INPATIENT Admitting Provider: Hernandez (Hospitalist) Unit Admitted: Medical Floor Referrals: RAYMOND RICCI MD [Primary Care Provider] - Follow up as needed
[2020-01-16] MEDS ORDERED: IPRATROPIUM/ALBUTEROL 0.5-2.5 MG/3 ML AMPUL NEB PRN (16:02)
[2020-01-16] MEDS ORDERED: MAG HYDROX/AL HYDROX/SIMETH SUSP 30 ML UDCUP PO PRN (16:02)
--- NOTE | 2020-01-16 16:22 | PDOC H&P ---
History of Present Illness Admission Date/PCP: RAYMOND RICCI MD Patient complains of: low blood sugar History of Present Illness: SANTIAGO AL is a 64 year old male with a past medical history significant for Insulin-dependent diabetes mellitus, CKD 4, PVD, hypertension, chronic pancreatitis, chronic anemia, obesity, tobacco and substance abuse who presented to the emergency department today for complaint of low blood sugar; found to be in the 40s by EMS. Upon arrival to the emergency department, glucose was corrected to 116. Further evaluation revealed hypertension, anemia (hemoglobin 6.9), normal PT/INR, baseline kidney failure (CR 6.02/BUN 88) and elevated lipase to 929. Emergency department provider has arranged with gastroenterology, Dr. Dodge, for consultation and possible endoscopy/colonoscopy tomorrow. He is ordered 2 units PRBC. Referred to the hospitalist service for further evaluation and management of the above-stated complaints and findings. Past Medical History Cardiac Medical History: Reports: Hyperlipidema, Hypertension Denies: Coronary Artery Disease, Myocardial Infarction Pulmonary Medical History: Reports: Bronchitis, Chronic Obstructive Pulmonary D isease (COPD), Pneumonia, Respiratory Failure Denies: Asthma EENT Medical History: Reports: None Neurological Medical History: Denies: Ischemic CVA, Seizures Endocrine Medical History: Reports: Diabetes Mellitus Type 2 - Insulin- dependent, Obesity, Other - Chronic pancreatitis Renal/ Medical History: Reports: Chronic Kidney Disease Malignancy Medical History: Reports: None GI Medical History: Reports: Gastroesophageal Reflux Disease Musculoskeltal Medical History: Reports: Arthritis - GENERALIZED Psychiatric Medical History: Reports: Depression, Substance Abuse Hematology: Reports: Anemia Past Surgical History Past Surgical History: Reports: Orthopedic Surgery - left knee, Other - Amputation of 3 toes Social History Information Source: Patient, [facility] Records Lives with: Alone Smoking Status: Current Every Day Smoker Electronic Cigarette use?: No Frequency of Alcohol Use: Occasional Hx Recreational Drug Use: Yes Drugs: Cocaine, Marijuana Hx Prescription Drug Abuse: No Family History Family History: DM Parental Family History Reviewed: Yes Children Family History Reviewed: Yes Sibling(s) Family History Reviewed.: Yes Medication/Allergy Home Medications: Amlodipine Besylate [Norvasc 10 mg Tablet] 10 mg PO DAILY 01/16/20 Ascorbic Acid [Vitamin C] 500 mg PO DAILY 01/16/20 Aspirin [Aspirin 81 mg Chewable Tablet] 81 mg PO DAILY 01/16/20 Budesonide/Formoterol Fumarate [Symbicort Hfa 80-4.5 Mcg Inhaler 6.9 gm] 2 puff IH BID 01/16/20 Calcitriol 0.5 mcg PO DAILY 01/16/20 Carvedilol [Coreg 12.5 mg Tablet] 12.5 mg PO Q12 01/16/20 Doxycycline Monohydrate 100 mg PO BID 01/16/20 Furosemide [Lasix 40 mg Tablet] 40 mg PO BID 01/16/20 Linaclotide [Linzess 145 Mcg Capsule] 145 mcg PO DAILY 01/16/20 Lipase/Protease/Amylase [Creon Dr 6,000 Units Capsule] 2 cap PO ASDIR PRN 01/16/20 Magnesium Oxide 400 mg PO DAILY 01/16/20 Metolazone [Zaroxolyn 2.5 Mg Tablet] 2.5 mg PO ASDIR PRN 01/16/20 Pantoprazole Sodium [Protonix [address] Tablet] 40 mg PO BID 01/16/20 Pregabalin [Lyrica 100 Mg Capsule] 100 mg PO BID 01/16/20 Promethazine HCl [Phenergan 25 mg Tablet] 25 mg PO PRN PRN 01/16/20 Sodium Bicarbonate [Sodium Bicarbonate 650 mg Tablet] 650 mg PO BID 01/16/20 Sodium Zirconium Cyclosilicate [Lokelma] 10 gm PO ASDIR PRN 01/16/20 Tamsulosin HCl [Flomax 0.4 mg Cap.sr] 0.4 mg PO QHS 01/16/20 Timolol Maleate [Timoptic 0.5% Oph Soln 5 ml] 1 drop OS BID 01/16/20 Tiotropium [place] [Spiriva Handihaler 5 Cap/Kit (18 Mcg/Cap)] 1 cap IH DAILY 01/16/20 Tizanidine HCl 4 mg PO QHS PRN 01/16/20 Topiramate 50 mg PO BID 01/16/20 Allergies/Adverse Reactions: No Known Allergies Allergy (Verified 01/16/20 13:52) Review of Systems ROS unobtainable: Other - Somnolent; wakes briefly but tells me he wishes to go back to sleep and promptly closes eyes Physical Exam Vital Signs: Temp Pulse Resp BP Pulse Ox 97.7 F 78 18 160/80 H 99 01/16/20 13:51 01/16/20 13:51 07/21/20 15:02 01/16/20 15:02 01/16/20 15:02 Intake & Output 01/15/20 01/16/20 01/17/20 06:59 06:59 06:59 Weight 104.9 kg General appearance: PRESENT: no acute distress, morbidly obese, well-developed, well-nourished Head exam: PRESENT: atraumatic, normocephalic Eye exam: PRESENT: conjunctiva pink, EOMI, PERRLA. ABSENT: scleral icterus Mouth exam: PRESENT: moist, tongue midline Respiratory exam: PRESENT: prolonged expiratory phas, rhonchi, symmetrical, unlabored, other - Supplemental oxygen. ABSENT: rales, wheezes Cardiovascular exam: PRESENT: RRR. ABSENT: diastolic murmur, rubs, systolic murmur Pulses: PRESENT: normal dorsalis pedis pul Vascular exam: PRESENT: normal capillary refill GI/Abdominal exam: PRESENT: normal bowel sounds, soft. ABSENT: distended, gu arding, mass, organolmegaly, rebound, tenderness Rectal exam: PRESENT: deferred Extremities exam: ABSENT: calf tenderness, clubbing, pedal edema Neurological exam: PRESENT: alert, awake, oriented to person, oriented to place, oriented to time, oriented to situation, CN II-XII grossly intact, other - Somnolent; wakes easily, tells me that he wants to sleep and asked to be left alone. ABSENT: motor sensory deficit Psychiatric exam: PRESENT: appropriate affect, normal mood. ABSENT: homicidal ideation, suicidal ideation Skin exam: PRESENT: dry, intact, warm. ABSENT: cyanosis, rash Results Laboratory Results: 01/16/20 13:40 01/16/20 13:40 01/16/20 01/16/20 01/16/20 13:40 13:40 13:40 WBC 9.6 RBC 2.93 L Hgb 6.9 L Hct 22.5 L MCV 77 L MCH 23.4 L MCHC 30.6 L RDW 18.6 H Plt Count 272 Seg Neutrophils % 81.1 H Sodium 143.9 Potassium 4.8 Chloride 111 H Carbon Dioxide 23 Anion Gap 10 BUN 88 H Creatinine 6.02 H Est GFR ( Amer) 12 L Glucose 116 H Calcium 7.9 L Total Bilirubin 0.3 AST 21 Alkaline Phosphatase 124 Total Protein 7.3 Albumin 3.5 Lipase 929.6 H Blood Type Antibody Screen 01/16/20 14:55 WBC RBC Hgb Hct MCV MCH MCHC RDW Plt Count Seg Neutrophils % Sodium Potassium Chloride Carbon Dioxide Anion Gap BUN Creatinine Est GFR ( Amer) Glucose Calcium Total Bilirubin AST Alkaline Phosphatase Total Protein Albumin Lipase Blood Type A POSITIVE Antibody Screen NEGATIVE Assessment and Plan - Diagnosis (1) Acute on chronic anemia Is this a current diagnosis for this admission?: Yes Plan: Hemoglobin 6. Appears patient averages around 7.9. Likely multifactorial secondary to chronic kidney disease and occult GI losses. Patient is admitted to the medical floor on continuous cardiac telemetry. 2 units PRBC pending. GI is consulted; planning for EGD/colonoscopy. Follow up CBC (2) Chronic pancreatitis Is this a current diagnosis for this admission?: Yes Plan: Lipase elevated 900. Patient denies abdominal discomfort. No nausea or vomiting at this time. Continue home dose Pancreaze GI consulted. (3) CKD (chronic kidney disease), stage IV Is this a current diagnosis for this admission?: Yes Plan: At baseline renal function. Avoid nephrotoxic medications as able; renally dosed where appropriate. Nephrology consulted. Follow-up chemistry (4) COPD (chronic obstructive pulmonary disease) Is this a current diagnosis for this admission?: Yes Plan: Stable and without exacerbation at this time. Patient is quite somnolent; tells me that he is just tired. Will check ABG Provide supplemental oxygen as needed to maintain saturations greater than 89%. Continue home dose maintenance therapies. As needed nebulizer treatments. No indications for steroid or antibiotic therapy at this time. CPAP qHS and prn (5) Diabetes mellitus Qualifiers: Diabetes mellitus type: type 2 Diabetes mellitus remote computer terminal operator insulin use: with half-way use Chronic kidney disease stage: stage 4 (severe) Is this a current diagnosis for this admission?: Yes Plan: Patient is currently on clear liquid diet; n.p.o. after midnight. We will start D5NS as patient goes into n.p.o. status due to frequent hypoglycemia. Accu-Cheks before meals and at bedtime with Humalog for sliding scale coverage. Hypoglycemia protocol in place. (6) Hypertension Is this a current diagnosis for this admission?: Yes Plan: Continue home dose amlodipine carvedilol, furosemide. IV hydralazine as needed for blood pressure control (7) SONY (obstructive sleep apnea) Is this a current diagnosis for this admission?: Yes Plan: CPAP nightly and PRN. Recommend formal overnight sleep study to qualify for home device - Time Time Spent with patient: 35 or more minutes Medications reviewed and adjusted accordingly: Yes Anticipated discharge: Home Within: within 48 hours
[2020-01-16 16:45] LABS: ARTERIAL BLOOD BASE EXCESS -4.2 mmol/L; ARTERIAL BLOOD H2CO3 1.52 mmol/L (1.05-1.35); ARTERIAL BLOOD HCO3 22.6 mmol/L (20-24); ARTERIAL BLOOD O2 SATURATION 92.9 % (94-98); ARTERIAL BLOOD PCO2 50.4 mmHg (35-45); ARTERIAL BLOOD PH 7.27 (7.35-7.45); ARTERIAL BLOOD PO2 74.5 mmHg (80-100); ARTERIAL BLOOD TOTAL CO2 24.1 mmol/L (23-27)
[2020-01-16 16:46] LABS: ARTERIAL BLOOD FIO2 ROOM AIR
[2020-01-16 17:28] LABS: APPEARANCE,URINE CLEAR; BILIRUBIN,URINE NEGATIVE (NEGATIVE); COLOR,URINE STRAW; GLUCOSE, URINE 50 mg/dL (NEGATIVE); KETONES,URINE NEGATIVE (NEGATIVE); LEUKOCYTE ESTERASE,URINE TRACE (NEGATIVE); NITRITE,URINE NEGATIVE (NEGATIVE); PROTEIN,URINE 100 mg/dL (NEGATIVE); URINE SPECIFIC GRAVITY 1.012; UROBILINOGEN,URINE NEGATIVE mg/dL (<2.0)
[2020-01-16 17:46] LABS: URINE AMPHETAMINES SCREEN NEGATIVE; URINE BARBITURATES SCREEN NEGATIVE; URINE BENZODIAZEPINES SCREEN NEGATIVE; URINE COCAINE SCREEN NEGATIVE; URINE METHADONE SCREEN NEGATIVE; URINE PHENCYCLIDINE SCREEN NEGATIVE
[2020-01-16 17:48] LABS: URINE MARIJUANA (THC) SCREEN UNCONFIRMED POSITIVE
[2020-01-16] MEDS ORDERED: (PENDING PHARMACY ID) (Topiramate [Topiramate] 50 MG) PO SCH (18:00)
--- NOTE | 2020-01-16 18:05 | PDOC CONSULTATION ---
Consultation Consult Date: 01/16/20 Provider Consulted: KIMBERLY DELEON Consult reason:: Anemia, rule out GI bleed History of Present Illness Admission Date/PCP: 01/16/20 16:11 RAYMOND RICCI MD History of Present Illness: SANTIAGO AL is a 64 year old male I was called on this patient who had presented to the ED, for low blood sugar and subsequently found to be anemic patient apparently was told to follow up with GI but did not he is being admitted and GI procedure requested to make sure no acute GI bleeding patient may have other reasons for this including CKD, however will make sure no GI etiology spoke with admitting Hospitalist as well as RN on floor will provide prep instructions will need rapid Covid 19 testing prior to that Past Medical History Cardiac Medical History: Reports: Hyperlipidema, Hypertension Denies: Coronary Artery Disease, Myocardial Infarction Pulmonary Medical History: Reports: Bronchitis, Chronic Obstructive Pulmonary Disease (COPD), Pneumonia, Respiratory Failure Denies: Asthma EENT Medical History: Reports: None Neurological Medical History: Denies: Ischemic CVA, Seizures Endocrine Medical History: Reports: Diabetes Mellitus Type 1, Diabetes Mellitus Type 2 - Insulin-dependent, Obesity, Other - Chronic pancreatitis Renal/ Medical History: Reports: Chronic Kidney Disease Malignancy Medical History: Reports: None GI Medical History: Reports: Gastroesophageal Reflux Disease Musculoskeltal Medical History: Reports: Arthritis - GENERALIZED Psychiatric Medical History: Reports: Depression, Substance Abuse Hematology: Reports: Anemia Past Surgical History Past Surgical History: Reports: Orthopedic Surgery - left knee, Other - Amputation of 3 toes Social History Lives with: Alone Smoking Status: Current Every Day Smoker Electronic Cigarette use?: No Frequency of Alcohol Use: Occasional Hx Recreational Drug Use: Yes Drugs: Cocaine, Marijuana Hx Prescription Drug Abuse: No Family History Family History: DM Parental Family History Reviewed: Yes Children Family History Reviewed: Unknown Sibling(s) Family History Reviewed.: Unknown Medication/Allergy Home Medications: Amlodipine Besylate [Norvasc 10 mg Tablet] 10 mg PO DAILY 01/16/20 Ascorbic Acid [Vitamin C] 500 mg PO DAILY 01/16/20 Aspirin [Aspirin 81 mg Chewable Tablet] 81 mg PO DAILY 01/16/20 Budesonide/Formoterol Fumarate [Symbicort Hfa 80-4.5 Mcg Inhaler 6.9 gm] 2 puff IH BID 01/16/20 Calcitriol 0.5 mcg PO DAILY 01/16/20 Carvedilol [Coreg 12.5 mg Tablet] 12.5 mg PO Q12 01/16/20 Furosemide [Lasix 40 mg Tablet] 40 mg PO BID 01/16/20 Insulin Glargine,Hum.rec.anlog [Lantus Insulin 100 Unit/1 ml 10 ml] 36 unit SQ QAM 01/16/20 Insulin Glargine,Hum.rec.anlog [Lantus Insulin 100 Unit/1 ml 10 ml] 40 unit PO QPM 01/16/20 Linaclotide [Linzess 145 Mcg Capsule] 145 mcg PO Q6AM 01/16/20 Lipase/Protease/Amylase [Jeronimo Cantrell 6,000 Units Capsule] 12,000 unit PO .SNACKS 01/16/20 Lipase/Protease/Amylase [Jeronimo Catnrell 6,000 Units Capsule] 12,000 unit PO Q8 01/16/20 Magnesium Oxide 400 mg PO DAILY 01/16/20 Metolazone [Zaroxolyn 2.5 Mg Tablet] 2.5 mg PO MOTUWETHFR@1000 01/16/20 Pantoprazole Sodium [Protonix [address] Tablet] 40 mg PO BID 01/16/20 Pregabalin [Lyrica 100 Mg Capsule] 100 mg PO Q12 01/16/20 Promethazine HCl [Phenergan 25 mg Tablet] 25 mg PO Q8HP PRN 01/16/20 Sodium Bicarbonate [Sodium Bicarbonate 650 mg Tablet] 1,300 mg PO BID 01/16/20 Sodium Zirconium Cyclosilicate [Lokelma] 10 gm PO MOWEFR@1000 PRN 01/16/20 Tamsulosin HCl [Flomax 0.4 mg Cap.sr] 0.4 mg PO QHS 01/16/20 Timolol Maleate [Timoptic 0.5% Oph Soln 5 ml] 1 drop OS BID 01/16/20 Tiotropium [place] [Spiriva Handihaler 5 Cap/Kit (18 Mcg/Cap)] 1 cap IH DAILY 01/16/20 Tizanidine HCl 4 mg PO HSP PRN 01/16/20 Topiramate 50 mg PO Q12 01/16/20 Torsemide [Demadex 20 mg Tablet] 20 mg PO BID 01/16/20 Allergies/Adverse Reactions: No Known Allergies Allergy (Verified 07/21/20 13:52) Review of Systems Constitutional: ABSENT: fever(s), headache(s), night sweats Eyes: ABSENT: visual disturbances Ears: ABSENT: hearing changes Nose, Mouth, and Throat: ABSENT: mouth pain, sore throat Respiratory: ABSENT: dyspnea, hemoptysis Gastrointestinal: ABSENT: hematemesis, hematochezia, melena Genitourinary: ABSENT: dysuria, hematuria Musculoskeletal: ABSENT: deformity, joint swelling Neurological: ABSENT: syncope, vertigo Endocrine: ABSENT: polydipsia, polyphagia, polyuria Physical Exam Vital Signs: Temp Pulse Resp BP Pulse Ox 98.8 F 80 21 H 168/76 H 99 01/16/20 17:11 01/16/20 16:50 01/16/20 17:11 01/16/20 17:11 01/16/20 17:11 Intake & Output 01/15/20 01/16/20 01/17/20 06:59 06:59 06:59 Intake Total 0 Balance 0 Weight 104.9 kg General appearance: PRESENT: no acute distress, well-developed, well-nourished Head exam: PRESENT: atraumatic, normocephalic Eye exam: PRESENT: EOMI, PERRLA. ABSENT: nystagmus, periorbital swelling, scler al icterus Mouth exam: PRESENT: moist, neck supple Neck exam: ABSENT: meningismus, tenderness, thyromegaly Respiratory exam: PRESENT: symmetrical, unlabored. ABSENT: tachypnea, wheezes Cardiovascular exam: PRESENT: RRR, +S1, +S2 GI/Abdominal exam: PRESENT: normal bowel sounds. ABSENT: Salazar's sign, rebound, rigid Extremities exam: ABSENT: joint swelling Musculoskeletal exam: PRESENT: full ROM Neurological exam: PRESENT: alert, awake Skin exam: ABSENT: normal color, petechiae, urticaria Results Laboratory Results: 01/16/20 13:40 01/16/20 13:40 01/16/20 01/16/20 01/16/20 13:40 13:40 13:40 WBC 9.6 RBC 2.93 L Hgb 6.9 L Hct 22.5 L MCV 77 L MCH 23.4 L MCHC 30.6 L RDW 18.6 H Plt Count 272 Seg Neutrophils % 81.1 H Carbonic Acid HCO3/H2CO3 Ratio ABG pH ABG pCO2 ABG pO2 ABG HCO3 ABG O2 Saturation ABG Base Excess FiO2 Sodium 143.9 Potassium 4.8 Chloride 111 H Carbon Dioxide 23 Anion Gap 10 BUN 88 H Creatinine 6.02 H Est GFR ( Amer) 12 L Glucose 116 H Calcium 7.9 L Total Bilirubin 0.3 AST 21 Alkaline Phosphatase 124 Total Protein 7.3 Albumin 3.5 Lipase 929.6 H Urine Color Urine Appearance Urine pH Ur Specific Mead Urine Protein Urine Glucose (UA) Urine Ketones Urine Blood Urine Nitrite Ur Leukocyte Esterase Urine WBC (Auto) Urine RBC (Auto) Blood Type Antibody Screen 01/16/20 01/16/20 01/16/20 14:55 16:35 17:12 WBC RBC Hgb Hct MCV MCH MCHC RDW Plt Count Seg Neutrophils % Carbonic Acid 1.52 H HCO3/H2CO3 Ratio 14:1 ABG pH 7.27 L ABG pCO2 50.4 H ABG pO2 74.5 L ABG HCO3 22.6 ABG O2 Saturation 92.9 L ABG Base Excess -4.2 FiO2 ROOM AIR Sodium Potassium Chloride Carbon Dioxide Anion Gap BUN Creatinine Est GFR ( Amer) Glucose Calcium Total Bilirubin AST Alkaline Phosphatase Total Protein Albumin Lipase Urine Color STRAW Urine Appearance CLEAR Urine pH 6.0 Ur Specific Mead 1.012 Urine Protein 100 H Urine Glucose (UA) 50 H Urine Ketones NEGATIVE Urine Blood SMALL H Urine Nitrite NEGATIVE Ur Leukocyte Esterase TRACE H Urine WBC (Auto) 0 Urine RBC (Auto) 3 Blood Type A POSITIVE Antibody Screen NEGATIVE Assessment & Plan - Diagnosis (1) Acute blood loss anemia Plan: patient admitted and will need to have EGD and colonoscopy done will schedule for the am I have provided prep instruction will need Propofol sedation Risks, benefits and alternatives are discussed with the patient in deatil Further recommendations to follow - Time Time Spent: 50 to 70 Minutes
[2020-01-16] MEDS: HYDRALAZINE HCL INJ/PF 20 MG/1 ML SDV IV PRN (18:29)
[2020-01-16] MEDS: SODIUM BICARBONATE 650 MG TABLET PO SCH (18:29)
[2020-01-16] MEDS: TOPIRAMATE 25 MG TABLET PO SCH (18:29)
[2020-01-16] MEDS: FUROSEMIDE 40 MG TABLET PO SCH (18:30)
[2020-01-16] MEDS ORDERED: DEXTROSE 50%-WATER 25 GM/50 ML DISP.SYRIN IV PRN (18:44)
[2020-01-16] MEDS ORDERED: DEXTROSE 40% GEL 15 GM TUBE PO PRN ×2 (18:44)
[2020-01-16] MEDS ORDERED: GLUCAGON,HUMAN RECOMB 1 MG INJ IM PRN (18:44)
[2020-01-16] MEDS ORDERED: PEG 3350/NA SULF,BICARB,CL/KCL 4000 ML PO ONE (19:00)
--- NOTE | 2020-01-16 19:07 | RADIOLOGY REPORT (SQ) ---
EXAM DESCRIPTION: CHEST SINGLE VIEW IMAGES COMPLETED DATE/TIME: 01/16/2020 6:16 pm REASON FOR STUDY: acute respiratory failure COMPARISON: 09/13/2019 EXAM PARAMETERS: NUMBER OF VIEWS: One view. TECHNIQUE: Single frontal radiographic view of the chest acquired. RADIATION DOSE: NA LIMITATIONS: None. FINDINGS: LUNGS AND PLEURA: No opacities, masses or pneumothorax. No pleural effusion. MEDIASTINUM AND HILAR STRUCTURES: No masses. Contour normal. HEART AND VASCULAR STRUCTURES: Heart size is borderline. Mild pulmonary vascular prominence. No pul monary edema. BONES: No acute findings. HARDWARE: None in the chest. OTHER: No other significant finding. IMPRESSION: Borderline cardiomegaly without pulmonary edema. TECHNICAL DOCUMENTATION: JOB ID: [id number] [employer]- All Rights Reserved Reading location - IP/workstation name: [email or web address]
[2020-01-16] MEDS ORDERED: FUROSEMIDE INJ/PF 40 MG/4 ML SDV ONE (19:37)
[2020-01-16] MEDS: PANTOPRAZOLE SODIUM 40 MG VIAL IV SCH (21:38)
[2020-01-16] MEDS: HEPARIN SOD (PORCINE) 5,000 UNIT/ML 1 ML VIAL SUBCUT SCH (21:39)
[2020-01-16] MEDS: TIMOLOL MALEATE 0.5% OPH SOLN 5 ML OS SCH (21:39)
[2020-01-16] MEDS: TAMSULOSIN HCL 0.4 MG CAP.SR.24H PO SCH (21:39)
[2020-01-16] MEDS: CARVEDILOL 12.5 MG TABLET PO SCH (21:39)
[2020-01-16] MEDS: INSULIN LISPRO 100 UNIT/ML 3 ML VIAL SUBCUT SCH (21:46)
[2020-01-16] MEDS ORDERED: AMYLASE PO SCH (22:00)
[2020-01-16] MEDS ORDERED: LIPASE PO SCH (22:00)
[2020-01-16] MEDS ORDERED: PROTEASE PO SCH (22:00)
[2020-01-17 02:45] LABS: ABSOLUTE EOSINOPHILS # (AUTO) 0.1 10^3/uL (0.0-0.6); ABSOLUTE LYMPHOCYTES (AUTO) 2.1 10^3/uL (0.5-4.7); ABSOLUTE NEUT (AUTO) 5.1 10^3/uL (1.7-8.2); BASOPHILS % (AUTO) 0.6 % (0-2); EOSINOPHILS % (AUTO) 1.6 % (0-6); HEMATOCRIT 25.8 % (37.9-51.0); HEMOGLOBIN 8.3 g/dL (13.5-17.0); LYMPHOCYTES % (AUTO) 24.9 % (13-45); MEAN CORPUSCULAR HEMOGLOBIN 25.3 pg (27.0-33.4); MEAN CORPUSCULAR HGB CONC 32.1 g/dL (32.0-36.0); MEAN CORPUSCULAR VOLUME 79 fl (80-97); MONOCYTES % (AUTO) 11.5 % (3-13); PLATELET COUNT 245 10^3/uL (150-450); RED BLOOD COUNT 3.28 10^6/uL (4.35-5.55); RED CELL DISTRIBUTION WIDTH 20.2 % (11.5-14.0); SEGMENTED NEUTROPHILS % (AUTO) 61.4 % (42-78); TOTAL CELLS COUNTED % (AUTO) 100 %; WHITE BLOOD COUNT 8.4 10^3/uL (4.0-10.5)
[2020-01-17 03:01] LABS: ANION GAP 9 (5-19); BLOOD UREA NITROGEN 88 mg/dL (7-20); CALCIUM 7.8 mg/dL (8.4-10.2); CARBON DIOXIDE 24 mmol/L (22-30); CHLORIDE 109 mmol/L (98-107); POTASSIUM 4.7 mmol/L (3.6-5.0)
[2020-01-17 03:05] LABS: GLUCOSE 54 mg/dL (75-110)
[2020-01-17] MEDS: DEXTROSE 50%-WATER 25 GM/50 ML DISP.SYRIN IV PRN ×2 (03:09→10:31)
[2020-01-17] MEDS: DEXTROSE 5%-NORMAL SALINE 1,000 ML IV PRN (03:10)
[2020-01-17] MEDS: HEPARIN SOD (PORCINE) 5,000 UNIT/ML 1 ML VIAL SUBCUT SCH ×3 (05:22→21:55)
[2020-01-17] MEDS: TOPIRAMATE 25 MG TABLET PO SCH ×2 (05:39→17:54)
[2020-01-17] MEDS: INSULIN LISPRO 100 UNIT/ML 3 ML VIAL SUBCUT SCH ×4 (08:09→21:57)
[2020-01-17] MEDS ORDERED: NA PHOS,M-B/NA PHOS,DI-BA (ADULT) 133 ML ENEMA PR ONE (08:30)
[2020-01-17] MEDS ORDERED: (PENDING PHARMACY ID) (Tiotropium Bromide [Spiriva Handihaler 5 Cap/Kit (18 Mcg/Cap)] 1 CA IH SCH (10:00)
[2020-01-17] MEDS ORDERED: (PENDING PHARMACY ID) (Calcitriol [Calcitriol] 0.5 MCG) PO SCH (10:00)
[2020-01-17] MEDS: PANTOPRAZOLE SODIUM 40 MG VIAL IV SCH ×2 (10:38→21:57)
[2020-01-17] MEDS: CARVEDILOL 12.5 MG TABLET PO SCH ×2 (10:56→21:53)
[2020-01-17] MEDS: UMECLIDINIUM BROMIDE 62.5 MCG/DOSE IH SCH (10:56)
[2020-01-17] MEDS: FLUTICASONE/VILANTEROL 100-25 MCG/DOSE IH SCH (10:56)
[2020-01-17] MEDS: TIMOLOL MALEATE 0.5% OPH SOLN 5 ML OS SCH ×2 (10:57→21:57)
[2020-01-17] MEDS: FUROSEMIDE 40 MG TABLET PO SCH ×2 (10:57→17:54)
[2020-01-17] MEDS: AMLODIPINE BESYLATE 10 MG TABLET PO SCH (10:57)
[2020-01-17] MEDS: SODIUM BICARBONATE 650 MG TABLET PO SCH ×2 (10:57→17:55)
[2020-01-17] MEDS: CALCITRIOL 0.25 MCG CAPSULE PO SCH (10:57)
[2020-01-17] MEDS ORDERED: LIDOCAINE 2% INJ-PF (100 MG/5 ML) SYRINGE ONE (12:08)
[2020-01-17] MEDS ORDERED: PROPOFOL INJ 200 MG/20 ML VIAL IV ONE (12:08)
--- NOTE | 2020-01-17 13:14 | Operative Report ---
Operative Report DATE OF SURGERY: 01/17/20 Operative Report: The risk, benefits and alternatives of the procedure including the risks of bleeding, perforation requiring surgery have been explained to the patient in detail and informed consent has been obtained. The patient is taken to the operating room and placed in a left, lateral decubital position. Timeout was called. Propofol medication is administered. Rectal examination is done which did not reveal any masses, tears or fissures. An Olympus videoscope was introduced into the patient's rectum. Scope was then carefully advanced all the way to the cecum. Cecum was identified by the usual anatomical landmarks including the ileocecal valve as well as the appendiceal office. Photodocumentation is obtained. The scope was then sequentially pulled back via the various segments of the colon including the ascending colon, hepatic flexure, transverse colon, splenic flexure, descending colon finding to the rectosigmoid portions of the colon. Retroflexion maneuver is performed. The risks benefits and alternatives of the procedure explained to the patient in detail and informed consent is obtained.A GIF Olympus video scope was inserted into the patient's mouth and hypopharynx ,the esophagus is identified intubated and insufflated ,the scope was then advanced through the esophagus stomach and duodenum, retroflexion maneuver is done ,the esophagus stomach and first and second portions of the duodenum examined PREOPERATIVE DIAGNOSIS: Anemia, possible GI bleed POSTOPERATIVE DIAGNOSIS: Inadequate prep in the colon but no visible blood noted. Biopsies obtained, random rule out microscopic colitis. Internal hemorrhoids. Gastritis status post biopsy. No upper GI bleeding noted OPERATION: Colonoscopy with biopsy. EGD with biopsy SURGEON: KIMBERLY DELEON ANESTHESIA: LMAC TISSUE REMOVED OR ALTERED: As noted above. COMPLICATIONS: None. ESTIMATED BLOOD LOSS: None. INTRAOPERATIVE FINDINGS: As noted above. PROCEDURE: Patient tolerated procedure well. No immediate postprocedure complications are noted. Patient is sent back to his room in good condition. Resume regular diet as tolerated. Resume previous activity level. We will wait on biopsies. Follow-up as outpatient.
--- NOTE | 2020-01-17 14:16 | PDOC CONSULTATION ---
Consultation Consult Date: 01/17/20 Provider Consulted: BIA CORRALES Consult reason:: CKD 5 History of Present Illness Admission Date/PCP: 01/16/20 16:11 RAYMOND RICCI MD History of Present Illness: SANTIAGO AL is a 64 year old -[place]enian gentleman known to our nephrology practice with chronic kidney disease stage V associated with near nephrotic range proteinuria secondary to diabetic nephropathy, diabetes mellitus type 2, hypertension, obesity, obstructive sleep apnea not very compliant with his CPAP and a repeat to appropriate and resistant anemia admitted yesterday for severe anemia with hemoglobin of 6.9. History is mostly obtained from records from previous providers was seen the patient since admission and also from nephrology clinic records. I did try to speak to the patient twice this morning but during those times he was just trying to wake up, after removing the CPAP and he was very sleepy and unable to coherently answer questions. The nurse told me that earlier before he fell asleep he was fine and talking appropriately and coherently. The patient initially presented to the emergency room because of low blood sugar of 40. Subsequent evaluation showed that the patient's hemoglobin was low at 6.9. Gastroenterology, Dr. Fierro seen the patient in consultation and patient is scheduled for EGD today. His stool was negative for occult blood though. He was transfused 2 units of packed RBC since admission. Repeat hemoglobin is 8.3. Review of records from our office showed that the patient has been resistant to erythropoietin therapy. Jase Tillman PA-C who is his primary nephrology provider referred him to hematology and has seen Dr. Frank and recommended GI work-up. Patient was previously referred to gastroenterology as an outpatient but has missed his scheduled colonoscopy. His hemoglobin has been running anywhere between 6.0-7.0 for the last 20 weeks. In terms of his chronic kidney disease, his baseline creatinine ranges anywhere between 5.4-6.4. He was seen in our office in January 11 where his BUN was 102 and creatinine of 7.0. Jase Tillman PA-C reduce his torsemide from 20 mg twice a day to once a day. He is also on metolazone 2.5 mg daily. Renal replacement therapy has been discussed but he has not consented to start dialysis. Upon admission the patient had a BUN of 88, creatinine of 6.02. His urinalysis showed protein of 100 with small blood and RBC of 3. His COVID-19 PCR negative. He has not complained of anything including chest pains, shortness of breath, nausea nor vomiting as confirmed by his nurse today. He ate a good dinner last night. His urine output since admission was around 840 mL so far. Past Medical History Cardiac Medical History: Reports: Hyperlipidemia, Hypertension-primary Pulmonary Medical History: Reports: Bronchitis, Chronic Obstructive Pulmonary Disease (COPD), Pneumonia, Respiratory Failure Endocrine Medical History: Reports: Diabetes Mellitus Type 2 - Insulin- dependent, Obesity, Other - Chronic pancreatitis Renal/ Medical History: Reports: Chronic Kidney Disease Stage V, Hyperphosphatemia, Proteinuria, Renal Osteodystropy, Secondary Hyperparathyroidism GI Medical History: Reports: Gastroesophageal Reflux Disease Musculoskeltal Medical History: Reports: Arthritis - GENERALIZED Psychiatric Medical History: Reports: Depression, Substance Abuse Past Surgical History Past Surgical History: Reports: Orthopedic Surgery - left knee, Other - Am putation of 3 toes Social History Information Source: [facility] Records Lives with: Alone Smoking Status: Current Every Day Smoker Electronic Cigarette use?: No Frequency of Alcohol Use: None Hx Recreational Drug Use: No Drugs: None Hx Prescription Drug Abuse: No - Advance Directive Resuscitation Status: Full Code Family History Family History: DM Parental Family History Reviewed: Yes Children Family History Reviewed: Yes Sibling(s) Family History Reviewed.: Yes Medication/Allergy Home Medications: Amlodipine Besylate [Norvasc 10 mg Tablet] 10 mg PO DAILY 01/16/20 Ascorbic Acid [Vitamin C] 500 mg PO DAILY 01/16/20 Aspirin [Aspirin 81 mg Chewable Tablet] 81 mg PO DAILY 01/16/20 Budesonide/Formoterol Fumarate [Symbicort Hfa 80-4.5 Mcg Inhaler 6.9 gm] 2 puff IH BID 01/16/20 Calcitriol 0.5 mcg PO DAILY 01/16/20 Carvedilol [Coreg 12.5 mg Tablet] 12.5 mg PO Q12 01/16/20 Furosemide [Lasix 40 mg Tablet] 40 mg PO BID 01/16/20 Insulin Glargine,Hum.rec.anlog [Lantus Insulin 100 Unit/1 ml 10 ml] 36 unit SQ QAM 01/16/20 Insulin Glargine,Hum.rec.anlog [Lantus Insulin 100 Unit/1 ml 10 ml] 40 unit PO QPM 01/16/20 Linaclotide [Linzess 145 Mcg Capsule] 145 mcg PO Q6AM 01/16/20 Lipase/Protease/Amylase [Jeronimo Cantrell 6,000 Units Capsule] 12,000 unit PO .SNACKS 01/16/20 Lipase/Protease/Amylase [Jeronimo Cantrell 6,000 Units Capsule] 12,000 unit PO Q8 01/16/20 Magnesium Oxide 400 mg PO DAILY 01/16/20 Metolazone [Zaroxolyn 2.5 Mg Tablet] 2.5 mg PO MOTUWETHFR@1000 01/16/20 Pantoprazole Sodium [Protonix [address] Tablet] 40 mg PO BID 01/16/20 Pregabalin [Lyrica 100 Mg Capsule] 100 mg PO Q12 01/16/20 Promethazine HCl [Phenergan 25 mg Tablet] 25 mg PO Q8HP PRN 01/16/20 Sodium Bicarbonate [Sodium Bicarbonate 650 mg Tablet] 1,300 mg PO BID 01/16/20 Sodium Zirconium Cyclosilicate [Lokelma] 10 gm PO MOWEFR@1000 PRN 01/16/20 Tamsulosin HCl [Flomax 0.4 mg Cap.sr] 0.4 mg PO QHS 01/16/20 Timolol Maleate [Timoptic 0.5% Oph Soln 5 ml] 1 drop OS BID 01/16/20 Tiotropium [place] [Spiriva Handihaler 5 Cap/Kit (18 Mcg/Cap)] 1 cap IH DAILY 01/16/20 Tizanidine HCl 4 mg PO HSP PRN 01/16/20 Topiramate 50 mg PO Q12 01/16/20 Torsemide [Demadex 20 mg Tablet] 20 mg PO BID 01/16/20 Allergies/Adverse Reactions: No Known Allergies Allergy (Verified 01/16/20 13:52) Review of Systems All systems: reviewed and no additional remarkable complaints except as stated Review of Systems: Constitutional: ABSENT: chills, fatigue, fever(s), headache(s), weight gain, weight loss Eyes: ABSENT: visual disturbances Ears: ABSENT: hearing changes Cardiovascular: ABSENT: chest pain, dyspnea on exertion, edema, orthropnea, palpitations Respiratory: ABSENT: cough, dyspnea, hemoptysis Gastrointestinal: ABSENT: abdominal pain, constipation, diarrhea, hematemesis, hematochezia, nausea, vomiting Genitourinary: ABSENT: dysuria, hematuria Musculoskeletal: ABSENT: joint swelling Integumentary: ABSENT: rash, wounds Neurological: ABSENT: abnormal gait, abnormal speech, confusion, dizziness, focal weakness, numbness, syncope Psychiatric: ABSENT: anxiety, depression Endocrine: ABSENT: cold intolerance, heat intolerance, polydipsia, polyuria Hematologic/Lymphatic: ABSENT: easy bleeding, easy bruising, lymphadenopathy Physical Exam Vital Signs: Temp Pulse Resp BP Pulse Ox 98.1 F 77 19 165/66 H 98 01/17/20 10:28 01/17/20 10:28 01/17/20 10:28 01/17/20 10:28 01/17/20 10:28 Intake & Output 01/16/20 01/17/20 01/18/20 06:59 06:59 06:59 Intake Total 600 Output Total 840 Balance -240 Weight 104.9 kg Exam: General appearance: No acute distress, lethargic and only responsive when prompted and appears to be trying to wake up coming out of his CPAP twice when he came in the room, well-developed, well-nourished Head exam: PRESENT: atraumatic, normocephalic Eye exam: PRESENT: Conjunctiva pale, EOMI, PERRLA. ABSENT: conjunctival injection, scleral icterus Mouth exam: PRESENT: moist, neck supple, tongue midline Neck exam: PRESENT: full ROM. ABSENT: carotid bruit, JVD, lymphadenopathy, thyromegaly Respiratory exam: PRESENT: clear to auscultation bilaterally. ABSENT: rales, rhonchi, stridor, wheezes Cardiovascular exam: PRESENT: RRR, +S1, +S2. ABSENT: systolic murmur Pulses: PRESENT: normal radial pulses, normal dorsalis pedis pulses GI/Abdominal exam: PRESENT: normal bowel sounds, soft. ABSENT: guarding, mass, tenderness Rectal exam: Deferred Extremities exam: PRESENT: full ROM. ABSENT: calf tenderness, pedal edema Musculoskeletal: PRESENT: full ROM. ABSENT: deformity Neurological exam: PRESENT: Lethargic but arousable, orientation cannot be assessed at this time, reflexes normal, CN II-XII grossly intact. ABSENT: motor sensory deficit Psychiatric exam: PRESENT: cannot be assessed at this time Skin exam: PRESENT: intact, dry, warm. ABSENT: rash Results Laboratory Results: 01/17/20 02:38 01/17/20 02:38 01/16/20 01/16/20 01/16/20 13:40 13:40 13:40 WBC 9.6 RBC 2.93 L Hgb 6.9 L Hct 22.5 L MCV 77 L MCH 23.4 L MCHC 30.6 L RDW 18.6 H Plt Count 272 Seg Neutrophils % 81.1 H Carbonic Acid HCO3/H2CO3 Ratio ABG pH ABG pCO2 ABG pO2 ABG HCO3 ABG O2 Saturation ABG Base Excess FiO2 Sodium 143.9 Potassium 4.8 Chloride 111 H Carbon Dioxide 23 Anion Gap 10 BUN 88 H Creatinine 6.02 H Est GFR ( Amer) 12 L Glucose 116 H Calcium 7.9 L Total Bilirubin 0.3 AST 21 Alkaline Phosphatase 124 Total Protein 7.3 Albumin 3.5 Lipase 929.6 H Urine Color Urine Appearance Urine pH Ur Specific [place] Urine Protein Urine Glucose (UA) Urine Ketones Urine Blood Urine Nitrite Ur Leukocyte Esterase Urine WBC (Auto) Urine RBC (Auto) Blood Type Antibody Screen 01/16/20 01/16/20 01/16/20 14:55 16:35 17:12 WBC RBC Hgb Hct MCV MCH MCHC RDW Plt Count Seg Neutrophils % Carbonic Acid 1.52 H HCO3/H2CO3 Ratio 14:1 ABG pH 7.27 L ABG pCO2 50.4 H ABG pO2 74.5 L ABG HCO3 22.6 ABG O2 Saturation 92.9 L ABG Base Excess -4.2 FiO2 ROOM AIR Sodium Potassium Chloride Carbon Dioxide Anion Gap BUN Creatinine Est GFR ( Amer) Glucose Calcium Total Bilirubin AST Alkaline Phosphatase Total Protein Albumin Lipase Urine Color STRAW Urine Appearance CLEAR Urine pH 6.0 Ur Specific [place] 1.012 Urine Protein 100 H Urine Glucose (UA) 50 H Urine Ketones NEGATIVE Urine Blood SMALL H Urine Nitrite NEGATIVE Ur Leukocyte Esterase TRACE H Urine WBC (Auto) 0 Urine RBC (Auto) 3 Blood Type A POSITIVE Antibody Screen NEGATIVE 01/17/20 01/17/20 02:38 02:38 WBC 8.4 RBC 3.28 L Hgb 8.3 L Hct 25.8 L MCV 79 L MCH 25.3 L MCHC 32.1 RDW 20.2 H Plt Count 245 Seg Neutrophils % 61.4 Carbonic Acid HCO3/H2CO3 Ratio ABG pH ABG pCO2 ABG pO2 ABG HCO3 ABG O2 Saturation ABG Base Excess FiO2 Sodium 141.9 Potassium 4.7 Chloride 109 H Carbon Dioxide 24 Anion Gap 9 BUN 88 H Creatinine 5.48 H Est GFR ( Amer) 13 L Glucose 54 L Calcium 7.8 L Total Bilirubin AST Alkaline Phosphatase Total Protein Albumin Lipase Urine Color Urine Appearance Urine pH Ur Specific [place] Urine Protein Urine Glucose (UA) Urine Ketones Urine Blood Urine Nitrite Ur Leukocyte Esterase Urine WBC (Auto) Urine RBC (Auto) Blood Type Antibody Screen Impressions: Chest X-Ray 01/16/20 00:00 IMPRESSION: Borderline cardiomegaly without pulmonary edema. Assessment & Plan - Diagnosis (1) Chronic kidney disease, stage V Is this a current diagnosis for this admission?: Yes Plan: Associated with near nephrotic range proteinuria secondary to diabetic nephropathy which is slowly progressive approaching end-stage renal disease. Patient is currently nonoliguric, no evidence of volume overload and does not appear to be uremic. Patient is actually at his baseline kidney function at this time and does not need any urgent renal replacement therapy. However the patient is probably getting need to be started with chronic renal replacement therapy very soon which can be done as an outpatient. (2) Proteinuria Is this a current diagnosis for this admission?: Yes Plan: His last urine protein to creatinine ratio on January 03 was 3,282. This is due to diabetic nephropathy. (3) Anemia in chronic kidney disease (CKD) Qualifiers: Chronic kidney disease stage: stage 3 (moderate) Qualified Code(s): N18.3 - Chronic kidney disease, stage 3 (moderate); D63.1 - Anemia in chronic kidney disease Is this a current diagnosis for this admission?: Yes Plan: Patient has erythropoietin resistant anemia. Hemoglobin for the last couple months has been between 6-7. Patient was previously evaluated by hematology and GI work-up was recommended. I agree with doing EGD and hopefully colonoscopy during this admission care of Dr. Fierro, recreation manager. If GI work-up is negative, consider follow-up hematology evaluation. We will continue BOSSMAN therapy while here in the hospital. He also has iron deficiency anemia. Patient received 2 units of packed RBC this admission. (4) Diabetes mellitus type 2 in obese Is this a current diagnosis for this admission?: Yes Plan: Had episode of hypoglycemia upon presentation. Now improved. (5) Hypertension Is this a current diagnosis for this admission?: Yes Plan: Continue home blood pressure medications. (6) Chronic kidney disease-mineral and bone disorder Is this a current diagnosis for this admission?: Yes Plan: On 01/04/2020 had a PTH of 475.3 and phosphorus of 7.7. Start calcium acetate with meals. Continue sodium bicarbonate. (7) Chronic pancreatitis Is this a current diagnosis for this admission?: Yes (8) SONY (obstructive sleep apnea) Is this a current diagnosis for this admission?: Yes - Notes Notes: Thank you very much for this consultation. - Time Time Spent: 50 to 70 Minutes
[2020-01-17] MEDS ORDERED: EPOETIN ALFA-EPBX 40,000 UNIT/ML VIAL (NON-ESRD) SUBCUT SCH (15:00)
[2020-01-17] MEDS: CALCIUM ACETATE 667 MG CAPSULE PO SCH (17:53)
--- NOTE | 2020-01-17 19:49 | PDOC PROGRESS REPORT ---
Subjective Progress Note for:: 01/17/20 Subjective:: No complaints. Denies chest pain and SOB Reason For Visit: SYMPTOMATIC ANEMIA,HYPOGLYCEMIA Physical Exam Vital Signs: Temp Pulse Resp BP Pulse Ox 97.8 F 75 16 175/73 H 95 01/17/20 15:04 01/17/20 16:16 01/17/20 16:16 01/17/20 15:04 01/17/20 16:16 Intake & Output 01/16/20 01/17/20 01/18/20 06:59 06:59 06:59 Intake Total 600 730 Output Total 840 1000 Balance -240 -270 Weight 104.9 kg General appearance: PRESENT: no acute distress, cooperative, obese, well- developed, well-nourished Head exam: PRESENT: atraumatic, normocephalic Eye exam: PRESENT: conjunctiva pink Mouth exam: PRESENT: moist, tongue midline Neck exam: ABSENT: JVD Respiratory exam: PRESENT: clear to auscultation brett, symmetrical, unlabored. ABSENT: accessory muscle use Cardiovascular exam: PRESENT: RRR, +S1, +S2 GI/Abdominal exam: PRESENT: normal bowel sounds, soft. ABSENT: distended, guarding, rebound, rigid, tenderness Rectal exam: PRESENT: deferred Extremities exam: ABSENT: calf tenderness, pedal edema Musculoskeletal exam: PRESENT: full ROM Neurological exam: PRESENT: alert, awake, oriented to person, oriented to place, oriented to time, oriented to situation, CN II-XII grossly intact Psychiatric exam: PRESENT: appropriate affect, normal mood. ABSENT: agitated, anxious Skin exam: PRESENT: dry, warm Results Laboratory Results: 01/17/20 02:38 01/17/20 02:38 01/16/20 01/17/20 01/17/20 14:55 02:38 02:38 WBC 8.4 RBC 3.28 L Hgb 8.3 L Hct 25.8 L MCV 79 L MCH 25.3 L MCHC 32.1 RDW 20.2 H Plt Count 245 Seg Neutrophils % 61.4 Sodium 141.9 Potassium 4.7 Chloride 109 H Carbon Dioxide 24 Anion Gap 9 BUN 88 H Creatinine 5.48 H Est GFR ( Amer) 13 L Glucose 54 L Calcium 7.8 L Blood Type A POSITIVE Antibody Screen NEGATIVE Impressions: Chest X-Ray 01/16/20 00:00 IMPRESSION: Borderline cardiomegaly without pulmonary edema. Assessment and Plan - Diagnosis (1) Acute on chronic anemia Is this a current diagnosis for this admission?: Yes Plan: Patient received a total of 2 units of PRBCs Continue epoetin alpha 40,000 units subcutaneous weekly S/P EGD with biopsy and colonoscopy with biopsy on 01/17/2020 GI input/assistance appreciated There was inadequate colon prep but no visible blood was noted. Internal hemorrhoids were identified. No upper GI hemorrhage noted Monitor blood count (2) Chronic pancreatitis Is this a current diagnosis for this admission?: Yes Plan: Lipase elevated (930) Patient denies abdominal pain Repeat lipase in a.m. GI on case (3) Chronic kidney disease, stage V Is this a current diagnosis for this admission?: Yes Plan: Continue calcium acetate 1335 mg p.o. with meals Continue calcitriol 0.5 mcg p.o. daily Avoid nephrotoxins Monitor (4) COPD (chronic obstructive pulmonary disease) Is this a current diagnosis for this admission?: Yes Plan: COPD stable without exacerbation Continue Incruse Ellipta daily GERD continue duo nebs PRN Wean FiO2 as tolerated (5) Diabetes mellitus type 2 in obese Is this a current diagnosis for this admission?: Yes (6) Hypertension Is this a current diagnosis for this admission?: Yes Plan: Continue amlodipine 10 mg p.o. daily Continue carvedilol 12.5 mg p.o. every 12 hours Continue furosemide 40 mg p.o. daily (7) SONY (obstructive sleep apnea) Is this a current diagnosis for this admission?: Yes Plan: CPAP at at bedtime Recommend formal overnight sleep study to qualify for home device, this will need to be done as an outpatient (8) BPH (benign prostatic hyperplasia) Is this a current diagnosis for this admission?: Yes Plan: Continue tamsulosin 0.4 mg p.o. daily at bedtime (9) Glaucoma Is this a current diagnosis for this admission?: Yes Plan: Continue timolol 0.5% 1 drop OS every 12 hours - Time Time Spent with patient: 25-34 minutes Medications reviewed and adjusted accordingly: Yes Anticipated discharge: Home Within: Other
[2020-01-17] MEDS: TAMSULOSIN HCL 0.4 MG CAP.SR.24H PO SCH (21:53)
[2020-01-18] MEDS: DEXTROSE 5%-NORMAL SALINE 1,000 ML IV PRN (03:02)
[2020-01-18 05:20] LABS: ABSOLUTE BASOPHILS # (AUTO) 0.1 10^3/uL (0.0-0.2); ABSOLUTE EOSINOPHILS # (AUTO) 0.2 10^3/uL (0.0-0.6); ABSOLUTE MONOCYTES (AUTO) 1.1 10^3/uL (0.1-1.4); ABSOLUTE NEUT (AUTO) 5.9 10^3/uL (1.7-8.2); ABSOLUTE RETICS # 0.049 10^6/uL (0.028-0.122); BASOPHILS % (AUTO) 0.6 % (0-2); EOSINOPHILS % (AUTO) 1.9 % (0-6); HEMATOCRIT 23.9 % (37.9-51.0); LYMPHOCYTES % (AUTO) 22.2 % (13-45); MEAN CORPUSCULAR HGB CONC 31.3 g/dL (32.0-36.0); MEAN CORPUSCULAR VOLUME 80 fl (80-97); MONOCYTES % (AUTO) 11.5 % (3-13); PLATELET COUNT 241 10^3/uL (150-450); RED BLOOD COUNT 2.99 10^6/uL (4.35-5.55); RED CELL DISTRIBUTION WIDTH 20.5 % (11.5-14.0); RETICULOCYTE COUNT (AUTO) 1.65 % (0.66-2.85); SEGMENTED NEUTROPHILS % (AUTO) 63.8 % (42-78); TOTAL CELLS COUNTED % (AUTO) 100 %; WHITE BLOOD COUNT 9.2 10^3/uL (4.0-10.5)
[2020-01-18 05:26] LABS: ANION GAP 8 (5-19); BLOOD UREA NITROGEN 79 mg/dL (7-20); CALCIUM 7.6 mg/dL (8.4-10.2); CARBON DIOXIDE 23 mmol/L (22-30); CHLORIDE 110 mmol/L (98-107); GLUCOSE 124 mg/dL (75-110); IRON(TIBC) 13.3 ug/dL (49-181); POTASSIUM 4.9 mmol/L (3.6-5.0)
[2020-01-18 05:40] LABS: HEMOGLOBIN 7.5 g/dL (13.5-17.0)
[2020-01-18] MEDS: HEPARIN SOD (PORCINE) 5,000 UNIT/ML 1 ML VIAL SUBCUT SCH ×3 (06:17→22:22)
[2020-01-18] MEDS: TOPIRAMATE 25 MG TABLET PO SCH ×2 (06:17→17:11)
[2020-01-18] MEDS: INSULIN LISPRO 100 UNIT/ML 3 ML VIAL SUBCUT SCH ×4 (08:07→22:21)
[2020-01-18] MEDS: CALCIUM ACETATE 667 MG CAPSULE PO SCH ×3 (08:09→17:12)
[2020-01-18] MEDS: ACETAMINOPHEN 325 MG TABLET PO PRN ×2 (08:09→17:13)
[2020-01-18] MEDS: UMECLIDINIUM BROMIDE 62.5 MCG/DOSE IH SCH (10:09)
[2020-01-18] MEDS: FLUTICASONE/VILANTEROL 100-25 MCG/DOSE IH SCH (10:10)
[2020-01-18] MEDS: TIMOLOL MALEATE 0.5% OPH SOLN 5 ML OS SCH ×2 (10:11→22:23)
[2020-01-18] MEDS: CALCITRIOL 0.25 MCG CAPSULE PO SCH (10:12)
[2020-01-18] MEDS: CARVEDILOL 12.5 MG TABLET PO SCH ×2 (10:12→22:22)
[2020-01-18] MEDS: AMLODIPINE BESYLATE 10 MG TABLET PO SCH (10:12)
[2020-01-18] MEDS: PANTOPRAZOLE SODIUM 40 MG VIAL IV SCH ×2 (10:12→22:20)
[2020-01-18] MEDS: SODIUM BICARBONATE 650 MG TABLET PO SCH ×2 (10:12→17:11)
[2020-01-18] MEDS: FUROSEMIDE 40 MG TABLET PO SCH ×2 (10:13→17:11)
[2020-01-18] MEDS ORDERED: FERRIC CARBOXYMALTOSE 750 MG in NORMAL SALINE 100 ML IV ONE (10:30)
[2020-01-18] MEDS ORDERED: TUBERCULIN,PURIF.PROT.DERIV. 5 TU/0.1 ML TEST 1 ML VIAL ID ONE (13:00)
--- NOTE | 2020-01-18 13:31 | PDOC PROGRESS REPORT ---
Subjective Progress Note for:: 01/18/20 Subjective:: Patient is a little bit more awake while on nasal cannula today but still confused. It takes him a while to answer questions and when he answer 1 question he keeps repeating his answer to different other questions. At some point he seems to be not making so much sense. I called his daughter, Karuna Catherine at [phone] who told me that she moved down here 3 weeks ago to take care of his father. She states that she has been noticing this mental status changes including confusing and disorientation and is even thinking that he might have dementia. I then talked to ROBERT Sepulveda who is his regular provider in our nephrology office for a while. He did c onfirm that the patient is usually coherent and appropriate as he saw him last week. Jase is kind enough to come by and actually see the patient and assessed him and confirmed that he is confused and his mental status has deteriorated from last week. As the daughter said it has been going on for a while and at least she witnessed this mental status changes for the last 3 to 4 weeks. So we went ahead and talked with the patient regarding initiating renal replacement therapy since his symptoms are consistent with uremia. He is initially somewhat vague about his desire to initiate dialysis but finally agreed to doing it. I then called his daughter Karuna back and told him a recommendation to initiate renal replacement therapy in the form of hemodialysis while here in the hospital. She understood and is agreeable to have it done. I also encourage Karuna to talk to her dad to further convince him that this is the right thing to do and would be very much beneficial to him in the long run. Patient underwent EGD and colonoscopy yesterday and findings include internal hemorrhoids but no evidence of active bleeding. Biopsies were obtained by Dr. Fierro. It was uneventful. Reason For Visit: SYMPTOMATIC ANEMIA,HYPOGLYCEMIA Physical Exam Vital Signs: Temp Pulse Resp BP Pulse Ox 98.1 F 82 15 160/71 H 94 01/18/20 07:25 01/18/20 11:10 01/18/20 11:10 01/18/20 07:25 01/18/20 11:10 Intake & Output 01/17/20 01/18/20 01/19/20 06:59 06:59 06:59 Intake Total 600 1730 Output Total 840 1000 Balance -240 730 Weight 104.9 kg 104.9 kg Exam: General appearance: PRESENT: no acute distress, cooperative, well-developed, well-nourished Head exam: PRESENT: atraumatic, normocephalic Eye exam: PRESENT: conjunctiva pale, PERRLA. ABSENT: scleral icterus Neck exam: ABSENT: JVD Respiratory exam: PRESENT: Diminished breath sounds. ABSENT: crackles, rales, rhonchi, unlabored, wheezes Cardiovascular exam: PRESENT: Regular rate rhythm -+S1, +S2. ABSENT: diastolic murmur, systolic murmur, pericardial rub GI/Abdominal exam: PRESENT: normal bowel sounds, soft. ABSENT: guarding, mass, tenderness Extremities exam: ABSENT: No edema Neurological exam: PRESENT: alert, awake, oriented to person as he knows his name, place as he knows he is in [place] [facility] but could not tell me that we are he is in the hospital and he could not tell us the accurate time. No asterixis. Skin exam: PRESENT: dry, warm, Results Laboratory Results: 01/18/20 03:57 01/18/20 03:57 01/18/20 01/18/20 03:57 03:57 WBC 9.2 RBC 2.99 L Hgb 7.5 L Hct 23.9 L MCV 80 MCH 25.0 L MCHC 31.3 L RDW 20.5 H Plt Count 241 Seg Neutrophils % 63.8 Retic Count (auto) 1.65 Sodium 140.7 Potassium 4.9 Chloride 110 H Carbon Dioxide 23 Anion Gap 8 BUN 79 H Creatinine 5.78 H Est GFR ( Amer) 12 L Glucose 124 H Calcium 7.6 L Phosphorus 7.0 H Magnesium 1.8 Iron 13.3 L TIBC 316 % Saturation 4 Ferritin 25.50 Lipase 668.6 H Vitamin B12 430.0 Folate 10.30 Impressions: Chest X-Ray 01/16/20 00:00 IMPRESSION: Borderline cardiomegaly without pulmonary edema. Assessment & Plan - Diagnosis (1) Uremic encephalopathy Is this a current diagnosis for this admission?: Yes Plan: As above the patient is having mental status changes for the last 3 to 4 weeks and has obviously deteriorated this week. I think this could be very much due to uremia so I am recommending initiating renal replacement therapy in the form of hemodialysis for which the patient and his daughter agreed to do. (2) Chronic kidney disease, stage V Is this a current diagnosis for this admission?: Yes Plan: Secondary to diabetic nephropathy with nonnephrotic range proteinuria who is now uremic with encephalopathy. As agreed upon above, I am consulting her surgeon to put PermCath for initiation of chronic dialysis treatment moving forward. We will prepare him to be admitted in a chronic dialysis facility at [facility]. Will consult case management to arrange this. I will plan to do his first dialysis treatment tomorrow after PermCath placement. (3) Proteinuria Is this a current diagnosis for this admission?: Yes Plan: Near nephrotic range secondary to diabetic nephropathy. (4) Anemia in chronic kidney disease (CKD) Qualifiers: Chronic kidney disease stage: stage 3 (moderate) Qualified Code(s): N18.3 - Chronic kidney disease, stage 3 (moderate); D63.1 - Anemia in chronic kidney disease Is this a current diagnosis for this admission?: Yes Plan: GI work-up did not really reveal any active bleeding. We will continue Retacrit during dialysis treatment. 1 dose was given yesterday. Patient is also severely iron deficient with T sat of 4 and ferritin of 25.5 and iron of 13.3 so I gave him his first IV Injectafer dose today. (5) Diabetes mellitus type 2 in obese Is this a current diagnosis for this admission?: Yes Plan: Labile. (6) Hypertension Is this a current diagnosis for this admission?: Yes Plan: Suboptimally controlled. Will adjust accordingly after starting on dialysis treatment. (7) Chronic kidney disease-mineral and bone disorder Is this a current diagnosis for this admission?: Yes Plan: Patient with elevated phosphorus and PTH. He is on calcitriol and calcium acetate. (8) Chronic pancreatitis Is this a current diagnosis for this admission?: Yes Plan: Lipase level is trending down. (9) SONY (obstructive sleep apnea) Is this a current diagnosis for this admission?: Yes Plan: Continue CPAP. - Notes Notes: Plan discussed with the patient and his daughter as above. Also informed his treating nurse today. - Time Time with patient: Greater than 35 minutes
--- NOTE | 2020-01-18 17:26 | RADIOLOGY REPORT (SQ) ---
EXAM DESCRIPTION: CT HEAD WITHOUT IMAGES COMPLETED DATE/TIME: 01/18/2020 4:45 pm REASON FOR STUDY: AMS COMPARISON: 05/24/2016 TECHNIQUE: Axial images acquired through the brain without intravenous contrast. Images reviewed wi th bone, brain and subdural windows. Additional sagittal and coronal reconstructions were generated. Images stored on PACS. All CT scanners at this facility use dose modulation, iterative reconstruction, and/or weight based d osing when appropriate to reduce radiation dose to as low as reasonably achievable (ALARA). [facility]: Dose Right [facility]: CareDose [facility]: Dose Right [facility]: Teradose 4D [facility]: Smart Technologies RADIATION DOSE: CT Rad equipment meets quality standard of care and radiation dose reduction techniq ues were employed. CTDIvol: 53.2 mGy. DLP: 1070 mGy-cm. mGy. LIMITATIONS: None. FINDINGS: VENTRICLES: Normal size and contour. CEREBRUM: No masses. No hemorrhage. No midline shift. No evidence for acute infarction. Normal gra y/white matter differentiation. No areas of low density in the white matter. CEREBELLUM: No masses. No hemorrhage. No alteration of density. No evidence for acute infarction. EXTRAAXIAL SPACES: No fluid collections. No masses. ORBITS AND GLOBE: No intra- or extraconal masses. Normal contour of globe without masses. CALVARIUM: No fracture. PARANASAL SINUSES: No fluid or mucosal thickening. SOFT TISSUES: No mass or hematoma. OTHER: No other significant finding. IMPRESSION: NORMAL BRAIN CT WITHOUT CONTRAST. EVIDENCE OF ACUTE STROKE: NO. COMMENT: Quality ID # [id number]: Final reports with documentation of one or more dose reduction techniques (e.g., Automated exposure control, adjustment of the mA and/or kV according to patient size, use of iterative reconstruction technique) TECHNICAL DOCUMENTATION: JOB ID: [id number] 2010 [employer]- All Rights Reserved Reading location - IP/workstation name: [email or web address]
--- NOTE | 2020-01-18 18:21 | PDOC PROGRESS REPORT ---
Subjective Progress Note for:: 01/18/20 Subjective:: Patient denies discomfort. When asked if he would consider dialysis patient states no then spelled out the word no Reason For Visit: SYMPTOMATIC ANEMIA,HYPOGLYCEMIA Physical Exam Vital Signs: Temp Pulse Resp BP Pulse Ox 98.8 F 80 16 155/71 H 95 01/18/20 15:23 01/18/20 16:55 01/18/20 16:55 01/18/20 15:23 01/18/20 16:55 Intake & Output 01/17/20 01/18/20 01/19/20 06:59 06:59 06:59 Intake Total 600 1730 600 Output Total 840 1000 775 Balance -240 730 -175 Weight 104.9 kg 104.9 kg General appearance: PRESENT: no acute distress, obese. ABSENT: cooperative Head exam: PRESENT: atraumatic, normocephalic Eye exam: PRESENT: conjunctiva pink Mouth exam: PRESENT: moist, tongue midline Neck exam: ABSENT: JVD Respiratory exam: PRESENT: clear to auscultation brett, symmetrical, unlabored. ABSENT: accessory muscle use, retraction Cardiovascular exam: PRESENT: RRR, +S1, +S2 Pulses: PRESENT: normal carotid pulses Vascular exam: PRESENT: normal capillary refill GI/Abdominal exam: PRESENT: normal bowel sounds, soft. ABSENT: distended, tenderness Rectal exam: PRESENT: deferred Extremities exam: ABSENT: calf tenderness, clubbing, pedal edema Neurological exam: PRESENT: awake, other - Patient more awake today. He does answer questions and his answers seem appropriate. Psychiatric exam: ABSENT: agitated, anxious Skin exam: PRESENT: dry, normal color, warm Results Laboratory Results: 01/18/20 03:57 01/18/20 03:57 01/18/20 01/18/20 03:57 03:57 WBC 9.2 RBC 2.99 L Hgb 7.5 L Hct 23.9 L MCV 80 MCH 25.0 L MCHC 31.3 L RDW 20.5 H Plt Count 241 Seg Neutrophils % 63.8 Retic Count (auto) 1.65 Sodium 140.7 Potassium 4.9 Chloride 110 H Carbon Dioxide 23 Anion Gap 8 BUN 79 H Creatinine 5.78 H Est GFR ( Amer) 12 L Glucose 124 H Calcium 7.6 L Phosphorus 7.0 H Magnesium 1.8 Iron 13.3 L TIBC 316 % Saturation 4 Ferritin 25.50 Lipase 668.6 H Vitamin B12 430.0 Folate 10.30 Impressions: Chest X-Ray 01/16/20 00:00 IMPRESSION: Borderline cardiomegaly without pulmonary edema. Head CT 01/18/20 00:00 IMPRESSION: NORMAL BRAIN CT WITHOUT CONTRAST. EVIDENCE OF ACUTE STROKE: NO. Assessment and Plan - Diagnosis (1) Acute on chronic anemia Is this a current diagnosis for this admission?: Yes Plan: Patient received a total of 2 units of PRBCs Epoetin alpha changed per nephrology to 30,000 units IV with HD S/P EGD with biopsy and colonoscopy with biopsy on 01/17/2020 GI input/assistance appreciated There was inadequate colon prep but no visible blood was noted. Internal hemorrhoids were identified. No upper GI hemorrhage noted Monitor blood count (2) Chronic pancreatitis Is this a current diagnosis for this admission?: Yes Plan: Lipase trending down Patient denies abdominal pain GI on case (3) Chronic kidney disease, stage V Is this a current diagnosis for this admission?: Yes Plan: Nephrology note reviewed, it is felt that patient is in need of dialysis - patient is not in favor of dialysis daughter is at bedside and will discuss with patient Continue calcium acetate 1335 mg p.o. with meals Continue calcitriol 0.5 mcg p.o. daily Continue sodium bicarb 150 mg p.o. twice daily Continue furosemide 40 mg p.o. twice daily Continue to avoid nephrotoxins Monitor (4) COPD (chronic obstructive pulmonary disease) Is this a current diagnosis for this admission?: Yes Plan: COPD stable without exacerbation Continue Incruse Ellipta daily Continue duo nebs PRN Wean FiO2 as tolerated (5) Diabetes mellitus type 2 in obese Is this a current diagnosis for this admission?: Yes Plan: Restart partial dose of basal insulin (glargine 5 units sc at hs), titrate prn Continue FSBS with SSI correction scale (6) Hypertension Is this a current diagnosis for this admission?: Yes Plan: Continue amlodipine 10 mg p.o. daily Continue carvedilol 12.5 mg p.o. every 12 hours Continue furosemide 40 mg p.o. daily (7) SONY (obstructive sleep apnea) Is this a current diagnosis for this admission?: Yes Plan: CPAP at at bedtime Recommend formal overnight sleep study to qualify for home device, this will need to be done as an outpatient (8) BPH (benign prostatic hyperplasia) Is this a current diagnosis for this admission?: Yes Plan: Continue tamsulosin 0.4 mg p.o. daily at bedtime (9) Glaucoma Is this a current diagnosis for this admission?: Yes Plan: Continue timolol 0.5% 1 drop OS every 12 hours - Time Time Spent with patient: 25-34 minutes Medications reviewed and adjusted accordingly: Yes Anticipated discharge: Home Within: Other
[2020-01-18] MEDS ORDERED: INSULIN GLARGINE,HUM.REC.ANLOG 1,000 UNIT/10 ML VIAL SUBCUT SCH (22:00)
[2020-01-18] MEDS: INSULIN GLARGINE,HUM.REC.ANLOG 1,000 UNIT/10 ML VIAL SUBCUT SCH (22:21)
[2020-01-18] MEDS: TAMSULOSIN HCL 0.4 MG CAP.SR.24H PO SCH (22:22)
[2020-01-19] MEDS ORDERED: HEPARIN SOD (PORCINE) 1,000 UNIT/ML 10 ML VIAL IV PRN (05:00)
[2020-01-19] MEDS ORDERED: NORMAL SALINE 1000 ML 1,000 ML IV PRN (05:00)
[2020-01-19] MEDS ORDERED: EPOETIN ALFA-EPBX 30,000 UNIT in SYRINGE, DISPOSABLE, 1 EACH IV PRN (05:00)
[2020-01-19 05:34] LABS: ABSOLUTE EOSINOPHILS # (AUTO) 0.2 10^3/uL (0.0-0.6); ABSOLUTE LYMPHOCYTES (AUTO) 1.8 10^3/uL (0.5-4.7); ABSOLUTE MONOCYTES (AUTO) 1.3 10^3/uL (0.1-1.4); ABSOLUTE NEUT (AUTO) 6.5 10^3/uL (1.7-8.2); BASOPHILS % (AUTO) 0.4 % (0-2); EOSINOPHILS % (AUTO) 1.7 % (0-6); HEMATOCRIT 24.3 % (37.9-51.0); LYMPHOCYTES % (AUTO) 18.5 % (13-45); MEAN CORPUSCULAR HEMOGLOBIN 25.6 pg (27.0-33.4); MEAN CORPUSCULAR HGB CONC 32.3 g/dL (32.0-36.0); MEAN CORPUSCULAR VOLUME 79 fl (80-97); MONOCYTES % (AUTO) 13.1 % (3-13); PLATELET COUNT 236 10^3/uL (150-450); RED BLOOD COUNT 3.07 10^6/uL (4.35-5.55); SEGMENTED NEUTROPHILS % (AUTO) 66.3 % (42-78); TOTAL CELLS COUNTED % (AUTO) 100 %; WHITE BLOOD COUNT 9.8 10^3/uL (4.0-10.5)
[2020-01-19 05:39] LABS: HEMOGLOBIN 7.9 g/dL (13.5-17.0)
[2020-01-19 05:49] LABS: ANION GAP 8 (5-19); BLOOD UREA NITROGEN 72 mg/dL (7-20); CALCIUM 8.3 mg/dL (8.4-10.2); CARBON DIOXIDE 22 mmol/L (22-30); CHLORIDE 111 mmol/L (98-107); GLUCOSE 166 mg/dL (75-110); POTASSIUM 4.2 mmol/L (3.6-5.0)
[2020-01-19] MEDS: TOPIRAMATE 25 MG TABLET PO SCH ×2 (06:16→17:43)
[2020-01-19] MEDS: HEPARIN SOD (PORCINE) 5,000 UNIT/ML 1 ML VIAL SUBCUT SCH ×3 (06:16→21:22)
--- NOTE | 2020-01-19 06:40 | PDOC CONSULTATION ---
Consultation Consult Date: 01/19/20 Provider Consulted: SURGICAL SURGICALIST Consult reason:: Renal failure, need for permacath History of Present Illness Admission Date/PCP: 01/16/20 16:11 RAYMOND RICCI MD Patient complains of: Confusion, mental status changes. History of Present Illness: SANTIAGO AL is a 64 year old male seen in consultation at the request of Dr. Frank. This is a patient with a long history of renal dysfunction. Recently, it has been worsening. He has been becoming more uremic. Recently he has had mental status changes and acute confusion, thought to be related to his uremia. A consult was made for permacath insertion, so that dialysis may start. At present, the patient is somewhat confused, and a reliable review of systems is unable to be obtained. Medical history is obtained from the chart and from the medical record. Past Medical History Cardiac Medical History: Reports: Hyperlipidema, Hypertension Denies: Coronary Artery Disease, Myocardial Infarction Pulmonary Medical History: Reports: Bronchitis, Chronic Obstructive Pulmonary Disease (COPD), Pneumonia, Respiratory Failure Denies: Asthma EENT Medical History: Reports: None Neurological Medical History: Denies: Ischemic CVA, Seizures Endocrine Medical History: Reports: Diabetes Mellitus Type 1, Diabetes Mellitus Type 2 - Insulin-dependent, Obesity, Other - Chronic pancreatitis Renal/ Medical History: Reports: Chronic Kidney Disease Malignancy Medical History: Reports: None GI Medical History: Reports: Gastroesophageal Reflux Disease Musculoskeltal Medical History: Reports: Arthritis - GENERALIZED Psychiatric Medical History: Reports: Depression, Substance Abuse Hematology: Reports: Anemia Past Surgical History Past Surgical History: Reports: Orthopedic Surgery - left knee, Other - Amputation of 3 toes Social History Lives with: Alone Smoking Status: Current Every Day Smoker Electronic Cigarette use?: No Frequency of Alcohol Use: None Hx Recreational Drug Use: No Drugs: None Hx Prescription Drug Abuse: No - Advance Directive Resuscitation Status: Full Code Family History Family History: DM Parental Family History Reviewed: Yes Children Family History Reviewed: Yes Sibling(s) Family History Reviewed.: Yes Medication/Allergy Home Medications: Amlodipine Besylate [Norvasc 10 mg Tablet] 10 mg PO DAILY 01/16/20 Ascorbic Acid [Vitamin C] 500 mg PO DAILY 01/16/20 Aspirin [Aspirin 81 mg Chewable Tablet] 81 mg PO DAILY 01/16/20 Budesonide/Formoterol Fumarate [Symbicort Hfa 80-4.5 Mcg Inhaler 6.9 gm] 2 puff IH BID 01/16/20 Calcitriol 0.5 mcg PO DAILY 01/16/20 Carvedilol [Coreg 12.5 mg Tablet] 12.5 mg PO Q12 01/16/20 Furosemide [Lasix 40 mg Tablet] 40 mg PO BID 01/16/20 Insulin Glargine,Hum.rec.anlog [Lantus Insulin 100 Unit/1 ml 10 ml] 36 unit SQ QAM 01/16/20 Insulin Glargine,Hum.rec.anlog [Lantus Insulin 100 Unit/1 ml 10 ml] 40 unit PO QPM 01/16/20 Linaclotide [Linzess 145 Mcg Capsule] 145 mcg PO Q6AM 01/16/20 Lipase/Protease/Amylase [Jeronimo Cantrell 6,000 Units Capsule] 12,000 unit PO .SNACKS 01/16/20 Lipase/Protease/Amylase [Jeronimo Cantrell 6,000 Units Capsule] 12,000 unit PO Q8 01/16/20 Magnesium Oxide 400 mg PO DAILY 01/16/20 Metolazone [Zaroxolyn 2.5 Mg Tablet] 2.5 mg PO MOTUWETHFR@1000 01/16/20 Pantoprazole Sodium [Protonix [address] Tablet] 40 mg PO BID 01/16/20 Pregabalin [Lyrica 100 Mg Capsule] 100 mg PO Q12 01/16/20 Promethazine HCl [Phenergan 25 mg Tablet] 25 mg PO Q8HP PRN 01/16/20 Sodium Bicarbonate [Sodium Bicarbonate 650 mg Tablet] 1,300 mg PO BID 01/16/20 Sodium Zirconium Cyclosilicate [Lokelma] 10 gm PO MOWEFR@1000 PRN 01/16/20 Tamsulosin HCl [Flomax 0.4 mg Cap.sr] 0.4 mg PO QHS 01/16/20 Timolol Maleate [Timoptic 0.5% Oph Soln 5 ml] 1 drop OS BID 01/16/20 Tiotropium Willow [Spiriva Handihaler 5 Cap/Kit (18 Mcg/Cap)] 1 cap IH DAILY 01/16/20 Tizanidine HCl 4 mg PO HSP PRN 01/16/20 Topiramate 50 mg PO Q12 01/16/20 Torsemide [Demadex 20 mg Tablet] 20 mg PO BID 01/16/20 Allergies/Adverse Reactions: No Known Allergies Allergy (Verified 01/16/20 13:52) Review of Systems ROS unobtainable: Due to mental status Physical Exam Vital Signs: Temp Pulse Resp BP Pulse Ox 98.5 F 77 20 166/72 H 99 01/19/20 00:00 01/19/20 00:00 01/19/20 00:00 01/19/20 00:00 01/19/20 00:00 Intake & Output 01/17/20 01/18/20 01/19/20 06:59 06:59 06:59 Intake Total 600 1730 1600 Output Total 840 1000 775 Balance -240 730 825 Weight 104.9 kg 104.9 kg General appearance: PRESENT: no acute distress Head exam: PRESENT: atraumatic, normocephalic Eye exam: PRESENT: EOMI, PERRLA. ABSENT: scleral icterus Mouth exam: PRESENT: moist, neck supple Neck exam: ABSENT: meningismus, tenderness, thyromegaly, tracheal deviation Respiratory exam: PRESENT: unlabored. ABSENT: tachypnea, wheezes Cardiovascular exam: ABSENT: tachycardia GI/Abdominal exam: PRESENT: soft. ABSENT: distended, tenderness Rectal exam: PRESENT: deferred Neurological exam: PRESENT: awake, CN II-XII grossly intact. ABSENT: oriented to place, oriented to time, oriented to situation Psychiatric exam: PRESENT: anxious Focused psych exam: PRESENT: other Skin exam: ABSENT: erythema, jaundice Results Laboratory Results: 01/18/20 03:57 01/18/20 03:57 01/18/20 01/18/20 03:57 03:57 WBC 9.2 RBC 2.99 L Hgb 7.5 L Hct 23.9 L MCV 80 MCH 25.0 L MCHC 31.3 L RDW 20.5 H Plt Count 241 Seg Neutrophils % 63.8 Retic Count (auto) 1.65 Sodium 140.7 Potassium 4.9 Chloride 110 H Carbon Dioxide 23 Anion Gap 8 BUN 79 H Creatinine 5.78 H Est GFR ( Amer) 12 L Glucose 124 H Calcium 7.6 L Phosphorus 7.0 H Magnesium 1.8 Iron 13.3 L TIBC 316 % Saturation 4 Ferritin 25.50 Lipase 668.6 H Vitamin B12 430.0 Folate 10.30 Impressions: Chest X-Ray 01/16/20 00:00 IMPRESSION: Borderline cardiomegaly without pulmonary edema. Head CT 01/18/20 00:00 IMPRESSION: NORMAL BRAIN CT WITHOUT CONTRAST. EVIDENCE OF ACUTE STROKE: NO. Assessment & Plan - Diagnosis (1) Chronic kidney disease, stage V Is this a current diagnosis for this admission?: Yes - Plan Summary Plan Summary: This is a 64-year-old male in need of a permacath. Plan for permacath insertion today. I attempted to reach the daughter, however I was unable to speak with her yesterday. We will plan to discuss risks and benefits today. Surgery is planned for approximately 9:00 this morning.
[2020-01-19] MEDS ORDERED: MIDAZOLAM 2 MG/2 ML INJ ONE (07:02)
[2020-01-19] MEDS ORDERED: FENTANYL CITRATE INJ/PF 100 MCG/2 ML AMPUL ONE ×2 (07:02→09:53)
[2020-01-19] MEDS ORDERED: PROPOFOL INJ 200 MG/20 ML VIAL IV ONE (07:02)
[2020-01-19] MEDS: CALCIUM ACETATE 667 MG CAPSULE PO SCH ×3 (08:17→17:44)
[2020-01-19] MEDS: INSULIN LISPRO 100 UNIT/ML 3 ML VIAL SUBCUT SCH ×4 (08:20→21:39)
[2020-01-19] MEDS: DEXTROSE 5%-NORMAL SALINE 1,000 ML IV PRN (08:21)
[2020-01-19] MEDS ORDERED: LIDOCAINE 1%/EPINEPHRINE INJ 20 ML VIAL ONE (08:51)
[2020-01-19] MEDS ORDERED: FENTANYL CITRATE INJ/PF 100 MCG/2 ML AMPUL IV PRN ×3 (09:23)
[2020-01-19] MEDS ORDERED: CEFAZOLIN INJ 1 GM VIAL ONE (09:27)
[2020-01-19] MEDS ORDERED: HEPARIN SOD (PORCINE) 5,000 UNIT/ML 1 ML VIAL ONE (09:45)
--- NOTE | 2020-01-19 09:46 | Operative Report ---
Operative Report DATE OF SURGERY: 01/19/20 PREOPERATIVE DIAGNOSIS: End-stage renal failure POSTOPERATIVE DIAGNOSIS: Same OPERATION: 1. Placement of dual-lumen 28 m cuff to tip permanent dialysis catheter. 2. Ultrasound-guided insertion. 3. Interpretation of intraoper ative fluoroscopy SURGEON: AUSTIN RODRIGUES ANESTHESIA: LMAC TISSUE REMOVED OR ALTERED: None COMPLICATIONS: None ESTIMATED BLOOD LOSS: Scant INTRAOPERATIVE FINDINGS: See below PROCEDURE: The patient was taken to the preop holding area to the main operating room where LMAC anesthesia was induced. Arms tucked, neck and chest wall prepped and draped with chlorhexidine. Surgical plan surgical timeout were conducted. Using ultrasound real-time as a guide, the skin was anesthetized over the right internal jugular vein, and a micro needle and wire were threaded into the right internal jugular vein without difficulty. A suitable site for exit of the catheter was chosen in the right subclavian position. Skin and tract anesthetized with 1% plain lidocaine. A juli was made in the skin with a 15 blade, and a dual lumen, 28 cm cuff to tip split type dialysis catheter was threaded between the 2 incisions. The catheter was brought up through the neck incision. Under fluoroscopic guidance, the microwire was switched to a conventional 0.030 inch guidewire using the micro-introducer. We then sequentially dilated up the tract with a small medium and large dilators. The final dilator, and strip away sheath were threaded over the wire uneventfully. The dilator and wire removed, and catheter free and threaded through the strip away sheath. The strip away sheath was removed leaving the catheter with the tip in the superior vena cava right atrial junction. There was no kinking of the catheter by fluoroscopy of the neck. The catheter was aspirated and flushed uneventfully. The catheter was secured at 3 sites with 2-0 Prolene suture. The initial stick incision was closed with 3-0 Vicryl. Wounds covered with Steri-Strips, Biopatch applied to the exit site, and arm applied over the entire right subclavian exit site. Patient tolerated procedure well, taken recovery in stable condition. Catheter will be loaded with concentrated heparin.
--- NOTE | 2020-01-19 10:21 | RADIOLOGY REPORT (SQ) ---
EXAM DESCRIPTION: FLUORO/CV PLACEMENT IMAGES COMPLETED DATE/TIME: 01/19/2020 10:01 am REASON FOR STUDY: PERMCATH RIGHT SIDE ASSISTED WITH FLUOROSCOPY IN OR COMPARISON: None. FLUOROSCOPY TIME: 0.1 minute. 2 images saved to PACS. TECHNIQUE: Intra-operative images acquired during surgical procedure to evaluate progress. NUMBER OF IMAGES: 2 images. LIMITATIONS: None. FINDINGS: Images of the upper chest acquired during port placement. IMPRESSION: IMAGE(S) OBTAINED DURING PROCEDURE. COMMENT: Quality ID [id number]: Final reports for procedures using fluoroscopy that document radiation exp osure indices, or exposure time and number of fluorographic images (if radiation exposure indices are not available) Please consult full operative report of the attending physician for description of the procedure. TECHNICAL DOCUMENTATION: JOB ID: [id number] 2010 [employer]- All Rights Reserved Reading location - IP/workstation name: [email or web address]
[2020-01-19] MEDS: UMECLIDINIUM BROMIDE 62.5 MCG/DOSE IH SCH (10:52)
[2020-01-19] MEDS: PANTOPRAZOLE SODIUM 40 MG VIAL IV SCH ×2 (10:52→21:22)
[2020-01-19] MEDS: CARVEDILOL 12.5 MG TABLET PO SCH ×2 (10:52→21:21)
[2020-01-19] MEDS: CALCITRIOL 0.25 MCG CAPSULE PO SCH (10:52)
[2020-01-19] MEDS: FUROSEMIDE 40 MG TABLET PO SCH ×2 (10:52→17:43)
[2020-01-19] MEDS: AMLODIPINE BESYLATE 10 MG TABLET PO SCH (10:52)
[2020-01-19] MEDS: TIMOLOL MALEATE 0.5% OPH SOLN 5 ML OS SCH ×2 (10:52→21:22)
[2020-01-19] MEDS: SODIUM BICARBONATE 650 MG TABLET PO SCH ×2 (10:52→17:43)
[2020-01-19] MEDS: FLUTICASONE/VILANTEROL 100-25 MCG/DOSE IH SCH (10:53)
[2020-01-19] MEDS: ACETAMINOPHEN 325 MG TABLET PO PRN (14:45)
--- NOTE | 2020-01-19 16:22 | PDOC PROGRESS REPORT ---
Subjective Progress Note for:: 01/19/20 Subjective:: I am seeing the patient during his first dialysis treatment this afternoon. Patient went for uneventful PermCath placement this morning. He said he has a little bit of pain over there but he does not really have any complaints. He is mostly sleeping during dialysis although arousable. I informed him that is going to be on dialysis 3 times a week moving forward which he seemed to be surprised about. I reiterated to him the conversation he had with KEENA Sepulveda and myself yesterday regarding chronic dialysis treatment moving forward. So far he is tolerating dialysis without much issues. Reason For Visit: SYMPTOMATIC ANEMIA,HYPOGLYCEMIA Physical Exam Vital Signs: Temp Pulse Resp BP Pulse Ox 98.5 F 75 18 166/85 H 99 01/19/20 11:01 01/19/20 11:01 01/19/20 11:01 01/19/20 11:01 01/19/20 11:01 Intake & Output 01/18/20 01/19/20 01/20/20 06:59 06:59 06:59 Intake Total 1730 1600 200 Output Total 1000 775 10 Balance 730 825 190 Weight 104.9 kg 104.9 kg Vitals during dialysis: Blood pressure 161/81, blood flow rate of 250 mL/min and dialysate flow rate of 600 mL/min. Exam: General appearance: PRESENT: no acute distress, somnolent but arousable, well- developed, well-nourished Head exam: PRESENT: atraumatic, normocephalic Eye exam: PRESENT: conjunctiva pale, PERRLA. ABSENT: scleral icterus Neck exam: ABSENT: JVD Respiratory exam: PRESENT: Diminished breath sounds. ABSENT: crackles, rales, rhonchi, unlabored, wheezes Cardiovascular exam: PRESENT: Regular rate rhythm -+S1, +S2. ABSENT: diastolic murmur, systolic murmur GI/Abdominal exam: PRESENT: normal bowel sounds, soft. ABSENT: guarding, mass, tenderness Extremities exam: ABSENT: No edema Neurological exam: PRESENT: Asleep but arousable. Skin exam: PRESENT: dry, warm, Results Laboratory Results: 01/19/20 05:05 01/19/20 05:05 01/19/20 01/19/20 05:05 05:05 WBC 9.8 RBC 3.07 L Hgb 7.9 L Hct 24.3 L MCV 79 L MCH 25.6 L MCHC 32.3 RDW 21.0 H Plt Count 236 Seg Neutrophils % 66.3 Sodium 141.1 Potassium 4.2 Chloride 111 H Carbon Dioxide 22 Anion Gap 8 BUN 72 H Creatinine 5.63 H Est GFR ( Amer) 12 L Glucose 166 H Calcium 8.3 L Impressions: Chest X-Ray 01/16/20 00:00 IMPRESSION: Borderline cardiomegaly without pulmonary edema. Head CT 01/18/20 00:00 IMPRESSION: NORMAL BRAIN CT WITHOUT CONTRAST. EVIDENCE OF ACUTE STROKE: NO. Guidance Fluoroscopy 01/19/20 00:00 IMPRESSION: IMAGE(S) OBTAINED DURING PROCEDURE. Assessment & Plan - Diagnosis (1) Uremic encephalopathy Is this a current diagnosis for this admission?: Yes Plan: As above the patient is having mental status changes for the last 3 to 4 weeks and has obviously deteriorated this week. I think this could be very much due to uremia so I am recommending initiating renal replacement therapy in the form of hemodialysis for which the patient and his daughter agreed to do. Today's his first dialysis treatment. (2) Chronic kidney disease, stage V Is this a current diagnosis for this admission?: Yes Plan: Secondary to diabetic nephropathy with nonnephrotic range proteinuria who is now uremic with encephalopathy. Today's the patient's first dialysis treatment. We will do dialysis today for 2.5 hours, using the patient's PermCath, with 2 potassium bath, blood flow rate of 250 mL per minute, dialysate flow rate of 600 mL per minute, ultrafiltration 0.5 to 1 L as tolerated, no heparin and Procrit with 30,000 units during dialysis intravenously. Patient will be monitored throughout dialysis treatment. Care management is working on arranging outpatient chronic dialysis treatment with [facility]. (3) Proteinuria Is this a current diagnosis for this admission?: Yes Plan: Near nephrotic range secondary to diabetic nephropathy. (4) Anemia in chronic kidney disease (CKD) Qualifiers: Chronic kidney disease stage: stage 3 (moderate) Qualified Code(s): N18.3 - Chronic kidney disease, stage 3 (moderate); D63.1 - Anemia in chronic kidney disease Is this a current diagnosis for this admission?: Yes Plan: GI work-up did not really reveal any active bleeding. We will continue Retacrit during dialysis treatment. Patient is also severely iron deficient with Tsat of 4 and ferritin of 25.5 and iron of 13.3 so I gave him his first IV Injectafer dose yesterday. (5) Diabetes mellitus type 2 in obese Is this a current diagnosis for this admission?: Yes Plan: Labile. (6) Hypertension Is this a current diagnosis for this admission?: Yes Plan: Suboptimally controlled. Will adjust accordingly after starting on dialysis treatment. (7) Chronic kidney disease-mineral and bone disorder Is this a current diagnosis for this admission?: Yes Plan: Patient with elevated phosphorus and PTH. He is on calcitriol and calcium acetate. (8) Chronic pancreatitis Is this a current diagnosis for this admission?: Yes Plan: Lipase level is trending down. (9) SONY (obstructive sleep apnea) Is this a current diagnosis for this admission?: Yes Plan: Continue CPAP. - Time Time with patient: 15-25 minutes
[2020-01-19] MEDS: HYDRALAZINE HCL INJ/PF 20 MG/1 ML SDV IV PRN (20:38)
[2020-01-19] MEDS: TAMSULOSIN HCL 0.4 MG CAP.SR.24H PO SCH (21:21)
[2020-01-19] MEDS: INSULIN GLARGINE,HUM.REC.ANLOG 1,000 UNIT/10 ML VIAL SUBCUT SCH (21:23)
--- NOTE | 2020-01-19 21:45 | PDOC PROGRESS REPORT ---
Subjective Progress Note for:: 01/19/20 Subjective:: Patient more alert and interactive today. No complaints Reason For Visit: SYMPTOMATIC ANEMIA,HYPOGLYCEMIA Physical Exam Vital Signs: Temp Pulse Resp BP Pulse Ox 98.5 F 75 18 166/85 H 99 01/19/20 11:01 01/19/20 14:00 01/19/20 11:01 01/19/20 11:01 01/19/20 11:01 Intake & Output 01/18/20 01/19/20 01/20/20 06:59 06:59 06:59 Intake Total 1730 1600 680 Output Total 9579 099 0162 Balance 730 825 -330 Weight 104.9 kg 104.9 kg General appearance: PRESENT: no acute distress, cooperative, obese Head exam: PRESENT: atraumatic, normocephalic Eye exam: PRESENT: conjunctiva pink Mouth exam: PRESENT: moist, tongue midline Neck exam: ABSENT: JVD Respiratory exam: PRESENT: clear to auscultation brett, symmetrical, unlabored. ABSENT: accessory muscle use Cardiovascular exam: PRESENT: RRR, +S1, +S2 Pulses: PRESENT: normal carotid pulses, normal radial pulses Vascular exam: PRESENT: normal capillary refill GI/Abdominal exam: PRESENT: normal bowel sounds, soft. ABSENT: distended, tenderness Rectal exam: PRESENT: deferred Extremities exam: ABSENT: calf tenderness, clubbing Neurological exam: PRESENT: alert, awake, oriented to situation Psychiatric exam: ABSENT: agitated, anxious Skin exam: PRESENT: dry, normal color, warm, other - Right subclavian permacath noted (insertion date 01/19/2020) Results Laboratory Results: 01/19/20 05:05 01/19/20 05:05 01/19/20 01/19/20 05:05 05:05 WBC 9.8 RBC 3.07 L Hgb 7.9 L Hct 24.3 L MCV 79 L MCH 25.6 L MCHC 32.3 RDW 21.0 H Plt Count 236 Seg Neutrophils % 66.3 Sodium 141.1 Potassium 4.2 Chloride 111 H Carbon Dioxide 22 Anion Gap 8 BUN 72 H Creatinine 5.63 H Est GFR ( Amer) 12 L Glucose 166 H Calcium 8.3 L Impressions: Chest X-Ray 01/16/20 00:00 IMPRESSION: Borderline cardiomegaly without pulmonary edema. Head CT 01/18/20 00:00 IMPRESSION: NORMAL BRAIN CT WITHOUT CONTRAST. EVIDENCE OF ACUTE STROKE: NO. Guidance Fluoroscopy 01/19/20 00:00 IMPRESSION: IMAGE(S) OBTAINED DURING PROCEDURE. Assessment and Plan - Diagnosis (1) Acute on chronic anemia Is this a current diagnosis for this admission?: Yes Plan: Likely some delusional component Patient received a total of 2 units of PRBCs Continue epoetin alpha 30,000 units IV with HD S/P EGD with biopsy and colonoscopy with biopsy on 01/17/2020 GI input/assistance appreciated There was inadequate colon prep but no visible blood was noted. Internal hemorrhoids were identified. 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 with meals Continue calcitriol 0.5 mcg p.o. daily Continue sodium bicarb 150 mg p.o. twice daily Continue furosemide 40 mg p.o. twice daily Continue to avoid nephrotoxins Monitor (4) COPD (chronic obstructive pulmonary disease) Is this a current diagnosis for this admission?: Yes Plan: COPD stable without exacerbation Continue Incruse Ellipta daily Continue duo nebs PRN Wean FiO2 as tolerated (5) Diabetes mellitus type 2 in obese Is this a current diagnosis for this admission?: Yes Plan: Increase basal insulin (glargine) to 8 subcutaneous nightly, give additional 3 units now to make up 8 unit dose Continue FSBS with SSI correction scale (6) Hypertension Is this a current diagnosis for this admission?: Yes Plan: Continue amlodipine 10 mg p.o. daily Continue carvedilol 12.5 mg p.o. every 12 hours Continue furosemide 40 mg p.o. daily (7) SONY (obstructive sleep apnea) Is this a current diagnosis for this admission?: Yes Plan: CPAP at at bedtime Recommend formal overnight sleep study to qualify for home device, this will need to be done as an outpatient (8) BPH (benign prostatic hyperplasia) Is this a current diagnosis for this admission?: Yes Plan: Continue tamsulosin 0.4 mg p.o. daily at bedtime (9) Glaucoma Is this a current diagnosis for this admission?: Yes Plan: Continue timolol 0.5% 1 drop OS every 12 hours - Time Time Spent with patient: 25-34 minutes Medications reviewed and adjusted accordingly: Yes Anticipated Discharge Disposition: Home, Self Care Anticipated Discharge: Other
[2020-01-19] MEDS ORDERED: INSULIN GLARGINE,HUM.REC.ANLOG 1,000 UNIT/10 ML VIAL (PYX) SUBCUT ONE ×2 (22:00)
[2020-01-19] MEDS ORDERED: INSULIN GLARGINE,HUM.REC.ANLOG 1,000 UNIT/10 ML VIAL SUBCUT SCH (22:00)
[2020-01-20] MEDS: HYDRALAZINE HCL INJ/PF 20 MG/1 ML SDV IV PRN ×2 (04:11→23:31)
[2020-01-20] MEDS: TOPIRAMATE 25 MG TABLET PO SCH ×2 (05:26→17:31)
[2020-01-20] MEDS: HEPARIN SOD (PORCINE) 5,000 UNIT/ML 1 ML VIAL SUBCUT SCH ×3 (05:26→21:39)
[2020-01-20 06:37] LABS: HEPATITS B SURFACE ANTIGEN Negative (Negative)
[2020-01-20] MEDS: DEXTROSE 5%-NORMAL SALINE 1,000 ML IV PRN (06:50)
[2020-01-20] MEDS: INSULIN LISPRO 100 UNIT/ML 3 ML VIAL SUBCUT SCH ×4 (07:49→21:38)
[2020-01-20] MEDS: ONDANSETRON HCL INJ/PF 4 MG/2 ML SDV IV PRN ×2 (07:49→17:34)
[2020-01-20] MEDS: CALCIUM ACETATE 667 MG CAPSULE PO SCH ×3 (08:03→16:45)
[2020-01-20] MEDS: FLUTICASONE/VILANTEROL 100-25 MCG/DOSE IH SCH (10:11)
[2020-01-20] MEDS: PANTOPRAZOLE SODIUM 40 MG VIAL IV SCH ×2 (10:11→21:37)
[2020-01-20] MEDS: TIMOLOL MALEATE 0.5% OPH SOLN 5 ML OS SCH ×2 (10:11→22:01)
[2020-01-20] MEDS: FUROSEMIDE 40 MG TABLET PO SCH ×2 (10:12→17:31)
[2020-01-20] MEDS: SODIUM BICARBONATE 650 MG TABLET PO SCH ×2 (10:12→17:31)
[2020-01-20] MEDS: CARVEDILOL 12.5 MG TABLET PO SCH ×2 (10:12→21:39)
[2020-01-20] MEDS: CALCITRIOL 0.25 MCG CAPSULE PO SCH (10:12)
[2020-01-20] MEDS: ACETAMINOPHEN 325 MG TABLET PO PRN (10:12)
[2020-01-20] MEDS: AMLODIPINE BESYLATE 10 MG TABLET PO SCH (10:12)
[2020-01-20] MEDS: UMECLIDINIUM BROMIDE 62.5 MCG/DOSE IH SCH (10:12)
[2020-01-20 10:42] LABS: HEPATITIS B CORE AB TOT Negative (Negative)
--- NOTE | 2020-01-20 15:10 | PDOC PROGRESS REPORT ---
Subjective Progress Note for:: 01/20/20 Subjective:: Patient much less interactive today than yesterday Reason For Visit: SYMPTOMATIC ANEMIA,HYPOGLYCEMIA Physical Exam Vital Signs: Temp Pulse Resp BP Pulse Ox 98.8 F 77 18 155/75 H 93 01/20/20 11:15 01/20/20 11:15 01/20/20 11:15 01/20/20 11:15 01/20/20 11:15 Intake & Output 01/19/20 01/20/20 01/21/20 06:59 06:59 06:59 Intake Total 1600 1800 118 Output Total 775 1010 Balance 825 790 118 Weight 104.9 kg 105.2 kg General appearance: PRESENT: no acute distress, obese Head exam: PRESENT: atraumatic, normocephalic Eye exam: PRESENT: conjunctiva pink Mouth exam: PRESENT: moist, tongue midline Neck exam: ABSENT: JVD Respiratory exam: PRESENT: clear to auscultation brett, decreased breath sounds - Air entry diminished at bases bilaterally, symmetrical, unlabored, other. ABSENT: accessory muscle use Cardiovascular exam: PRESENT: RRR, +S1, +S2 Pulses: PRESENT: normal carotid pulses, normal radial pulses Vascular exam: PRESENT: normal capillary refill GI/Abdominal exam: PRESENT: normal bowel sounds, soft. ABSENT: distended, tenderness Rectal exam: PRESENT: deferred Extremities exam: ABSENT: calf tenderness, pedal edema Neurological exam: PRESENT: oriented to person, oriented to place, oriented to situation, other - Patient more drowsy today. When aroused he is oriented Psychiatric exam: ABSENT: agitated, anxious Skin exam: PRESENT: dry, normal color, warm Results Laboratory Results: 01/19/20 05:05 01/19/20 05:05 Impressions: Chest X-Ray 01/16/20 00:00 IMPRESSION: Borderline cardiomegaly without pulmonary edema. Head CT 01/18/20 00:00 IMPRESSION: NORMAL BRAIN CT WITHOUT CONTRAST. EVIDENCE OF ACUTE STROKE: NO. Guidance Fluoroscopy 01/19/20 00:00 IMPRESSION: IMAGE(S) OBTAINED DURING PROCEDURE. Assessment and Plan - Diagnosis (1) Acute on chronic anemia Is this a current diagnosis for this admission?: Yes Plan: Likely some delusional component Patient received a total of 2 units of PRBCs Continue epoetin alpha 30,000 units IV with HD S/P EGD with biopsy and colonoscopy with biopsy on 01/17/2020 GI input/assistance appreciated There was inadequate colon prep but no visible blood was noted. Internal hemorrhoids were identified. No upper GI hemorrhage noted Monitor blood count and transfuse for Hgb < 7.0 (2) Chronic pancreatitis Is this a current diagnosis for this admission?: Yes Plan: Patient denies abdominal pain GI on case (3) Chronic kidney disease, stage V Is this a current diagnosis for this admission?: Yes Plan: Patient received his first CHAIR INSTALLER 01/19/20 Defer to nephrology when/if to stop furosemide Continue calcium acetate 1335 mg p.o. with meals Continue calcitriol 0.5 mcg p.o. daily Continue sodium bicarb 150 mg p.o. twice daily Continue furosemide 40 mg p.o. twice daily Continue to avoid nephrotoxins Monitor (4) Uremic encephalopathy Is this a current diagnosis for this admission?: Yes Plan: Hopefully now the patient is on dialysis this will improve Ongoing supportive care (5) COPD (chronic obstructive pulmonary disease) Is this a current diagnosis for this admission?: Yes Plan: COPD stable without exacerbation Continue Incruse Ellipta daily Continue duo nebs PRN Patient tolerating room air with adequate SpO2 today (6) Diabetes mellitus type 2 in obese Is this a current diagnosis for this admission?: Yes Plan: Increase basal insulin (glargine) to 12 subcutaneous nightly, titrate as needed Continue FSBS with SSI correction scale (7) Hypertension Is this a current diagnosis for this admission?: Yes Plan: Adequate BP control Continue amlodipine 10 mg p.o. daily Continue carvedilol 12.5 mg p.o. every 12 hours Continue furosemide 40 mg p.o. daily for now (8) SONY (obstructive sleep apnea) Is this a current diagnosis for this admission?: Yes Plan: CPAP at at bedtime Recommend formal overnight sleep study to qualify for home device, this will need to be done as an outpatient (9) BPH (benign prostatic hyperplasia) Is this a current diagnosis for this admission?: Yes Plan: Continue tamsulosin 0.4 mg p.o. daily at bedtime as long as patient continues to make urine (10) Glaucoma Is this a current diagnosis for this admission?: Yes Plan: Continue timolol 0.5% 1 drop OS every 12 hours - Time Time Spent with patient: 25-34 minutes Medications reviewed and adjusted accordingly: Yes Anticipated Discharge Disposition: Home, Self Care Anticipated Discharge: Other
[2020-01-20] MEDS: TAMSULOSIN HCL 0.4 MG CAP.SR.24H PO SCH (21:39)
[2020-01-20] MEDS ORDERED: INSULIN GLARGINE,HUM.REC.ANLOG 1,000 UNIT/10 ML VIAL SUBCUT SCH ×2 (22:00)
[2020-01-21] MEDS: HEPARIN SOD (PORCINE) 5,000 UNIT/ML 1 ML VIAL SUBCUT SCH ×3 (05:43→22:46)
[2020-01-21] MEDS: TOPIRAMATE 25 MG TABLET PO SCH ×2 (05:43→17:38)
[2020-01-21] MEDS: HYDRALAZINE HCL INJ/PF 20 MG/1 ML SDV IV PRN ×3 (05:43→23:50)
[2020-01-21] MEDS: INSULIN LISPRO 100 UNIT/ML 3 ML VIAL SUBCUT SCH ×4 (07:33→22:09)
[2020-01-21] MEDS: CALCIUM ACETATE 667 MG CAPSULE PO SCH ×3 (08:36→17:28)
[2020-01-21] MEDS: ACETAMINOPHEN 325 MG TABLET PO PRN ×2 (08:36→15:53)
[2020-01-21] MEDS: FLUTICASONE/VILANTEROL 100-25 MCG/DOSE IH SCH (10:41)
[2020-01-21] MEDS: UMECLIDINIUM BROMIDE 62.5 MCG/DOSE IH SCH (10:41)
[2020-01-21] MEDS: PANTOPRAZOLE SODIUM 40 MG VIAL IV SCH ×2 (10:41→22:45)
[2020-01-21] MEDS: CARVEDILOL 12.5 MG TABLET PO SCH ×2 (10:42→22:47)
[2020-01-21] MEDS: TIMOLOL MALEATE 0.5% OPH SOLN 5 ML OS SCH ×2 (10:42→22:47)
[2020-01-21] MEDS: FUROSEMIDE 40 MG TABLET PO SCH ×2 (10:42→17:38)
[2020-01-21] MEDS: SODIUM BICARBONATE 650 MG TABLET PO SCH ×2 (10:42→17:38)
[2020-01-21] MEDS: CALCITRIOL 0.25 MCG CAPSULE PO SCH (10:42)
[2020-01-21] MEDS: AMLODIPINE BESYLATE 10 MG TABLET PO SCH (10:42)
[2020-01-21] MEDS: HYDROCODONE/ACETAMINOPHEN 5-325 MG TABLET PO PRN ×2 (11:27→22:56)
--- NOTE | 2020-01-21 17:09 | PDOC PROGRESS REPORT ---
Subjective Progress Note for:: 01/21/20 Subjective:: Patient complains of lower back pain today. Patient has very poor appetite and is taking minimal amounts of his diet. Reason For Visit: SYMPTOMATIC ANEMIA,HYPOGLYCEMIA Physical Exam Vital Signs: Temp Pulse Resp BP Pulse Ox 98.9 F 74 20 169/70 H 97 01/21/20 15:22 01/21/20 15:22 01/21/20 15:22 01/21/20 15:22 01/21/20 15:22 Intake & Output 01/20/20 01/21/20 01/22/20 06:59 06:59 06:59 Intake Total 1800 236 0 Output Total 1010 0 0 Balance 790 236 0 Weight 105.2 kg 105.4 kg General appearance: PRESENT: no acute distress, cooperative, other - Sitting up in chair at time of exam Head exam: PRESENT: atraumatic, normocephalic Eye exam: PRESENT: conjunctiva pink Mouth exam: PRESENT: moist, tongue midline Neck exam: ABSENT: JVD Respiratory exam: PRESENT: clear to auscultation brett, symmetrical, unlabored. ABSENT: accessory muscle use Cardiovascular exam: PRESENT: RRR, +S1, +S2 Vascular exam: PRESENT: normal capillary refill GI/Abdominal exam: PRESENT: normal bowel sounds, soft. ABSENT: distended, tend erness Rectal exam: PRESENT: deferred Extremities exam: PRESENT: pedal edema - Trace pretibial edema bilaterally. ABSENT: calf tenderness Neurological exam: PRESENT: alert, awake, oriented to person, oriented to place, oriented to situation Psychiatric exam: PRESENT: depressed - Depressed affect. ABSENT: agitated, anxious Skin exam: PRESENT: dry, normal color, warm Results Laboratory Results: 01/19/20 05:05 01/19/20 05:05 Impressions: Chest X-Ray 01/16/20 00:00 IMPRESSION: Borderline cardiomegaly without pulmonary edema. Head CT 01/18/20 00:00 IMPRESSION: NORMAL BRAIN CT WITHOUT CONTRAST. EVIDENCE OF ACUTE STROKE: NO. Guidance Fluoroscopy 01/19/20 00:00 IMPRESSION: IMAGE(S) OBTAINED DURING PROCEDURE. Assessment and Plan - Diagnosis (1) Acute on chronic anemia Is this a current diagnosis for this admission?: Yes Plan: Likely some delusional component Patient received a total of 2 units of PRBCs Continue epoetin alpha 30,000 units IV with HD S/P EGD with biopsy and colonoscopy with biopsy on 01/17/2020 GI input/assistance appreciated There was inadequate colon prep but no visible blood was noted. Internal hemorrhoids were identified. 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 with meals Continue calcitriol 0.5 mcg p.o. daily Continue sodium bicarb 150 mg p.o. twice daily Continue furosemide 40 mg p.o. twice daily Continue to avoid nephrotoxins Monitor (4) Uremic encephalopathy Is this a current diagnosis for this admission?: Yes Plan: Patient's mental status waxes and wanes Hopefully now the patient is on dialysis this will improve Ongoing supportive care (5) COPD (chronic obstructive pulmonary disease) Is this a current diagnosis for this admission?: Yes Plan: COPD stable without exacerbation Continue Incruse Ellipta daily Continue duo nebs PRN Patient tolerating room air with adequate SpO2 (6) Diabetes mellitus type 2 in obese Is this a current diagnosis for this admission?: Yes Plan: The plan yesterday was to increase insulin to 12 units subcutaneous nightly however I neglected to enter that order Increase basal (glargine) insulin today from 8 units to 10 units subcutaneous nightly, titrate other as needed Continue FSBS with SSI correction scale (7) Hypertension Is this a current diagnosis for this admission?: Yes Plan: Adequate on the high side however I will not increase antihypertensive medicati ons at this time so that he will have adequate pressure for HD which I believe will occur tomorrow Continue amlodipine 10 mg p.o. daily Continue carvedilol 12.5 mg p.o. every 12 hours Continue furosemide 40 mg p.o. daily for now (8) SONY (obstructive sleep apnea) Is this a current diagnosis for this admission?: Yes Plan: CPAP at at bedtime Recommend formal overnight sleep study to qualify for home device, this will need to be done as an outpatient (9) BPH (benign prostatic hyperplasia) Is this a current diagnosis for this admission?: Yes Plan: Continue tamsulosin 0.4 mg p.o. daily at bedtime as long as patient continues to make urine (10) Glaucoma Is this a current diagnosis for this admission?: Yes Plan: Continue timolol 0.5% 1 drop OS every 12 hours - Time Time Spent with patient: 25-34 minutes Medications reviewed and adjusted accordingly: Yes Anticipated Discharge Disposition: Home, Self Care Anticipated Discharge: Other
[2020-01-21] MEDS ORDERED: INSULIN GLARGINE,HUM.REC.ANLOG 1,000 UNIT/10 ML VIAL (PYX) SUBCUT PRN (20:35)
[2020-01-21] MEDS: INSULIN GLARGINE,HUM.REC.ANLOG 1,000 UNIT/10 ML VIAL SUBCUT SCH (22:41)
[2020-01-21] MEDS: TAMSULOSIN HCL 0.4 MG CAP.SR.24H PO SCH (22:46)
[2020-01-22] MEDS ORDERED: HEPARIN SOD (PORCINE) 1,000 UNIT/ML 10 ML VIAL IV PRN (05:00)
[2020-01-22] MEDS ORDERED: EPOETIN ALFA-EPBX 30,000 UNIT in SYRINGE, DISPOSABLE, 1 EACH IV PRN (05:00)
[2020-01-22] MEDS ORDERED: NORMAL SALINE 1000 ML 1,000 ML IV PRN (05:00)
[2020-01-22] MEDS: TOPIRAMATE 25 MG TABLET PO SCH ×2 (05:45→18:11)
[2020-01-22] MEDS: HEPARIN SOD (PORCINE) 5,000 UNIT/ML 1 ML VIAL SUBCUT SCH ×3 (05:45→22:53)
[2020-01-22 06:34] LABS: ABSOLUTE BASOPHILS # (AUTO) 0.1 10^3/uL (0.0-0.2); ABSOLUTE EOSINOPHILS # (AUTO) 0.1 10^3/uL (0.0-0.6); ABSOLUTE LYMPHOCYTES (AUTO) 1.6 10^3/uL (0.5-4.7); ABSOLUTE MONOCYTES (AUTO) 1.2 10^3/uL (0.1-1.4); ABSOLUTE NEUT (AUTO) 7.8 10^3/uL (1.7-8.2); BASOPHILS % (AUTO) 0.6 % (0-2); EOSINOPHILS % (AUTO) 1.1 % (0-6); HEMATOCRIT 29.7 % (37.9-51.0); HEMOGLOBIN 9.2 g/dL (13.5-17.0); LYMPHOCYTES % (AUTO) 14.5 % (13-45); MEAN CORPUSCULAR HEMOGLOBIN 25.4 pg (27.0-33.4); MEAN CORPUSCULAR HGB CONC 31.1 g/dL (32.0-36.0); MEAN CORPUSCULAR VOLUME 82 fl (80-97); MONOCYTES % (AUTO) 11.3 % (3-13); PLATELET COUNT 237 10^3/uL (150-450); RED BLOOD COUNT 3.64 10^6/uL (4.35-5.55); RED CELL DISTRIBUTION WIDTH 21.9 % (11.5-14.0); SEGMENTED NEUTROPHILS % (AUTO) 72.5 % (42-78); TOTAL CELLS COUNTED % (AUTO) 100 %; WHITE BLOOD COUNT 10.8 10^3/uL (4.0-10.5)
[2020-01-22 07:04] LABS: ANION GAP 13 (5-19); BLOOD UREA NITROGEN 45 mg/dL (7-20); CALCIUM 8.4 mg/dL (8.4-10.2); CARBON DIOXIDE 22 mmol/L (22-30); CHLORIDE 107 mmol/L (98-107); GLUCOSE 114 mg/dL (75-110); POTASSIUM 3.9 mmol/L (3.6-5.0)
[2020-01-22 10:36] LABS: HEPATITIS C QUANTITATION HCV Not Detected IU/mL (.)
[2020-01-22] MEDS: CALCIUM ACETATE 667 MG CAPSULE PO SCH ×3 (10:45→18:15)
[2020-01-22] MEDS: CALCITRIOL 0.25 MCG CAPSULE PO SCH (10:46)
[2020-01-22] MEDS: AMLODIPINE BESYLATE 10 MG TABLET PO SCH (10:46)
[2020-01-22] MEDS: CARVEDILOL 12.5 MG TABLET PO SCH ×2 (10:48→22:55)
[2020-01-22] MEDS: SODIUM BICARBONATE 650 MG TABLET PO SCH ×2 (10:48→18:11)
[2020-01-22] MEDS: FUROSEMIDE 40 MG TABLET PO SCH ×2 (10:48→18:12)
[2020-01-22] MEDS: FLUTICASONE/VILANTEROL 100-25 MCG/DOSE IH SCH (10:48)
[2020-01-22] MEDS: TIMOLOL MALEATE 0.5% OPH SOLN 5 ML OS SCH (10:50)
[2020-01-22] MEDS: UMECLIDINIUM BROMIDE 62.5 MCG/DOSE IH SCH (10:50)
[2020-01-22] MEDS: PANTOPRAZOLE SODIUM 40 MG VIAL IV SCH ×2 (10:54→22:53)
[2020-01-22] MEDS: INSULIN LISPRO 100 UNIT/ML 3 ML VIAL SUBCUT SCH ×4 (10:56→22:53)
[2020-01-22] MEDS: HYDROCODONE/ACETAMINOPHEN 5-325 MG TABLET PO PRN ×2 (10:58→18:11)
--- NOTE | 2020-01-22 11:02 | PDOC PROGRESS REPORT ---
Subjective Progress Note for:: 01/22/20 Reason For Visit: This patient was seen on dialysis today. He has got a background history of diabetes mellitus with complications, hypertension, CKD stage V, obstructive sleep apnea, anemia chronic kidney disease, renal osteodystrophy and severe noncompliance with diet and medications has been begun/initiated on dialysis last week because of uremic encephalopathy. Patient currently doing better as his mind seems to be clearing. However complains of arthritic pains and issues. Labs and medications were reviewed. Dialysis orders were reviewed with the treating dialysis nurse. Physical Exam Vital Signs: Temp Pulse Resp BP Pulse Ox 98.4 F 79 21 H 161/73 H 99 01/22/20 04:00 01/22/20 07:00 01/22/20 04:00 01/22/20 04:00 01/22/20 04:00 Intake & Output 01/21/20 01/22/20 01/23/20 06:59 06:59 06:59 Intake Total 236 210 900 Output Total 0 0 2000 Balance 236 210 -1100 Weight 105.4 kg 97.6 kg General appearance: PRESENT: no acute distress Respiratory exam: PRESENT: clear to auscultation brett, decreased breath sounds. ABSENT: crackles Cardiovascular exam: PRESENT: +S1, +S2, systolic murmur GI/Abdominal exam: PRESENT: normal bowel sounds, soft. ABSENT: organomegaly, tenderness Extremities exam: ABSENT: pedal edema Neurological exam: PRESENT: altered, awake Skin exam: ABSENT: erythema, mottled, rash Results Laboratory Results: 01/22/20 06:09 01/22/20 06:09 01/22/20 01/22/20 06:09 06:09 WBC 10.8 H RBC 3.64 L Hgb 9.2 L Hct 29.7 L MCV 82 MCH 25.4 L MCHC 31.1 L RDW 21.9 H Plt Count 237 Seg Neutrophils % 72.5 Sodium 142.4 Potassium 3.9 Chloride 107 Carbon Dioxide 22 Anion Gap 13 BUN 45 H Creatinine 5.31 H Est GFR ( Amer) 13 L Glucose 114 H Calcium 8.4 Impressions: Chest X-Ray 01/16/20 00:00 IMPRESSION: Borderline cardiomegaly without pulmonary edema. Head CT 01/18/20 00:00 IMPRESSION: NORMAL BRAIN CT WITHOUT CONTRAST. EVIDENCE OF ACUTE STROKE: NO. Guidance Fluoroscopy 01/19/20 00:00 IMPRESSION: IMAGE(S) OBTAINED DURING PROCEDURE. Assessment & Plan - Diagnosis (1) End stage renal disease Plan: Patient admitted in uremic encephalopathy state in the background of CKD stage V from diabetes mellitus and hypertension. Patient has been begun on dialysis and seems to be doing well with slowly clearing of his mind. He is more awake and m ore responsive today as compared to from last week as per notes reviewed and discussions with the treating dialysis nurses. Vital signs are stable. Plan to remove 1-2 L as tolerated. Dialysis orders were reviewed with the treating dialysis nurse. formula room worker needs to be consulted for continuation of outpatient dialysis at the [facility] of his choice. He also needs to have a PPD done if not done prior to discharging. (2) Uremic encephalopathy Is this a current diagnosis for this admission?: Yes Plan: Slowly improving. Continue current guidelines including dialysis. Monitor (3) SONY (obstructive sleep apnea) Is this a current diagnosis for this admission?: Yes Plan: Status quo. (4) Proteinuria Is this a current diagnosis for this admission?: Yes Plan: Secondary to diabetic nephropathy which is been poorly controlled because of noncompliance with diet and medications for a long time. (5) COPD (chronic obstructive pulmonary disease) Is this a current diagnosis for this admission?: Yes Plan: Status quo. (6) Diabetes mellitus type 2 in nonobese Plan: Advised for tight control. Unfortunately patient has been very noncompliant regarding adequate control of diabetes and hypertension resulting in multiple endorgan damages. (7) Hypertension Is this a current diagnosis for this admission?: Yes Plan: Fairly well controlled. See response to dialysis. Monitor. (8) Renal osteodystrophy Plan: On calcitriol and phosphate binders. (9) Anemia in chronic kidney disease Is this a current diagnosis for this admission?: Yes Plan: Adjust erythropoietin. (10) Chronic pancreatitis Is this a current diagnosis for this admission?: Yes Plan: As per hospitalist and GI.
--- NOTE | 2020-01-22 17:08 | PDOC PROGRESS REPORT ---
Subjective Progress Note for:: 01/22/20 Subjective:: Patient offers minimal response. When asked how he is doing today he shakes his head "no" Reason For Visit: SYMPTOMATIC ANEMIA,HYPOGLYCEMIA Physical Exam Vital Signs: Temp Pulse Resp BP Pulse Ox 98.4 F 79 21 H 161/73 H 99 01/22/20 04:00 01/22/20 07:00 01/22/20 04:00 01/22/20 04:00 01/22/20 04:00 Intake & Output 01/21/20 01/22/20 01/23/20 06:59 06:59 06:59 Intake Total 236 210 900 Output Total 0 0 2000 Balance 236 210 -1100 Weight 105.4 kg 97.6 kg General appearance: PRESENT: no acute distress, cooperative, well-developed, well-nourished Head exam: PRESENT: atraumatic, normocephalic Eye exam: PRESENT: conjunctiva pink Mouth exam: PRESENT: moist, tongue midline Neck exam: ABSENT: JVD Respiratory exam: PRESENT: clear to auscultation brett, decreased breath sounds - Entry diminished at bases bilaterally, symmetrical, unlabored Cardiovascular exam: PRESENT: RRR, +S1, +S2 Vascular exam: PRESENT: normal capillary refill GI/Abdominal exam: PRESENT: normal bowel sounds, soft. ABSENT: distended, tenderness Rectal exam: PRESENT: deferred Extremities exam: PRESENT: pedal edema - Trace - 1 mm pretibial edema bilaterally. ABSENT: calf tenderness Neurological exam: PRESENT: awake Psychiatric exam: PRESENT: depressed. ABSENT: agitated, anxious, normal mood Skin exam: PRESENT: dry, normal color, warm Results Laboratory Results: 01/22/20 06:09 01/22/20 06:09 01/22/20 01/22/20 06:09 06:09 WBC 10.8 H RBC 3.64 L Hgb 9.2 L Hct 29.7 L MCV 82 MCH 25.4 L MCHC 31.1 L RDW 21.9 H Plt Count 237 Seg Neutrophils % 72.5 Sodium 142.4 Potassium 3.9 Chloride 107 Carbon Dioxide 22 Anion Gap 13 BUN 45 H Creatinine 5.31 H Est GFR ( Amer) 13 L Glucose 114 H Calcium 8.4 Impressions: Chest X-Ray 01/16/20 00:00 IMPRESSION: Borderline cardiomegaly without pulmonary edema. Head CT 01/18/20 00:00 IMPRESSION: NORMAL BRAIN CT WITHOUT CONTRAST. EVIDENCE OF ACUTE STROKE: NO. Guidance Fluoroscopy 01/19/20 00:00 IMPRESSION: IMAGE(S) OBTAINED DURING PROCEDURE. Assessment and Plan - Diagnosis (1) Acute on chronic anemia Is this a current diagnosis for this admission?: Yes Plan: H/H up today 2/2 HD on 01/19/20 Patient has received a total of 2 units of PRBCs this hospitalization Continue epoetin alpha 30,000 units IV with HD S/P EGD with biopsy and colonoscopy with biopsy on 01/17/2020 GI input/assistance appreciated There was inadequate colon prep but no visible blood was noted. Internal hemorrhoids were identified. No upper GI hemorrhage noted Monitor blood count and transfuse for Hgb < 7.0 (2) Chronic pancreatitis Is this a current diagnosis for this admission?: Yes Plan: No abdominal pain GI on case (3) Chronic kidney disease, stage V Is this a current diagnosis for this admission?: Yes Plan: Patient received his first [employer] 01/19/20 HD today Defer to nephrology when/if to stop furosemide Continue calcium acetate 1335 mg p.o. with meals Continue calcitriol 0.5 mcg p.o. daily Continue sodium bicarb 150 mg p.o. twice daily Continue furosemide 40 mg p.o. twice daily Continue to avoid nephrotoxins Monitor (4) Uremic encephalopathy Is this a current diagnosis for this admission?: Yes Plan: Patient's mental status waxes and wanes Hopefully now the patient is on dialysis we will see slow/steady progress Ongoing supportive care (5) COPD (chronic obstructive pulmonary disease) Is this a current diagnosis for this admission?: Yes Plan: COPD stable without exacerbation Continue Incruse Ellipta daily Continue duo nebs PRN Patient tolerating room air with adequate SpO2 (6) Diabetes mellitus type 2 in obese Is this a current diagnosis for this admission?: Yes Plan: Continue basal (glargine) insulin 10 units subcutaneous nightly, titrate other as needed Continue FSBS with SSI correction scale (7) Hypertension Is this a current diagnosis for this admission?: Yes Plan: Adequate on the high side however I will not increase antihypertensive medications at this time so that he will have adequate pressure for HD which I believe will occur tomorrow Continue amlodipine 10 mg p.o. daily Continue carvedilol 12.5 mg p.o. every 12 hours Continue furosemide 40 mg p.o. daily for now (8) SONY (obstructive sleep apnea) Is this a current diagnosis for this admission?: Yes Plan: CPAP at at bedtime Recommend formal overnight sleep study to qualify for home device, this will need to be done as an outpatient (9) BPH (benign prostatic hyperplasia) Is this a current diagnosis for this admission?: Yes Plan: Continue tamsulosin 0.4 mg p.o. daily at bedtime as long as patient continues to make urine (10) Glaucoma Is this a current diagnosis for this admission?: Yes Plan: Continue timolol 0.5% 1 drop OS every 12 hours (11) Leucocytosis Is this a current diagnosis for this admission?: Yes Plan: Mild elevation of WBC today Patient afebrile No treatment indicated at this time - Time Time Spent with patient: 25-34 minutes Medications reviewed and adjusted accordingly: Yes Anticipated Discharge Disposition: Home, Self Care Anticipated Discharge: Other
[2020-01-22] MEDS: INSULIN GLARGINE,HUM.REC.ANLOG 1,000 UNIT/10 ML VIAL SUBCUT SCH (22:54)
[2020-01-22] MEDS: ACETAMINOPHEN 325 MG TABLET PO PRN (22:54)
[2020-01-22] MEDS: TAMSULOSIN HCL 0.4 MG CAP.SR.24H PO SCH (22:55)
[2020-01-23] MEDS: TIMOLOL MALEATE 0.5% OPH SOLN 5 ML OS SCH ×3 (01:08→23:01)
[2020-01-23] MEDS: HEPARIN SOD (PORCINE) 5,000 UNIT/ML 1 ML VIAL SUBCUT SCH ×3 (05:17→22:42)
[2020-01-23] MEDS: TOPIRAMATE 25 MG TABLET PO SCH ×2 (05:18→17:25)
[2020-01-23] MEDS: ACETAMINOPHEN 325 MG TABLET PO PRN (08:00)
[2020-01-23] MEDS: CALCIUM ACETATE 667 MG CAPSULE PO SCH ×3 (08:06→17:29)
[2020-01-23] MEDS: INSULIN LISPRO 100 UNIT/ML 3 ML VIAL SUBCUT SCH ×4 (08:06→22:43)
[2020-01-23] MEDS: CALCITRIOL 0.25 MCG CAPSULE PO SCH (10:55)
[2020-01-23] MEDS: SODIUM BICARBONATE 650 MG TABLET PO SCH ×2 (10:55→17:26)
[2020-01-23] MEDS: CARVEDILOL 12.5 MG TABLET PO SCH ×2 (10:55→22:44)
[2020-01-23] MEDS: AMLODIPINE BESYLATE 10 MG TABLET PO SCH (10:55)
[2020-01-23] MEDS: FUROSEMIDE 40 MG TABLET PO SCH ×2 (10:55→17:27)
[2020-01-23] MEDS: PANTOPRAZOLE SODIUM 40 MG VIAL IV SCH (10:55)
[2020-01-23] MEDS: UMECLIDINIUM BROMIDE 62.5 MCG/DOSE IH SCH (10:55)
[2020-01-23] MEDS: FLUTICASONE/VILANTEROL 100-25 MCG/DOSE IH SCH (10:56)
--- NOTE | 2020-01-23 15:34 | PDOC PROGRESS REPORT ---
Subjective Progress Note for:: 01/23/20 Subjective:: Patient was laying in bed on his side. His only compliant was of the chronic pain all over his body. He denies chest pain, SOB, N/V/D/C. Patient did have it explained that he would be on dialysis retirement. At that time he was agreeable to continue dialysis as outpatient. Reason For Visit: SYMPTOMATIC ANEMIA,HYPOGLYCEMIA Physical Exam Vital Signs: Temp Pulse Resp BP Pulse Ox 98.9 F 78 19 163/69 H 92 01/23/20 11:07 01/23/20 11:07 01/23/20 11:07 01/23/20 11:07 01/23/20 11:07 Intake & Output 01/22/20 01/23/20 01/24/20 06:59 06:59 06:59 Intake Total 210 1400 460 Output Total 0 2000 Balance 210 -600 460 Weight 97.6 kg 97.6 kg General appearance: PRESENT: no acute distress, well-developed, well-nourished Mouth exam: PRESENT: moist, neck supple Neck exam: ABSENT: JVD, tracheal deviation Respiratory exam: PRESENT: clear to auscultation brett. ABSENT: accessory muscle use, crackles, rales, rhonchi, wheezes Cardiovascular exam: PRESENT: +S1, +S2, systolic murmur GI/Abdominal exam: PRESENT: normal bowel sounds, soft. ABSENT: organomegaly, tenderness Extremities exam: ABSENT: pedal edema, tenderness, +1 edema, +2 edema Musculoskeletal exam: PRESENT: normal inspection. ABSENT: tenderness Neurological exam: PRESENT: alert, awake, oriented to person, oriented to place, oriented to time, oriented to situation Psychiatric exam: PRESENT: depressed, flat affect Skin exam: PRESENT: dry, intact, warm Results Laboratory Results: 01/22/20 06:09 01/22/20 06:09 Impressions: Chest X-Ray 01/16/20 00:00 IMPRESSION: Borderline cardiomegaly without pulmonary edema. Head CT 01/18/20 00:00 IMPRESSION: NORMAL BRAIN CT WITHOUT CONTRAST. EVIDENCE OF ACUTE STROKE: NO. Guidance Fluoroscopy 01/19/20 00:00 IMPRESSION: IMAGE(S) OBTAINED DURING PROCEDURE. Assessment & Plan - Diagnosis (1) End stage renal disease Plan: Will look to arrange for more dialysis tomorrow. Will also look to arrange for dialysis as outpatient. (2) Uremic encephalopathy Is this a current diagnosis for this admission?: Yes Plan: improving with dialysis (3) Anemia in chronic kidney disease Is this a current diagnosis for this admission?: Yes Plan: will look to get a hemoglobin and see how much retacrit is needed for tomorrow. 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
[2020-01-23] MEDS: HYDROCODONE/ACETAMINOPHEN 5-325 MG TABLET PO PRN (17:26)
--- NOTE | 2020-01-23 17:52 | PDOC PROGRESS REPORT ---
Subjective Progress Note for:: 01/23/20 Subjective:: Patient admitted with ESRD requiring HD. Patient very annoyed by uncomfortable external hemorrhoid. He has been calling it a "raisin". I have visualized this myself and it is not bleeding and is quite small. Nephrology is reportedly setting up patient's outpatient dialysis and he may be able to be discharged tomorrow. Other than generalized fatigue, he has no new complaints. Plan for possible discharge tomorrow. Reason For Visit: SYMPTOMATIC ANEMIA,HYPOGLYCEMIA Physical Exam Vital Signs: Temp Pulse Resp BP Pulse Ox 98.9 F 78 19 163/69 H 92 01/23/20 11:07 01/23/20 11:07 01/23/20 11:07 01/23/20 11:07 01/23/20 11:07 Intake & Output 01/22/20 01/23/20 01/24/20 06:59 06:59 06:59 Intake Total 210 1400 460 Output Total 0 2000 Balance 210 -600 460 Weight 97.6 kg 97.6 kg General appearance: PRESENT: no acute distress, well-developed, well-nourished Head exam: PRESENT: atraumatic, normocephalic Eye exam: PRESENT: conjunctiva pink Mouth exam: PRESENT: moist Respiratory exam: PRESENT: clear to auscultation brett. ABSENT: rales, rhonchi, wheezes Cardiovascular exam: PRESENT: RRR. ABSENT: diastolic murmur, rubs, systolic murmur GI/Abdominal exam: PRESENT: normal bowel sounds, soft. ABSENT: distended, guarding, mass, organolmegaly, rebound, tenderness Rectal exam: PRESENT: hemorrhoids Extremities exam: ABSENT: pedal edema Neurological exam: PRESENT: alert, awake, oriented to person, oriented to place, oriented to time, oriented to situation Psychiatric exam: PRESENT: appropriate affect, normal mood Skin exam: PRESENT: dry, intact, warm Results Laboratory Results: 01/22/20 06:09 01/22/20 06:09 Impressions: Chest X-Ray 01/16/20 00:00 IMPRESSION: Borderline cardiomegaly without pulmonary edema. Head CT 01/18/20 00:00 IMPRESSION: NORMAL BRAIN CT WITHOUT CONTRAST. EVIDENCE OF ACUTE STROKE: NO. Guidance Fluoroscopy 01/19/20 00:00 IMPRESSION: IMAGE(S) OBTAINED DURING PROCEDURE. Assessment and Plan - Diagnosis (1) ESRD (end stage renal disease) on dialysis Is this a current diagnosis for this admission?: Yes Plan: Placed on dialysis this admission for CKD 5/ESRD Nephrology following, setting up outpatient dialysis Dialysis access in place, will need evaluation for fistula by vascular surgery outpatient, nephrology to arrange this (2) Anemia in chronic kidney disease Is this a current diagnosis for this admission?: Yes Plan: Nephrology providing epoetin (3) Chronic pancreatitis Is this a current diagnosis for this admission?: Yes Plan: No abdominal pain GI previously consulted, no acute problems (4) Diabetes mellitus type 2 in obese Is this a current diagnosis for this admission?: Yes Plan: Lantus 10 units, sliding scale insulin, Accu-Cheks (5) Uremic encephalopathy Is this a current diagnosis for this admission?: Yes (6) Uremic encephalopathy Is this a current diagnosis for this admission?: Yes Plan: Waxing and waning mentation but currently resolved to baseline mentation Gradual improvement since starting HD (7) Benign hypertension with CKD (chronic kidney disease) stage IV Is this a current diagnosis for this admission?: Yes (8) COPD (chronic obstructive pulmonary disease) Is this a current diagnosis for this admission?: Yes Plan: COPD stable without exacerbation, Continue Incruse Ellipta daily Nebs PRN - Time Time Spent with patient: 25-34 minutes Medications reviewed and adjusted accordingly: Yes Anticipated Discharge Disposition: Home, Self Care Anticipated Discharge: within 24 hours - Inpatient Certification Based on my medical assessment, after consideration of the patient's comorbidities, presenting symptoms, or acuity I expect that the services needed warrant INPATIENT care.: Yes I certify that my determination is in accordance with my understanding of Medicare's requirements for reasonable and necessary INPATIENT services [42 CFR 412.3e].: Yes Medical Necessity: Significant Comorbidiites Make Outpatient Treatment Too Risky, Need Close Monitoring Due to Risk of Patient Decompensation, Risk of Complication if Not Cared For in Hospital, Risk of Diagnosis Which Will Require Inpatient Eval/Care/Monitoring
[2020-01-23] MEDS: BUTALB/ACETAMINOPHEN/CAFFEINE 1 TAB EACH PO PRN (22:42)
[2020-01-23] MEDS: INSULIN GLARGINE,HUM.REC.ANLOG 1,000 UNIT/10 ML VIAL SUBCUT SCH (22:43)
[2020-01-23] MEDS: TAMSULOSIN HCL 0.4 MG CAP.SR.24H PO SCH (22:45)
[2020-01-24] MEDS ORDERED: EPOETIN ALFA-EPBX 20,000 UNIT in SYRINGE, DISPOSABLE, 1 EACH IV PRN (05:00)
[2020-01-24] MEDS: TOPIRAMATE 25 MG TABLET PO SCH ×2 (05:22→17:28)
[2020-01-24] MEDS: HEPARIN SOD (PORCINE) 5,000 UNIT/ML 1 ML VIAL SUBCUT SCH ×2 (05:23→13:00)
[2020-01-24 06:17] LABS: HEMATOCRIT 31.1 % (37.9-51.0); HEMOGLOBIN 9.7 g/dL (13.5-17.0); MEAN CORPUSCULAR HEMOGLOBIN 25.5 pg (27.0-33.4); MEAN CORPUSCULAR HGB CONC 31.2 g/dL (32.0-36.0); MEAN CORPUSCULAR VOLUME 82 fl (80-97); PLATELET COUNT 230 10^3/uL (150-450); RED CELL DISTRIBUTION WIDTH 22.8 % (11.5-14.0)
[2020-01-24 06:31] LABS: ANION GAP 8 (5-19); BLOOD UREA NITROGEN 36 mg/dL (7-20); CALCIUM 8.5 mg/dL (8.4-10.2); CARBON DIOXIDE 29 mmol/L (22-30); CHLORIDE 102 mmol/L (98-107); GLUCOSE 187 mg/dL (75-110); POTASSIUM 3.6 mmol/L (3.6-5.0)
[2020-01-24] MEDS: CALCIUM ACETATE 667 MG CAPSULE PO SCH ×3 (07:57→16:49)
[2020-01-24] MEDS: INSULIN LISPRO 100 UNIT/ML 3 ML VIAL SUBCUT SCH ×3 (07:57→16:48)
[2020-01-24] MEDS ORDERED: HEPARIN SOD (PORCINE) 1,000 UNIT/ML 10 ML VIAL IV PRN (08:46)
[2020-01-24] MEDS: FLUTICASONE/VILANTEROL 100-25 MCG/DOSE IH SCH (09:34)
[2020-01-24] MEDS: UMECLIDINIUM BROMIDE 62.5 MCG/DOSE IH SCH (09:40)
[2020-01-24] MEDS: CARVEDILOL 12.5 MG TABLET PO SCH (09:40)
[2020-01-24] MEDS: SODIUM BICARBONATE 650 MG TABLET PO SCH ×2 (09:41→17:28)
[2020-01-24] MEDS: CALCITRIOL 0.25 MCG CAPSULE PO SCH (09:41)
[2020-01-24] MEDS: AMLODIPINE BESYLATE 10 MG TABLET PO SCH (09:41)
[2020-01-24] MEDS: TIMOLOL MALEATE 0.5% OPH SOLN 5 ML OS SCH (09:41)
[2020-01-24] MEDS: FUROSEMIDE 40 MG TABLET PO SCH ×2 (09:41→17:27)
[2020-01-24] MEDS: BUTALB/ACETAMINOPHEN/CAFFEINE 1 TAB EACH PO PRN (10:46)
--- NOTE | 2020-01-24 11:20 | PDOC PROGRESS REPORT ---
Subjective Progress Note for:: 01/24/20 Reason For Visit: Patient seen today on dialysis. Undergoing dialysis through his IJ catheter without any issues. No complaints of any chest pain or shortness of breath. Appetite is improving. Overall he feels a whole lot better. He says he will try to be more compliant with diet medications and promises not to miss any dialysis treatments as he is known to be very noncompliant. Labs and medications were reviewed. Dialysis orders were reviewed with the treating dialysis nurse. I also discussed him with his treating nurse on the floor. He is all set up to be discharged to [facility] on [address] and his next dialysis as an outpatient should be on Wednesday. Physical Exam Vital Signs: Temp Pulse Resp BP Pulse Ox 97.9 F 75 16 155/70 H 96 01/23/20 23:38 01/24/20 07:00 01/23/20 23:38 01/23/20 23:38 01/23/20 23:38 Intake & Output 01/23/20 01/24/20 01/25/20 06:59 06:59 06:59 Intake Total 1400 680 Output Total 2000 Balance -600 680 Weight 97.6 kg 97.6 kg General appearance: PRESENT: no acute distress Respiratory exam: PRESENT: clear to auscultation brett, decreased breath sounds. ABSENT: crackles Cardiovascular exam: PRESENT: +S1, +S2, systolic murmur GI/Abdominal exam: PRESENT: normal bowel sounds, soft. ABSENT: organomegaly, tenderness Extremities exam: ABSENT: pedal edema Neurological exam: PRESENT: alert, awake, oriented to person, oriented to place Psychiatric exam: PRESENT: appropriate affect Skin exam: ABSENT: erythema, mottled, rash Results Laboratory Results: 01/24/20 05:37 01/24/20 05:37 01/24/20 01/24/20 01/24/20 05:37 05:37 05:57 WBC 10.0 RBC 3.80 L Hgb 9.7 L Hct 31.1 L MCV 82 MCH 25.5 L MCHC 31.2 L RDW 22.8 H Plt Count 230 Sodium 139.2 Potassium 3.6 Chloride 102 Carbon Dioxide 29 Anion Gap 8 BUN 36 H Creatinine 5.08 H Est GFR ( Amer) 14 L Glucose 187 H Calcium 8.5 PTH Intact 184.9 H Impressions: Chest X-Ray 01/16/20 00:00 IMPRESSION: Borderline cardiomegaly without pulmonary edema. Head CT 01/18/20 00:00 IMPRESSION: NORMAL BRAIN CT WITHOUT CONTRAST. EVIDENCE OF ACUTE STROKE: NO. Guidance Fluoroscopy 01/19/20 00:00 IMPRESSION: IMAGE(S) OBTAINED DURING PROCEDURE. Assessment & Plan - Diagnosis (1) End stage renal disease Plan: Patient admitted in uremic encephalopathy state in the background of CKD stage V from diabetes mellitus and hypertension. Patient has been begun on dialysis and seems to be doing well with slowly clearing of his mind. His mind and confu sional state is all cleared and is now back at baseline. Vital signs are stable. Plan to remove 1-2 L as tolerated. Dialysis orders were reviewed with the treating dialysis nurse. He is all set for starting outpatient dialysis at [facility] on this Wednesday. . (2) Uremic encephalopathy Is this a current diagnosis for this admission?: Yes Plan: Resolved. (3) SONY (obstructive sleep apnea) Is this a current diagnosis for this admission?: Yes Plan: Status quo. (4) Proteinuria Is this a current diagnosis for this admission?: Yes Plan: Secondary to diabetic nephropathy which is been poorly controlled because of noncompliance with diet and medications for a long time. (5) COPD (chronic obstructive pulmonary disease) Is this a current diagnosis for this admission?: Yes Plan: Status quo. (6) Diabetes mellitus type 2 in nonobese Plan: Advised for tight control. Unfortunately patient has been very noncompliant regarding adequate control of diabetes and hypertension resulting in multiple endorgan damages. (7) Hypertension Is this a current diagnosis for this admission?: Yes Plan: Fairly well controlled. See response to dialysis. Monitor. (8) Renal osteodystrophy Plan: On calcitriol and phosphate binders. (9) Anemia in chronic kidney disease Is this a current diagnosis for this admission?: Yes Plan: Adjust erythropoietin. (10) Chronic pancreatitis Is this a current diagnosis for this admission?: Yes Plan: As per hospitalist and GI.
[2020-01-24 16:47] VITALS: BP 146/69
--- NOTE | 2020-01-24 16:51 | PDOC DISCHARGE SUMMARY ---
Impression - Admit/DC Date/PCP Admission Date/Primary Care Provider: 01/16/20 16:11 RAYMOND RICCI MD Discharge Date: 01/24/20 - Discharge Diagnosis (1) ESRD (end stage renal disease) on dialysis Is this a current diagnosis for this admission?: Yes (2) Anemia in chronic kidney disease Is this a current diagnosis for this admission?: Yes (3) Chronic pancreatitis Is this a current diagnosis for this admission?: Yes (4) Diabetes mellitus type 2 in obese Is this a current diagnosis for this admission?: Yes (5) Uremic encephalopathy Is this a current diagnosis for this admission?: Yes (6) Uremic encephalopathy Is this a current diagnosis for this admission?: Yes (7) Benign hypertension with CKD (chronic kidney disease) stage IV Is this a current diagnosis for this admission?: Yes (8) COPD (chronic obstructive pulmonary disease) Is this a current diagnosis for this admission?: Yes - Additional Information Resuscitation Status: Full Code Discharge Diet: Other (Comments) - Renal Discharge Activity: Activity As Tolerated, Balance Activity w/Rest Referrals: [facility] [Outside] - 01/26/20 12:00 pm (Arrive by 11 am to complete paperwork.) RAYMOND RICCI MD [Primary Care Provider] - 02/01/20 9:15 am Prescriptions: Carvedilol [Coreg 12.5 mg Tablet] 25 mg PO Q12 #120 Calcium Acetate [Phoslo 667 mg Capsule] 1,334 mg PO MEALS #90 capsule Home Medications: Amlodipine Besylate [Norvasc 10 mg Tablet] 10 mg PO DAILY 01/16/20 Ascorbic Acid [Vitamin C] 500 mg PO DAILY 01/16/20 Aspirin [Aspirin 81 mg Chewable Tablet] 81 mg PO DAILY 01/16/20 Budesonide/Formoterol Fumarate [Symbicort HFA 80-4.5 mcg Inhaler 6.9 gm] 2 puff IH BID 01/16/20 Calcitriol 0.5 mcg PO DAILY 01/16/20 Furosemide [Lasix 40 mg Tablet] 40 mg PO BID 01/16/20 Lipase/Protease/Amylase [Creon Dr 6,000 Units Capsule] 12,000 unit PO Q8 01/16/20 Pantoprazole Sodium [Protonix [address] Tablet] 40 mg PO BID 01/16/20 Sodium Bicarbonate [Sodium Bicarbonate 650 mg Tablet] 1,300 mg PO BID 01/16/20 Tamsulosin HCl [Flomax 0.4 mg Cap.sr] 0.4 mg PO QHS 01/16/20 Timolol Maleate [Timoptic 0.5% Oph Soln 5 ml] 1 drop OS BID 01/16/20 Tiotropium Blanco [Spiriva Handihaler 5 Cap/Kit (18 Mcg/Cap)] 1 cap IH DAILY 01/16/20 Topiramate 50 mg PO Q12 01/16/20 Calcium Acetate [Phoslo 667 mg Capsule] 1,334 mg PO MEALS #90 capsule 01/24/20 Carvedilol [Coreg 12.5 mg Tablet] 25 mg PO Q12 #120 01/24/20 Insulin Glargine,Hum.rec.anlog [Lantus Insulin 100 Unit/1 ml 10 ml] 15 unit PO QHS #0 01/24/20 History of Present Illiness History of Present Illness: Per admitting provider: "SANTIAGO AL is a 64 year old male with a past medical history significant for Insulin-dependent diabetes mellitus, CKD 4, PVD, hypertension, chronic pancreatitis, chronic anemia, obesity, tobacco and substance abuse who presented to the emergency department today for complaint of low blood sugar; found to be in the 40s by EMS. Upon arrival to the emergency department, glucose was corrected to 116. Further evaluation revealed hypertension, anemia (hemoglobin 6.9), normal PT/INR, baseline kidney failure (CR 6.02/BUN 88) and elevated lipase to 929. Emergency department provider has arranged with gastroenterology, Dr. Dodge, for consultation and possible endoscopy/colonoscopy tomorrow. He is ordered 2 units PRBC. Referred to the hospitalist service for further evaluation and management of the above-stated complaints and findings." Hospital Course Hospital Course: Patient measured for uremic encephalopathy, hypoglycemia, severe CKD associated anemia, pancreatitis. Patient was transfused 2 units PRBC and admitted with GI consult. Patient's renal function did not recover and he ended up requiring nephrology consult and long-term dialysis planning. He has been set up with a dialysis center after discharge. Patient's hemoglobin remained stable thereafter. Patient's insulin dosing was significantly reduced to 15 units of Lantus nightly. Patient may very well come completely off of insulin in the setting of ESRD. Uremic encephalopathy essentially resolved at discharge in mentation at or near baseline. Patient voiced understanding of plan and is in full agreement. Prescriptions were sent to his preferred pharmacy. Physical Exam Vital Signs: Temp Pulse Resp BP Pulse Ox 97.9 F 75 16 155/70 H 96 01/23/20 23:38 01/24/20 14:00 01/23/20 23:38 01/23/20 23:38 01/23/20 23:38 Intake & Output 01/23/20 01/24/20 01/25/20 06:59 06:59 06:59 Intake Total 1400 680 Output Total 2000 1800 Balance -600 680 -1800 Weight 97.6 kg 97.6 kg General appearance: PRESENT: no acute distress, well-developed, well-nourished Head exam: PRESENT: atraumatic, normocephalic Eye exam: PRESENT: conjunctiva pink, EOMI, PERRLA. ABSENT: scleral icterus Mouth exam: PRESENT: moist Respiratory exam: PRESENT: clear to auscultation brett. ABSENT: rales, rhonchi, wheezes Cardiovascular exam: PRESENT: RRR. ABSENT: diastolic murmur, rubs, systolic murmur GI/Abdominal exam: PRESENT: normal bowel sounds, soft. ABSENT: distended, guarding, mass, organolmegaly, rebound, tenderness Musculoskeletal exam: PRESENT: ambulatory Neurological exam: PRESENT: alert, awake, oriented to person, oriented to place, oriented to time, oriented to situation Psychiatric exam: PRESENT: appropriate affect, normal mood Skin exam: PRESENT: dry, intact, warm Results Laboratory Results: WBC 10.0 10^3/uL (4.0-10.5) 01/24/20 05:37 RBC 3.80 10^6/uL (4.35-5.55) L 01/24/20 05:37 Hgb 9.7 g/dL (13.5-17.0) L 01/24/20 05:37 Hct 31.1 % (37.9-51.0) L 01/24/20 05:37 MCV 82 fl (80-97) 01/24/20 05:37 MCH 25.5 pg (27.0-33.4) L 01/24/20 05:37 MCHC 31.2 g/dL (32.0-36.0) L 01/24/20 05:37 RDW 22.8 % (11.5-14.0) H 01/24/20 05:37 Plt Count 230 10^3/uL (150-450) 01/24/20 05:37 Lymph % (Auto) 14.5 % (13-45) 01/22/20 06:09 Benzie % (Auto) 11.3 % (3-13) 01/22/20 06:09 Eos % (Auto) 1.1 % (0-6) 01/22/20 06:09 Baso % (Auto) 0.6 % (0-2) 01/22/20 06:09 Reticulocyte # 0.049 10^6/uL (0.028-0.122) 01/18/20 03:57 Absolute Neuts (auto) 7.8 10^3/uL (1.7-8.2) 01/22/20 06:09 Absolute Lymphs (auto) 1.6 10^3/uL (0.5-4.7) 01/22/20 06:09 Absolute Monos (auto) 1.2 10^3/uL (0.1-1.4) 01/22/20 06:09 Absolute Eos (auto) 0.1 10^3/uL (0.0-0.6) 01/22/20 06:09 Absolute Basos (auto) 0.1 10^3/uL (0.0-0.2) 01/22/20 06:09 Seg Neutrophils % 72.5 % (42-78) 01/22/20 06:09 Retic Count (auto) 1.65 % (0.66-2.85) 01/18/20 03:57 PT 13.3 SEC (11.4-15.4) 01/16/20 13:40 INR 1.01 01/16/20 13:40 APTT 33.0 SEC (23.5-35.8) 01/16/20 13:40 Carbonic Acid 1.52 mmol/L (1.05-1.35) H 01/16/20 16:35 HCO3/H2CO3 Ratio 14:1 01/16/20 16:35 ABG pH 7.27 (7.35-7.45) L 01/16/20 16:35 ABG pCO2 50.4 mmHg (35-45) H 01/16/20 16:35 ABG pO2 74.5 mmHg (80-100) L 01/16/20 16:35 ABG HCO3 22.6 mmol/L (20-24) 01/16/20 16:35 ABG Total CO2 24.1 mmol/L (23-27) 01/16/20 16:35 ABG O2 Saturation 92.9 % (94-98) L 01/16/20 16:35 ABG Base Excess -4.2 mmol/L 01/16/20 16:35 FiO2 ROOM AIR 01/16/20 16:35 Sodium 139.2 mmol/L (137-145) 01/24/20 05:37 Potassium 3.6 mmol/L (3.6-5.0) 01/24/20 05:37 Chloride 102 mmol/L (98-107) 01/24/20 05:37 Carbon Dioxide 29 mmol/L (22-30) 01/24/20 05:37 Anion Gap 8 (5-19) 01/24/20 05:37 BUN 36 mg/dL (7-20) H 01/24/20 05:37 Creatinine 5.08 mg/dL (0.52-1.25) H 01/24/20 05:37 Est GFR ( Amer) 14 (>60) L 01/24/20 05:37 Est GFR (MDRD) Non-Af 12 (>60) L 01/24/20 05:37 Glucose 187 mg/dL (75-110) H 01/24/20 05:37 POC Glucose 215 mg/dL (70-110) H 01/24/20 11:06 Calcium 8.5 mg/dL (8.4-10.2) 01/24/20 05:37 Phosphorus 7.0 mg/dL (2.5-4.5) H 01/18/20 03:57 Magnesium 1.8 mg/dL (1.6-2.3) 01/18/20 03:57 Iron 13.3 ug/dL (49-181) L 01/18/20 03:57 TIBC 316 ug/dL (250-450) 01/18/20 03:57 % Saturation 4 % 01/18/20 03:57 Ferritin 25.50 ng/mL (17.9-464.0) 01/18/20 03:57 Total Bilirubin 0.3 mg/dL (0.2-1.3) 01/16/20 13:40 Direct Bilirubin 0.1 mg/dL (0.0-0.4) 01/16/20 13:40 Neonat Total Bilirubin Not Reportable 01/16/20 13:40 Neonat Direct Bilirubin Not Reportable 01/16/20 13:40 Neonat Indirect Bili Not Reportable 01/16/20 13:40 AST 21 U/L (17-59) 01/16/20 13:40 ALT 12 U/L (<50) 01/16/20 13:40 Alkaline Phosphatase 124 U/L (38-126) 01/16/20 13:40 Total Protein 7.3 g/dL (6.3-8.2) 01/16/20 13:40 Albumin 3.5 g/dL (3.5-5.0) 01/16/20 13:40 Lipase 668.6 U/L (23-300) H 01/18/20 03:57 Vitamin B12 430.0 pg/mL (239-931) 01/18/20 03:57 Folate 10.30 ng/mL (>2.76) 01/18/20 03:57 PTH Intact 184.9 pg/mL (10.0-65.0) H 01/24/20 05:57 Urine Color STRAW 01/16/20 17:12 Urine Appearance CLEAR 01/16/20 17:12 Urine pH 6.0 (5.0-9.0) 01/16/20 17:12 Ur Specific [place] 1.012 01/16/20 17:12 Urine Protein 100 mg/dL (NEGATIVE) H 01/16/20 17:12 Urine Glucose (UA) 50 mg/dL (NEGATIVE) H 01/16/20 17:12 Urine Ketones NEGATIVE mg/dL (NEGATIVE) 01/16/20 17:12 Urine Blood SMALL (NEGATIVE) H 01/16/20 17:12 Urine Nitrite NEGATIVE (NEGATIVE) 01/16/20 17:12 Urine Bilirubin NEGATIVE (NEGATIVE) 01/16/20 17:12 Urine Urobilinogen NEGATIVE mg/dL (<2.0) 01/16/20 17:12 Ur Leukocyte Esterase TRACE (NEGATIVE) H 01/16/20 17:12 Urine WBC (Auto) 0 /HPF 01/16/20 17:12 Urine RBC (Auto) 3 /HPF 01/16/20 17:12 Urine Mucus (Auto) RARE /LPF 01/16/20 17:12 Urine Ascorbic Acid 20 (NEGATIVE) H 01/16/20 17:12 POC Stool Occult Blood NEGATIVE (NEGATIVE) 01/16/20 14:26 Urine Opiates Screen NEGATIVE 01/16/20 17:12 Urine Methadone Screen NEGATIVE 01/16/20 17:12 Ur Barbiturates Screen NEGATIVE 01/16/20 17:12 Ur Phencyclidine Scrn NEGATIVE 01/16/20 17:12 Ur Amphetamines Screen NEGATIVE 01/16/20 17:12 U Benzodiazepines Scrn NEGATIVE 01/16/20 17:12 Urine Cocaine Screen NEGATIVE 01/16/20 17:12 U Marijuana (THC) Screen UNCONFIRMED POSITIVE 01/16/20 17:12 Hep Bs Antigen Negative (Negative) 01/19/20 05:05 Hep Bs Antibody, Quant <3.1 mIU/mL (Immunity>9) L 01/19/20 05:05 Hep B Core Total Ab Negative (Negative) 01/19/20 05:05 HCV Quantitation HCV Not Detected IU/mL (.) 01/19/20 05:05 HCV RNA PCR Test Info Comment (.) 01/19/20 05:05 SARS-CoV-2 (PCR) NEGATIVE (NEGATIVE) 01/16/20 18:20 Blood Type A POSITIVE 01/16/20 14:55 Antibody Screen NEGATIVE 01/16/20 14:55 Crossmatch See Detail 01/16/20 14:55 Impressions: Chest X-Ray 01/16/20 00:00 IMPRESSION: Borderline cardiomegaly without pulmonary edema. Head CT 01/18/20 00:00 IMPRESSION: NORMAL BRAIN CT WITHOUT CONTRAST. EVIDENCE OF ACUTE STROKE: NO. Guidance Fluoroscopy 01/19/20 00:00 IMPRESSION: IMAGE(S) OBTAINED DURING PROCEDURE. Plan Plan of Treatment: Follow-up with PCP Follow-up with nephrology Attend dialysis as scheduled Time Spent: Greater than 30 Minutes Stroke Is this a Stroke Patient?: No Acute Heart Failure - Is this a Heart Failure Patient?: No
== END 2020-01-24 17:38 | disposition home or self-care (01) | DRG 683 ==
LOC: ER 13:37 → EH 16:11 → 4N 17:42
PROVIDERS: ADMIT Hospitalist; ATTEND Internal Medicine
PROC: 30233N1 Transfusion of Nonautologous Red Blood Cells into Peripheral Vein, Percutaneous Approach (ICD-10-PCS; principal; 2020-01-16)
PROC: 5A1D70Z Performance of Urinary Filtration, Intermittent, Less than 6 Hours Per Day (ICD-10-PCS; 2020-01-16)
PROC: 0DBE8ZX Excision of Large Intestine, Via Natural or Artificial Opening Endoscopic, Diagnostic (ICD-10-PCS; 2020-01-17)
PROC: 0DB78ZX Excision of Stomach, Pylorus, Via Natural or Artificial Opening Endoscopic, Diagnostic (ICD-10-PCS; 2020-01-17)
PROC: 02HV33Z Insertion of Infusion Device into Superior Vena Cava, Percutaneous Approach (ICD-10-PCS; 2020-01-19)
PROC: B548ZZA Ultrasonography of Superior Vena Cava, Guidance (ICD-10-PCS; 2020-01-19)
DX: I12.0 Hypertensive chronic kidney disease with stage 5 chronic kidney disease or end stage renal disease (principal); N18.5 Chronic kidney disease, stage 5; D62 Acute posthemorrhagic anemia; K86.1 Other chronic pancreatitis; G93.49 Other encephalopathy; E16.2 Hypoglycemia, unspecified; E11.21 Type 2 diabetes mellitus with diabetic nephropathy; E11.22 Type 2 diabetes mellitus with diabetic chronic kidney disease; E78.00 Pure hypercholesterolemia, unspecified; K21.9 Gastro-esophageal reflux disease without esophagitis; D63.1 Anemia in chronic kidney disease; J44.9 Chronic obstructive pulmonary disease, unspecified; E83.39 Other disorders of phosphorus metabolism; I73.9 Peripheral vascular disease, unspecified; N40.0 Benign prostatic hyperplasia without lower urinary tract symptoms; H40.9 Unspecified glaucoma; G47.33 Obstructive sleep apnea (adult) (pediatric); F17.210 Nicotine dependence, cigarettes, uncomplicated; Z20.828 Contact with and (suspected) exposure to other viral communicable diseases; Z60.2 Problems related to living alone; Z79.4 Long term (current) use of insulin; Z79.82 Long term (current) use of aspirin; Z79.51 Long term (current) use of inhaled steroids; Z79.899 Other long term (current) drug therapy
CPT/HCPCS: 00532; 00813; 36415; 36430; 43239; 45380; 70450; 71045; 77001; 80048; 80053; 80307; 81001; 82270; 82607; 82728; 82746; 82803; 82962; 83540; 83550; 83690; 83735; 83970; 84100; 85025; 85027; 85045; 85610; 85730; 86317; 86704; 86850; 86900; 86901; 86920; 87340; 87522; 87635; 88305; 88342; 94660; 99140; 99291; C1713; C1752; C9113; C9803; J0360; J0690; J1439; J1642; J1644; J1815; J1940; J2001; J2250; J2405; J2704; J3010; J3490; J7042; J7050; P9016; Q5105; Q5106

== ENCOUNTER → 2020-02-05 | Outpatient (CLI) | payer MEDICARE ==
--- NOTE | 2020-02-06 12:25 | RADIOLOGY REPORT (SQ) ---
EXAM DESCRIPTION: C SP 4 OR 5 VIEWS IMAGES COMPLETED DATE/TIME: 02/06/2020 10:58 am REASON FOR STUDY: NECK PAIN M54.2 CERVICALGIA COMPARISON: None. NUMBER OF VIEWS: Five views. TECHNIQUE: AP, lateral, obliques and odontoid radiographic images acquired of the cervical spine. LIMITATIONS: None. FINDINGS: MINERALIZATION: Normal. ALIGNMENT: Anatomic. VERTEBRAE: Vertebral bodies of normal height. DISCS: Disc spaces are narrowed at C3-4 and at C5-6 with marginal osteophytes. FORAMINA: There is foraminal narrowing on the right at C3-4 and at C5-6 secondary to uncovertebral os teophytes. LATERAL AND POSTERIOR ELEMENTS: Facets, lateral masses and spinous processes without significant find ings. HARDWARE: None in the spine. SOFT TISSUES: No masses or calcifications. Lung apices clear. OTHER: No other significant finding. IMPRESSION: Degenerative disc disease and spondylosis. TECHNICAL DOCUMENTATION: JOB ID: [id number] 2010 [employer]- All Rights Reserved Reading location - IP/workstation name: [email or web address]
== END ==
LOC: RAD 11:38
PROVIDERS: ATTEND Family Medicine Geriatric Medicine
DX: M50.322 Other cervical disc degeneration at C5-C6 level (principal); M47.812 Spondylosis without myelopathy or radiculopathy, cervical region

== ENCOUNTER → 2020-02-06 | Outpatient (CLI) | payer MEDICARE ==
--- NOTE | 2020-02-06 11:36 | RADIOLOGY REPORT (SQ) ---
EXAM DESCRIPTION: CT HEAD WITHOUT IMAGES COMPLETED DATE/TIME: 02/06/2020 10:21 am REASON FOR STUDY: R51 HEADACHE R51 HEADACHE COMPARISON: 01/18/2020. TECHNIQUE: Axial images acquired through the brain without intravenous contrast. Images reviewed wi th bone, brain and subdural windows. Additional sagittal and coronal reconstructions were generated. Images stored on PACS. All CT scanners at this facility use dose modulation, iterative reconstruction, and/or weight based d osing when appropriate to reduce radiation dose to as low as reasonably achievable (ALARA). [facility]: Dose Right [facility]: CareDose [facility]: Dose Right [facility]: Teradose 4D [facility]: Venafi RADIATION DOSE: CT Rad equipment meets quality standard of care and radiation dose reduction techniq ues were employed. CTDIvol: 48.6 mGy. DLP: 905 mGy-cm. mGy. LIMITATIONS: None. FINDINGS: VENTRICLES: Normal size and contour. CEREBRUM: No masses. No hemorrhage. No midline shift. No evidence for acute infarction. Normal gra y/white matter differentiation. No areas of low density in the white matter. CEREBELLUM: No masses. No hemorrhage. No alteration of density. No evidence for acute infarction. EXTRAAXIAL SPACES: No fluid collections. No masses. ORBITS AND GLOBE: No intra- or extraconal masses. Normal contour of globe without masses. CALVARIUM: No fracture. PARANASAL SINUSES: No fluid or mucosal thickening. SOFT TISSUES: No mass or hematoma. OTHER: No other significant finding. IMPRESSION: NORMAL BRAIN CT WITHOUT CONTRAST. EVIDENCE OF ACUTE STROKE: NO. COMMENT: Quality ID # [id number]: Final reports with documentation of one or more dose reduction techniques (e.g., Automated exposure control, adjustment of the mA and/or kV according to patient size, use of iterative reconstruction technique) TECHNICAL DOCUMENTATION: JOB ID: [id number] 2010 [employer]- All Rights Reserved Reading location - IP/workstation name: [email or web address]
== END ==
LOC: RAD 10:10
PROVIDERS: ATTEND Family Medicine Geriatric Medicine
DX: R51 Headache (principal)
CPT/HCPCS: 70450

== ENCOUNTER 2020-02-22 08:03 | Outpatient (CLI) | payer MEDICARE ==
[~2020-02-22 08:03] MED LIST changes: -FERUMOXYTOL (ESRD) 510 MG/NS 100 ML IV PRN; +FERUMOXYTOL (NON-ESRD) 510 MG/NS 100 ML IV PRN; +NORMAL SALINE 250 ML IV PRN
[2020-02-22 09:07] VITALS: BP 119/63
== END 2020-02-22 09:30 | disposition home or self-care (01) ==
LOC: II 08:03 → 5TH 08:04 → II 09:30
PROVIDERS: ATTEND Internal Medicine Hematology & Oncology
DX: D50.9 Iron deficiency anemia, unspecified (principal); N18.4 Chronic kidney disease, stage 4 (severe)
CPT/HCPCS: 96365; Q0138; J7050

== ENCOUNTER → 2020-02-22 | Outpatient (CLI) | payer MEDICARE ==
[2020-02-22 11:31] LABS: ABSOLUTE BASOPHILS # (AUTO) 0.1 10^3/uL (0.0-0.2); ABSOLUTE EOSINOPHILS # (AUTO) 0.2 10^3/uL (0.0-0.6); ABSOLUTE LYMPHOCYTES (AUTO) 2.3 10^3/uL (0.5-4.7); ABSOLUTE MONOCYTES (AUTO) 0.6 10^3/uL (0.1-1.4); ABSOLUTE NEUT (AUTO) 4.3 10^3/uL (1.7-8.2); BASOPHILS % (AUTO) 0.8 % (0-2); EOSINOPHILS % (AUTO) 2.6 % (0-6); HEMATOCRIT 33.3 % (37.9-51.0); HEMOGLOBIN 10.8 g/dL (13.5-17.0); LYMPHOCYTES % (AUTO) 30.5 % (13-45); MEAN CORPUSCULAR HEMOGLOBIN 26.3 pg (27.0-33.4); MEAN CORPUSCULAR HGB CONC 32.5 g/dL (32.0-36.0); MEAN CORPUSCULAR VOLUME 81 fl (80-97); MONOCYTES % (AUTO) 8.6 % (3-13); PLATELET COUNT 194 10^3/uL (150-450); RED BLOOD COUNT 4.11 10^6/uL (4.35-5.55); SEGMENTED NEUTROPHILS % (AUTO) 57.5 % (42-78); TOTAL CELLS COUNTED % (AUTO) 100 %; WHITE BLOOD COUNT 7.5 10^3/uL (4.0-10.5)
[2020-02-22 12:03] LABS: ALBUMIN 3.8 g/dL (3.5-5.0); ALKALINE PHOSPHATASE 119 U/L (38-126); ANION GAP 10 (5-19); ASPARTATE AMINO TRANSFERASE 22 U/L (17-59); BILIRUBIN,DIRECT 0.5 mg/dL (0.0-0.4); BILIRUBIN,TOTAL 0.6 mg/dL (0.2-1.3); BLOOD UREA NITROGEN 18 mg/dL (7-20); CALCIUM 9.1 mg/dL (8.4-10.2); CARBON DIOXIDE 29 mmol/L (22-30); CHLORIDE 102 mmol/L (98-107); GLUCOSE 173 mg/dL (75-110); POTASSIUM 3.9 mmol/L (3.6-5.0); TOTAL PROTEIN 7.4 g/dL (6.3-8.2)
[2020-02-22 12:04] LABS: C-REACTIVE PROTEIN < 5.0 mg/L (<10.0)
[2020-02-22 12:15] LABS: ERYTHROCYTE SEDIMENTATION RATE 59 mm/hr (0-20)
== END ==
LOC: WC 10:46
PROVIDERS: ATTEND Preventive Medicine Undersea and Hyperbaric Medicine
DX: E11.621 Type 2 diabetes mellitus with foot ulcer (principal); L97.512 Non-pressure chronic ulcer of other part of right foot with fat layer exposed
CPT/HCPCS: 36415; 80053; 83036; 85025; 85652; 86140

== ENCOUNTER 2020-03-01 09:52 | Outpatient (CLI) | payer MEDICARE ==
[~2020-03-01 09:52] MED LIST changes: +FERUMOXYTOL 510 MG in NORMAL SALINE 100 ML IV PRN
[2020-03-01 10:14] VITALS: BP 158/70
== END 2020-03-01 10:46 | disposition home or self-care (01) ==
LOC: II 09:52 → 5TH 09:54 → II 10:46
PROVIDERS: ATTEND Internal Medicine Hematology & Oncology
DX: D50.9 Iron deficiency anemia, unspecified (principal); N18.4 Chronic kidney disease, stage 4 (severe)
CPT/HCPCS: 96365; Q0138; J7050

== ENCOUNTER → 2020-04-11 | Outpatient (CLI) | payer MEDICARE ==
[2020-04-11 15:24] LABS: ABSOLUTE BASOPHILS # (AUTO) 0.1 10^3/uL (0.0-0.2); ABSOLUTE EOSINOPHILS # (AUTO) 0.3 10^3/uL (0.0-0.6); ABSOLUTE LYMPHOCYTES (AUTO) 2.6 10^3/uL (0.5-4.7); ABSOLUTE MONOCYTES (AUTO) 0.9 10^3/uL (0.1-1.4); ABSOLUTE NEUT (AUTO) 3.6 10^3/uL (1.7-8.2); BASOPHILS % (AUTO) 0.8 % (0-2); EOSINOPHILS % (AUTO) 3.7 % (0-6); HEMATOCRIT 32.1 % (37.9-51.0); HEMOGLOBIN 10.8 g/dL (13.5-17.0); LYMPHOCYTES % (AUTO) 34.7 % (13-45); MEAN CORPUSCULAR HEMOGLOBIN 29.2 pg (27.0-33.4); MEAN CORPUSCULAR HGB CONC 33.8 g/dL (32.0-36.0); MEAN CORPUSCULAR VOLUME 86 fl (80-97); MONOCYTES % (AUTO) 12.1 % (3-13); PLATELET COUNT 212 10^3/uL (150-450); RED BLOOD COUNT 3.72 10^6/uL (4.35-5.55); RED CELL DISTRIBUTION WIDTH 22.3 % (11.5-14.0); SEGMENTED NEUTROPHILS % (AUTO) 48.7 % (42-78); TOTAL CELLS COUNTED % (AUTO) 100 %; WHITE BLOOD COUNT 7.4 10^3/uL (4.0-10.5)
[2020-04-11 15:40] LABS: ANION GAP 14 (5-19); BLOOD UREA NITROGEN 66 mg/dL (7-20); CALCIUM 8.7 mg/dL (8.4-10.2); CARBON DIOXIDE 24 mmol/L (22-30); CHLORIDE 101 mmol/L (98-107); GLUCOSE 156 mg/dL (75-110); POTASSIUM 4.6 mmol/L (3.6-5.0)
== END ==
LOC: OD 14:24
PROVIDERS: ATTEND Family Medicine Geriatric Medicine
DX: I10 Essential (primary) hypertension (principal); Z79.899 Other long term (current) drug therapy
CPT/HCPCS: 36415; 80048; 85025

== ENCOUNTER → 2020-07-08 | Outpatient (CLI) | payer MEDICARE ==
[2020-07-08 13:53] LABS: CHOLESTEROL 169.91 mg/dL (0-200); TRIGLYCERIDES 150 mg/dL (<150)
[2020-07-08 14:05] LABS: DIRECT LDL 98 mg/dL (<100)
== END ==
LOC: OD 11:57
PROVIDERS: ATTEND Family Medicine Geriatric Medicine
DX: E78.5 Hyperlipidemia, unspecified (principal); Z79.899 Other long term (current) drug therapy
CPT/HCPCS: 36415; 80061; 84460